=== PATIENT | male | born 1945 | race Caucasian/White ===

== ENCOUNTER 2020-09-22 23:04 | Inpatient (IN) | payer MEDICARE, SELFPAY ==
--- NOTE | ~2020-09-22 | XR_ITS ---
EXAMINATION: XR CHEST CLINICAL INFORMATION: Shortness of breath COMPARISON: 09/23/2020 TECHNIQUE: Frontal view of the chest was obtained. FINDINGS: Cardiac leads overlie the chest. The lungs are well expanded. Increased patchy right basilar opacities. No pleural effusion or pneumothorax. The cardiomediastinal silhouette is normal in size with a tortuous and calcified aorta. XR/XR chest 1V IMPRESSION: Increased patchy opacities of the right base could be infectious or inflammatory. Aspiration possible.
--- NOTE | ~2020-09-22 | XR_ITS ---
EXAMINATION: XR CHEST CLINICAL INFORMATION: Cough COMPARISON: None TECHNIQUE: Frontal portable view of the chest was obtained. 2320 hours FINDINGS: No significant abnormality is noted involving the heart, lungs, mediastinum, bony thorax or soft tissues. XR/XR chest 1V IMPRESSION: Unremarkable examination.
--- NOTE | ~2020-09-22 | CT_ITS ---
EXAMINATION: CT HEAD WITHOUT CONTRAST CLINICAL INFORMATION: Dizziness COMPARISON: None. TECHNIQUE: Contiguous axial imaging was performed from the skull base to vertex without intravenous contrast. This CT examination was performed using dose optimization techniques as appropriate, variously including the following: * Automated exposure control * Adjustment of mA and/or kV according to patient size (this includes techniques or standardized protocols for targeted exams where dose is matched to indication/reason for exam; i.e. extremities or head) Use of iterative reconstruction technique DLP: 727 mGy-cm. FINDINGS: There is no evidence of acute intracranial hemorrhage or territorial infarction. No abnormal mass effect or midline shift is seen. Guevara to white matter differentiation is well preserved. No extra-axial fluid collections are identified. No hydrocephalus. Proportional prominence of the ventricles and sulcal spaces is consistent with mild volume loss. Patchy periventricular and deep white matter hypoattenuation is consistent with mild small vessel ischemic changes. The osseous structures and soft tissues are normal. The mastoid air cells and visualized portions of the paranasal sinuses are well aerated. CT/CT head/brain wo con IMPRESSION: No acute intracranial pathology. Mild volume loss with small vessel ischemic change.
--- NOTE | ~2020-09-22 | CT_ITS ---
EXAMINATION: CT ANGIOGRAM CHEST CLINICAL INFORMATION: Evaluate aorta COMPARISON: Previous chest x-ray 09/23/2020 TECHNIQUE: Multiple axial images were obtained through the chest after the administration of 70 mL of Omnipaque 350 intravenous contrast. Extensive vascular post-processing including two-dimensional and three-dimensional reformatted images were created and reviewed on an independent workstation. This CT examination was performed using dose optimization techniques as appropriate, variously including the following: *Automated exposure control *Adjustment of mA and/or kV according to patient size (this includes techniques or standardized protocols for targeted exams where dose is matched to indication/reason for exam; i.e. extremities or head) *Use of iterative reconstruction technique DLP: 190 mGy-cm FINDINGS: The aortic root is dilated measuring 5.1 cm. The ascending thoracic aorta is upper normal in size measuring 3.9 cm. The aortic arch is upper normal in size measuring 3 cm. The descending thoracic aorta is minimally dilated measuring 3.2 cm. No aortic dissection is seen. The heart is enlarged. The great vessel origins are patent and normal in caliber. There is an aberrant medial course of both internal carotid arteries. There is no pericardial effusion. There is mild coronary artery calcification. There are no enlarged hilar or mediastinal lymph nodes. The visualized thyroid gland is unremarkable. There is biapical pleural and parenchymal scarring and calcification. There is a 3 x 10 mm right apical nodule axial image 89 series 7 that may be related to pleural parenchymal scarring. There is a 2 x 4 mm right upper lobe nodule axial image 122 series 7 that also may be related to pleural parenchymal scarring. There is linear scarring or subsegmental atelectasis in the right lower lobe. There are small bilateral pleural effusions. No chest wall mass or enlarged axillary lymph nodes are seen. There are several low-attenuation liver lesions probably representing cysts. The largest measures 1 cm in the lateral segment of the left lobe.. CT/CT angio chest IMPRESSION: Dilated aortic root measuring 5.1 cm. Enlarged heart. Mild coronary artery calcification. Mild biapical pleural and parenchymal scarring. Small right upper lobe nodules. According to the UPDATED 2017 Fleischner Society recommendations, the advised follow-up imaging: Low risk, chest CT follow-up and high risk, optional chest CT follow-up in one year. Small bilateral pleural effusions. Probable small liver cysts. Findings will be communicated by the [facility] work flow pupil personnel services director Rena Gallegos.
--- NOTE | ~2020-09-22 | MR_ITS ---
EXAMINATION: MR BRAIN WITHOUT CONTRAST CLINICAL INFORMATION: Left leg weakness. COMPARISON: Head CT 09/23/2020. TECHNIQUE: Multiplanar, multisequence imaging of the brain was performed without intravenous contrast. FINDINGS: There is no acute infarction, mass, hemorrhage, or extra-axial collection. Moderate patchy T2/FLAIR hyperintensity seen throughout the bilateral cerebral white matter compatible with chronic microangiopathy. The ventricles and sulci are commensurate compatible with mild degree of brain parenchymal volume loss. The flow voids of the major intracranial arteries appear intact. The bones and extracranial soft tissues are unremarkable. Bilateral lens replacements are seen. There is hyperlordosis in the upper cervical spine with mild retrolisthesis of C3 on C4 and anterolisthesis of C4 on C5. Spinal canal is narrowed. MR/MR head/brain wo con IMPRESSION: No acute infarct, mass lesion, intracranial hemorrhage, or evidence of hydrocephalus. Changes of moderate chronic microangiopathy. Incidentally noted is hyperlordosis in the upper cervical spine with associated spinal canal narrowing.
[2020-09-22 23:12] VITALS: BP 115/66; PULSE 113; RESP 18; TEMP 36.7; O2SAT 99; BMI 26.4
[2020-09-23] VITALS (11 sets, daily range): BP systolic 112–143; BP diastolic 64–83; PULSE 85–113; RESP 18–36; TEMP 36–37.1; O2SAT 92–99; BMI 26.6
--- NOTE | 2020-09-23 00:11 | ED.DIZZY ---
HPI - Dizziness General Chief Complaint: Dizziness Stated Complaint: dizzy, diarrhea, runny nose approx 2 days Time Seen by Provider: 09/23/20 00:09 History of Present Illness HPI Narrative: 75-year-old male with a history of having diarrhea for last 2 days. There has been no recent antibiotics. Her diarrhea was brown in color. No cough no congestion or upper respiratory symptoms the patient had his COVID vaccine. Took Imodium today the diarrhea slowly improved. Patient feel lightheaded weak. No chest pain. No focal weakness. Patient home. No fever. No pain on urination. No new medication. Related Data Allergies Allergy/AdvReac Type Severity Reaction Status Date / Time No Known Allergies Allergy Verified 09/22/20 23:15 Review of Systems Review of Systems: Positive generalized malaise weakness Dizziness No chest pain No focal weakness No bloody stool No syncope Yes all other systems are reviewed and are negative [facility] Past Medical History Attestation statement: The following information was validated with the patient. Surgical History S/P hip replacement Social History Social History Alcohol intake: never Patient Tobacco Use Status: Never used Tobacco Use of substances other than those prescribed or required for medical reasons: No Advance Directives: No Physical Exam Vital Signs: Vital Signs: Last Vital Signs Temp 98.0 F 09/23/20 00:00 Pulse 102 H 09/23/20 04:30 Resp 27 H 09/23/20 04:30 BP 123/72 09/23/20 04:30 Pulse Ox 97 09/23/20 04:30 Body Mass Index 26.4 Appearance: Alert. Oriented X3. No acute distress. Eyes: Pupils equal, round and reactive to light. ENT: Pharynx normal. Neck: Normal inspection. Neck supple. No lymph nodes noted. No crepitus CVS: Normal heart rate and rhythm. Pulses normal. Normal S1 and S2 Respiratory: No respiratory distress. Breath sounds normal. No Wheezing. No rales Abdomen: Soft and nontender. No rigidity. No distention. good BS x4 Skin: Skin warm and dry. Normal skin color. Normal skin turgor. Extremities: No lower extremity edema. Neurovascular intact to all extremities. No Lacerations. No Rash Neuro: Oriented X 3. No motor deficit. No sensory deficit. Moving all extermities. No slurred speech NIH Stroke Scale Internal: Initial- Upon Arrival Level of Consciousness: Alert Level of Consciousness Questions: Answers both questions correctly Level of Consciousness Commands: Performs both tasks correctly Best Gaze: Normal Visual: No visual loss Facial Palsy: Normal Motor Arm (Right): No drift Motor Arm (Left): No drift Motor Leg (Right): No drift Motor Leg (Left): No drift Limb Ataxia: Absent Sensory: Normal Best Language: No aphasia Dysarthia: Normal Extinction and Inattention: No abnormality Score: 0 MDM - Dizziness MDM Narrative Medical decision making narrative: Patient's EKG showed a sinus tachycardia heart rate was 110. MD QRS QT within normal limits. There is nonspecific T-wave flattening diffusely noted. Patient's initial troponin was negative. A 2nd set of troponin is approximately the same. He was given fluid in the emergency department. A chest x-ray was done initially was negative. Patient's white count 11. Attempted to ambulate patient after IV fluid hydration. Patient initially felt him much improved after IV fluids. Patient was extremely wobbly. The family said this is not his baseline. Question if patient had a posterior circulation issue. Will require admission for further evaluation. Patient off load node has no focal weakness. Patient was noted to have increased respiratory rate after IV fluids. A repeat chest x-ray was done. It showed a right lower lobe infiltrate. Cultures will be obtained in the settings of increased heart rate and in the setting of increased respiratory rate cultures were also be obtained. Antibiotics started. Will monitor carefully. Patient's case discussed with the hospitalist team. Lab Data Result diagrams: 09/23/20 00:30 09/23/20 00:30 Labs: Lab Results 09/23/20 09/23/20 09/23/20 Range/Units 00:30 00:30 00:30 WBC 11.4 H (4.8-10.8) X10*3/uL RBC 5.23 (4.60-5.80) X10*6/uL Hgb 15.7 (14.0-18.0) g/dl Hct 47.7 (42-52) % MCV 91.2 (80-98) fL MCH 30.0 (27.0-33.0) pg MCHC 32.9 (31.0-36.0) g/dl RDW 13.2 (11.0-16.0) % Plt Count 160 (160-400) X10*3/uL MPV 9.6 (9.4-12.4) fL Immature Gran % (Auto) 0.3 (0.0-0.4) % Neut % (Auto) 86.5 H (45-73) % Lymph % (Auto) 7.0 L (20-40) % [place] % (Auto) 6.0 (2-11) % Eos % (Auto) 0.0 (0-4) % Baso % (Auto) 0.2 (0-2) % Lymph # (Auto) 0.8 L (1.2-4.9) X10*3/uL [place] # (Auto) 0.7 (0.1-1.2) X10*3/uL Eos # (Auto) 0.0 (0.0-0.4) X10*3/uL Baso # (Auto) 0.0 (0.0-0.2) X10*3/uL Abs Immat Gran (auto) 0.03 (0.00-0.03) X10*3/uL Absolute Neuts (auto) 9.9 H (2.0-8.3) X10*3/uL Absolute Nucleated RBC 0.000 (0.0-0.012) X10*3/uL Nucleated RBC % (auto) 0.0 (0.0-0.2) /100WBC Sodium 138 (135-145) mmol/L Potassium 4.1 (3.3-5.1) mmol/L Chloride 102 (96-108) mmol/L Carbon Dioxide 24 (22-29) mmol/L Anion Gap 16 (12-20) BUN 26 H (9-16) mg/dL Creatinine 1.38 (0.5-1.4) mg/dL Estim Creat Clear Calc 50.7 Estimated GFR 51 Random Glucose 131 H (60-115) mg/dL Calcium 8.9 (8.4-10.2) mg/dL Total Bilirubin 0.9 (0.0-1.0) mg/dL AST 22 (5-37) U/L ALT 11 (0-40) U/L Alkaline Phosphatase 79 (39-117) U/L Troponin I High Sens 30.5 (<3.5-35.0) ng/L Total Protein 7.0 (6.5-8.0) g/dL Albumin 4.1 (3.5-5.0) g/dL Lipase 23 (8-78) U/L Urine Color Urine Appearance Urine pH (5.0-8.0) Ur Specific [place] (1.005-1.025) Urine Protein (NEG-TRACE) MG/DL Urine Glucose (UA) (NEG) MG/DL Urine Ketones (NEG) MG/DL Urine Blood (NEG) Urine Nitrite (NEG) Ur Leukocyte Esterase (NEG) Urine RBC (0) /HPF Urine WBC (0-4) /HPF Ur Squamous Epith Cells /LPF Urine Bacteria /LPF Hyaline Casts /LPF Granular Casts /LPF Urine Mucus /LPF 09/23/20 09/23/20 Range/Units 01:02 02:21 WBC (4.8-10.8) X10*3/uL RBC (4.60-5.80) X10*6/uL Hgb (14.0-18.0) g/dl Hct (42-52) % MCV (80-98) fL MCH (27.0-33.0) pg MCHC (31.0-36.0) g/dl RDW (11.0-16.0) % Plt Count (160-400) X10*3/uL MPV (9.4-12.4) fL Immature Gran % (Auto) (0.0-0.4) % Neut % (Auto) (45-73) % Lymph % (Auto) (20-40) % [place] % (Auto) (2-11) % Eos % (Auto) (0-4) % Baso % (Auto) (0-2) % Lymph # (Auto) (1.2-4.9) X10*3/uL [place] # (Auto) (0.1-1.2) X10*3/uL Eos # (Auto) (0.0-0.4) X10*3/uL Baso # (Auto) (0.0-0.2) X10*3/uL Abs Immat Gran (auto) (0.00-0.03) X10*3/uL Absolute Neuts (auto) (2.0-8.3) X10*3/uL Absolute Nucleated RBC (0.0-0.012) X10*3/uL Nucleated RBC % (auto) (0.0-0.2) /100WBC Sodium (135-145) mmol/L Potassium (3.3-5.1) mmol/L Chloride (96-108) mmol/L Carbon Dioxide (22-29) mmol/L Anion Gap (12-20) BUN (9-16) mg/dL Creatinine (0.5-1.4) mg/dL Estim Creat Clear Calc Estimated GFR Random Glucose (60-115) mg/dL Calcium (8.4-10.2) mg/dL Total Bilirubin (0.0-1.0) mg/dL AST (5-37) U/L ALT (0-40) U/L Alkaline Phosphatase (39-117) U/L Troponin I High Sens 28.7 (<3.5-35.0) ng/L Total Protein (6.5-8.0) g/dL Albumin (3.5-5.0) g/dL Lipase (8-78) U/L Urine Color YELLOW Urine Appearance CLEAR Urine pH 6.0 (5.0-8.0) Ur Specific [place] >= 1.030 H (1.005-1.025) Urine Protein 1+ H (NEG-TRACE) MG/DL Urine Glucose (UA) NEG (NEG) MG/DL Urine Ketones NEG (NEG) MG/DL Urine Blood 1+ H (NEG) Urine Nitrite NEG (NEG) Ur Leukocyte Esterase NEG (NEG) Urine RBC 1-4 (0) /HPF Urine WBC 1-4 (0-4) /HPF Ur Squamous Epith Cells 1+ /LPF Urine Bacteria 1+ /LPF Hyaline Casts 1-4 /LPF Granular Casts 5-9 /LPF Urine Mucus 1+ /LPF Discharge Plan Discharge Clinical Impression: Dizziness, Pneumonia Patient Disposition: Admitted As Inpatient
[2020-09-23] MEDS: 0.9 % Sodium Chloride 1,000 ML 999 ML IV ×2 (00:32→02:36)
[2020-09-23 00:36] LABS: MANUAL DIFF FLAG NO
[2020-09-23 00:37] LABS: Basophils Percent Auto 0.2 % (0-2); Hematocrit 47.7 % (42-52); Hemoglobin 15.7 g/dl (14.0-18.0); Imm Gran Abs Auto 0.03 X10*3/uL (0.00-0.03); Imm Gran Pct Auto 0.3 % (0.0-0.4); Lymphocytes Absolute Auto 0.8 X10*3/uL (1.2-4.9); Mean Corpuscular HGB Conc 32.9 g/dl (31.0-36.0); Mean Corpuscular Volume 91.2 fL (80-98); Mean Platelet Volume 9.6 fL (9.4-12.4); Monocytes Absolute Auto 0.7 X10*3/uL (0.1-1.2); Neutrophils Absolute Auto 9.9 X10*3/uL (2.0-8.3); Neutrophils Percent Auto 86.5 % (45-73); Platelet Count 160 X10*3/uL (160-400); Red Blood Count 5.23 X10*6/uL (4.60-5.80); Red Cell Distribution Width 13.2 % (11.0-16.0); White Blood Count 11.4 X10*3/uL (4.8-10.8)
[2020-09-23 01:00] LABS: Alanine Aminotransferase 11 U/L (0-40); Albumin Level 4.1 g/dL (3.5-5.0); Alkaline Phosphatase 79 U/L (39-117); Anion Gap 16 (12-20); Aspartate Amino Transferase 22 U/L (5-37); Bilirubin Total 0.9 mg/dL (0.0-1.0); Blood Urea Nitrogen 26 mg/dL (9-16); Calcium 8.9 mg/dL (8.4-10.2); Carbon Dioxide 24 mmol/L (22-29); Chloride 102 mmol/L (96-108); Creatinine Clr Calc Pharmacy 50.7; Estimated Glomerular Filt Rate 51; Glucose Random 131 mg/dL (60-115); Lipase 23 U/L (8-78); Potassium 4.1 mmol/L (3.3-5.1); Sodium 138 mmol/L (135-145)
[2020-09-23 01:04] LABS: Troponin-I High Sensitivity 30.5 ng/L (<3.5-35.0)
[2020-09-23 01:10] LABS: Glucose Urine UA NEG (NEG); Leukocyte Esterase Urine NEG (NEG); Nitrite Urine NEG (NEG); Specific Gravity - Urine >= 1.030 (1.005-1.025); Urine Blood 1+ (NEG); Urine Ketones NEG (NEG); Urine Protein 1+ MG/DL (NEG-TRACE)
[2020-09-23 01:11] LABS: Appearance Urine CLEAR; Color Urine YELLOW
[2020-09-23 01:16] LABS: Bacteria Urine 1+ /LPF; Mucus Urine 1+ /LPF; Squamous Epithelial Cell Urine 1+ /LPF
--- NOTE | 2020-09-23 01:52 | ECG_ITS ---
Test Reason : PMH Blood Pressure : / mmHG Vent. Rate : 111 BPM Atrial Rate : 111 BPM P-R Int : 166 ms QRS Dur : 110 ms QT Int : 350 ms P-R-T Axes : 027 -54 081 degrees QTc Int : 476 ms Sinus tachycardia with Premature atrial complexes Left anterior fascicular block ST & T wave abnormality, consider lateral ischemia Abnormal ECG No previous ECGs available Referred By: Jaja Camacho Electronically Signed By:FAIZA JAMESON
[2020-09-23 02:50] LABS: Troponin-I High Sensitivity 28.7 ng/L (<3.5-35.0)
--- NOTE | 2020-09-23 04:12 | PC.NURSE ---
Patient was given a walking trial after 1st bag of saline and patient unable to ambulate without assistance. MD going to consult with hospitalist for admission. Patient became short of breath and was placed on monitor. Oxygen was 93 percent of room air. Patient stated that he was anxious.
[2020-09-23 04:46] LABS: COVID-19 Test Negative (Negative); IDNOW Serial# 9DD0AD1C
[2020-09-23] MEDS: Azithromycin 500 MG TABLET PO ×2 (04:53→10:06)
[2020-09-23] MEDS: cefTRIAXone sodium 1 GM in 0.9 % Sodium Chloride 50 ML IV (04:53)
[2020-09-23 05:05] LABS: Lactic Acid 0.9 mmol/L (0.5-2.0)
[2020-09-23 05:14] LABS: B Type Natriuretic Peptide 267 pg/mL (<100)
[2020-09-23] MEDS: Heparin Sodium,Porcine 5,000 UNIT/ML VIAL 5000 UNIT SUBCUT (05:16)
--- NOTE | 2020-09-23 05:19 | P.HPHOSP_ITS ---
History of Present Illness Date of Service: 09/23/20 Chief Complaint: Dizziness 75-year-old male with a past medical history of GERD, arthritis, history of hip replacement; presented to the hospital with a chief complaint of generalized weakness/dizziness for the past couple days. Patient reports that over the past 2 days he has been feeling dizzy and lightheaded; has not been eating well; mentioned that he had few episodes of diarrhea-no blood in the stool.; denies being on antibiotics recently. Denies any chest pain palpitations. Denies any numbness tingling. Denies any focal weakness. Denies any falls. Patient reports that he has chronic back pain but has not changed. Denies any fever chills cough. Denies any difficulty swallowing. Review of all other systems is negative except mentioned above ER course: Per ER team patient noted wobbly/unsteady on ambulation; noted to have generally weak; exam was grossly nonfocal;; x-ray showed possible pneumonia; started antibiotics. Admitted for further management. [facility] Surgical History S/P hip replacement Social History Household Members: Spouse Housing: House Alcohol intake: never Patient Tobacco Use Status: Never used Tobacco Current occupational status: retired Meds Allergies Allergy/AdvReac Type Severity Reaction Status Date / Time No Known Allergies Allergy Verified 09/22/20 23:15 Active Medications: Current Medications Generic Name Dose Route Start Last Admin Trade Name Freq PRN Reason Stop Dose Admin Acetaminophen 650 mg 09/23/20 04:48 Acetaminophen 325 Mg Tablet PO Q6H PRN Pain, Mild (Pain Scale 1-3) Heparin Sodium (Porcine) 5,000 unit 09/23/20 05:00 09/23/20 05:16 Heparin Sodium,Porcine 5,000 Unit/Ml Vial SUBCUT 5,000 unit Q8H LAURA Administration Ceftriaxone Sodium 1 gm/ 50 mls @ 100 mls/hr 09/24/20 05:00 Sodium Chloride IV Q24H LAURA Metronidazole 500 mg in 100 mls @ 100 mls/hr 09/23/20 05:00 Flagyl IV Q8H LAURA Azithromycin 500 mg/ Sodium 250 mls @ 125 mls/hr 09/24/20 05:00 Chloride IV Q24H LAURA Sodium Chloride 1,000 mls @ 100 mls/hr 09/23/20 05:00 Ns IVCONT .Q10H [facility] Melatonin 6 mg 09/23/20 04:48 Melatonin 3 Mg Tablet PO BEDTIME PRN Insomnia Senna 17.2 mg 09/23/20 04:48 Sennosides 8.6 Mg Tablet PO BEDTIME PRN Constipation Sodium Chloride 3 ml 09/23/20 08:00 0.9 % Sodium Chloride Flush 3 Ml Syringe IVFLUSH QSHIFT [facility] Home Medications Medication Instructions Recorded Confirmed Last Taken Type pantoprazole 1 tab PO DAILY 09/23/20 09/23/20 Unknown History Physical Exam Vital Signs and Narrative: Vital Signs: Last Vital Signs Temp 98.0 F 09/23/20 04:48 Pulse 102 H 09/23/20 04:48 Resp 27 H 09/23/20 04:48 BP 123/72 09/23/20 04:48 Pulse Ox 97 09/23/20 04:48 Body Mass Index 26.4 Gen: Appears be in no acute distress HEENT: NCAT, Moist mucosa. Pulmonary: Coarse breath sounds CVS: Normal S1-S2 Abdomen: BS+, Soft, Nontender Extremities: Warm well perfused Neuro: Alert and awake. Grossly nonfocal; [id number] and [id number] test intact. Results Labs CBC and Chem 7: 09/26/20 05:12 09/26/20 05:12 Labs: Laboratory Results - last 24 hr 09/23/20 09/23/20 09/23/20 00:30 00:30 00:30 MCV 91.2 MCH 30.0 MCHC 32.9 RDW 13.2 Plt Count 160 MPV 9.6 Immature Gran % (Auto) 0.3 Neut % (Auto) 86.5 H Lymph % (Auto) 7.0 L [place] % (Auto) 6.0 Eos % (Auto) 0.0 Baso % (Auto) 0.2 Lymph # (Auto) 0.8 L [place] # (Auto) 0.7 Eos # (Auto) 0.0 Baso # (Auto) 0.0 Abs Immat Gran (auto) 0.03 Absolute Neuts (auto) 9.9 H Absolute Nucleated RBC 0.000 Nucleated RBC % (auto) 0.0 Anion Gap 16 Estim Creat Clear Calc 50.7 Estimated GFR 51 Random Glucose 131 H Lactic Acid Calcium 8.9 Total Bilirubin 0.9 AST 22 ALT 11 Alkaline Phosphatase 79 Troponin I High Sens 30.5 B-Natriuretic Peptide Total Protein 7.0 Albumin 4.1 Lipase 23 Urine Color Urine Appearance Urine pH Ur Specific [place] Urine Protein Urine Glucose (UA) Urine Ketones Urine Blood Urine Nitrite Ur Leukocyte Esterase Urine RBC Urine WBC Ur Squamous Epith Cells Urine Bacteria Hyaline Casts Granular Casts Urine Mucus COVID-19 (SUSAN) COVID-19 Clin Com 09/23/20 09/23/20 09/23/20 01:02 02:21 04:24 MCV MCH MCHC RDW Plt Count MPV Immature Gran % (Auto) Neut % (Auto) Lymph % (Auto) [place] % (Auto) Eos % (Auto) Baso % (Auto) Lymph # (Auto) [place] # (Auto) Eos # (Auto) Baso # (Auto) Abs Immat Gran (auto) Absolute Neuts (auto) Absolute Nucleated RBC Nucleated RBC % (auto) Anion Gap Estim Creat Clear Calc Estimated GFR Random Glucose Lactic Acid Calcium Total Bilirubin AST ALT Alkaline Phosphatase Troponin I High Sens 28.7 B-Natriuretic Peptide Total Protein Albumin Lipase Urine Color YELLOW Urine Appearance CLEAR Urine pH 6.0 Ur Specific [place] >= 1.030 H Urine Protein 1+ H Urine Glucose (UA) NEG Urine Ketones NEG Urine Blood 1+ H Urine Nitrite NEG Ur Leukocyte Esterase NEG Urine RBC 1-4 Urine WBC 1-4 Ur Squamous Epith Cells 1+ Urine Bacteria 1+ Hyaline Casts 1-4 Granular Casts 5-9 Urine Mucus 1+ COVID-19 (SUSAN) Negative COVID-19 Clin Com See Note 09/23/20 09/23/20 04:44 04:44 MCV MCH MCHC RDW Plt Count MPV Immature Gran % (Auto) Neut % (Auto) Lymph % (Auto) [place] % (Auto) Eos % (Auto) Baso % (Auto) Lymph # (Auto) [place] # (Auto) Eos # (Auto) Baso # (Auto) Abs Immat Gran (auto) Absolute Neuts (auto) Absolute Nucleated RBC Nucleated RBC % (auto) Anion Gap Estim Creat Clear Calc Estimated GFR Random Glucose Lactic Acid 0.9 Calcium Total Bilirubin AST ALT Alkaline Phosphatase Troponin I High Sens B-Natriuretic Peptide 267 H Total Protein Albumin Lipase Urine Color Urine Appearance Urine pH Ur Specific [place] Urine Protein Urine Glucose (UA) Urine Ketones Urine Blood Urine Nitrite Ur Leukocyte Esterase Urine RBC Urine WBC Ur Squamous Epith Cells Urine Bacteria Hyaline Casts Granular Casts Urine Mucus COVID-19 (SUSAN) COVID-19 Clin Com Imaging Radiologist's Impressions: Impressions Chest X-Ray 09/23/20 00:09 IMPRESSION: Unremarkable examination. Head CT 09/23/20 02:30 IMPRESSION: No acute intracranial pathology. Mild volume loss with small vessel ischemic change. Chest X-Ray 09/23/20 02:59 IMPRESSION: Increased patchy opacities of the right base could be infectious or inflammatory. Aspiration possible. Assessment and Plan (1) Pneumonia: Status: Acute 75-year-old male with a past medical history of osteoarthritis, history of hip replacement, GERD, presented to the hospital with a chief complaint of generalized weakness/dizziness. Also complained of diarrhea. Diarrhea: Currently improving. Likely gastroenteritis. Abdomen is nontender. If any further episodes of diarrhea will send stool studies. Pneumonia: Suspected aspiration. Continue ceftriaxone, azithromycin, Flagyl. Speech and swallow eval. Follow up cultures. Will send strep pneumo and urine Legionella. Dizziness: Neuro exam grossly nonfocal; patient still continued to have dizziness. Unsteady on ambulation. Neurology consult. DVT prophylaxis: Subcu heparin Code status: Full code Quality Stroke Does the patient have a stroke diagnosis?: No VTE Prior VTE?: No VTE Risk Level:: Medical - moderate - high VTE Device Contraindication: N/A - Device Ordered VTE Drug Contraindication: N/A - Med Ordered
[2020-09-23] MEDS: 0.9 % Sodium Chloride 1,000 ML 100 ML IVCONT ×3 (05:34→23:57)
[2020-09-23] MEDS: metroNIDAZOLE/NS 500 MG/100 ML PIGGYBACK 100 MG IV (05:34)
[2020-09-23 05:39] LABS: PLT CLUMP 1; SCAN SMEAR FLAG 1
[2020-09-23 05:41] LABS: Basophils Percent Auto 0.3 % (0-2); Hematocrit 44.9 % (42-52); Hemoglobin 14.6 g/dl (14.0-18.0); Imm Gran Abs Auto 0.03 X10*3/uL (0.00-0.03); Imm Gran Pct Auto 0.3 % (0.0-0.4); Lymphocytes Absolute Auto 0.8 X10*3/uL (1.2-4.9); Lymphocytes Percent Auto 7.6 % (20-40); Mean Corpuscular HGB Conc 32.5 g/dl (31.0-36.0); Mean Corpuscular Hemoglobin 29.7 pg (27.0-33.0); Mean Corpuscular Volume 91.4 fL (80-98); Mean Platelet Volume 9.4 fL (9.4-12.4); Monocytes Absolute Auto 0.7 X10*3/uL (0.1-1.2); Monocytes Percent Auto 7.1 % (2-11); Neutrophils Absolute Auto 8.7 X10*3/uL (2.0-8.3); Neutrophils Percent Auto 84.7 % (45-73); Platelet Count 137 X10*3/uL (160-400); Red Blood Count 4.91 X10*6/uL (4.60-5.80); Red Cell Distribution Width 13.4 % (11.0-16.0); White Blood Count 10.2 X10*3/uL (4.8-10.8)
[2020-09-23 05:49] LABS: MANUAL DIFF FLAG NO
[2020-09-23 06:03] LABS: Anion Gap 14 (12-20); Blood Urea Nitrogen 22 mg/dL (9-16); Calcium 8.3 mg/dL (8.4-10.2); Carbon Dioxide 21 mmol/L (22-29); Chloride 107 mmol/L (96-108); Creatinine Clr Calc Pharmacy 64.8; Estimated Glomerular Filt Rate > 60; Glucose Random 123 mg/dL (60-115); Potassium 3.8 mmol/L (3.3-5.1); Sodium 138 mmol/L (135-145)
[2020-09-23 07:30] LABS: Magnesium 1.6 mg/dL (1.6-2.6)
[2020-09-23] MEDS: Enoxaparin Sodium 40 MG/0.4 ML SYRINGE SUBCUT (08:26)
[2020-09-23] MEDS: 0.9 % Sodium Chloride Flush 3 ML SYRINGE IVFLUSH (15:57)
[2020-09-23] MEDS: Magnesium Oxide 400 MG TABLET PO (19:55)
[2020-09-24 03:13] VITALS: BP 141/77; PULSE 102; RESP 20; TEMP 36.9; O2SAT 92
[2020-09-24] MEDS: cefTRIAXone sodium 1 GM in 0.9 % Sodium Chloride 50 ML IV (04:46)
[2020-09-24 05:00] LABS: Hematocrit 39.9 % (42-52); Hemoglobin 12.9 g/dl (14.0-18.0); Mean Corpuscular HGB Conc 32.3 g/dl (31.0-36.0); Mean Corpuscular Hemoglobin 29.7 pg (27.0-33.0); Mean Corpuscular Volume 91.7 fL (80-98); Mean Platelet Volume 9.9 fL (9.4-12.4); Platelet Count 143 X10*3/uL (160-400); Red Blood Count 4.35 X10*6/uL (4.60-5.80); Red Cell Distribution Width 13.4 % (11.0-16.0); White Blood Count 5.7 X10*3/uL (4.8-10.8)
[2020-09-24 05:31] LABS: Anion Gap 12 (12-20); Blood Urea Nitrogen 19 mg/dL (9-16); Calcium 7.8 mg/dL (8.4-10.2); Carbon Dioxide 22 mmol/L (22-29); Chloride 112 mmol/L (96-108); Creatinine Clr Calc Pharmacy 80.5; Estimated Glomerular Filt Rate > 60; Glucose Fasting 103 mg/dL (60-99); Potassium 3.8 mmol/L (3.3-5.1); Sodium 142 mmol/L (135-145)
[2020-09-24 07:32] VITALS: BP 138/73; PULSE 91; RESP 18; TEMP 36; O2SAT 93
[2020-09-24] MEDS: 0.9 % Sodium Chloride Flush 3 ML SYRINGE IVFLUSH (08:02)
[2020-09-24] MEDS: Azithromycin 500 MG TABLET PO (08:03)
[2020-09-24] MEDS: Enoxaparin Sodium 40 MG/0.4 ML SYRINGE SUBCUT (08:03)
[2020-09-24] MEDS: Magnesium Oxide 400 MG TABLET PO ×2 (08:03→20:20)
[2020-09-24 08:17] LABS: CDiff Gene PCR NEGATIVE (Negative)
[2020-09-24] MEDS: Loperamide HCl 2 MG CAPSULE PO ×2 (10:40→14:31)
--- NOTE | 2020-09-24 10:47 | PM.NEUROCN ---
History of Present Illness Data of Consult Service Date: 09/24/20 Primary Care Provider: Unknown Physician 75 years old man with underlying history of arthritis came to hospital with 2 days history of dizziness and not feeling well and unsteadiness. There was no associated headache fever chills cough or change in bowel bladder pattern. He said that this morning he was feeling back to baseline with no problems. Review of Systems Review of Systems: No recent trauma headache neck pain or cold or flu-like illness PMFSH Surgical History Surgical History S/P hip replacement Social History Social History Household Members: Spouse Housing: House Alcohol intake: never Patient Tobacco Use Status: Never used Tobacco Use of substances other than those prescribed or required for medical reasons: No Currently Displaying Signs/Symptoms of Drug Intoxication Withdrawal: No Have you been hit, kicked, punched, or otherwise hurt by someone within the past year? If so, by whom?: No Do you feel safe in your current relationship?: Yes Is there a partner from a previous relationship who is making you feel unsafe now?: No Are you made to feel afraid or neglected: No Advance Directives: No Do you have thoughts of harming others: None Do you have a plan to hurt others: No Plan Recently lost weight without trying: No Nutrition Risks: No Nutritional Risk Meds Allergies Allergy/AdvReac Type Severity Reaction Status Date / Time No Known Allergies Allergy Verified 09/22/20 23:15 Active Medications: Current Medications Generic Name Dose Route Start Last Admin Trade Name Edward PRN Reason Stop Dose Admin Acetaminophen 650 mg 09/23/20 04:48 Acetaminophen 325 Mg Tablet PO Q6H PRN Pain, Mild (Pain Scale 1-3) Azithromycin 500 mg 09/23/20 09:30 09/24/20 08:03 Azithromycin 500 Mg Tablet PO 500 mg Q24H LAURA Administration Enoxaparin Sodium 40 mg 09/23/20 08:15 09/24/20 08:03 Enoxaparin Sodium 40 Mg/0.4 Ml Syringe SUBCUT 40 mg Q24H LAURA Administration Ceftriaxone Sodium 1 gm/ 50 mls @ 100 mls/hr 09/24/20 05:00 09/24/20 06:19 Sodium Chloride IV Infused Q24H LAURA Infusion Sodium Chloride 1,000 mls @ 100 mls/hr 09/23/20 05:00 09/23/20 23:57 Ns IVCONT 100 mls/hr .Q10H LAURA Administration Loperamide HCl 2 mg 09/24/20 10:01 09/24/20 10:40 Loperamide Hcl 2 Mg Capsule PO 2 mg Q4H PRN Administration after loose bowel movement Magnesium Oxide 400 mg 09/23/20 17:30 09/24/20 08:03 Magnesium Oxide 400 Mg Tablet PO 400 mg BIDPC LAURA Administration Melatonin 6 mg 09/23/20 04:48 Melatonin 3 Mg Tablet PO BEDTIME PRN Insomnia Senna 17.2 mg 09/23/20 04:48 Sennosides 8.6 Mg Tablet PO BEDTIME PRN Constipation Sodium Chloride 3 ml 09/23/20 08:00 09/24/20 08:02 0.9 % Sodium Chloride Flush 3 Ml Syringe IVFLUSH 3 ml QSHIFT LAURA Administration Home Medications Medication Instructions Recorded Confirmed Last Taken Type pantoprazole 1 tab PO DAILY 09/23/20 09/23/20 Unknown History Physical Exam Vital Signs: Vital Signs: Last Vital Signs Temp 96.8 F 09/24/20 07:32 Pulse 91 09/24/20 07:32 Resp 18 09/24/20 07:32 BP 138/73 09/24/20 07:32 Pulse Ox 93 09/24/20 07:32 Body Mass Index 26.6 He was alert and awake with normal spontaneity of speech fluency comprehension and affect. Pupils were equal and reactive to light and extraocular muscles were intact. Visual gonzalez are full to threat. Face was symmetrical. Tongue was midline. There was minimal left pronator drift. Left [id number] testing revealed mild ataxia value right was normal. Deep tendon reflexes were trace to 1+ with flexor plantars. He was able to get up and walk without assistance. Speech was normal. Results Labs CBC & Chem 7: 09/24/20 04:37 09/24/20 04:37 Labs: Short CBC 09/24/20 Range/Units 04:37 WBC 5.7 (4.8-10.8) X10*3/uL Hgb 12.9 L (14.0-18.0) g/dl Hct 39.9 L (42-52) % Plt Count 143 L (160-400) X10*3/uL BMP 09/24/20 04:37 Sodium 142 Potassium 3.8 Chloride 112 H Carbon Dioxide 22 BUN 19 H Creatinine 0.87 Calcium 7.8 L D His noncontrast head CT revealed moderately severe diffuse cerebellar atrophy and mild cerebral atrophy. There was no obvious acute lesion. Microbiology Microbiology Results: Microbiology 09/23/20 05:12 Blood - Venous Blood Culture - Preliminary No growth after 24 hours. 09/23/20 04:44 Blood - Venous Blood Culture - Preliminary No growth after 24 hours. Assessment and Plan (1) Ataxia: Status: Acute Mild cerebellar ataxia from chronic degenerative process. A new lesion such as a small ischemic if infarct was difficult to completely rule out. Because of focal finding on left side, I suggest obtaining a noncontrast MRI of brain to rule out right sided subcortical infarct. Procedures Date of Service Date of Service: 09/24/20
[2020-09-24 11:39] VITALS: BP 122/70; PULSE 92; RESP 18; TEMP 36.2; O2SAT 95
[2020-09-24] MEDS: 0.9 % Sodium Chloride 1,000 ML 100 ML IVCONT (11:51)
--- NOTE | 2020-09-24 12:09 | MHC.SL.SWA ---
Speech Pathologist Impression: Within Functional Limits Risk of Aspiration Due to: Poor PO Intake Dysphasia Diet Status: Liquid Consistency and Strategies for Safe Swallow: Liquid Intake Recommendation: Thin Liquid Intake Strategies: Unrestricted Solid Food Consistency: Dietary Recommendations: Regular Additional Modifications to Solid Foods: Oral Medication Intake: Whole with Liquid Compensatory Strategies and Precautions to be Taken for Safe Swallow: Sitting Upright (90 deg) Liquids from Cup Liquids from Straw Small Bites and Sips Alternate Liquids/Solids Supervision While Eating and Drinking for Safe Swallow: None Needed Foods to Avoid: Swallowing Recommended Treatments: Recommendation for Speech: NA:Typical Evaluation Comment: Pt's evaluation WFL. Due to concerns of aspiration, consider outpatient MBSS if symptoms persist. Psychology Intern Clinican/Clinical Fellow: No Supervisory Statement: I have reviewed and agree with the student/clinical fellow's documentation: N/A Speech Language Pathologist: Charlotte Christian M.A. CCC-MEMS INTEGRATION ENGINEER
--- NOTE | 2020-09-24 14:08 | HO.PM.IMPN ---
Subjective Subjective Date of Service: 09/24/20 Interval History: diarrhea Cardiovascular Cardiovascular: Reports no additional cardiovascular complaints Respiratory Respiratory: Reports no additional respiratory complaints Physical Exam Vital Signs: Vital Signs: Last Vital Signs Temp 97.2 F 09/24/20 11:39 Pulse 92 09/24/20 11:39 Resp 18 09/24/20 11:39 BP 122/70 09/24/20 11:39 Pulse Ox 95 09/24/20 11:39 Body Mass Index 26.6 General: AO X 3, no acute distress Resp: CTA bilateral CVS: S1,S2,RRR GI: soft, non tender, non distended Neuro: motor grossly intact Psych: appropriate affect Objective Data Current Medications Generic Name Dose Route Start Last Admin Trade Name Freq PRN Reason Stop Dose Admin Acetaminophen 650 mg 09/23/20 04:48 Acetaminophen 325 Mg Tablet PO Q6H PRN Pain, Mild (Pain Scale 1-3) Azithromycin 500 mg 09/23/20 09:30 09/24/20 08:03 Azithromycin 500 Mg Tablet PO 500 mg Q24H LAURA Administration Enoxaparin Sodium 40 mg 09/23/20 08:15 09/24/20 08:03 Enoxaparin Sodium 40 Mg/0.4 Ml Syringe SUBCUT 40 mg Q24H LAURA Administration Ceftriaxone Sodium 1 gm/ 50 mls @ 100 mls/hr 09/24/20 05:00 09/24/20 06:19 Sodium Chloride IV Infused Q24H LAURA Infusion Sodium Chloride 1,000 mls @ 100 mls/hr 09/23/20 05:00 09/24/20 11:51 Ns IVCONT 100 mls/hr .Q10H LAURA Administration Loperamide HCl 2 mg 09/24/20 10:01 09/24/20 10:40 Loperamide Hcl 2 Mg Capsule PO 2 mg Q4H PRN Administration after loose bowel movement Magnesium Oxide 400 mg 09/23/20 17:30 09/24/20 08:03 Magnesium Oxide 400 Mg Tablet PO 400 mg BIDPC LAURA Administration Melatonin 6 mg 09/23/20 04:48 Melatonin 3 Mg Tablet PO BEDTIME PRN Insomnia Senna 17.2 mg 09/23/20 04:48 Sennosides 8.6 Mg Tablet PO BEDTIME PRN Constipation Sodium Chloride 3 ml 09/23/20 08:00 09/24/20 08:02 0.9 % Sodium Chloride Flush 3 Ml Syringe IVFLUSH 3 ml QSHIFT LAURA Administration Labs CBC & Chem 7: 09/24/20 04:37 09/24/20 04:37 Labs: Laboratory Results - last 24 hr 09/23/20 09/24/20 09/24/20 19:34 04:37 04:37 WBC 5.7 RBC 4.35 L Hgb 12.9 L Hct 39.9 L MCV 91.7 MCH 29.7 MCHC 32.3 RDW 13.4 Plt Count 143 L MPV 9.9 Absolute Nucleated RBC 0.000 Nucleated RBC % (auto) 0.0 Sodium 142 Potassium 3.8 Chloride 112 H Carbon Dioxide 22 Anion Gap 12 BUN 19 H Creatinine 0.87 Estim Creat Clear Calc 80.5 Estimated GFR > 60 Fasting Glucose 103 H Calcium 7.8 L D C. difficile Tox B Gene NEGATIVE Microbiology Microbiology Results: Microbiology 09/23/20 05:12 Blood Culture - Preliminary Blood - Venous No growth after 24 hours. 09/23/20 04:44 Blood Culture - Preliminary Blood - Venous No growth after 24 hours. Quality Stroke Does the patient have a stroke diagnosis?: No VTE Prior VTE?: No VTE Risk Level:: Medical - moderate - high VTE Device Contraindication: N/A - Device Ordered VTE Drug Contraindication: N/A - Med Ordered Assessment and Plan (1) Dizziness: Status: Acute Assessment and Plan: 75M presented with weakness and diarrhea, found to have pneumonia weakness likely due to dehydration, improved with ivf, MRI negative for acute CVA, cervical findings chronic per patient pneumonia continue ceftiraoxone and azithro follow up serologies and cultures diarrhea cdif negative can use imodium
--- NOTE | 2020-09-24 14:23 | MHC.CM.PN ---
CM MET WITH PT WHO REPORTS HE LIVES AT HOME WIHT HIS AND IS INDEPENDENT WITH CARE. PT DENIES USE OF DME OR HOME SERVICES. PT DOES NOT HAVE A HCP AND DECLINED TO COMPLETE ONE TODAY, INFORMATION AND A BLANK DOCUMENT WERE PROVIDED. PT DOES NOT CURRENTLY HAVE A PCP. HE REPORTS HIS PREVIOUS PCP, BLANCA CANTRELL, RETIRED AND HE DOES NOT WANT TO CHOOSE ANOTHER ONE AT [facility] WHERE HE HAD BEEN GOING. PT PLANS TO GO TO THE SAME OFFICE HIS BUT HE IS UNABLE TO TELL THIS SCRUB WOMAN WHERE IT IS. IMM DELIVERED CURRENT DC PLAN IS HOME WITH NO SERVICES PT TO TRANSPORT
[2020-09-24] MEDS: Lactated Ringers 1,000 ML 100 ML IVCONT ×2 (14:27→23:51)
[2020-09-24 15:26] VITALS: BP 119/64; PULSE 85; RESP 20; TEMP 36; O2SAT 95
[2020-09-24 19:16] VITALS: BP 136/72; PULSE 79; RESP 20; TEMP 36; O2SAT 95
[2020-09-24 23:38] VITALS: BP 158/79; PULSE 82; RESP 18; TEMP 36.8; O2SAT 95
[2020-09-25] VITALS (12 sets, daily range): BP systolic 93–139; BP diastolic 56–77; PULSE 90–146; RESP 18–20; TEMP 36.3–37.2; O2SAT 91–98
--- NOTE | 2020-09-25 | ECG_ITS ---
Test Reason : tachy Blood Pressure : / mmHG Vent. Rate : 121 BPM Atrial Rate : 119 BPM P-R Int : 000 ms QRS Dur : 108 ms QT Int : 300 ms P-R-T Axes : 000 -43 021 degrees QTc Int : 426 ms Atrial fibrillation with rapid ventricular response Left axis deviation Nonspecific ST and T wave abnormality Abnormal ECG When compared to the previous EKG of Atrial fibrillation Present Referred By: Earle Richter Electronically Signed By:Amor Llanes
--- NOTE | 2020-09-25 01:33 | PM.EVENT ---
Event Note Date of Service: 09/25/20 Event Note: pt developed a flutter w hr in the 140s. asymptomatic. given 5 of lopressor, echo and consult to cardiology
[2020-09-25] MEDS: Metoprolol Tartrate 5 MG/5 ML VIAL IVPUSH (01:44)
--- NOTE | 2020-09-25 02:05 | PC.NURSE ---
Addendum entered by Jenna Ivey RN 09/25/20 06:18: Patient has remained in Aflutter but HR has improved. HR staying between low 100s to 126, occasionally going into the 130s but not sustaining there. Original Note: Patient converted into Aflutter on tele at approx 0055 this morning. HR between 1teens to 140s. Pt assessed, no shortness of breath, palpitations or dizziness. VSS. Dr Patino notified. New orders for EKG, trop, 5 mg IV metoprolol, cardio consult and ECHO. Pt given 5mg IV metoprolol with some positive effect. HR down to 1-teens to 120s, BP 93/66. Will continue to monitor.
[2020-09-25 02:09] LABS: Troponin-I High Sensitivity 14.8 ng/L (<3.5-35.0)
[2020-09-25] MEDS: Loperamide HCl 2 MG CAPSULE PO (03:02)
[2020-09-25] MEDS: cefTRIAXone sodium 1 GM in 0.9 % Sodium Chloride 50 ML IV (05:11)
[2020-09-25 05:56] LABS: Hematocrit 38.9 % (42-52); Hemoglobin 12.5 g/dl (14.0-18.0); Mean Corpuscular HGB Conc 32.1 g/dl (31.0-36.0); Mean Corpuscular Hemoglobin 29.4 pg (27.0-33.0); Mean Corpuscular Volume 91.5 fL (80-98); Mean Platelet Volume 10.1 fL (9.4-12.4); Platelet Count 162 X10*3/uL (160-400); Red Blood Count 4.25 X10*6/uL (4.60-5.80); Red Cell Distribution Width 13.3 % (11.0-16.0); White Blood Count 7.4 X10*3/uL (4.8-10.8)
[2020-09-25 06:12] LABS: Anion Gap 13 (12-20); Blood Urea Nitrogen 15 mg/dL (9-16); Calcium 7.7 mg/dL (8.4-10.2); Carbon Dioxide 24 mmol/L (22-29); Chloride 108 mmol/L (96-108); Creatinine Clr Calc Pharmacy 81.4; Estimated Glomerular Filt Rate > 60; Glucose Fasting 101 mg/dL (60-99); Potassium 3.7 mmol/L (3.3-5.1); Sodium 141 mmol/L (135-145)
--- NOTE | 2020-09-25 08:30 | CA_ITS ---
Transthoracic Echocardiogram Patient (Last, First, Middle): Francois Ca, Gender: Male Date of : 1945 Age: 75 Procedure Date: 09/25/2020 Procedure Type: Transthoracic Echocardiogram Location[place] [facility] [place] Height: 180.34 cm Weight: 86.18 kg BSA: 2.06 m2 Heart Rate: bpm BP: 135 / 74 mmHg Bleacher Pulp: Referring MD: Earle Richter MD Symptoms: aflutter Study Quality: Fair ECG Rhythm: Atrial Fibrillation Conclusions: - Normal left ventricular cavity size. There is severely increased left ventricular wall thickness. The left ventricular systolic function is moderately decreased. The visually estimated ejection fraction is between 30-35%. - Normal right ventricular cavity size and systolic function. - The left atrium is moderately dilated. - There is moderate dilatation of the sinuses of Valsalva measuring 5.10 cm and moderate dilatation of the ascending aorta measuring 4.60 cm. - Consider CT to assess aortic diltation. Findings Left Ventricle Normal left ventricular cavity size. There is severely increased left ventricular wall thickness. The left ventricular systolic function is moderately decreased. The visually estimated ejection fraction is between 30 35%. There is moderate global hypokinesis. Diastolic function is indeterminate on the basis of available data. Right Ventricle Normal right ventricular cavity size and systolic function. Atria The left atrium is moderately dilated. Aortic Valve There is a normal trileaflet aortic valve. There is no aortic valve stenosis. There is mild aortic valve regurgitation. Mitral Valve There is mild mitral annular calcification. There is no mitral valve regurgitation. There is no mitral valve stenosis. Pulmonic Valve The pulmonic valve is likely normal. Tricuspid Valve Normal tricuspid valve structure and function. There is trace tricuspid valve regurgitation. Mildly elevated right atrial pressure. There is no evidence of pulmonary hypertension. Great Vessels There is moderate dilatation of the sinuses of Valsalva measuring 5.10 cm and moderate dilatation of the ascending aorta measuring 4.60 cm. Venous The inferior vena cava is dilated and collapses greater than 50% with inspiration. Pericardium/Pleural There is no evidence of pericardial effusion. Prior Study Comparison No prior study available for comparison. Measurements 2D Linear Measurements IVSd: 1.51 0.6-0.9/0.6-1.0 cm LVIDd: 5.68 3.9-5.3/4.2-5.9 cm LVIDd Index: 2.76 2.4-3.2/2.2-3.1 cm/m2 LVIDs: 4.36 2.0-3.6 cm LVPWd: 1.44 0.7-1.1 cm Ao Root: 4.30 2.1-3.5 cm LA Diam: 3.10 2.7-3.8/3.0-4.0 cm LAIDs Index: 1.50 1.5-2.3 cm/m2 LV Mass: 477.86 67-162/88-224 g LV Mass Index: 231.97 43-95/49-115 g/m2 LVOT Diam: 2.60 3.0+(-)1.3 cm 2D Systolic Function EF 4C: 30.00 >55% EF 2C: 28.90 >55% EF BiP: 29.10 >55% Mitral Valve MV Pk E: 0.87 MV Decel Time: 109.00 E'Lateral: 14.30 E'Medial: 9.90 E/E' Med: 8.70 E/E' Lat: 6.00 PHT: 32.00 MVA PHT: 6.88 Decel [place]: 7.95 Aortic Valve AoV Pk Mike: 1.62 AoV Mn Mike: 1.11 AoV VTI: 0.30 AoV Pk Grad: 10.00 Aov Mn Grad: 6.00 MICHELLE Cont.VTI: 3.65 LVOT LVOT Pk Mike: 1.11 LVOT Mn Mike: 0.75 LVOT VTI: 0.21 LVOT Pk Grad: 5.00 LVOT Mn Grad: 3.00 LVOT Diam: 2.60 LVOT Area: 5.31 Diastolic Function MV Pk E: 0.87 E'Medial: 9.90 E/E' Med: 8.70 E' Laterial: 14.30 E/E' Lat: 6.00 Tricuspid Valve TR Pk Mike: 2.26 TR Pk Grad: 20.00 RA Press: 3.00 RVSP: 23.00 Great Vessels Aorta Ao Root-2D: 4.30 2.0-3.7 cm Sinus of Valsalva: 5.10 2.0-3.5 cm Ao Asc: 4.60 2.1-3.4 cm Updated in Other Vendor System with Status of Final Amor Llanes MD electronically signed on 09/25/2020 1:43:01 PM with status of Final
[2020-09-25] MEDS: Enoxaparin Sodium 40 MG/0.4 ML SYRINGE SUBCUT (08:38)
[2020-09-25] MEDS: Azithromycin 500 MG TABLET PO (08:39)
[2020-09-25] MEDS: Magnesium Oxide 400 MG TABLET PO ×2 (08:39→17:19)
[2020-09-25] MEDS: Metoprolol Tartrate 25 MG TABLET PO ×4 (09:03→21:05)
--- NOTE | 2020-09-25 10:15 | PC.NURSE ---
Patient heart rate 150s/160s atrial flutter, asymptomatic dr. melsisa at bedside. 25mg metoprolol po ordered and given. Heart rate currently 110 atrial flutter. Will continue to monitor heart rate
[2020-09-25] MEDS: Lactated Ringers 1,000 ML 100 ML IVCONT ×2 (10:21→21:08)
--- NOTE | 2020-09-25 11:44 | HO.PM.IMPN ---
Subjective Subjective Date of Service: 09/25/20 Interval History: weak, went into rapid afib last night Cardiovascular Cardiovascular: Reports no additional cardiovascular complaints Respiratory Respiratory: Reports no additional respiratory complaints Physical Exam Vital Signs: Vital Signs: Last Vital Signs Temp 98.9 F 09/25/20 11:07 Pulse 96 09/25/20 11:07 Resp 18 09/25/20 11:07 BP 124/75 09/25/20 11:07 Pulse Ox 95 09/25/20 11:07 Body Mass Index 26.6 General: AO X 3, no acute distress Resp: CTA bilateral CVS: S1,S2,Rapid irregular GI: soft, non tender, non distended Neuro: motor grossly intact Psych: appropriate affect Objective Data Current Medications Generic Name Dose Route Start Last Admin Trade Name Freq PRN Reason Stop Dose Admin Acetaminophen 650 mg 09/23/20 04:48 Acetaminophen 325 Mg Tablet PO Q6H PRN Pain, Mild (Pain Scale 1-3) Azithromycin 500 mg 09/23/20 09:30 09/25/20 08:39 Azithromycin 500 Mg Tablet PO 500 mg Q24H LAURA Administration Enoxaparin Sodium 40 mg 09/23/20 08:15 09/25/20 08:38 Enoxaparin Sodium 40 Mg/0.4 Ml Syringe SUBCUT 40 mg Q24H LAURA Administration Ceftriaxone Sodium 1 gm/ 50 mls @ 100 mls/hr 09/24/20 05:00 09/25/20 05:48 Sodium Chloride IV Infused Q24H LAURA Infusion Lactated Ringer's 1,000 mls @ 100 mls/hr 09/24/20 14:15 09/25/20 10:21 Lr IVCONT 100 mls/hr .Q10H LAURA Administration Loperamide HCl 2 mg 09/24/20 10:01 09/25/20 03:02 Loperamide Hcl 2 Mg Capsule PO 2 mg Q4H PRN Administration after loose bowel movement Magnesium Oxide 400 mg 09/23/20 17:30 09/25/20 08:39 Magnesium Oxide 400 Mg Tablet PO 400 mg BIDPC LAURA Administration Melatonin 6 mg 09/23/20 04:48 Melatonin 3 Mg Tablet PO BEDTIME PRN Insomnia Metoprolol Tartrate 25 mg 09/25/20 08:55 09/25/20 09:03 Metoprolol Tartrate 25 Mg Tablet PO 25 mg QID LAURA Administration Protocol Senna 17.2 mg 09/23/20 04:48 Sennosides 8.6 Mg Tablet PO BEDTIME PRN Constipation Sodium Chloride 3 ml 09/23/20 08:00 09/25/20 07:29 0.9 % Sodium Chloride Flush 3 Ml Syringe IVFLUSH Not Given QSHIFT LAURA Labs CBC & Chem 7: 09/25/20 05:31 09/25/20 05:31 Labs: Laboratory Results - last 24 hr 09/25/20 09/25/20 09/25/20 01:40 05:31 05:31 WBC 7.4 RBC 4.25 L Hgb 12.5 L Hct 38.9 L MCV 91.5 MCH 29.4 MCHC 32.1 RDW 13.3 Plt Count 162 MPV 10.1 Absolute Nucleated RBC 0.000 Nucleated RBC % (auto) 0.0 Sodium 141 Potassium 3.7 Chloride 108 Carbon Dioxide 24 Anion Gap 13 BUN 15 Creatinine 0.86 Estim Creat Clear Calc 81.4 Estimated GFR > 60 Fasting Glucose 101 H Calcium 7.7 L Troponin I High Sens 14.8 Microbiology Microbiology Results: Microbiology 09/23/20 05:12 Blood Culture - Preliminary Blood - Venous No growth after 48 hours. 09/23/20 04:44 Blood Culture - Preliminary Blood - Venous No growth after 48 hours. Quality Stroke Does the patient have a stroke diagnosis?: No VTE Prior VTE?: No VTE Risk Level:: Medical - moderate - high VTE Device Contraindication: N/A - Device Ordered VTE Drug Contraindication: N/A - Med Ordered Assessment and Plan (1) Dizziness: Status: Acute Assessment and Plan: 75M presented with weakness and diarrhea, found to have pneumonia new afib with rvr lopressor echo cardio weakness likely due to dehydration, improved with ivf, MRI negative for acute CVA, cervical findings chronic per patient pneumonia continue ceftiraoxone and azithro follow up serologies and cultures diarrhea cdif negative can use imodium
--- NOTE | 2020-09-25 13:07 | P.CONCA_ITS ---
History of Present Illness History of Present Illness Date of Service: 09/25/20 Requesting physician: Paul Wilks Chief complaint: PNA, Afib Narrative: 75-year-old gentleman who presented with pneumonia and overnight developed AFib with RVR. He has no palpitations or any symptoms. He is denying chest pain or shortness of breath. No orthopnea PND. Clinically asymptomatic from AFib point of view. Does not have any significant risk factors for stroke other than age more than 65 years old. Review of Systems Review of Systems: No symptoms PMFSH Surgical History Surgical History S/P hip replacement Social History Social History Household Members: Spouse Housing: House Alcohol intake: never Patient Tobacco Use Status: Never used Tobacco Use of substances other than those prescribed or required for medical reasons: No Currently Displaying Signs/Symptoms of Drug Intoxication Withdrawal: No Have you been hit, kicked, punched, or otherwise hurt by someone within the past year? If so, by whom?: No Do you feel safe in your current relationship?: Yes Is there a partner from a previous relationship who is making you feel unsafe now?: No Are you made to feel afraid or neglected: No Advance Directives: No Do you have thoughts of harming others: None Do you have a plan to hurt others: No Plan Recently lost weight without trying: No Nutrition Risks: No Nutritional Risk Current occupational status: retired Meds Allergies Allergy/AdvReac Type Severity Reaction Status Date / Time No Known Allergies Allergy Verified 09/22/20 23:15 Active Medications: Current Medications Generic Name Dose Route Start Last Admin Trade Name Freq PRN Reason Stop Dose Admin Acetaminophen 650 mg 09/23/20 04:48 Acetaminophen 325 Mg Tablet PO Q6H PRN Pain, Mild (Pain Scale 1-3) Azithromycin 500 mg 09/23/20 09:30 09/25/20 08:39 Azithromycin 500 Mg Tablet PO 500 mg Q24H LAURA Administration Enoxaparin Sodium 40 mg 09/23/20 08:15 09/25/20 08:38 Enoxaparin Sodium 40 Mg/0.4 Ml Syringe SUBCUT 40 mg Q24H LAURA Administration Ceftriaxone Sodium 1 gm/ 50 mls @ 100 mls/hr 09/24/20 05:00 09/25/20 05:48 Sodium Chloride IV Infused Q24H LAURA Infusion Lactated Ringer's 1,000 mls @ 100 mls/hr 09/24/20 14:15 09/25/20 10:21 Lr IVCONT 100 mls/hr .Q10H LAURA Administration Loperamide HCl 2 mg 09/24/20 10:01 09/25/20 03:02 Loperamide Hcl 2 Mg Capsule PO 2 mg Q4H PRN Administration after loose bowel movement Magnesium Oxide 400 mg 09/23/20 17:30 09/25/20 08:39 Magnesium Oxide 400 Mg Tablet PO 400 mg BIDPC LAURA Administration Melatonin 6 mg 09/23/20 04:48 Melatonin 3 Mg Tablet PO BEDTIME PRN Insomnia Metoprolol Tartrate 25 mg 09/25/20 08:55 09/25/20 12:38 Metoprolol Tartrate 25 Mg Tablet PO 25 mg QID LAURA Administration Protocol Senna 17.2 mg 09/23/20 04:48 Sennosides 8.6 Mg Tablet PO BEDTIME PRN Constipation Sodium Chloride 3 ml 09/23/20 08:00 09/25/20 07:29 0.9 % Sodium Chloride Flush 3 Ml Syringe IVFLUSH Not Given QSHIFT [facility] Home Medications Medication Instructions Recorded Confirmed Last Taken Type pantoprazole 1 tab PO DAILY 09/23/20 09/23/20 Unknown History Physical Exam Vital Signs: Vital Signs: Last Vital Signs Temp 98.9 F 09/25/20 11:07 Pulse 107 H 09/25/20 12:38 Resp 18 09/25/20 11:07 BP 99/64 09/25/20 12:38 Pulse Ox 95 09/25/20 11:07 Body Mass Index 26.6 GENERAL APPEARANCE: in no acute distress, pleasant. NECK: no carotid bruit, no jugular venous distention. SKIN: no suspicious lesions, warm and dry. HEART: no murmurs, irregular rate and rhythm. LUNGS: clear to auscultation bilaterally. ABDOMEN: soft, nontender. EXTREMITIES: no edema. PERIPHERAL PULSES: equal. NEUROLOGIC: No gross deficits, AAO X 3 Results Labs and Meds Result diagrams: 09/25/20 05:31 09/25/20 05:31 Lab results: Laboratory Results - last 24 hr 09/25/20 09/25/20 09/25/20 01:40 05:31 05:31 WBC 7.4 RBC 4.25 L Hgb 12.5 L Hct 38.9 L MCV 91.5 MCH 29.4 MCHC 32.1 RDW 13.3 Plt Count 162 MPV 10.1 Absolute Nucleated RBC 0.000 Nucleated RBC % (auto) 0.0 Sodium 141 Potassium 3.7 Chloride 108 Carbon Dioxide 24 Anion Gap 13 BUN 15 Creatinine 0.86 Estim Creat Clear Calc 81.4 Estimated GFR > 60 Fasting Glucose 101 H Calcium 7.7 L Troponin I High Sens 14.8 Imaging Radiologist's impression: Impressions Brain MRI 09/24/20 13:04 IMPRESSION: No acute infarct, mass lesion, intracranial hemorrhage, or evidence of hydrocephalus. Changes of moderate chronic microangiopathy. Incidentally noted is hyperlordosis in the upper cervical spine with associated spinal canal narrowing. Assessment and Plan (1) Pneumonia: Status: Acute (2) PAF (paroxysmal atrial fibrillation): Status: Acute 72-year-old gentleman who is presenting for pneumonia. He was improving from pneumonia but developed AFib with RVR overnight. He is completely asymptomatic from AFib point of view. Chads Vasc is 1 due to age more than 65. Currently would not anticoagulate him. Will check echocardiogram. If echo showed LV dysfunction or any concerns for wall motion abnormality pointing towards coronary artery disease/old infarct then I would consider anticoagulation. His heart rate is controlled with metoprolol right now. Thank you for allowing me to participate in the care of your patient. Please feel free to contact me if you have any questions. Procedures Date of Service Date of Service: 09/25/20
[2020-09-25] MEDS: 0.9 % Sodium Chloride Flush 3 ML SYRINGE IVFLUSH (15:17)
[2020-09-25] MEDS: iohexoL 350 MG/ML 100 ML INFUS..BTL 70 ML IV (16:05)
[2020-09-25] MEDS: Amiodarone HCL 200 MG TABLET 400 MG PO (21:06)
[2020-09-25] MEDS: Apixaban 5 MG TABLET PO (21:09)
[2020-09-26] MEDS: 0.9 % Sodium Chloride Flush 3 ML SYRINGE IVFLUSH (00:09)
[2020-09-26 03:25] VITALS: BP 113/71; PULSE 95; RESP 20; TEMP 36.6; O2SAT 92
[2020-09-26] MEDS: cefTRIAXone sodium 1 GM in 0.9 % Sodium Chloride 50 ML IV (05:27)
[2020-09-26] MEDS: Lactated Ringers 1,000 ML 100 ML IVCONT (05:27)
[2020-09-26 06:15] LABS: Hematocrit 37.5 % (42-52); Hemoglobin 12.1 g/dl (14.0-18.0); Mean Corpuscular HGB Conc 32.3 g/dl (31.0-36.0); Mean Corpuscular Hemoglobin 29.4 pg (27.0-33.0); Mean Platelet Volume 10.1 fL (9.4-12.4); Platelet Count 170 X10*3/uL (160-400); Red Blood Count 4.12 X10*6/uL (4.60-5.80); Red Cell Distribution Width 13.2 % (11.0-16.0); White Blood Count 6.6 X10*3/uL (4.8-10.8)
[2020-09-26 07:01] LABS: Anion Gap 9 (12-20); Blood Urea Nitrogen 13 mg/dL (9-16); Calcium 7.7 mg/dL (8.4-10.2); Carbon Dioxide 28 mmol/L (22-29); Chloride 107 mmol/L (96-108); Creatinine Clr Calc Pharmacy 83.4; Estimated Glomerular Filt Rate > 60; Glucose Fasting 92 mg/dL (60-99); Magnesium 1.7 mg/dL (1.6-2.6); Potassium 3.7 mmol/L (3.3-5.1); Sodium 140 mmol/L (135-145)
[2020-09-26 07:39] VITALS: BP 109/64; PULSE 86; RESP 18; TEMP 36.4; O2SAT 91
[2020-09-26] MEDS: Magnesium Oxide 400 MG TABLET PO (08:10)
[2020-09-26] MEDS: Amiodarone HCL 200 MG TABLET 400 MG PO (08:10)
[2020-09-26] MEDS: Apixaban 5 MG TABLET PO (08:11)
[2020-09-26] MEDS: Metoprolol Tartrate 25 MG TABLET PO (08:11)
[2020-09-26] MEDS: Furosemide 20 MG/2 ML VIAL IVPUSH (10:50)
--- NOTE | 2020-09-26 11:56 | PM.PNCARD ---
Subjective Subjective Date of Service: 09/26/20 Interval history: Complaining of cough when he tries to lay flat. Physical Exam Vital Signs: Last Vital Signs Temp 97.6 F 09/26/20 07:39 Pulse 86 09/26/20 07:39 Resp 18 09/26/20 07:39 BP 109/64 09/26/20 07:39 Pulse Ox 91 L 09/26/20 07:39 Body Mass Index 26.6 GENERAL APPEARANCE: in no acute distress, pleasant. NECK: no carotid bruit, + jugular venous distention. SKIN: no suspicious lesions, warm and dry. HEART: no murmurs, irregular rate and rhythm. LUNGS: clear to auscultation bilaterally. ABDOMEN: soft, nontender. EXTREMITIES: no edema. PERIPHERAL PULSES: equal. NEUROLOGIC: No gross deficits, AAO X 3 Results Labs and Meds Result diagrams: 09/26/20 05:12 09/26/20 05:12 Lab results: Laboratory Results - last 24 hr 09/26/20 09/26/20 05:12 05:12 WBC 6.6 RBC 4.12 L Hgb 12.1 L Hct 37.5 L MCV 91.0 MCH 29.4 MCHC 32.3 RDW 13.2 Plt Count 170 MPV 10.1 Absolute Nucleated RBC 0.000 Nucleated RBC % (auto) 0.0 Sodium 140 Potassium 3.7 Chloride 107 Carbon Dioxide 28 Anion Gap 9 L BUN 13 Creatinine 0.84 Estim Creat Clear Calc 83.4 Estimated GFR > 60 Fasting Glucose 92 Calcium 7.7 L Magnesium 1.7 Imaging Radiologist's impression: Impressions Chest CTA 09/25/20 16:13 IMPRESSION: Dilated aortic root measuring 5.1 cm. Enlarged heart. Mild coronary artery calcification. Mild biapical pleural and parenchymal scarring. Small right upper lobe nodules. According to the UPDATED 2017 Fleischner Society recommendations, the advised follow-up imaging: Low risk, chest CT follow-up and high risk, optional chest CT follow-up in one year. Small bilateral pleural effusions. Probable small liver cysts. Findings will be communicated by the [place] work flow car dumper operator helper Rena Gallegos. Progress Note: A&P Assessment and plan (1) PAF (paroxysmal atrial fibrillation): Status: Acute (2) Cardiomyopathy: Status: Acute (3) Aortic aneurysm: Status: Acute Assessment and Plan: 75-year-old gentleman presented for pneumonia and is on antibiotics. His recently found to have cardiomyopathy with EF of 30 35% and dilated aortic root of 5.[address] chest which confirmed dilated aortic root but no ascending or descending aortic dilatation. This is currently moderately dilated and does not require any urgent intervention. He is complaining of cough when he tries to lay back. I think his describing orthopnea. He has some JVD on exam. I would give him 20 mg of IV Lasix x1. Stopping the amiodarone. Continue metoprolol succinate 50 mg once a day. Add Entresto. I would consider a rate control strategy 1st on him. He developed AFib after admission and I think AFib is due to cardiomyopathy rather than the cause of cardiomyopathy.He will need ischemic evaluation as outpatient. Thank you for allowing me to participate in the care of your patient. Please feel free to contact me if you have any questions. Fall Risk Details Current Medications: Current Medications Generic Name Dose Route Start Last Admin Trade Name Freq PRN Reason Stop Dose Admin Acetaminophen 650 mg 09/23/20 04:48 Acetaminophen 325 Mg Tablet PO Q6H PRN Pain, Mild (Pain Scale 1-3) Apixaban 5 mg 09/25/20 21:00 09/26/20 08:11 Apixaban 5 Mg Tablet PO 5 mg BID LAURA Administration Doxycycline Hyclate 100 mg 09/25/20 20:00 09/26/20 08:11 Doxycycline Hyclate 100 Mg Tablet PO 100 mg Q12H LAURA Administration Ceftriaxone Sodium 1 gm/ 50 mls @ 100 mls/hr 09/24/20 05:00 09/26/20 06:18 Sodium Chloride IV Infused Q24H LAURA Infusion Loperamide HCl 2 mg 09/24/20 10:01 09/25/20 03:02 Loperamide Hcl 2 Mg Capsule PO 2 mg Q4H PRN Administration after loose bowel movement Magnesium Oxide 400 mg 09/23/20 17:30 09/26/20 08:10 Magnesium Oxide 400 Mg Tablet PO 400 mg BIDPC LAURA Administration Melatonin 6 mg 09/23/20 04:48 Melatonin 3 Mg Tablet PO BEDTIME PRN Insomnia Metoprolol Succinate 50 mg 09/26/20 17:00 Metoprolol Succinate Er 50 Mg Tab.Er.24h PO DAILY LAURA Protocol Senna 17.2 mg 09/23/20 04:48 Sennosides 8.6 Mg Tablet PO BEDTIME PRN Constipation Sodium Chloride 3 ml 09/23/20 08:00 09/26/20 08:11 0.9 % Sodium Chloride Flush 3 Ml Syringe IVFLUSH Not Given QSHIFT LAURA Time Spent With Patient Time: Total time spent is greater than 50% in coordination of care (as documented) at patient's floor/unit and/or counseling patient: Time with patient: 25 - 35 minutes Progress Note: Quality Stroke Does the patient have a stroke diagnosis?: No Procedures Date of Service Date of Service: 09/26/20
[2020-09-26 12:00] VITALS: BP 112/68; PULSE 89; RESP 19; TEMP 36.7; O2SAT 96
--- NOTE | 2020-09-26 12:26 | MHC.CM.PN ---
IMM 09/24/20 Male 75 DX PNA AFIB Patient is discharged to home today. No services needed or ordered. Family providing transportation.
[2020-09-26] MEDS: Sacubitril/Valsartan 24/26 1 TAB TABLET PO (12:36)
--- NOTE | 2020-09-26 13:01 | PM.DS ---
DS: Providers Provider Date of Service: 09/26/20 Date of admission: 09/23/20 04:48 Primary care physician: Unknown Physician Consults: 09/23/20 04:47 Consult to Neurology Routine Consulting Provider: [facility] Reason for consultation: dizziness/unsteady gait 09/25/20 01:31 Consult to Cardiology Routine Consulting Provider: Amor Llanes Reason for consultation: new a flutter Has provider been notified: No DS: Diagnosis Discharge Diagnosis (1) PAF (paroxysmal atrial fibrillation): Status: Acute (2) Cardiomyopathy: Status: Acute (3) Aortic aneurysm: Status: Acute (4) Pneumonia: Status: Acute DS: Medications Discharge Medications Home Medications: Home Medications Medication Instructions Recorded Confirmed pantoprazole 1 tab PO DAILY 09/23/20 09/23/20 Previous Rx's Medication Instructions Recorded apixaban [Eliquis] 5 mg PO BID #60 tab 09/26/20 cefuroxime axetil 500 mg PO BID #8 tab 09/26/20 doxycycline hyclate 100 mg PO Q12H #8 tab 09/26/20 furosemide 20 mg PO QAM #30 tab 09/26/20 magnesium oxide 400 mg PO BIDPC 60 Days #120 tab 09/26/20 metoprolol succinate 50 mg PO DAILY #30 tab 09/26/20 sacubitril-valsartan [Entresto] 1 tab PO BID #60 tab 09/26/20 DS: Summary Hospital Course Hospital Course: Admission note HPI 75-year-old male with a past medical history of GERD, arthritis, history of hip replacement; presented to the hospital with a chief complaint of generalized weakness/dizziness for the past couple days. Patient reports that over the past 2 days he has been feeling dizzy and lightheaded; has not been eating well; mentioned that he had few episodes of diarrhea-no blood in the stool.; denies being on antibiotics recently. Denies any chest pain palpitations. Denies any numbness tingling. Denies any focal weakness. Denies any falls. Patient reports that he has chronic back pain but has not changed. Denies any fever chills cough. Denies any difficulty swallowing. Review of all other systems is negative except mentioned above Per ER team patient noted wobbly/unsteady on ambulation; noted to have generally weak; exam was grossly nonfocal;; x-ray showed possible pneumonia; started antibiotics. Admitted for further management. Hospital course Patient was admitted to the hospital for treatment of weakness. MRI of the brain was negative for any acute strokes. Chest x-ray showed pneumonia pictures. Blood cultures remain negative. He was treated with IV antibiotics of ceftriaxone and doxycycline with good response over the course of hospital stay as he was weaned off the oxygen and was able to ambulate on room air with no reported difficulty breathing. During the hospital stay his heart rhythm broke into new onset atrial fibrillation with rapid ventricular response. Controlled with usage of beta-blockers and evaluation by Cardiology team as an echo showed cardiomyopathy with decreased ejection of fraction to almost 30-35 %. His blood pressure was on the lower end and he could not tolerate a lot of blood pressure medications so he was treated with metoprolol with good control over the heart rate. Entresto and small dose of Lasix were added. CTA of the chest was done to confirm findings of dilated aortic root of 5.1 centimetres. No ascending or descending aortic dilatation. No intervention is needed after being reviewed by cardiology team. Plan to discharge him home and to follow up with Cardiology team as outpatient for further adjustments of the medications and for outpatient workup for ischemic causes. Time Spent with Patient Time attestation: Total time spent providing and/or coordinating discharge services: Discharge coordination time: Greater than 30 minutes Quality: Stroke Does the patient have a stroke diagnosis?: No Physical Exam Vital Signs: Vital Signs: Last Vital Signs Temp 98.1 F 09/26/20 12:00 Pulse 89 09/26/20 12:00 Resp 19 09/26/20 12:00 BP 112/68 09/26/20 12:00 Pulse Ox 96 09/26/20 12:00 Body Mass Index 26.6 Const: Other: Constitutional : Alert, oriented, not in distress Neck : Normal inspection, Supple Cardiovascular : Irregular irregular, S1 S2, no lower extremity edema Respiratory : Decrease bilateral air entry, no crackles, no wheezes or rhonchi Gastrointestinal: soft, lax, Normal bowel sounds, Non tender Skin : Warm/Dry, No rash Neurological : Alert & oriented x3, No focal deficit DS: Data Data Completed and Pending Labs on day of discharge: Laboratory Results - last 24 hr 09/26/20 09/26/20 05:12 05:12 WBC 6.6 RBC 4.12 L Hgb 12.1 L Hct 37.5 L MCV 91.0 MCH 29.4 MCHC 32.3 RDW 13.2 Plt Count 170 MPV 10.1 Absolute Nucleated RBC 0.000 Nucleated RBC % (auto) 0.0 Sodium 140 Potassium 3.7 Chloride 107 Carbon Dioxide 28 Anion Gap 9 L BUN 13 Creatinine 0.84 Estim Creat Clear Calc 83.4 Estimated GFR > 60 Fasting Glucose 92 Calcium 7.7 L Magnesium 1.7 Preliminary micro results at discharge 09/23/20 05:12 Blood Culture - Preliminary Blood - Venous No growth after 48 hours. 09/23/20 04:44 Blood Culture - Preliminary Blood - Venous No growth after 48 hours. Discharge Plan Discharge Patient Disposition: Home, Self-Care Discharge Diagnosis: Community-acquired pneumonia Atrial fibrillation Cardiomyopathy Referrals: Physician,Unknown [Primary Care Provider] - 1 Week Discharge Medications: New doxycycline hyclate 100 mg Tablet 100 mg PO Q12H Qty: 8 RF: 0 Eliquis 5 mg Tablet 5 mg PO BID Qty: 60 RF: 0 metoprolol succinate 50 mg Tablet Extended Release 24 Hr 50 mg PO DAILY Qty: 30 RF: 0 magnesium oxide 400 mg (241.3 mg magnesium) Tablet 400 mg PO BIDPC 60 Days Qty: 120 RF: 0 cefuroxime axetil 500 mg tablet 500 mg PO BID Qty: 8 RF: 0 Entresto 24-26 mg tablet 1 tab PO BID Qty: 60 RF: 0 furosemide 20 mg tablet 20 mg PO QAM Qty: 30 RF: 0 Continued pantoprazole 40 mg tablet,delayed release (DR/EC) 1 tab PO DAILY RF: 0 Discharge Orders: Discharge Order (Routine); Ordered 09/26/20 Ordered By: Erick Hanna Diet: advance to usual diet and low salt diet Activity on Discharge: As tolerated Stand Alone Forms: Patient Portal Discharge page Other Ambulatory Orders: Basic Metabolic Panel (Routine) Timeframe: 1 Week Facility: [facility] - Location: Laboratory Ordered By: Erick Hanna Care Plan Goals: Read below Health Concerns: Read below Plan of Treatment: You were admitted to the hospital for evaluation of difficulty breathing and coughing. Found to picture of pneumonia with associated irregular heart rate and rhythm. Treated with IV antibiotics and heart medications with good response over the course of hospital stay. You were evaluated by Cardiology team as an echo showed decrease in the function of your heart. Assessment: Continue antibiotic of Ceftin and doxycycline for 4 more days Start apixaban 5 mg twice daily for stroke prevention Start metoprolol 50 mg daily for rate control Start Entresto to help with heart tissue recovery Start Lasix 20 mg daily as a water pill Monitor your blood pressure at home and reported readings to PCP or integrity engineer To follow up with Cardiology dr Llanes as outpatient. Please come to the hospital for any difficulty breathing or irregular rapid heart rate.
[2020-09-26 14:10] VITALS: BP 111/62; PULSE 96; RESP 18; O2SAT 94
[2020-09-27 01:33] LABS: Strep Pneumo Ag urine Not Detected (Not Detected)
[2020-10-02 10:06] LABS: Legionella Ag Urine Not Detected (Not Detected)
== END 2020-09-26 16:00 | disposition home or self-care (01) | DRG 178 ==
LOC: HO.ED 09-23 04:34 → HO.EDOVER 09-23 05:13 → HO.IMC 09-23 16:27
PROVIDERS: Internal Medicine; Admitting Provider Hospitalist; Emergency Provider Emergency Medicine Emergency Medical Services; Visit Provider Student in an Organized Health Care Education/Training Program
DX: J69.0 Pneumonitis due to inhalation of food and vomit (principal); G11.8 Other hereditary ataxias; I42.9 Cardiomyopathy, unspecified; E86.0 Dehydration; I71.9 Aortic aneurysm of unspecified site, without rupture; I48.0 Paroxysmal atrial fibrillation; K21.9 Gastro-esophageal reflux disease without esophagitis; Z20.822 Contact with and (suspected) exposure to COVID-19; Z79.01 Long term (current) use of anticoagulants; Z79.899 Other long term (current) drug therapy
CPT/HCPCS: 36415; 70450; 70551; 71045; 71275; 80048; 80053; 81001; 83605; 83690; 83735; 83880; 84484; 85025; 85027; 87040; 87449; 87493; 87635; 87899; 92610; 93005; 93306; 99285; J0696; J1650; J1940; Q9967

== ENCOUNTER 2020-10-03 10:44 | Outpatient (REF) | payer MEDICARE, SELFPAY ==
[2020-10-03 12:07] LABS: Anion Gap 15 (12-20); Blood Urea Nitrogen 17 mg/dL (9-16); Calcium 9.2 mg/dL (8.4-10.2); Carbon Dioxide 29 mmol/L (22-29); Chloride 101 mmol/L (96-108); Estimated Glomerular Filt Rate 57; Glucose Random 112 mg/dL (60-115); Potassium 4.8 mmol/L (3.3-5.1); Sodium 140 mmol/L (135-145)
== END 2020-10-03 10:45 | disposition home or self-care (01) ==
LOC: HO.LAB 10:44
PROVIDERS: PCP Physician Assistant Medical; Visit Provider Student in an Organized Health Care Education/Training Program
DX: I42.9 Cardiomyopathy, unspecified (principal)
CPT/HCPCS: 36415; 80048

== ENCOUNTER → 2020-10-18 13:40 | Outpatient (BNVA) | payer MEDICARE, SELFPAY | PROVIDERS: PCP Physician Assistant Medical; Visit Provider Nurse Practitioner Family | DX: I77.810 Thoracic aortic ectasia (principal); I48.91 Unspecified atrial fibrillation; I42.9 Cardiomyopathy, unspecified | CPT/HCPCS: 93005; 99212 ==

== ENCOUNTER → 2020-10-30 10:49 | Outpatient (REF) | payer MEDICARE, SELFPAY ==
--- NOTE | 2020-10-30 10:58 | HM_ITS ---
Total monitoring time 2 days and 19 hours. Underlying rhythm is sinus. Minimum heart rate 57/Min. Maximum 121/Min. Average 78/Min. No significant bradycardia. About 2.7%, rate greater than 100/Min. No atrial fibrillation or flutter or AV blocks or pauses. Frequent premature ventricular contractions with a burden of 9%. 3 morphologies noted. About 2000 couplets. 50 episodes of NSVT. Longest run was about 4-5 beats. Occasional supraventricular ectopic beats with a burden of approximately 1%. Isolated beats, some couplets; short runs noted with the longest episode being 32 beats. No patient symptoms. MTDD
== END ==
LOC: HO.CARD 10:49
PROVIDERS: Visit Provider Nurse Practitioner Family
DX: I48.91 Unspecified atrial fibrillation (principal)
CPT/HCPCS: 93242

== ENCOUNTER 2020-11-01 11:10 | Outpatient (REF) | payer MEDICARE, SELFPAY ==
[2020-11-01 11:45] LABS: MANUAL DIFF FLAG NO
[2020-11-01 11:56] LABS: Basophils Absolute Auto 0.1 X10*3/uL (0.0-0.2); Basophils Percent Auto 0.7 % (0-2); Eosinophils Absolute Auto 0.1 X10*3/uL (0.0-0.4); Eosinophils Percent Auto 1.2 % (0-4); Hematocrit 44.4 % (42-52); Hemoglobin 14.5 g/dl (14.0-18.0); Imm Gran Abs Auto 0.02 X10*3/uL (0.00-0.03); Imm Gran Pct Auto 0.3 % (0.0-0.4); Lymphocytes Absolute Auto 1.6 X10*3/uL (1.2-4.9); Lymphocytes Percent Auto 22.2 % (20-40); Mean Corpuscular HGB Conc 32.7 g/dl (31.0-36.0); Mean Corpuscular Volume 91.9 fL (80-98); Mean Platelet Volume 9.6 fL (9.4-12.4); Monocytes Absolute Auto 0.7 X10*3/uL (0.1-1.2); Monocytes Percent Auto 10.1 % (2-11); Neutrophils Absolute Auto 4.8 X10*3/uL (2.0-8.3); Neutrophils Percent Auto 65.5 % (45-73); Platelet Count 238 X10*3/uL (160-400); Red Blood Count 4.83 X10*6/uL (4.60-5.80); White Blood Count 7.3 X10*3/uL (4.8-10.8)
[2020-11-01 12:00] LABS: INTERNATIONAL NORM RATIO 1.3 (0.9-1.1); Prothrombin Time 14.9 SEC (9.9-13.0)
[2020-11-01 12:14] LABS: Anion Gap 10 (12-20); Blood Urea Nitrogen 21 mg/dL (9-16); Calcium 9.4 mg/dL (8.4-10.2); Carbon Dioxide 30 mmol/L (22-29); Chloride 105 mmol/L (96-108); Estimated Glomerular Filt Rate 50; Glucose Random 121 mg/dL (60-115); Potassium 4.4 mmol/L (3.3-5.1); Sodium 141 mmol/L (135-145)
== END 2020-11-01 11:11 | disposition home or self-care (01) ==
LOC: HO.LAB 11:10
PROVIDERS: Visit Provider Nurse Practitioner Family
DX: I42.9 Cardiomyopathy, unspecified (principal); I48.91 Unspecified atrial fibrillation
CPT/HCPCS: 36415; 80048; 85025; 85610

== ENCOUNTER → 2020-11-22 13:54 | Outpatient (BNVA) | payer MEDICARE, SELFPAY | PROVIDERS: PCP Physician Assistant Medical; Referring Provider Nurse Practitioner Family; Visit Provider Nurse Practitioner Family | DX: I48.0 Paroxysmal atrial fibrillation (principal); I42.9 Cardiomyopathy, unspecified; I77.810 Thoracic aortic ectasia; Z87.891 Personal history of nicotine dependence; Z98.890 Other specified postprocedural states | CPT/HCPCS: 99212 ==

== ENCOUNTER 2020-11-28 06:54 | Outpatient (REF) | payer MEDICARE, SELFPAY ==
[2020-11-28 11:15] LABS: Appearance Urine CLEAR; Color Urine YELLOW; Glucose Urine UA NEG (NEG); Leukocyte Esterase Urine NEG (NEG); Nitrite Urine NEG (NEG); Specific Gravity - Urine 1.025 (1.005-1.025); Urine Blood NEG (NEG); Urine Ketones NEG (NEG); Urine Protein NEG (NEG-TRACE)
[2020-11-28 12:30] LABS: Alanine Aminotransferase 18 U/L (0-40); Albumin Level 4.1 g/dL (3.5-5.0); Alkaline Phosphatase 66 U/L (39-117); Anion Gap 14 (12-20); Aspartate Amino Transferase 27 U/L (5-37); Bilirubin Total 0.8 mg/dL (0.0-1.0); Blood Urea Nitrogen 31 mg/dL (9-16); Calcium 9.1 mg/dL (8.4-10.2); Carbon Dioxide 27 mmol/L (22-29); Chloride 107 mmol/L (96-108); Cholesterol 179 mg/dL; Estimated Glomerular Filt Rate 58; Glucose Fasting 88 mg/dL (60-99); HDL Cholesterol 51 mg/dL; LDL Cholesterol Calculated 113 mg/dl; Potassium 4.6 mmol/L (3.3-5.1); Sodium 143 mmol/L (135-145); Total Protein 6.6 g/dL (6.5-8.0); Triglycerides 75 mg/dL
[2020-11-28 13:07] LABS: TSH reflex Free T4 2.61 uIU/mL (0.32-4.0)
== END 2020-11-28 06:55 | disposition home or self-care (01) ==
LOC: HO.HMGCLDS 06:54
PROVIDERS: PCP Nurse Practitioner Family; Visit Provider Nurse Practitioner Family
DX: Z00.00 Encounter for general adult medical examination without abnormal findings (principal)
CPT/HCPCS: 36415; 80053; 80061; 81003; 84153; 84443

== ENCOUNTER → 2020-12-27 08:32 | Outpatient (REF) | payer MEDICARE, SELFPAY ==
--- NOTE | 2020-12-27 08:35 | CA_ITS ---
Transthoracic Echocardiogram Patient (Last, First, Middle): Francois Ca, Gender: Male Date of : 1945 Age: 75 Procedure Date: 12/27/2020 Procedure Type: Transthoracic Echocardiogram Location: OP Height: 180.34 cm Weight: 83.01 kg BSA: 2.03 m2 Heart Rate: bpm BP: 120 / 80 mmHg Insole And Heel Stiffener: SEAN/MAGGIE Referring MD: Agnes Pierce CFO-C Biologist Aide: Rober Rodriguez MD Symptoms: I42.9 - Cardiomyopathy, unspecified Study Quality: Fair ECG Rhythm: Sinus Conclusions: - Moderate to severe LV systolic dysfunction with LVEF of 30-35% with grade 1 diastolic dysfunction Findings Left Ventricle Normal left ventricular cavity size. The left ventricular systolic function is moderate to severely decreased. The visually estimated ejection fraction is between 30-35%. There is severe global hypokinesis. Spectral Doppler is indicative of an impaired relaxation filling pattern. E/E prime ratio is <8, consistent with normal filling pressures. Evidence suggests grade I (mild) diastolic dysfunction. Pericardium/Pleural There is no evidence of pericardial effusion. Prior Study Comparison No significant change compared to prior study dated: 09/25/2020. Measurements 2D Linear Measurements IVSd: 1.36 0.6-0.9/0.6-1.0 cm LVIDd: 5.68 3.9-5.3/4.2-5.9 cm LVIDd Index: 2.80 2.4-3.2/2.2-3.1 cm/m2 LVIDs: 3.98 2.0-3.6 cm LVPWd: 1.23 0.7-1.1 cm LV Mass: 397.65 67-162/88-224 g LV Mass Index: 195.89 43-95/49-115 g/m2 2D Systolic Function EF 4C: 38.10 >55% EF 2C: 34.90 >55% Mitral Valve E'Lateral: 10.00 E'Medial: 5.11 Diastolic Function E'Medial: 5.11 E' Laterial: 10.00 Updated in Other Vendor System with Status of Final Rober Rodriguez MD electronically signed on 12/29/2020 8:49:24 AM with status of Final
== END ==
LOC: HO.CARD 08:32
PROVIDERS: Visit Provider Nurse Practitioner Family
DX: I42.9 Cardiomyopathy, unspecified (principal)
CPT/HCPCS: 93308

== ENCOUNTER → 2021-01-02 12:54 | Outpatient (BNVA) | payer MEDICARE, SELFPAY | PROVIDERS: PCP Nurse Practitioner Family; Referring Provider Nurse Practitioner Family; Visit Provider Nurse Practitioner Family | DX: I48.91 Unspecified atrial fibrillation (principal); I77.810 Thoracic aortic ectasia; I49.3 Ventricular premature depolarization; I25.10 Atherosclerotic heart disease of native coronary artery without angina pectoris; I42.9 Cardiomyopathy, unspecified; Z98.890 Other specified postprocedural states | CPT/HCPCS: 99212 ==

== ENCOUNTER → 2021-01-09 10:10 | Outpatient (BNVA) | payer MEDICARE, SELFPAY | PROVIDERS: PCP Nurse Practitioner Family; Referring Provider Nurse Practitioner Family; Visit Provider Nurse Practitioner Family | DX: R94.31 Abnormal electrocardiogram [ECG] [EKG] (principal) | CPT/HCPCS: 93005 ==

== ENCOUNTER → 2021-02-11 07:16 | Outpatient (REF) | payer MEDICARE, SELFPAY ==
--- NOTE | 2021-02-11 07:22 | HM_ITS ---
Conclusion: 1. Patient was monitored for total period of 2 days and 23 hours 2. Baseline rhythm is normal sinus rhythm with average heart rate 65 beats per minute no significant pauses. Lowest heart rate of 47 beats 1 sinus bradycardia 3. Total of 13,840 PVCs accounting for 4.96% of total burden of come for frequent PVCs 4. Short burst of supraventricular episodes consistent supra tachycardia longest lasting 8 beats at 135 beats per minute 5. Patient reported 1 event that correlated with isolated PVC MTDD
== END ==
LOC: HO.CARD 07:16
PROVIDERS: Visit Provider Nurse Practitioner Family
DX: I49.3 Ventricular premature depolarization (principal)
CPT/HCPCS: 93242

== ENCOUNTER → 2021-02-25 13:08 | Outpatient (BNVA) | payer MEDICARE, SELFPAY | PROVIDERS: PCP Nurse Practitioner Family; Referring Provider Nurse Practitioner Family; Visit Provider Internal Medicine Cardiovascular Disease | DX: I49.3 Ventricular premature depolarization (principal); I48.91 Unspecified atrial fibrillation; I42.9 Cardiomyopathy, unspecified; I77.810 Thoracic aortic ectasia | CPT/HCPCS: 99212 ==

== ENCOUNTER → 2021-04-15 08:24 | Outpatient (REF) | payer MEDICARE, SELFPAY ==
--- NOTE | 2021-04-15 08:28 | CA_ITS ---
Transthoracic Echocardiogram Patient (Last, First, Middle): Francois Ca, Gender: Male Date of : 1945 Age: 75 Procedure Date: 04/15/2021 Procedure Type: Transthoracic Echocardiogram Location: OP Height: 180.34 cm Weight: 86.18 kg BSA: 2.06 m2 Heart Rate: bpm BP: 120 / 72 mmHg Set Illustrator: MAGGIE Referring MD: Amor Llanes MD Symptoms: I42.9 - Cardiomyopathy, unspecified Study Quality: Fair Conclusions: - Normal left ventricular cavity size. The left ventricular systolic function is mildly decreased. The visually estimated ejection fraction is between 40-45%. - Normal right ventricular cavity size and systolic function. Findings Left Ventricle Normal left ventricular cavity size. The left ventricular systolic function is mildly decreased. The visually estimated ejection fraction is between 40 45%. There is mild global hypokinesis. Abnormal diastolic function is noted. Spectral Doppler is indicative of an impaired relaxation filling pattern. E/E prime ratio is between 8 and 15 consistent with indeterminate filling pressures. Right Ventricle Normal right ventricular cavity size and systolic function. Great Vessels There is moderate dilatation of the sinuses of Valsalva and moderate dilatation of the ascending aorta. Pericardium/Pleural There is no evidence of pericardial effusion. Prior Study Comparison Changes noted compared to prior study dated: 12/27/2020. LVEF 40-45%. Measurements 2D Linear Measurements Ao Root: 5.20 2.1-3.5 cm 2D Systolic Function EF 4C: 36.70 >55% EF 2C: 36.20 >55% EF BiP: 35.40 >55% Mitral Valve MV Pk E: 0.66 MV PK A: 1.00 MV Decel Time: 167.00 E/A: 0.70 E'Lateral: 10.00 E'Medial: 5.00 E/E' Med: 13.20 E/E' Lat: 6.60 PHT: 49.00 MVA PHT: 4.49 Decel [place]: 3.95 Diastolic Function MV Pk E: 0.66 MV Pk A: 1.00 E/A: 0.70 E'Medial: 5.00 E/E' Med: 13.20 E' Laterial: 10.00 E/E' Lat: 6.60 Great Vessels Aorta Ao Root-2D: 5.20 2.0-3.7 cm Sinus of Valsalva: 5.20 2.0-3.5 cm Ao Asc: 4.60 2.1-3.4 cm Ao Arch: 3.70 Updated in Other Vendor System with Status of Final Amor Llanes MD electronically signed on 04/15/2021 5:33:53 PM with status of Final
== END ==
LOC: HO.CARD 08:24
PROVIDERS: PCP Nurse Practitioner Family; Visit Provider Internal Medicine Cardiovascular Disease
DX: I42.9 Cardiomyopathy, unspecified (principal)
CPT/HCPCS: 93308

== ENCOUNTER 2021-07-17 07:01 | Outpatient (REF) | payer MEDICARE, SELFPAY ==
[2021-07-17 11:25] LABS: Appearance Urine CLEAR; Color Urine YELLOW; Glucose Urine UA NEG (NEG); Leukocyte Esterase Urine NEG (NEG); Nitrite Urine NEG (NEG); Specific Gravity - Urine 1.015 (1.005-1.025); Urine Blood NEG (NEG); Urine Ketones NEG (NEG); Urine Protein NEG (NEG-TRACE)
[2021-07-17 11:54] LABS: Alanine Aminotransferase 18 U/L (0-40); Albumin Level 4.1 g/dL (3.5-5.0); Alkaline Phosphatase 72 U/L (39-117); Anion Gap 14 (12-20); Aspartate Amino Transferase 23 U/L (5-37); Bilirubin Total 0.8 mg/dL (0.0-1.0); Blood Urea Nitrogen 29 mg/dL (9-16); Calcium 9.1 mg/dL (8.4-10.2); Carbon Dioxide 24 mmol/L (22-29); Chloride 105 mmol/L (96-108); Cholesterol 195 mg/dL; Estimated Glomerular Filt Rate 49; Glucose Fasting 86 mg/dL (60-99); HDL Cholesterol 50 mg/dL; LDL Cholesterol Calculated 127 mg/dl; Potassium 4.4 mmol/L (3.3-5.1); Sodium 139 mmol/L (135-145); TSH reflex Free T4 4.76 uIU/mL (0.32-4.0); Triglycerides 92 mg/dL
[2021-07-17 12:39] LABS: Free T4 (Free Thyroxine) 1.08 ng/dL (0.71-1.85)
== END 2021-07-17 07:02 | disposition home or self-care (01) ==
LOC: HO.HMGCLDS 07:01
PROVIDERS: Visit Provider Nurse Practitioner Family
DX: I25.10 Atherosclerotic heart disease of native coronary artery without angina pectoris (principal); I48.91 Unspecified atrial fibrillation; R79.89 Other specified abnormal findings of blood chemistry
CPT/HCPCS: 36415; 80053; 80061; 81003; 84439; 84443

== ENCOUNTER → 2021-07-24 15:08 | Outpatient (BNVA) | payer MEDICARE, SELFPAY | PROVIDERS: PCP Nurse Practitioner Family; Referring Provider Nurse Practitioner Family; Visit Provider Internal Medicine Cardiovascular Disease | DX: I77.810 Thoracic aortic ectasia (principal); I48.91 Unspecified atrial fibrillation; I42.9 Cardiomyopathy, unspecified; I49.3 Ventricular premature depolarization | CPT/HCPCS: 93005; 99212 ==

== ENCOUNTER 2021-08-08 18:45 | Emergency (ER) | payer MEDICARE, SELFPAY ==
[2021-08-08 20:24] VITALS: BP 131/71; PULSE 77; RESP 18; TEMP 36.9; O2SAT 94; BMI 26.4
--- NOTE | 2021-08-08 21:03 | ED_ITS ---
HPI - General Adult General Chief complaint: General Medical Stated complaint: unable to urinate Time Seen by Provider: 08/08/21 20:54 Source: patient Mode of arrival: ambulatory Limitations: no limitations History of Present Illness HPI narrative: This is 76 yo male presented with c/o inability to urinate since this AM he has hx of BPH Onset (ago): hour(s) (12) Radiation: non-radiation Severity: moderate Pain Consistency: constant Exacerbating factors: none Related Data Home Medications Medication Instructions Recorded Confirmed pantoprazole 40 mg tablet,delayed 1 tab PO DAILY 09/23/20 07/24/21 release acetaminophen 325 mg tablet 325 mg PO QID PRN 10/18/20 07/24/21 (Tylenol) Previous Rx's Medication Instructions Recorded magnesium oxide 400 mg (241.3 mg 400 mg PO BIDPC 90 Days #180 tab 02/25/21 magnesium) tablet amiodarone 200 mg tablet 200 mg PO DAILY #90 tab 02/27/21 apixaban 5 mg tablet (Eliquis) 5 mg PO BID 90 Days #180 tab 04/16/21 furosemide 20 mg tablet 20 mg PO QAM #90 tab 04/16/21 metoprolol succinate 50 mg 50 mg PO DAILY 90 Days #90 tab 04/16/21 tablet,extended release 24 hr sacubitril 24 mg-valsartan 26 mg 1 tab PO BID 90 Days #180 tab 04/16/21 tablet (Entresto) Allergies Allergy/AdvReac Type Severity Reaction Status Date / Time No Known Allergies Allergy Verified 08/08/21 20:23 Review of Systems Review of Systems: Yes all other systems are reviewed and are negative Constitutional: Constitutional: Reports no additional constitutional complaints Cardiovascular: Cardiovascular: Reports no additional cardiovascular complaints Respiratory: Respiratory: Reports no additional respiratory complaints Genitourinary: Genitourinary: Reports difficulty urinating Allergic/Immunologic: Allergic/Immunologic: Reports no additional allergic/immunologic complaints PMF Past Medical History Medical History Afib Aortic aneurysm Aortic root dilatation Cardiomyopathy GERD (gastroesophageal reflux disease) PAF (paroxysmal atrial fibrillation) Surgical History S/P hip replacement Social History Social History Household Members: Spouse Housing: House Alcohol intake: never Patient Tobacco Use Status: Former Tobacco user Years Smoked: 30 years ago e-Cigarette/Vaping Use: Never Used Second Hand Smoke Exposure: No Advance Directives: No Advance Directives Information Provided: Yes service: No Current occupational status: retired Cognitive needs: No Hearing needs: No Vision needs: No Physical Exam ED Vital Signs: Vital Signs - 24 hr 08/08/21 20:24 08/08/21 21:30 Temperature 98.5 F 98.4 F Pulse Rate 77 83 Respiratory Rate 18 16 Blood Pressure 131/71 116/71 Pulse Oximetry 94 95 BMI result Body Mass Index 26.4 Const General: cooperative Nutritional Appearance: well nourished Orientation/consciousness: oriented to person and patient oriented x3 HENMT Head: Yes normal to inspection Face and sinus: Yes normal facial exam Mouth: Normal oral and palatal mucosa present Neck Neck: Yes normal visual inspection and Yes full ROM Thyroid: Thyroid normal Chest Chest palpation & inspection: normal inspection of the chest and normal palpation of entire chest wall Resp Effort & Inspection: normal respiratory effort and able to speak in complete sentences Auscultation: clear to auscultation bilaterally Cardio Jugular venous distension: no JVD Rate: regular rate Rhythm: regular rhythm GI Inspection: Yes normal to inspection Palpation (GI): Soft to palpation, not firm, nontender and no guarding General: Yes no CVA tenderness Back/Spine/Pelvis Back: no CVA tenderness Skin General skin exam: no rashes or lesions noted, elasticity normal and turgor normal Rashes: no rashes Neuro General: oriented to person and patient oriented x3 Cranial nerves: Yes CN's II-XII intact bilaterally Cognition (Neuro): normal cognition Extrem General: Yes normal to inspection Course Reevaluation(s) Reevaluation #1: lab noted BUN 31 creat 1.67 (was 29/1.41 on July 17) ,I will give him 1 Liter of fluids before d/c; he is making good urine obtained 1 Liter of urine from the catheter insertion Medical Decision Making MDM Narrative Medical decision making narrative: pt presented with urinary retention ,will place Rivers catheter and d/c with leg bag Lab Data Result diagrams: 08/08/21 21:27 08/08/21 21:27 Labs: Lab Results 08/08/21 08/08/21 08/08/21 Range/Units 21:27 21:27 21:27 WBC 10.0 (4.8-10.8) X10*3/uL RBC 4.60 (4.60-5.80) X10*6/uL Hgb 13.8 L (14.0-18.0) g/dl Hct 42.9 (42.0-52.0) % MCV 93.3 (80.0-98.0) fL MCH 30.0 (27.0-33.0) pg MCHC 32.2 (31.0-36.0) g/dl RDW 13.4 (11.0-16.0) % Plt Count 254 (160-400) X10*3/uL MPV 9.1 L (9.4-12.4) fL Immature Gran % (Auto) 0.5 H (0.0-0.4) % Neut % (Auto) 83.2 H (45-73) % Lymph % (Auto) 6.5 L (20-40) % [place] % (Auto) 8.7 (2-11) % Eos % (Auto) 0.6 (0-4) % Baso % (Auto) 0.5 (0-2) % Lymph # (Auto) 0.7 L (1.2-4.9) X10*3/uL [place] # (Auto) 0.9 (0.1-1.2) X10*3/uL Eos # (Auto) 0.1 (0.0-0.4) X10*3/uL Baso # (Auto) 0.1 (0.0-0.2) X10*3/uL Abs Immat Gran (auto) 0.05 H (0.00-0.03) X10*3/uL Absolute Neuts (auto) 8.3 (2.0-8.3) x10*3/uL Absolute Nucleated RBC 0.000 (0.0-0.012) X10*3/uL Nucleated RBC % (auto) 0.0 (0.0-0.2) /100WBC Sodium 139 (135-145) mmol/L Potassium 4.5 (3.3-5.1) mmol/L Chloride 106 (96-108) mmol/L Carbon Dioxide 21 L (22-29) mmol/L Anion Gap 17 (12-20) BUN 31 H (9-16) mg/dL Creatinine 1.67 H (0.5-1.4) mg/dL Estim Creat Clear Calc 41.3 Estimated GFR 40 Random Glucose 149 H (60-115) mg/dL Calcium 9.2 (8.4-10.2) mg/dL Total Bilirubin 0.5 (0.0-1.0) mg/dL AST 25 (5-37) U/L ALT 18 (0-40) U/L Alkaline Phosphatase 78 (39-117) U/L Total Protein 7.2 (6.5-8.0) g/dL Albumin 4.0 (3.5-5.0) g/dL Urine Color YELLOW Urine Appearance CLEAR Urine pH 5.5 (5.0-8.0) Ur Specific [place] 1.010 (1.005-1.025) Urine Protein NEG (NEG-TRACE) MG/DL Urine Glucose (UA) NEG (NEG) MG/DL Urine Ketones NEG (NEG) MG/DL Urine Blood 3+ H (NEG) Urine Nitrite NEG (NEG) Ur Leukocyte Esterase NEG (NEG) Urine RBC 15-29 H (0) /HPF Urine WBC 0-2 (0-4) /HPF Ur Squamous Epith Cells TRACE /LPF Urine Bacteria NONE /LPF Discharge Plan Discharge Clinical Impression: Acute urinary retention, Acute kidney injury superimposed on chronic kidney disease Patient Disposition: Home, Self-Care Instructions: Urinary Retention in Men (ED), Rivers Catheter Placement and Care (ED) Additional Instructions: follow up with Urologist Dr Mitchell atkinson office and make an appointment for follow up. Also follow up with your Primary Care Doctor to have recheck you kidney function test (your kidney funtion test were mildly elevated) Return if worse,fever,vomiting,any concern Prescriptions: No Action amiodarone 200 mg tablet 200 mg PO DAILY Qty: 90 3RF Eliquis 5 mg tablet 5 mg PO BID 90 Days Qty: 180 3RF furosemide 20 mg tablet 20 mg PO QAM Qty: 90 3RF metoprolol succinate 50 mg tablet extended release 24 hr 50 mg PO DAILY 90 Days Qty: 90 3RF Protocol: Hold for SBP/HR < HOLD for SBP < : 90 HOLD for HR < : 60 Entresto 24-26 mg tablet 1 tab PO BID 90 Days Qty: 180 3RF pantoprazole 40 mg tablet,delayed release (DR/EC) 1 tab PO DAILY 0RF acetaminophen [Tylenol] 325 mg tablet 325 mg PO QID PRN0RF magnesium oxide 400 mg (241.3 mg magnesium) tablet 400 mg PO BIDPC 90 Days Qty: 180 3RF Referrals: Chriss Medrano MD [Physician] - 08/13/21
[2021-08-08 21:30] VITALS: BP 116/71; PULSE 83; RESP 16; TEMP 36.9; O2SAT 95
[2021-08-08 21:33] LABS: Appearance Urine CLEAR; Color Urine YELLOW; Glucose Urine UA NEG (NEG); Leukocyte Esterase Urine NEG (NEG); MANUAL DIFF FLAG NO; Nitrite Urine NEG (NEG); PH 5.5 (5.0-8.0); UACC Culture Trigger NO; Urine Blood 3+ (NEG); Urine Ketones NEG (NEG); Urine Protein NEG (NEG-TRACE)
[2021-08-08 21:36] LABS: Basophils Absolute Auto 0.1 X10*3/uL (0.0-0.2); Basophils Percent Auto 0.5 % (0-2); Eosinophils Absolute Auto 0.1 X10*3/uL (0.0-0.4); Eosinophils Percent Auto 0.6 % (0-4); Hematocrit 42.9 % (42.0-52.0); Hemoglobin 13.8 g/dl (14.0-18.0); Imm Gran Abs Auto 0.05 X10*3/uL (0.00-0.03); Imm Gran Pct Auto 0.5 % (0.0-0.4); Lymphocytes Absolute Auto 0.7 X10*3/uL (1.2-4.9); Lymphocytes Percent Auto 6.5 % (20-40); Mean Corpuscular HGB Conc 32.2 g/dl (31.0-36.0); Mean Corpuscular Volume 93.3 fL (80.0-98.0); Mean Platelet Volume 9.1 fL (9.4-12.4); Monocytes Absolute Auto 0.9 X10*3/uL (0.1-1.2); Monocytes Percent Auto 8.7 % (2-11); Neutrophils Absolute Auto 8.3 x10*3/uL (2.0-8.3); Neutrophils Percent Auto 83.2 % (45-73); Platelet Count 254 X10*3/uL (160-400); Red Cell Distribution Width 13.4 % (11.0-16.0)
[2021-08-08 21:45] LABS: Squamous Epithelial Cell Urine TRACE /LPF
[2021-08-08 21:47] LABS: WBC Urine 0-2 /HPF (0-4)
[2021-08-08 22:11] LABS: Alanine Aminotransferase 18 U/L (0-40); Alkaline Phosphatase 78 U/L (39-117); Anion Gap 17 (12-20); Aspartate Amino Transferase 25 U/L (5-37); Bilirubin Total 0.5 mg/dL (0.0-1.0); Blood Urea Nitrogen 31 mg/dL (9-16); Calcium 9.2 mg/dL (8.4-10.2); Carbon Dioxide 21 mmol/L (22-29); Chloride 106 mmol/L (96-108); Creatinine Clr Calc Pharmacy 41.3; Estimated Glomerular Filt Rate 40; Glucose Random 149 mg/dL (60-115); Potassium 4.5 mmol/L (3.3-5.1); Sodium 139 mmol/L (135-145); Total Protein 7.2 g/dL (6.5-8.0)
[2021-08-08] MEDS: 0.9 % Sodium Chloride 1,000 ML 999 ML IVCONT (22:23)
[2021-08-08 23:55] VITALS: BP 119/70; PULSE 80
== END 2021-08-08 23:56 | disposition home or self-care (01) ==
PROVIDERS: Emergency Provider Emergency Medicine; PCP Nurse Practitioner Family
DX: R33.9 Retention of urine, unspecified (principal); N17.8 Other acute kidney failure; N18.9 Chronic kidney disease, unspecified; I48.91 Unspecified atrial fibrillation; Z79.01 Long term (current) use of anticoagulants; Z79.899 Other long term (current) drug therapy
CPT/HCPCS: 36415; 51702; 51798; 80053; 81001; 85025; 96360; 99284

== ENCOUNTER 2021-08-14 12:53 | Outpatient (REF) | payer MEDICARE, SELFPAY ==
[2021-08-14 14:27] LABS: Blood Urea Nitrogen 26 mg/dL (9-16); Estimated Glomerular Filt Rate 46
== END 2021-08-14 12:54 | disposition home or self-care (01) ==
LOC: HO.HMGCLDS 12:53
PROVIDERS: PCP Nurse Practitioner Family; Visit Provider Nurse Practitioner Family
DX: R79.89 Other specified abnormal findings of blood chemistry (principal)
CPT/HCPCS: 36415; 82565; 84520

== ENCOUNTER → 2021-09-06 09:29 | Outpatient (BNVA) | payer MEDICARE, SELFPAY | PROVIDERS: PCP Nurse Practitioner Family; Visit Provider Urology | DX: R33.9 Retention of urine, unspecified (principal) | CPT/HCPCS: 51700; 51798 ==

== ENCOUNTER 2021-09-07 07:42 | Outpatient (REF) | payer MEDICARE, SELFPAY ==
[2021-09-07 07:15] LABS: MANUAL DIFF FLAG NO
[2021-09-07 07:42] LABS: Basophils Absolute Auto 0.1 X10*3/uL (0.0-0.2); Basophils Percent Auto 0.5 % (0-2); Eosinophils Absolute Auto 0.3 X10*3/uL (0.0-0.4); Eosinophils Percent Auto 2.9 % (0-4); Hematocrit 41.5 % (42.0-52.0); Hemoglobin 13.2 g/dl (14.0-18.0); Imm Gran Abs Auto 0.04 X10*3/uL (0.00-0.03); Imm Gran Pct Auto 0.4 % (0.0-0.4); Lymphocytes Absolute Auto 1.7 X10*3/uL (1.2-4.9); Mean Corpuscular HGB Conc 31.8 g/dl (31.0-36.0); Mean Corpuscular Hemoglobin 29.4 pg (27.0-33.0); Mean Corpuscular Volume 92.4 fL (80.0-98.0); Monocytes Absolute Auto 1.2 X10*3/uL (0.1-1.2); Monocytes Percent Auto 11.5 % (2-11); Neutrophils Absolute Auto 7.2 x10*3/uL (2.0-8.3); Neutrophils Percent Auto 68.7 % (45-73); Platelet Count 270 X10*3/uL (160-400); Red Blood Count 4.49 X10*6/uL (4.60-5.80); Red Cell Distribution Width 13.2 % (11.0-16.0); White Blood Count 10.5 X10*3/uL (4.8-10.8)
[2021-09-07 07:47] LABS: Anion Gap 15 (12-20); Blood Urea Nitrogen 26 mg/dL (9-16); Calcium 8.9 mg/dL (8.4-10.2); Carbon Dioxide 25 mmol/L (22-29); Chloride 104 mmol/L (96-108); Estimated Glomerular Filt Rate 39; Glucose Random 152 mg/dL (60-115); Potassium 4.6 mmol/L (3.3-5.1); Sodium 139 mmol/L (135-145)
[2021-09-07 09:15] LABS: Creatinine Urine 92.16 mg/dL; Protein/Creatinine Ratio, Ur 0.48 (<0.2); Total Protein Urine Random 44 mg/dL (<12)
== END 2021-09-07 07:43 | disposition home or self-care (01) ==
LOC: HO.LAB 07:42
PROVIDERS: PCP Nurse Practitioner Family; Visit Provider Internal Medicine Hypertension Specialist
DX: N18.31 Chronic kidney disease, stage 3a (principal)
CPT/HCPCS: 36415; 80048; 84156; 85025

== ENCOUNTER → 2021-10-25 09:28 | Outpatient (BNVA) | payer MEDICARE, SELFPAY | PROVIDERS: PCP Nurse Practitioner Family; Visit Provider Urology | DX: R33.9 Retention of urine, unspecified (principal); N52.9 Male erectile dysfunction, unspecified | CPT/HCPCS: 51798; 99202 ==

== ENCOUNTER 2021-12-10 07:15 | Outpatient (REF) | payer MEDICARE, SELFPAY ==
[2021-12-10 11:27] LABS: MANUAL DIFF FLAG NO
[2021-12-10 11:30] LABS: Basophils Absolute Auto 0.1 X10*3/uL (0.0-0.2); Basophils Percent Auto 1.8 % (0-2); Eosinophils Absolute Auto 0.4 X10*3/uL (0.0-0.4); Hemoglobin 11.2 g/dl (14.0-18.0); Imm Gran Abs Auto 0.01 X10*3/uL (0.00-0.03); Imm Gran Pct Auto 0.2 % (0.0-0.4); Lymphocytes Absolute Auto 1.4 X10*3/uL (1.2-4.9); Lymphocytes Percent Auto 28.4 % (20-40); Mean Corpuscular HGB Conc 30.3 g/dl (31.0-36.0); Mean Corpuscular Hemoglobin 25.5 pg (27.0-33.0); Mean Corpuscular Volume 84.1 fL (80.0-98.0); Mean Platelet Volume 9.7 fL (9.4-12.4); Monocytes Percent Auto 19.7 % (2-11); Neutrophils Absolute Auto 2.2 x10*3/uL (2.0-8.3); Neutrophils Percent Auto 42.9 % (45-73); Platelet Count 232 X10*3/uL (160-400); Red Cell Distribution Width 14.5 % (11.0-16.0)
[2021-12-10 11:59] LABS: Appearance Urine Clear; Color Urine Yellow; Glucose Urine UA Negative (Negative); Leukocyte Esterase Urine Small (1+) (Negative); Nitrite Urine Positive (Negative); PH 5.5 (5.0-9.0); Specific Gravity - Urine 1.015 (1.005-1.025); UMIC TRIGGER UACC YES; Urine Blood Negative (Negative); Urine Ketones Negative (Negative); Urine Protein Negative (Neg-Trace)
[2021-12-10 12:01] LABS: Alanine Aminotransferase 33 U/L (0-40); Alkaline Phosphatase 88 U/L (39-117); Anion Gap 15 (12-20); Aspartate Amino Transferase 32 U/L (5-37); Bilirubin Total 0.3 mg/dL (0.0-1.0); Blood Urea Nitrogen 30 mg/dL (9-16); Carbon Dioxide 25 mmol/L (22-29); Chloride 105 mmol/L (96-108); Cholesterol 181 mg/dL; Estimated Glomerular Filt Rate 36; Glucose Fasting 89 mg/dL (60-99); HDL Cholesterol 44 mg/dL; LDL Cholesterol Calculated 119 mg/dl; Potassium 4.6 mmol/L (3.3-5.1); Sodium 140 mmol/L (135-145); Total Protein 6.9 g/dL (6.5-8.0); Triglycerides 91 mg/dL
[2021-12-10 12:39] LABS: Bacteria Urine 4+ (None Seen); Hyaline Casts Urine 0-2 /LPF (0-2); RBC Urine 0-2 /HPF (0-2); Squamous Epithelial Cell Urine 0-2 /HPF (0-2); UACC Culture Trigger YES
[2021-12-10 13:02] LABS: Free T4 (Free Thyroxine) 1.15 ng/dL (0.71-1.85)
== END 2021-12-10 07:16 | disposition home or self-care (01) ==
LOC: HO.HMGCLDS 07:15
PROVIDERS: PCP Nurse Practitioner Family; Visit Provider Nurse Practitioner Family
DX: I25.10 Atherosclerotic heart disease of native coronary artery without angina pectoris (principal)
CPT/HCPCS: 36415; 80053; 80061; 81001; 81003; 84439; 84443; 85025; 87086; 87088; 87186

== ENCOUNTER 2021-12-16 13:00 | Outpatient (REF) | payer MEDICARE, SELFPAY ==
[2021-12-16 14:07] LABS: MANUAL DIFF FLAG NO
[2021-12-16 14:17] LABS: Basophils Absolute Auto 0.1 X10*3/uL (0.0-0.2); Basophils Percent Auto 1.9 % (0-2); Eosinophils Absolute Auto 0.3 X10*3/uL (0.0-0.4); Eosinophils Percent Auto 6.9 % (0-4); Hematocrit 36.3 % (42.0-52.0); Hemoglobin 11.1 g/dl (14.0-18.0); Imm Gran Abs Auto 0.01 X10*3/uL (0.00-0.03); Imm Gran Pct Auto 0.2 % (0.0-0.4); Lymphocytes Absolute Auto 0.9 X10*3/uL (1.2-4.9); Lymphocytes Percent Auto 20.6 % (20-40); Mean Corpuscular HGB Conc 30.6 g/dl (31.0-36.0); Mean Corpuscular Hemoglobin 25.3 pg (27.0-33.0); Mean Corpuscular Volume 82.9 fL (80.0-98.0); Mean Platelet Volume 9.5 fL (9.4-12.4); Monocytes Absolute Auto 0.6 X10*3/uL (0.1-1.2); Monocytes Percent Auto 13.4 % (2-11); Neutrophils Absolute Auto 2.4 x10*3/uL (2.0-8.3); Platelet Count 256 X10*3/uL (160-400); Red Blood Count 4.38 X10*6/uL (4.60-5.80); Red Cell Distribution Width 14.7 % (11.0-16.0); White Blood Count 4.2 X10*3/uL (4.8-10.8)
[2021-12-16 14:42] LABS: Iron 30 mcg/dL (45-160); Percent Iron Saturation 7 % (15-50); Total Iron Binding Capacity 407 mcg/dL (228-428); Unsaturated Iron Binding 377 ug/dL
[2021-12-16 14:52] LABS: Ferritin 12 ng/mL (20-250)
[2021-12-16 15:37] LABS: Free T4 (Free Thyroxine) 1.02 ng/dL (0.71-1.85)
[2021-12-18 05:12] LABS: Thyroid Peroxidase Antibodies 1 IU/mL (<9)
== END 2021-12-16 13:01 | disposition home or self-care (01) ==
LOC: HO.HMGCLDS 13:00
PROVIDERS: PCP Nurse Practitioner Family; Visit Provider Nurse Practitioner Family
DX: D64.9 Anemia, unspecified (principal); R79.89 Other specified abnormal findings of blood chemistry
CPT/HCPCS: 36415; 82728; 83540; 84439; 84443; 85025; 86376

== ENCOUNTER → 2021-12-19 12:59 | Outpatient (BNVA) | payer MEDICARE, SELFPAY | PROVIDERS: PCP Nurse Practitioner Family; Referring Provider Nurse Practitioner Family; Visit Provider Nurse Practitioner Family | DX: I48.91 Unspecified atrial fibrillation (principal); I42.9 Cardiomyopathy, unspecified; I49.3 Ventricular premature depolarization; I77.810 Thoracic aortic ectasia; I25.10 Atherosclerotic heart disease of native coronary artery without angina pectoris; Z79.01 Long term (current) use of anticoagulants; Z79.899 Other long term (current) drug therapy | CPT/HCPCS: 93005; 99212 ==

== ENCOUNTER 2021-12-21 | Outpatient (REF) | payer MEDICARE, SELFPAY ==
[2021-12-25 09:39] LABS: FIT Int Ctl YES; FIT1 NEGATIVE (NEGATIVE); FIT2 NEGATIVE (NEGATIVE)
== END 2021-12-21 00:01 | disposition home or self-care (01) ==
LOC: HO.LNP
PROVIDERS: Visit Provider Nurse Practitioner Family
DX: R19.5 Other fecal abnormalities (principal)
CPT/HCPCS: 82274

== ENCOUNTER 2021-12-24 14:06 | Outpatient (REF) | payer MEDICARE, SELFPAY | END 2021-12-24 14:07 | disposition home or self-care (01) | LOC: HO.HMGCLDS 14:06 | PROVIDERS: PCP Nurse Practitioner Family; Visit Provider Nurse Practitioner Family | DX: Z13.89 Encounter for screening for other disorder (principal) | CPT/HCPCS: 82274 ==

== ENCOUNTER → 2022-01-23 10:39 | Outpatient (BNVA) | payer MEDICARE, SELFPAY | PROVIDERS: PCP Nurse Practitioner Family; Visit Provider Urology | DX: R33.9 Retention of urine, unspecified (principal); N52.9 Male erectile dysfunction, unspecified | CPT/HCPCS: 51798; 99212 ==

== ENCOUNTER 2022-01-29 08:04 | Outpatient (REF) | payer MEDICARE, SELFPAY ==
[2022-01-29 08:53] LABS: Anion Gap 13 (12-20); Blood Urea Nitrogen 18 mg/dL (9-16); Calcium 8.6 mg/dL (8.4-10.2); Carbon Dioxide 27 mmol/L (22-29); Chloride 106 mmol/L (96-108); Estimated Glomerular Filt Rate 43; Glucose Random 141 mg/dL (60-115); Potassium 4.5 mmol/L (3.3-5.1); Sodium 141 mmol/L (135-145)
== END 2022-01-29 08:05 | disposition home or self-care (01) ==
LOC: HO.LNP 08:04
PROVIDERS: Visit Provider Nurse Practitioner Family
DX: Z13.89 Encounter for screening for other disorder (principal)
CPT/HCPCS: 80048

== ENCOUNTER → 2022-01-29 08:18 | Outpatient (REF) | payer MEDICARE, SELFPAY ==
--- NOTE | 2022-01-29 08:16 | CA_ITS ---
Transthoracic Echocardiogram Patient (Last, First, Middle): Francois Ca, Gender: Male Date of : 1945 Age: 76 Procedure Date: 01/29/2022 Procedure Type: Transthoracic Echocardiogram Location: OP Height: 180.34 cm Weight: 85.28 kg BSA: 2.05 m2 Heart Rate: 67 bpm BP: 90 / 50 mmHg Science Job Titles: BAILEY Mg MD: Agnes Pierce A R COLLECTIONS REP-Arie Wool Hanker: Rober Rodriguez MD Symptoms: I77.810 - Thoracic aortic ectasia Study Quality: Fair ECG Rhythm: Sinus Conclusions: - 1. Mildly reduced LV systolic function with LVEF of 45-50% with impaired relaxation filling pattern 2. [id number] aortic regurgitation 3. Moderately dilated ascending aorta at 4.8 cm 4. No gross pericardial effusion Findings Left Ventricle Normal left ventricular cavity size. There is mildly increased left ventricular wall thickness. The left ventricular systolic function is mildly decreased. The visually estimated ejection fraction is between 45-50%. Spectral Doppler is indicative of an impaired relaxation filling pattern. Wall Motion Rest Echo Findings The inferoseptal wall and mid inferior segment are hypokinetic. The basal inferior segment is akinetic. All other scored wall segments showed normal motion. Right Ventricle Normal right ventricular cavity size and systolic function. Atria The left atrium was not well visualized. Interatrial shunt cannot be excluded. The right atrium was not well visualized. Aortic Valve There is mild calcification of the aortic valve. There is no aortic valve stenosis. There is mild to moderate aortic valve regurgitation. Mitral Valve There is mild anterior and moderate posterior mitral leaflet thickening. There is moderate mitral annular calcification. There is mild mitral valve regurgitation. There is no mitral valve stenosis. Pulmonic Valve The pulmonic valve was not well visualized. Tricuspid Valve The tricuspid valve was not well visualized. Tricuspid regurgitation envelope is inadequate for calculation of right ventricular systolic pressure. Normal right atrial pressure. Great Vessels The pulmonary artery was not well visualized. There is moderate dilatation of the ascending aorta measuring 4.80 cm. Venous The inferior vena cava is normal in size and collapses greater than 50% with inspiration. Pericardium/Pleural There is no evidence of pericardial effusion. Prior Study Comparison Changes noted compared to prior study dated: 04/15/2021. LV systolic function has marginally improved. Ascending aorta is dilated at 4.8 cm Measurements 2D Linear Measurements IVSd: 1.33 0.6-0.9/0.6-1.0 cm LVIDd: 4.51 3.9-5.3/4.2-5.9 cm LVIDd Index: 2.20 2.4-3.2/2.2-3.1 cm/m2 LVIDs: 2.98 2.0-3.6 cm LVPWd: 1.27 0.7-1.1 cm LA Diam: 4.00 2.7-3.8/3.0-4.0 cm LAIDs Index: 1.95 1.5-2.3 cm/m2 LV Mass: 278.40 67-162/88-224 g LV Mass Index: 135.80 43-95/49-115 g/m2 LVOT Diam: 2.50 3.0+(-)1.3 cm 2D Systolic Function EF 4C: 47.00 >55% EF 2C: 47.50 >55% EF BiP: 48.20 >55% Mitral Valve E'Lateral: 10.20 E'Medial: 4.46 Aortic Valve AoV Pk Mike: 1.35 AoV Mn Mike: 0.97 AoV VTI: 0.26 AoV Pk Grad: 7.00 Aov Mn Grad: 4.00 MICHELLE Cont.VTI: 3.74 AI Pk Mike: 2.97 AI Gordon: 1.58 LVOT LVOT Pk Mike: 1.05 LVOT Mn Mike: 0.75 LVOT VTI: 0.20 LVOT Pk Grad: 4.00 LVOT Mn Grad: 3.00 LVOT Diam: 2.50 LVOT Area: 4.91 Diastolic Function E'Medial: 4.46 E' Laterial: 10.20 Right Ventricle TAPSE (mm): 18.80 TVS' Mike: 9.68 Tricuspid Valve RA Press: 3.00 Great Vessels Aorta Sinus of Valsalva: 5.20 2.0-3.5 cm Ao Asc: 4.80 2.1-3.4 cm Pulmonary Valve PV Pk Mike: 0.84 Peak PV Grad: 3.00 Updated in Other Vendor System with Status of Final Rober Rodriguez MD electronically signed on 01/31/2022 8:17:21 AM with status of Final
== END ==
LOC: HO.CARD 08:18
PROVIDERS: Visit Provider Nurse Practitioner Family
DX: I42.8 Other cardiomyopathies (principal); I77.810 Thoracic aortic ectasia
CPT/HCPCS: 80048; 93306

== ENCOUNTER 2022-02-19 13:45 | Outpatient (REF) | payer MEDICARE, SELFPAY ==
[2022-02-19 16:30] LABS: MANUAL DIFF FLAG NO
[2022-02-19 16:36] LABS: Basophils Absolute Auto 0.1 X10*3/uL (0.0-0.2); Basophils Percent Auto 1.7 % (0-2); Eosinophils Absolute Auto 0.3 X10*3/uL (0.0-0.4); Eosinophils Percent Auto 6.2 % (0-4); Hematocrit 34.7 % (42.0-52.0); Hemoglobin 10.3 g/dl (14.0-18.0); Lymphocytes Absolute Auto 0.9 X10*3/uL (1.2-4.9); Lymphocytes Percent Auto 23.2 % (20-40); Mean Corpuscular HGB Conc 29.7 g/dl (31.0-36.0); Mean Corpuscular Hemoglobin 23.8 pg (27.0-33.0); Mean Corpuscular Volume 80.3 fL (80.0-98.0); Mean Platelet Volume 10.2 fL (9.4-12.4); Monocytes Absolute Auto 0.5 X10*3/uL (0.1-1.2); Neutrophils Absolute Auto 2.3 x10*3/uL (2.0-8.3); Neutrophils Percent Auto 56.9 % (45-73); Platelet Count 248 X10*3/uL (160-400); Red Blood Count 4.32 X10*6/uL (4.60-5.80); Red Cell Distribution Width 15.9 % (11.0-16.0)
[2022-02-19 16:39] LABS: Appearance Urine Clear; Color Urine Yellow; Glucose Urine UA Negative (Negative); Leukocyte Esterase Urine Negative (Negative); Nitrite Urine Negative (Negative); Urine Blood Negative (Negative); Urine Ketones Negative (Negative); Urine Protein Trace mg/dL (Neg-Trace)
[2022-02-19 17:22] LABS: Alanine Aminotransferase 24 U/L (0-40); Albumin Level 3.6 g/dL (3.5-5.0); Alkaline Phosphatase 72 U/L (39-117); Anion Gap 12 (12-20); Aspartate Amino Transferase 28 U/L (5-37); Bilirubin Total 0.4 mg/dL (0.0-1.0); Blood Urea Nitrogen 23 mg/dL (9-16); Calcium 8.3 mg/dL (8.4-10.2); Carbon Dioxide 26 mmol/L (22-29); Chloride 108 mmol/L (96-108); Estimated Glomerular Filt Rate 47; Glucose Random 140 mg/dL (60-115); Potassium 4.5 mmol/L (3.3-5.1); Sodium 141 mmol/L (135-145); TSH reflex Free T4 3.55 uIU/mL (0.32-4.0); Total Protein 6.3 g/dL (6.5-8.0)
== END 2022-02-19 13:46 | disposition home or self-care (01) ==
LOC: HO.HMGCLDS 13:45
PROVIDERS: PCP Nurse Practitioner Family; Visit Provider Nurse Practitioner Family
DX: D64.9 Anemia, unspecified (principal); R79.89 Other specified abnormal findings of blood chemistry
CPT/HCPCS: 36415; 80053; 81003; 84443; 85025

== ENCOUNTER 2022-03-06 13:27 | Outpatient (REF) | payer MEDICARE, SELFPAY ==
[2022-03-06 14:09] LABS: MANUAL DIFF FLAG NO
[2022-03-06 14:31] LABS: Basophils Absolute Auto 0.1 X10*3/uL (0.0-0.2); Basophils Percent Auto 1.5 % (0-2); Eosinophils Absolute Auto 0.2 X10*3/uL (0.0-0.4); Eosinophils Percent Auto 4.5 % (0-4); Hematocrit 35.8 % (42.0-52.0); Hemoglobin 10.8 g/dl (14.0-18.0); Imm Gran Abs Auto 0.01 X10*3/uL (0.00-0.03); Imm Gran Pct Auto 0.2 % (0.0-0.4); Immature Retic Fraction 12.3 % (2.3-13.4); Lymphocytes Absolute Auto 1.1 X10*3/uL (1.2-4.9); Lymphocytes Percent Auto 24.2 % (20-40); Mean Corpuscular HGB Conc 30.2 g/dl (31.0-36.0); Mean Corpuscular Volume 79.6 fL (80.0-98.0); Mean Platelet Volume 10.3 fL (9.4-12.4); Monocytes Absolute Auto 0.8 X10*3/uL (0.1-1.2); Monocytes Percent Auto 16.2 % (2-11); Neutrophils Absolute Auto 2.5 x10*3/uL (2.0-8.3); Neutrophils Percent Auto 53.4 % (45-73); Platelet Count 236 X10*3/uL (160-400); Red Cell Distribution Width 16.6 % (11.0-16.0); Retic HGB Equivalent 26.1 pg (30.0-35.0); Reticulocyte Percent 0.6 % (0.5-1.8); Reticulocytes Absolute 0.028 X10*6/uL (0.026-0.095); White Blood Count 4.6 X10*3/uL (4.8-10.8)
[2022-03-06 15:56] LABS: Ferritin 11 ng/mL (20-250); Iron 24 mcg/dL (45-160); Percent Iron Saturation 7 % (15-50); Total Iron Binding Capacity 361 mcg/dL (228-428); Unsaturated Iron Binding 337 ug/dL
[2022-03-06 16:05] LABS: Folate 6.2 ng/mL (> or = 4.0); Vitamin B12 518 pg/mL (200-900)
[2022-03-11 14:23] LABS: Hematocrit 34.8 % (38.5-50.0); Hemoglobin 10.6 g/dL (13.2-17.1); MCH 23.3 pg (27.0-33.0); MCV 76.7 fL (80.0-100.0); RBC 4.54 Million/uL (4.20-5.80); RDW 15.1 % (11.0-15.0)
== END 2022-03-06 13:28 | disposition home or self-care (01) ==
LOC: HO.HMGCLDS 13:27
PROVIDERS: PCP Nurse Practitioner Family; Visit Provider Nurse Practitioner Family
DX: D64.9 Anemia, unspecified (principal)
CPT/HCPCS: 36415; 82607; 82728; 82746; 83020; 83540; 85014; 85018; 85025; 85041; 85045

== ENCOUNTER → 2022-03-19 11:35 | Outpatient (BNVA) | payer MEDICARE, SELFPAY | PROVIDERS: PCP Nurse Practitioner Family; Referring Provider Nurse Practitioner Family; Visit Provider Internal Medicine Cardiovascular Disease | DX: I42.8 Other cardiomyopathies (principal); I49.3 Ventricular premature depolarization; I77.810 Thoracic aortic ectasia; Z79.899 Other long term (current) drug therapy | CPT/HCPCS: 93005; 99212 ==

== ENCOUNTER 2022-03-25 07:30 | Outpatient (REF) | payer MEDICARE, SELFPAY ==
--- NOTE | ~2022-03-25 | CT_ITS ---
EXAMINATION: CT CHEST WITHOUT CONTRAST CLINICAL INFORMATION: Aortic aneurysm without rupture COMPARISON: CTA chest 09/25/2020 TECHNIQUE: Multidetector volumetric CT imaging of the chest was done. Axial MIP volume rendering provided. Sagittal and coronal reformatted images were obtained. This CT examination was performed using dose optimization techniques as appropriate, variously including the following: *Automated exposure control *Adjustment of mA and/or kV according to patient size (this includes techniques or standardized protocols for targeted exams where dose is matched to indication/reason for exam; i.e. extremities or head) *Use of iterative reconstruction technique DLP: 207 mGy-cm FINDINGS: COMMUNITY AFFAIRS DIRECTOR: Symmetrically expanded lungs. LUNGS: Similar appearance of biapical pleural parenchymal scarring. This includes a 3 x 10 mm right apical nodule that was seen previously. 2 x 6 mm juxtapleural pleural nodule in the posterior periphery of the right upper lobe image 121/751 is similarly unchanged. Curvilinear atelectasis or scar along left major fissure. A few scattered punctate calcified granulomata are present. No suspicious or concerning focal lesion seen MEDIASTINUM: The aortic root measures 5.0 cm in greatest diameter on coronal images. The ascending thoracic aorta measures 3.7 cm on coronal images, 3.8 cm transaxially. Normal heart size. No pericardial effusion. No hilar or mediastinal lymphadenopathy. CORONARY ARTERY CALCIFICATION: Three-vessel coronary artery calcification. PLEURA: There is no pleural effusion. No pleural mass or thickening. AXILLA: No lymphadenopathy. UPPER ABDOMEN: No adrenal mass. Gallstones. OSSEOUS STRUCTURES: Unremarkable. CT/CT chest wo IV con IMPRESSION: The aortic root remains dilated to 5.0 cm when measured on coronal images. No convincing interval change from prior study 09/25/2020. Similar appearance of biapical pleural parenchymal scarring and peripheral pulmonary nodules. According to the UPDATED 2017 Fleischner Society recommendations, the advised follow-up imaging for solid nodules < 6 mm is: LOW RISK PATIENT: No routine follow-up. HIGH RISK PATIENT: Optional CT at 12 months. Fleischner guidelines were followed.
== END 2022-03-25 07:31 | disposition home or self-care (01) ==
LOC: HO.CT 07:30
PROVIDERS: Visit Provider Internal Medicine Cardiovascular Disease
DX: I71.9 Aortic aneurysm of unspecified site, without rupture (principal)
CPT/HCPCS: 71250

== ENCOUNTER 2022-04-24 11:03 | Outpatient (REF) | payer MEDICARE, SELFPAY ==
[2022-04-24 13:47] LABS: MANUAL DIFF FLAG NO
[2022-04-24 13:55] LABS: Basophils Absolute Auto 0.1 X10*3/uL (0.0-0.2); Basophils Percent Auto 1.5 % (0-2); Eosinophils Absolute Auto 0.2 X10*3/uL (0.0-0.4); Eosinophils Percent Auto 3.9 % (0-4); Hematocrit 39.8 % (42.0-52.0); Imm Gran Abs Auto 0.02 X10*3/uL (0.00-0.03); Imm Gran Pct Auto 0.4 % (0.0-0.4); Immature Retic Fraction 6.5 % (2.3-13.4); Lymphocytes Absolute Auto 1.2 X10*3/uL (1.2-4.9); Lymphocytes Percent Auto 22.6 % (20-40); Mean Corpuscular HGB Conc 30.2 g/dl (31.0-36.0); Mean Corpuscular Hemoglobin 25.9 pg (27.0-33.0); Mean Platelet Volume 10.1 fL (9.4-12.4); Monocytes Absolute Auto 0.8 X10*3/uL (0.1-1.2); Monocytes Percent Auto 14.2 % (2-11); Neutrophils Absolute Auto 3.1 x10*3/uL (2.0-8.3); Neutrophils Percent Auto 57.4 % (45-73); Platelet Count 218 X10*3/uL (160-400); Red Blood Count 4.63 X10*6/uL (4.60-5.80); Red Cell Distribution Width 24.2 % (11.0-16.0); Retic HGB Equivalent 35.5 pg (30.0-35.0); Reticulocytes Absolute 0.047 X10*6/uL (0.026-0.095); White Blood Count 5.4 X10*3/uL (4.8-10.8)
[2022-04-24 14:29] LABS: Iron 134 mcg/dL (45-160); Percent Iron Saturation 45 % (15-50); Total Iron Binding Capacity 296 mcg/dL (228-428); Unsaturated Iron Binding 162 ug/dL
[2022-04-24 14:48] LABS: Ferritin 28 ng/mL (20-250)
== END 2022-04-24 11:04 | disposition home or self-care (01) ==
LOC: HO.HMGCLDS 11:03
PROVIDERS: PCP Nurse Practitioner Family; Visit Provider Nurse Practitioner Family
DX: D64.9 Anemia, unspecified (principal)
CPT/HCPCS: 36415; 82728; 83540; 85025; 85045

== ENCOUNTER 2022-05-23 07:30 | Outpatient (REF) | payer MEDICARE, SELFPAY ==
[2022-05-23 08:39] LABS: Anion Gap 12 (12-20); Blood Urea Nitrogen 24 mg/dL (9-16); Calcium 8.7 mg/dL (8.4-10.2); Carbon Dioxide 27 mmol/L (22-29); Chloride 108 mmol/L (96-108); Estimated Glomerular Filt Rate 49; Glucose Random 84 mg/dL (60-115); Potassium 4.6 mmol/L (3.3-5.1); Sodium 142 mmol/L (135-145)
== END 2022-05-23 07:31 | disposition home or self-care (01) ==
LOC: HO.LAB 07:30
PROVIDERS: PCP Nurse Practitioner Family; Visit Provider Internal Medicine Hypertension Specialist
DX: I12.9 Hypertensive chronic kidney disease with stage 1 through stage 4 chronic kidney disease, or unspecified chronic kidney disease (principal); N18.9 Chronic kidney disease, unspecified
CPT/HCPCS: 36415; 80048

== ENCOUNTER 2022-07-21 11:00 | Outpatient (REF) | payer MEDICARE, SELFPAY ==
[2022-07-21 15:48] LABS: Prostate Specific Antigen 3.53 ng/mL (<0.05-4.0)
== END 2022-07-21 11:01 | disposition home or self-care (01) ==
LOC: HO.HMGCLDS 11:00
PROVIDERS: PCP Nurse Practitioner Family; Visit Provider Urology
DX: Z12.5 Encounter for screening for malignant neoplasm of prostate (principal); R33.9 Retention of urine, unspecified
CPT/HCPCS: 36415; 84153

== ENCOUNTER → 2022-07-29 08:23 | Outpatient (BNVA) | payer MEDICARE, SELFPAY | PROVIDERS: PCP Nurse Practitioner Family; Visit Provider Urology | DX: N40.1 Benign prostatic hyperplasia with lower urinary tract symptoms (principal); N13.8 Other obstructive and reflux uropathy | CPT/HCPCS: 51798; 99212 ==

== ENCOUNTER → 2022-08-14 12:20 | Outpatient (BNVA) | payer MEDICARE, SELFPAY | PROVIDERS: PCP Nurse Practitioner Family; Referring Provider Nurse Practitioner Family; Visit Provider Internal Medicine Cardiovascular Disease | DX: Z51.81 Encounter for therapeutic drug level monitoring (principal); I49.3 Ventricular premature depolarization; I77.810 Thoracic aortic ectasia; I42.8 Other cardiomyopathies | CPT/HCPCS: 93005; 99212 ==

== ENCOUNTER 2022-08-22 07:44 | Outpatient (REF) | payer MEDICARE, SELFPAY ==
[2022-08-22 09:32] LABS: Alanine Aminotransferase 19 U/L (0-40); Albumin Level 3.9 g/dL (3.5-5.0); Alkaline Phosphatase 76 U/L (39-117); Anion Gap 12 (12-20); Aspartate Amino Transferase 19 U/L (5-37); Bilirubin Direct 0.2 mg/dL (0.0-0.5); Bilirubin Total 0.7 mg/dL (0.0-1.0); Blood Urea Nitrogen 34 mg/dL (9-16); Calcium 9.2 mg/dL (8.4-10.2); Carbon Dioxide 26 mmol/L (22-29); Chloride 110 mmol/L (96-108); Estimated Glomerular Filt Rate 55; Glucose Random 106 mg/dL (60-115); Magnesium 2.2 mg/dL (1.6-2.6); Potassium 4.7 mmol/L (3.3-5.1); Sodium 143 mmol/L (135-145); Total Protein 6.7 g/dL (6.5-8.0)
[2022-08-22 09:57] LABS: TSH reflex Free T4 4.09 uIU/mL (0.32-4.0)
[2022-08-22 10:53] LABS: Free T4 (Free Thyroxine) 0.97 ng/dL (0.71-1.85)
== END 2022-08-22 07:45 | disposition home or self-care (01) ==
LOC: HO.LAB 07:44
PROVIDERS: PCP Nurse Practitioner Family; Visit Provider Internal Medicine Cardiovascular Disease
DX: Z51.81 Encounter for therapeutic drug level monitoring (principal); Z79.899 Other long term (current) drug therapy
CPT/HCPCS: 36415; 80048; 80076; 83735; 84439; 84443

== ENCOUNTER 2022-11-04 10:16 | Outpatient (REF) | payer MEDICARE, SELFPAY ==
[2022-11-04 13:02] LABS: MANUAL DIFF FLAG NO
[2022-11-04 13:18] LABS: Appearance Urine Clear; Color Urine Yellow; Glucose Urine UA Negative (Negative); Leukocyte Esterase Urine Small (1+) (Negative); Nitrite Urine Negative (Negative); UMIC TRIGGER UACC YES; Urine Blood Negative (Negative); Urine Ketones Negative (Negative); Urine Protein Negative (Neg-Trace)
[2022-11-04 13:21] LABS: Bacteria Urine None Seen (None Seen); Hyaline Casts Urine 0-2 /LPF (0-2); RBC Urine 0-2 /HPF (0-2); Squamous Epithelial Cell Urine 0-2 /HPF (0-2); UACC Culture Trigger YES
[2022-11-04 13:34] LABS: Basophils Absolute Auto 0.1 X10*3/uL (0.0-0.2); Eosinophils Absolute Auto 0.2 X10*3/uL (0.0-0.4); Eosinophils Percent Auto 4.6 % (0-4); Hematocrit 43.7 % (42.0-52.0); Imm Gran Abs Auto 0.02 X10*3/uL (0.00-0.03); Imm Gran Pct Auto 0.4 % (0.0-0.4); Lymphocytes Percent Auto 19.4 % (20-40); Mean Corpuscular Hemoglobin 30.7 pg (27.0-33.0); Mean Corpuscular Volume 95.8 fL (80.0-98.0); Mean Platelet Volume 9.5 fL (9.4-12.4); Monocytes Absolute Auto 0.7 X10*3/uL (0.1-1.2); Monocytes Percent Auto 13.3 % (2-11); Neutrophils Absolute Auto 3.1 x10*3/uL (2.0-8.3); Neutrophils Percent Auto 61.3 % (45-73); Platelet Count 181 X10*3/uL (160-400); Red Blood Count 4.56 X10*6/uL (4.60-5.80); Red Cell Distribution Width 13.5 % (11.0-16.0); White Blood Count 5.1 X10*3/uL (4.8-10.8)
[2022-11-04 14:05] LABS: Alanine Aminotransferase 25 U/L (0-40); Albumin Level 3.8 g/dL (3.5-5.0); Alkaline Phosphatase 70 U/L (39-117); Anion Gap 11 (12-20); Aspartate Amino Transferase 25 U/L (5-37); Bilirubin Total 0.6 mg/dL (0.0-1.0); Blood Urea Nitrogen 19 mg/dL (9-16); Carbon Dioxide 25 mmol/L (22-29); Chloride 108 mmol/L (96-108); Cholesterol 171 mg/dL (<200); Estimated Glomerular Filt Rate 59; Glucose Fasting 125 mg/dL (60-99); HDL Cholesterol 46 mg/dL (>40); LDL Cholesterol Calculated 111 mg/dL (<100); Potassium 4.4 mmol/L (3.3-5.1); Sodium 140 mmol/L (135-145); Total Protein 6.8 g/dL (6.5-8.0); Triglycerides 71 mg/dL (<150)
[2022-11-04 14:22] LABS: TSH reflex Free T4 3.25 uIU/mL (0.32-4.0)
== END 2022-11-04 10:17 | disposition home or self-care (01) ==
LOC: HO.HMGCLDS 10:16
PROVIDERS: PCP Nurse Practitioner Family; Visit Provider Nurse Practitioner Family
DX: D64.9 Anemia, unspecified (principal); I25.10 Atherosclerotic heart disease of native coronary artery without angina pectoris; I48.91 Unspecified atrial fibrillation; I42.9 Cardiomyopathy, unspecified; Z13.89 Encounter for screening for other disorder
CPT/HCPCS: 36415; 80053; 80061; 81001; 81003; 84443; 85025; 87086; 87088; 87186

== ENCOUNTER 2022-11-06 07:22 | Outpatient (REF) | payer MEDICARE, SELFPAY ==
--- NOTE | 2022-11-06 09:09 | PFT_ITS ---
INDICATIONS: Therapeutic drug level. SPIROMETRY: FEV1 to FVC of 68% with an FEV1 of 2.37 L, which is 74% predicted and an FVC of 3.48 L, which is 79% of predicted. No significant response to bronchodilators noted. Maximum voluntary ventilation 57% predicted. LUNG VOLUMES: Total lung capacity 54% predicted with expiratory reserve volume of 51% predicted. DIFFUSION CAPACITY: DLCO 48% predicted. COMPARISONS: I do not have any available. INTERPRETATION: This is an abnormal pulmonary function study. There is an obstructive ventilatory defect consistent with moderate COPD. No significant response to bronchodilators noted and a moderate decrease in the maximum voluntary ventilation suggesting deconditioning or neuromuscular disease. The patient also has a restrictive ventilatory defect consistent with moderate restrictive lung disease. Again, parenchymal lung conditions and neuromuscular conditions should be considered. Patient does have a moderate diffusion impairment secondary to the above findings. If the patient has PFTs previously, then we will have them to assess for any worsening disease, otherwise consider pulmonary evaluation. MD TANNA Garvey/MODL / [phone]
== END 2022-11-06 07:23 | disposition home or self-care (01) ==
LOC: HO.RESP 07:22
PROVIDERS: PCP Nurse Practitioner Family; Visit Provider Internal Medicine Cardiovascular Disease
DX: Z51.81 Encounter for therapeutic drug level monitoring (principal)
CPT/HCPCS: 94010; 94727; 94729

== ENCOUNTER → 2022-11-06 09:09 | Outpatient (BNV) | payer MEDICARE, SELFPAY | PROVIDERS: PCP Nurse Practitioner Family; Visit Provider Hospitalist | DX: J44.9 Chronic obstructive pulmonary disease, unspecified (principal); Z79.899 Other long term (current) drug therapy | CPT/HCPCS: 94060; 94727; 94729 ==

== ENCOUNTER 2022-11-07 07:08 | Outpatient (REF) | payer MEDICARE, SELFPAY ==
[2022-11-07 08:20] LABS: Hematocrit 44.6 % (42.0-52.0); Hemoglobin 14.1 g/dl (14.0-18.0); Mean Corpuscular HGB Conc 31.6 g/dl (31.0-36.0); Mean Corpuscular Hemoglobin 30.7 pg (27.0-33.0); Mean Corpuscular Volume 97.2 fL (80.0-98.0); Mean Platelet Volume 9.7 fL (9.4-12.4); Platelet Count 189 X10*3/uL (160-400); Red Blood Count 4.59 X10*6/uL (4.60-5.80); Red Cell Distribution Width 13.3 % (11.0-16.0); White Blood Count 5.9 X10*3/uL (4.8-10.8)
[2022-11-07 09:07] LABS: Anion Gap 13 (12-20); Blood Urea Nitrogen 22 mg/dL (9-16); Calcium 9.3 mg/dL (8.4-10.2); Carbon Dioxide 25 mmol/L (22-29); Chloride 108 mmol/L (96-108); Estimated Glomerular Filt Rate 50; Glucose Random 114 mg/dL (60-115); Potassium 4.6 mmol/L (3.3-5.1); Sodium 141 mmol/L (135-145)
== END 2022-11-07 07:09 | disposition home or self-care (01) ==
LOC: HO.LAB 07:08
PROVIDERS: PCP Nurse Practitioner Family; Visit Provider Internal Medicine Hypertension Specialist
DX: N18.32 Chronic kidney disease, stage 3b (principal)
CPT/HCPCS: 36415; 80048; 85027

== ENCOUNTER 2022-11-19 09:47 | Outpatient (AMB) | payer MEDICARE, SELFPAY ==
[2022-11-19 09:52] VITALS: BP 118/62; PULSE 85; O2SAT 95; BMI 26.9
--- NOTE | 2022-11-19 09:52 | MHC.OFFVIS ---
Intake Vital Signs 11/19/22 09:52 Height 5 ft 11 in Weight 192 lb 14.472 oz BMI 26.9 BP 118/62 Blood Pressure Location Rt brachial Position Sitting Pulse 85 Pulse Source Doppler Pulse Oximetry (%) 95 Oxygen Delivery Method Room Air Intake Visit Reasons: Abnormal PFT Allergies No Known Allergies Allergy (Verified 11/19/22 09:53) HPI Abnormal PFT HPI Details 77-year-old gentleman, remote under 20 pack-year smoker, now with AFib on amiodarone with no pre amiodarone PFT, referred for evaluation of abnormal PFT and CT chest. Patient denies any pulmonary related concerns or complaints. His CT chest demonstrated what appears to be stable apical scarring with significant kyphosis and his PFT shows restrictive physiology with decreased diffusion capacity. Though, there is no evidence of any interstitial lung disease on CT scan. Patient denies family history of lung disease. 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 [facility] Medical History (Updated 11/19/22 @ 10:20 by Sean Vargas MD) Afib Aortic aneurysm Aortic root dilatation Cardiomyopathy COPD (chronic obstructive pulmonary disease) GERD (gastroesophageal reflux disease) PAF (paroxysmal atrial fibrillation) Restrictive pattern present on pulmonary function testing Surgical History S/P hip replacement Social History Household Members: Spouse Housing: House Alcohol intake: never Patient Tobacco Use Status: Former Tobacco user Years Smoked: 30 years ago e-Cigarette/Vaping Use: Never Used Second Hand Smoke Exposure: No service: No Current occupational status: retired Cognitive needs: No Hearing needs: No Vision needs: No Review of Systems Const Denies daytime sleepiness, Denies excessive sweating, Denies fatigue, Denies fever(s), Denies lethargy, Denies malaise, Denies night sweats, Denies snoring and Denies weight loss Eyes Denies blurry vision and Denies itchy eyes ENT Denies nasal congestion, Denies post nasal drip, Denies sinus pain, Denies sinus pressure and Denies other ( Thrush) Card Denies chest pain, Denies pedal edema, Denies dyspnea, Denies orthopnea and Denies paroxysmal nocturnal dyspnea Resp Denies cough, Denies hemoptysis, Denies excessive phlegm production, Denies dyspnea, Denies snoring and Denies wheezing GI Denies abdominal pain and Denies heartburn Musc Denies myalgias, Denies arthralgias and Denies joint swelling Skin/Breast Denies rash Neuro Denies memory loss and Denies seizure-like activity Psych Denies abnormal sleep pattern, Denies anxiety and Denies memory loss Endo Denies excessive sweating, Denies fatigue and Denies heat intolerance Mihai/Lymph Denies easy bruising Aller/Immun Denies itchy eyes, Denies seasonal rhinorrhea and Denies wheezing Physical Exam Vital Signs: Last Vital Signs Pulse 85 11/19/22 09:52 BP 118/62 11/19/22 09:52 Pulse Ox 95 11/19/22 09:52 Oxygen Delivery Method Room Air 11/19/22 09:52 BMI result Body Mass Index 26.9 Const General: no acute distress and alert Nutritional Appearance: not obese Orientation/consciousness: Other orientation findings ( oriented) HEENT Head: Yes atraumatic Eyes General: appearance normal, both eyes and all related structures Sclerae: sclerae normal EOM: EOMs intact bilaterally Neck Neck: Yes supple Lymphatic: no lymphadenopathy noted Resp Effort & Inspection: normal respiratory effort and no use of accessory muscles Auscultation: clear to auscultation bilaterally Cardio Rate: regular rate Rhythm: regular rhythm Heart sounds: no gallops, no murmurs and no rubs Skin General skin exam: other ( warm) Extrem General: No clubbing, No cyanosis and No edema Assessment & Plan Assessment & Plan (1) Restrictive airway disease: Code(s): J98.4 - Other disorders of lung Plan: Applied have significant extra pulmonary component. No evidence of interstitial lung disease. Will repeat PFT in 12 months. (2) Abnormal CT scan, chest: Code(s): R93.89 - Abnormal findings on diagnostic imaging of other specified body structures Plan: Biapical scarring, appears stable, will repeat CT chest in 12 months. (3) Pulmonary emphysema: Code(s): J43.9 - Emphysema, unspecified Plan: Asymptomatic at this time. Will monitor clinically. Orders: Orders CT chest wo IV con 10/20/23 R93.89 - Abnormal findings on diagnostic imaging of other specified body structures PFT pulmonary function test 10/20/23 J98.4 - Other disorders of lung Coding Level of Care Code New Pt Level 4 (94325) Diagnoses Restrictive airway disease J98.[address] scan, chest R93.89 Pulmonary emphysema J43.9
== END 2022-11-19 10:17 | disposition home or self-care (01) ==
PROVIDERS: PCP Nurse Practitioner Family; Visit Provider Internal Medicine Pulmonary Disease
DX: J98.4 Other disorders of lung (principal); R93.89 Abnormal findings on diagnostic imaging of other specified body structures; J43.9 Emphysema, unspecified
CPT/HCPCS: 99204

== ENCOUNTER → 2022-11-19 09:47 | Outpatient (BNVA) | payer MEDICARE, SELFPAY | PROVIDERS: PCP Nurse Practitioner Family; Visit Provider Internal Medicine Pulmonary Disease | DX: J98.4 Other disorders of lung (principal); J43.9 Emphysema, unspecified; R93.89 Abnormal findings on diagnostic imaging of other specified body structures | CPT/HCPCS: 99202 ==

== ENCOUNTER 2022-11-26 08:21 | Outpatient (AMB) | payer MEDICARE, SELFPAY ==
[2022-11-26 08:31] VITALS: BP 98/60; PULSE 74; O2SAT 94; BMI 27.3
--- NOTE | 2022-11-26 08:31 | A.OFFPC_ITS ---
Vital Signs 11/26/22 08:31 Height 5 ft 11 in Weight 195 lb 8 oz BMI 27.3 BP 98/60 Blood Pressure Location Lt brachial Position Sitting Pulse 74 Pulse Source Pulse Oximeter Pulse Oximetry (%) 94 Oxygen Delivery Method Room Air Intake Visit Reasons: 6 month follow up CAD Allergies No Known Allergies Allergy (Verified 11/26/22 08:33) Tobacco use date assessed: 11/26/22 Fall risk assessment: No Falls in past year Last assessed Fall Risk: 11/26/22 Dental Screening Dental Screen Date: 11/26/22 Did you have a dental visit in the last 12 months?: Yes Did you have a dental problem in the last 6 months where you did not have access to dental care?: No Was dental information given to patient?: Patient has dentist HPI 6 month follow up CAD HPI Details Pt has a hx of CAD. He is following up with cardiology. Will start atorvastatin 10mg. Denies chest pain, shortness of breath, and dizziness. [facility] Medical History (Updated 11/19/22 @ 10:20 by Sean Vargas MD) Restrictive pattern present on pulmonary function testing COPD (chronic obstructive pulmonary disease) GERD (gastroesophageal reflux disease) Afib Aortic root dilatation Aortic aneurysm Cardiomyopathy PAF (paroxysmal atrial fibrillation) Surgical History S/P hip replacement Social History Household Members: Spouse Housing: House Alcohol intake: never Patient Tobacco Use Status: Former Tobacco user Years Smoked: 30 years ago e-Cigarette/Vaping Use: Never Used Second Hand Smoke Exposure: No service: No Current occupational status: retired Cognitive needs: No Hearing needs: No Vision needs: No Questionnaire Thrive Questionnaire Date Thrive assessed: 06/27/21 DAVID-7 AMB Questionnaire DAVID-7 Date DAVID - 7 assessed: 06/27/21 Source: Developed by Drs. Omid Herrera, Gina Urbina, Mike Gupta and colleagues, with an educational piter from [employer]. Review of Systems Const Reports as per HPI Physical exam (Primary Care) Vital Signs: Last Vital Signs Pulse 74 11/26/22 08:31 BP 98/60 11/26/22 08:31 Pulse Ox 94 11/26/22 08:31 Oxygen Delivery Method Room Air 11/26/22 08:31 BMI result Body Mass Index 27.3 Tobacco/Smoking Status: Tobacco use Status Tobacco use date assessed 11/26/22 11/26/22 08:37 Patient Tobacco Use Status Former Tobacco user 11/26/22 08:37 e-Cigarette/Vaping Use Never Used 11/26/22 08:37 Thrive Assessment: Date of Thrive Assessment Date Thrive assessed 06/27/21 11/26/22 08:37 Const General: cooperative Orientation/consciousness: patient oriented x3 Resp Effort & Inspection: normal respiratory effort Auscultation: clear to auscultation bilaterally and diminished lung sounds Cardio Rate: regular rate Rhythm: regular rhythm Heart sounds: S1 normal heart sound present and S2 normal heart sound present Neuro General: patient oriented x3 Extrem Other: slight swelliing to left ankle Psych Appearance: grossly normal Mental Status: mental status grossly normal Speech and movement: Normal speech and movement present Affect: normal affect Attitude: cooperative Thought process: Normal thought process present Thought content: Normal thought content present Insight: Good insight present (Psych) Judgement: Good judgement present (Psych) Assessment and Plan Assessment & Plan (1) CAD (coronary artery disease): Code(s): I25.10 - Atherosclerotic heart disease of [place] coronary artery without angina pectoris Plan The patient agreed to the use of a emergency medical service manager for this encounter. Scribed for ARACELI Guerra by Agustina Valladares emergency medical service manager, on 11/26/2022 at 08:45 EST. Medications: New atorvastatin 10 mg PO BEDTIME 90 tabs 0RF Coding Level of Care Code Est Pt Level 3 (00477) Diagnoses CAD (coronary artery disease) I25.10
== END 2022-11-26 09:36 | disposition home or self-care (01) ==
PROVIDERS: Visit Provider Nurse Practitioner Family
DX: I25.10 Atherosclerotic heart disease of native coronary artery without angina pectoris (principal)
CPT/HCPCS: 99213

== ENCOUNTER → 2023-01-19 07:59 | Outpatient (REF) | payer MEDICARE, SELFPAY ==
--- NOTE | 2023-01-19 08:01 | CA_ITS ---
Transthoracic Echocardiogram Patient (Last, First, Middle): Francois Ca, Gender: Male Date of : 1945 Age: 77 Procedure Date: 01/19/2023 Procedure Type: Transthoracic Echocardiogram Location: OP Height: 180.34 cm Weight: 83.92 kg BSA: 2.04 m2 Heart Rate: bpm BP: 140 / 70 mmHg Life Sciences Teacher: Referring MD: Amor Llanes MD Commercial Attorney: Amor Llanes MD Symptoms: I42.8 - Other cardiomyopathies Study Quality: Fair ECG Rhythm: Sinus, LBBB Conclusions: - There is mildly increased left ventricular wall thickness. The left ventricular systolic function is low normal. The visually estimated ejection fraction is between 50-55%. - Mildly increased right ventricular cavity size. There is normal right ventricular systolic function. - There is moderate aortic valve regurgitation. - Aortic root and STJ 5.2cm. Findings Left Ventricle There is mildly increased left ventricular wall thickness. The left ventricular systolic function is low normal. The visually estimated ejection fraction is between 50-55%. There is no evidence of regional wall motion abnormalities. Diastolic function is indeterminate on the basis of available data. Right Ventricle Mildly increased right ventricular cavity size. There is normal right ventricular systolic function. Atria The left atrium is mildly dilated. The right atrium is normal in size. Aortic Valve The aortic valve was not well visualized. There is no aortic valve stenosis. There is moderate aortic valve regurgitation. Mitral Valve The mitral valve appears normal. There is no mitral valve regurgitation. There is no mitral valve stenosis. Pulmonic Valve The pulmonic valve is likely normal. Tricuspid Valve Normal tricuspid valve structure and function. There is trace tricuspid valve regurgitation. Normal right atrial pressure. There is no evidence of pulmonary hypertension. Great Vessels The pulmonary artery was not well visualized. Aortic root and STJ 5.2cm. Venous The inferior vena cava is normal in size and collapses greater than 50% with inspiration. Pericardium/Pleural There is no evidence of pericardial effusion. Prior Study Comparison Changes noted compared to prior study. Aortic root and STJ 5.2 cm Measurements 2D Linear Measurements IVSd: 1.22 0.6-0.9/0.6-1.0 cm LVIDd: 6.25 3.9-5.3/4.2-5.9 cm LVIDd Index: 3.06 2.4-3.2/2.2-3.1 cm/m2 LVIDs: 4.50 2.0-3.6 cm LVPWd: 1.21 0.7-1.1 cm Ao Root: 5.20 2.1-3.5 cm LA Diam: 3.40 2.7-3.8/3.0-4.0 cm LAIDs Index: 1.67 1.5-2.3 cm/m2 LV Mass: 426.22 67-162/88-224 g LV Mass Index: 208.93 43-95/49-115 g/m2 LVOT Diam: 2.60 3.0+(-)1.3 cm 2D Systolic Function EF 4C: 49.10 >55% EF 2C: 48.90 >55% EF BiP: 50.60 >55% Mitral Valve MV Pk E: 0.49 MV PK A: 0.80 MV Decel Time: 257.00 E/A: 0.60 E'Lateral: 7.29 E'Medial: 6.96 E/E' Med: 7.10 E/E' Lat: 6.70 PHT: 75.00 MVA PHT: 2.93 Decel Lamoure: 1.92 Aortic Valve AoV Pk Mike: 1.47 AoV Mn Mike: 0.87 AoV VTI: 0.30 AoV Pk Grad: 9.00 Aov Mn Grad: 4.00 MICHELLE Cont.VTI: 4.61 AI Pk Mike: 4.34 AI Lamoure: 2.73 LVOT LVOT Pk Mike: 1.14 LVOT Mn Mike: 0.70 LVOT VTI: 0.26 LVOT Pk Grad: 5.00 LVOT Mn Grad: 2.00 LVOT Diam: 2.60 LVOT Area: 5.31 Diastolic Function MV Pk E: 0.49 MV Pk A: 0.80 E/A: 0.60 E'Medial: 6.96 E/E' Med: 7.10 E' Laterial: 7.29 E/E' Lat: 6.70 Right Ventricle TAPSE (mm): 25.00 Tricuspid Valve TR Pk Mike: 2.34 TR Pk Grad: 22.00 RA Press: 3.00 RVSP: 25.00 Great Vessels Aorta Ao Root-2D: 5.20 2.0-3.7 cm Pulmonary Valve PV Pk Mike: 0.94 Peak PV Grad: 4.00 Updated in Other Vendor System with Status of Final Amor Llanes MD electronically signed on 01/21/2023 9:48:37 PM with status of Final
== END ==
LOC: HO.CARD 07:59
PROVIDERS: PCP Nurse Practitioner Family; Visit Provider Internal Medicine Cardiovascular Disease
DX: I42.8 Other cardiomyopathies (principal)
CPT/HCPCS: 93306

== ENCOUNTER → 2023-01-19 08:01 | Outpatient (BNV) | payer MEDICARE, SELFPAY | PROVIDERS: PCP Nurse Practitioner Family; Visit Provider Internal Medicine Cardiovascular Disease | DX: I35.1 Nonrheumatic aortic (valve) insufficiency (principal) | CPT/HCPCS: 93306 ==

== ENCOUNTER 2023-03-02 09:10 | Outpatient (AMB) | payer MEDICARE, SELFPAY ==
[2023-03-02 09:23] VITALS: BP 100/50; PULSE 86; BMI 27.6
--- NOTE | 2023-03-02 09:23 | A.OFFVIS_ITS ---
Intake Vital Signs 03/02/23 09:23 Height 5 ft 11 in Weight 197 lb 15.602 oz BMI 27.6 BP 100/50 L Blood Pressure Location Lt brachial Position Sitting Pulse 86 Intake Visit Reasons: f/up nov echo Intake Note: f/up nov echo/ pt its feeling good. Activity Therapy Teacher Required: No Accompanied by: Self / Same As Patient Allergies No Known Allergies Allergy (Verified 11/26/22 08:33) Medication List - Last Reconciled 03/02/23 by Amor Llanes MD acetaminophen (Tylenol Extra Strength) 1,000 mg PO Q6H PRN amiodarone 200 mg PO DAILY apixaban (Eliquis) 5 mg PO BID 90 days atorvastatin 10 mg PO BEDTIME ferrous sulfate 325 mg PO DAILY finasteride 5 mg PO DAILY 90 days magnesium oxide 400 mg PO BIDPC 90 days metoprolol succinate ER (Toprol XL) 25 mg PO DAILY pantoprazole 40 mg PO DAILY sacubitril-valsartan 24-26 mg (Entresto) 1 tab PO BID 90 days terazosin 5 mg PO BEDTIME 90 days HPI HPI Comments History of Present Illness Details 77-year-old gentleman with nonischemic c ardiomyopathy and aortic root aneurysm of 5 cm. Clinically asymptomatic and compensated. He was started on guideline directed medical therapy and on amiodarone for PVCs. Ejection fraction previously was 30 35% but now has improved 45-50%. By transthoracic echo his aortic root is 4.[address] performed in March 2022 aortic root is 5 cm. There is no interval change in size of the aortic root. Clinically he is improving from cardiomyopathy point of view. He has no symptoms. Tolerating meds well. 03/02/2023: He returns for follow-up. Justin ferreira was referred to Cardiothoracic surgery for aortic root dilatation of 5.[address] Moran and after discussion refused surgery. He is denying any chest discomfort on follow-up. No symptoms/signs of heart failure. Echocardiography has shown EF of 50 55% on last echocardiogram. He is on amiodarone for frequent premature ventricular complexes and atrial fibrillation. He is on apixaban also. [facility] Medical History (Updated 03/02/23 @ 10:46 by Amor Llanes MD) Restrictive pattern present on pulmonary function testing COPD (chronic obstructive pulmonary disease) GERD (gastroesophageal reflux disease) Afib Aortic root dilatation Aortic aneurysm Cardiomyopathy PAF (paroxysmal atrial fibrillation) Surgical History S/P hip replacement Social History Household Members: Spouse Housing: House Alcohol intake: never Patient Tobacco Use Status: Former Tobacco user Years Smoked: 30 years ago e-Cigarette/Vaping Use: Never Used Second Hand Smoke Exposure: No service: No Current occupational status: retired Cognitive needs: No Hearing needs: No Vision needs: No Review of Systems Const Reports chills, Reports fatigue, Reports fever(s), Reports frequent falls, Reports weakness, Reports weight gain and Reports weight loss ENT Reports dizziness Card Reports chest pain, Reports leg edema, Reports lightheadedness, Reports palpitations, Reports dyspnea and Reports dyspnea on exertion Resp Reports cough, Reports dyspnea and Reports dyspnea on exertion GI Reports hematochezia Musc Reports abnormal gait, Reports muscle weakness, Reports numbness, Reports radiating pain into limb and Reports tingling Neuro Reports abnormal gait, Reports dizziness, Reports frequent falls, Reports numbness, Reports tingling and Reports weakness Endo Reports fatigue and Reports palpitations Physical Exam Vital Signs: Last Vital Signs Pulse 86 03/02/23 09:23 BP 100/50 L 03/02/23 09:23 BMI result Body Mass Index 27.6 GENERAL APPEARANCE: in no acute distress, pleasant. NECK: no carotid bruit, no jugular venous distention. SKIN: no suspicious lesions, warm and dry. HEART: no murmurs, regular rate and rhythm. LUNGS: clear to auscultation bilaterally. ABDOMEN: soft, nontender. EXTREMITIES: no edema. PERIPHERAL PULSES: equal. NEUROLOGIC: No gross deficits, AAO X 3 Office Procedures EKG Details: Sinus rhythm 86 beats per minute, pulmonary disease pattern, left anterior fascicular block, QTC 488 milliseconds. [id number], Complete Assessment & Plan Assessment & Plan (1) PAF (paroxysmal atrial fibrillation): Code(s): I48.0 - Paroxysmal atrial fibrillation (2) Therapeutic drug monitoring: Code(s): Z51.81 - Encounter for therapeutic drug level monitoring (3) Aortic aneurysm: Code(s): I71.9 - Aortic aneurysm of unspecified site, without rupture Plan Pleasant 77 gentleman who is here for follow-up. He has background of nonischemic cardiomyopathy likely due to premature ventricular complexes with improvement in ejection fraction after amiodarone therapy. He also had paroxysmal atrial fibrillation is currently taking Eliquis. He has aortic root aneurysm with diameter 5.5 cm. We referred him for cardiothoracic surgery assessment but he has refused surgery. I discussed with him in detail about the pros and cons of surgery and explained to him that given the fact that his aneurysm is 5.5 cm and that we electively treat the aortic aneurysm at this size prevent complications. He understood the pros and cause the risk of not undergoing surgery but again refused surgery. He also said that he does not want us to monitor the aneurysm frequently. I told him he should get blood workup because it has been approximately 4 months since his last blood workup while being on amiodarone but he wishes to do blood testing in June. We will arrange labs and follow-up in June to July time next year. He has been advised that if he has any chest pain he should go to emergency department to get assessment. Thank you for allowing me to participate in the care of your patient. Please feel free to contact me if you have any questions. Orders: Orders Basic Metabolic Panel Today Z51.81 - Encounter for therapeutic drug level monitoring Liver Panel Today Z51.81 - Encounter for therapeutic drug level monitoring TSH reflex Free T4 Today Z51.81 - Encounter for therapeutic drug level monitoring Complete Blood Count no Diff Today Z51.81 - Encounter for therapeutic drug level monitoring Medications: Refilled metoprolol succinate ER (Toprol XL) 25 mg PO DAILY 90 tabs 3RF amiodarone 200 mg PO DAILY 90 tabs 3RF I42.9 - Cardiomyopathy, unspecified magnesium oxide 400 mg PO BIDPC 180 tabs 3RF 90 days I42.9 - Cardiomyopathy, unspecified Coding Level of Care Code Est Pt Level 4 (17335) Diagnoses PAF (paroxysmal atrial fibrillation) I48.0 Therapeutic drug monitoring Z51.81 Aortic aneurysm I71.9 CPT Codes EKG - CPT: 41430-[id number], Complete ([id number])
== END 2023-03-02 09:52 | disposition home or self-care (01) ==
PROVIDERS: PCP Nurse Practitioner Family; Visit Provider Internal Medicine Cardiovascular Disease
DX: I48.0 Paroxysmal atrial fibrillation (principal); Z51.81 Encounter for therapeutic drug level monitoring; I71.9 Aortic aneurysm of unspecified site, without rupture
CPT/HCPCS: 93010; 99214

== ENCOUNTER → 2023-03-02 09:10 | Outpatient (BNVA) | payer MEDICARE, SELFPAY | PROVIDERS: PCP Nurse Practitioner Family; Visit Provider Internal Medicine Cardiovascular Disease | DX: Z51.81 Encounter for therapeutic drug level monitoring (principal); I48.0 Paroxysmal atrial fibrillation; I71.9 Aortic aneurysm of unspecified site, without rupture | CPT/HCPCS: 93005; 99212 ==

== ENCOUNTER 2023-05-11 10:26 | Outpatient (REF) | payer MEDICARE, SELFPAY ==
[2023-05-11 13:46] LABS: Hematocrit 43.9 % (42.0-52.0); Hemoglobin 14.3 g/dl (14.0-18.0); Mean Corpuscular HGB Conc 32.6 g/dl (31.0-36.0); Mean Corpuscular Hemoglobin 31.6 pg (27.0-33.0); Mean Corpuscular Volume 97.1 fL (80.0-98.0); Mean Platelet Volume 9.7 fL (9.4-12.4); Platelet Count 187 X10*3/uL (160-400); Red Blood Count 4.52 X10*6/uL (4.60-5.80); Red Cell Distribution Width 13.5 % (11.0-16.0); White Blood Count 5.5 X10*3/uL (4.8-10.8)
[2023-05-11 14:09] LABS: Alanine Aminotransferase 21 U/L (0-40); Albumin Level 3.9 g/dL (3.5-5.0); Alkaline Phosphatase 71 U/L (39-117); Anion Gap 11 (12-20); Aspartate Amino Transferase 24 U/L (5-37); Bilirubin Direct 0.3 mg/dL (0.0-0.5); Bilirubin Total 0.7 mg/dL (0.0-1.0); Blood Urea Nitrogen 18 mg/dL (9-16); Calcium 8.6 mg/dL (8.4-10.2); Carbon Dioxide 27 mmol/L (22-29); Chloride 106 mmol/L (96-108); Estimated Glomerular Filt Rate > 60; Glucose Random 95 mg/dL (60-115); Potassium 4.3 mmol/L (3.3-5.1); Sodium 140 mmol/L (135-145); Total Protein 6.9 g/dL (6.5-8.0)
[2023-05-11 14:25] LABS: TSH reflex Free T4 5.99 uIU/mL (0.32-4.0)
[2023-05-11 14:59] LABS: Free T4 (Free Thyroxine) 0.89 ng/dL (0.71-1.85)
== END 2023-05-11 10:27 | disposition home or self-care (01) ==
LOC: HO.HMGCLDS 10:26
PROVIDERS: PCP Nurse Practitioner Family; Visit Provider Internal Medicine Cardiovascular Disease
DX: Z51.81 Encounter for therapeutic drug level monitoring (principal); Z79.899 Other long term (current) drug therapy
CPT/HCPCS: 36415; 80048; 80076; 84439; 84443; 85027

== ENCOUNTER 2023-06-03 08:23 | Outpatient (AMB) | payer MEDICARE, SELFPAY ==
[2023-06-03 08:24] VITALS: BP 112/60; PULSE 89; O2SAT 96; BMI 27.9
--- NOTE | 2023-06-03 08:24 | A.OFFPC_ITS ---
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: No Accompanied by: Self / Same As Patient Allergies No Known Allergies Allergy (Verified 06/03/23 08:26) Medication List - Last Reconciled 06/03/23 by ARACELI Lamas acetaminophen (Tylenol Extra Strength) 1,000 mg PO Q6H PRN amiodarone 200 mg PO DAILY apixaban (Eliquis) 5 mg PO BID 90 days atorvastatin 10 mg PO BEDTIME ferrous sulfate 325 mg PO DAILY finasteride 5 mg PO DAILY 90 days magnesium oxide 400 mg PO BIDPC 90 days metoprolol succinate ER (Toprol XL) 25 mg PO DAILY pantoprazole 40 mg PO DAILY sacubitril-valsartan 24-26 mg (Entresto) 1 tab PO BID 90 days terazosin 5 mg PO BEDTIME 90 days Tobacco use date assessed: 06/03/23 Fall risk assessment: 1 Fall in past year Last assessed Fall Risk: 06/03/23 Dental Screening Dental Screen Date: 06/03/23 Did you have a dental visit in the last 12 months?: Yes Did you have a dental problem in the last 6 months where you did not have access to dental care?: No Was dental information given to patient?: Patient has dentist HPI 6 month fu HPI Details Pt reports falling 3 weeks ago and landing on his right arm. He now reports dull pain to his lateral humerus. Will order XR. Pt had some hip pain as well but reports that this has ceased. Recommended heat to the area, motion is lotion . Dyslipidemia: On atorvastatin 10mg. Will order labs. Denies chest pain, shortness of breath, and dizziness. [facility] Medical History Restrictive pattern present on pulmonary function testing COPD (chronic obstructive pulmonary disease) GERD (gastroesophageal reflux disease) Afib Aortic root dilatation Aortic aneurysm Cardiomyopathy PAF (paroxysmal atrial fibrillation) Surgical History S/P hip replacement Social History Household Members: Spouse Housing: House Alcohol intake: never Patient Tobacco Use Status: Former Tobacco user Years Smoked: 30 years ago e-Cigarette/Vaping Use: Never Used Second Hand Smoke Exposure: No service: No Current occupational status: retired Cognitive needs: No Hearing needs: No Vision needs: No Questionnaire PHQ-9 Over the last 2 weeks, how often have you been bothered by any of the following problems? 1. Little interest or pleasure in doing things: not at all 2. Feeling down, depressed, or hopeless: not at all 3. Trouble falling or staying asleep, or sleeping too much: not at all 4. Feeling tired or having little energy: not at all 5. Poor appetite or overeating: not at all 6. Feeling bad about yourself - or that you are a failure or have let yourself or your family down: not at all 7. Trouble concentrating on things, such as reading the newspaper or watching television: not at all 8. Moving or speaking so slowly that other people could have noticed. Or the opposite - being so fidgety or restless that you have been moving around a lot more than usual: not at all 9. Thoughts that you would be better off or of hurting yourself in some way: not at all Total score: 0 Depression Screening Interpretation: Negative Depression Screening Done: Yes 67605 - PHQ-9 Billing: Yes Source: Developed by Drs. Omid Herrera, Gina Urbina, Mike Gupta and colleagues, with an educational piter from [employer]. Thrive Questionnaire Date Thrive assessed: 06/03/23 I am a: Patient What is your living situation today?: I have a steady place to live Within the past 12 months, did the food you bought not last and you didn't have the money to get more?: Never true Within the past 12 months, did you worry whether your food would run out before you got money to buy more?: Never true Do you have trouble paying for medicines?: No Do you have trouble getting transportation to medical appointments?: No Do you have trouble paying your heating and electricity bill?: No Do you have trouble taking care of your child, family member or friend?: No Do you have trouble with day-to-day activities such as bathing, preparing meals, shopping, managing finances, etc.?: No Are you currently unemployed and looking for a job?: No Are you interested in more education?: No Please select the resources that you would like help with: None Currently or been in a relationship where the following occur: no concerns reported THRIVE Score: 0 AUDIT C Alcohol Use Questionnaire (AUDIT-C) 1. How often do you have a drink containing alcohol?: Never 3. How often do you have six or more drinks on one occasion?: Never Total Score: 0 Score Reviewed/Action Taken: Yes DAVID-7 AMB Questionnaire DAVID-7 Date DAVID - 7 assessed: 06/03/23 Feeling nervous, anxious, or on edge: 0 = Not at all Not being able to stop or control worryin = Not at all Worrying too much about different things: 0 = Not at all Trouble relaxin = Not at all Being so restless that it is hard to sit still: 0 = Not at all Becoming easily annoyed or irritable: 0 = Not at all Feeling afraid as if something awful might happen: 0 = Not at all Total DAVID-7 score (0-4 normal; 5-9 mild; 10-14 moderate; 15-21 severe): 0 Source: Developed by Drs. Omid Herrera, Gina Urbina, Mike Gupta and colleagues, with an educational piter from [employer]. DAVID-7 Assessment Billing DAVID-7 Assessment Tool: DAVID-7 Assessment 91054 Review of Systems Const Reports as per HPI Physical exam (Primary Care) Vital Signs: Last Vital Signs Pulse 89 06/03/23 08:24 BP 112/60 06/03/23 08:24 Pulse Ox 96 06/03/23 08:24 Oxygen Delivery Method Room Air 06/03/23 08:24 BMI result Body Mass Index 27.9 Tobacco/Smoking Status: Tobacco use Status Tobacco use date assessed 06/03/23 06/03/23 08:28 Patient Tobacco Use Status Former Tobacco user 06/03/23 08:28 e-Cigarette/Vaping Use Never Used 06/03/23 08:28 PHQ-9: PHQ-9 Score PHQ-9: Total score 0 06/03/23 08:38 Depression Screening Interpretation: Negative Thrive Assessment: Date of Thrive Assessment Date Thrive assessed 06/03/23 06/03/23 08:35 Currently or been in a relationship where the following occur: no concerns reported Const Other: uses a cane General: cooperative Orientation/consciousness: patient oriented x3 Resp Other: lungs slightly diminished Effort & Inspection: normal respiratory effort Cardio Rate: regular rate Rhythm: regular rhythm Heart sounds: S1 normal heart sound present and S2 normal heart sound present Neuro General: patient oriented x3 Extrem Other: RUE: strong elbow flexion against resistance without pain. Full ROM noted to RUE. Psych Appearance: grossly normal Mental Status: mental status grossly normal Speech and movement: Normal speech and movement present Affect: normal affect Attitude: cooperative Thought process: Normal thought process present Thought content: Normal thought content present Insight: Good insight present (Psych) Judgement: Good judgement present (Psych) Assessment and Plan Assessment & Plan (1) Dyslipidemia: Code(s): E78.5 - Hyperlipidemia, unspecified Plan: Labs ordered (2) Pain in humerus: Code(s): M89.8X2 - Other specified disorders of bone, upper arm Plan: XR ordered (3) Fall: Code(s): W19.XXXA - Unspecified fall, initial encounter Plan: XR ordered Plan The patient agreed to the use of a medical device sales representative for this encounter. Scribed for AIDA Guerra- by Agustina Valladares medical device sales representative, on 06/03/2023 at 08:40 EST. Orders: Orders Complete Blood Count Auto Diff Today E78.5 - Hyperlipidemia, unspecified TSH reflex Free T4 Today E78.5 - Hyperlipidemia, unspecified Comprehensive [place]. Panel Fast Today E78.5 - Hyperlipidemia, unspecified UA CC w/rflx Micro + Cult Today E78.5 - Hyperlipidemia, unspecified Lipid Panel Today E78.5 - Hyperlipidemia, unspecified XR humerus RT Today M89.8X2 - Other specified disorders of bone, upper arm, W19.XXXA - Unspecified fall, initial encounter Vitamin D 25-OH Total Today W19.XXXA - Unspecified fall, initial encounter Coding Level of Care Code Est Pt Level 3 (37066) Diagnoses Dyslipidemia E78.5 Pain in humerus M89.8X2 Fall W19.XXXA Additional Codes DAVID-7 Assessment Billing - DAVID-7 Assessment Tool: DAVID-7 Assessment [id number] ([id number])
== END 2023-06-03 08:57 | disposition home or self-care (01) ==
PROVIDERS: PCP Nurse Practitioner Family; Visit Provider Nurse Practitioner Family
DX: E78.5 Hyperlipidemia, unspecified (principal); M89.8X2 Other specified disorders of bone, upper arm; W19.XXXA Unspecified fall, initial encounter
CPT/HCPCS: 99213

== ENCOUNTER 2023-06-03 08:58 | Outpatient (REF) | payer MEDICARE, SELFPAY ==
--- NOTE | ~2023-06-03 | XR_ITS ---
EXAMINATION: XR HUMERUS, RIGHT CLINICAL INFORMATION: Disorders of bone, upper arm. COMPARISON: Chest radiograph of 09/23/2020. TECHNIQUE: AP and lateral views of the right humerus. FINDINGS: Mild degenerative changes in the acromioclavicular joint with joint space narrowing and hypertrophic change. The bones are diffusely demineralized. No gross displaced fracture of the shaft of the humerus. Dedicated views of the elbow could be obtained if there is concern for pathology in this region. Mild degenerative changes in the glenohumeral joint. Faint tiny calcification in the soft tissues lateral to the humeral head. XR/XR humerus RT IMPRESSION: 1. Mild degenerative changes in the acromioclavicular joint. 2. Mild degenerative changes in the glenohumeral joint. 3. No gross displaced fracture of the shaft of the humerus. Dedicated views of the elbow could be obtained if there is concern for pathology in this region.
[2023-06-03 12:21] LABS: Prostate Specific Antigen 2.81 ng/mL (<0.05-4.0)
== END 2023-06-03 08:59 | disposition home or self-care (01) ==
LOC: HO.HMGCX 08:58
PROVIDERS: PCP Nurse Practitioner Family; Referring Provider Urology; Visit Provider Nurse Practitioner Family
DX: M89.8X2 Other specified disorders of bone, upper arm (principal); N40.1 Benign prostatic hyperplasia with lower urinary tract symptoms; N13.8 Other obstructive and reflux uropathy; Z91.81 History of falling; Z12.5 Encounter for screening for malignant neoplasm of prostate
CPT/HCPCS: 36415; 73060; 84153

== ENCOUNTER 2023-06-09 11:17 | Outpatient (REF) | payer MEDICARE, SELFPAY ==
[2023-06-09 13:27] LABS: MANUAL DIFF FLAG NO
[2023-06-09 13:40] LABS: Basophils Percent Auto 0.6 % (0-2); Eosinophils Absolute Auto 0.3 X10*3/uL (0.0-0.4); Eosinophils Percent Auto 4.8 % (0-4); Hematocrit 44.8 % (42.0-52.0); Hemoglobin 14.3 g/dl (14.0-18.0); Imm Gran Abs Auto 0.03 X10*3/uL (0.00-0.03); Imm Gran Pct Auto 0.4 % (0.0-0.4); Lymphocytes Absolute Auto 1.2 X10*3/uL (1.2-4.9); Lymphocytes Percent Auto 17.4 % (20-40); Mean Corpuscular HGB Conc 31.9 g/dl (31.0-36.0); Mean Corpuscular Hemoglobin 31.1 pg (27.0-33.0); Mean Corpuscular Volume 97.4 fL (80.0-98.0); Mean Platelet Volume 9.5 fL (9.4-12.4); Monocytes Percent Auto 14.9 % (2-11); Neutrophils Absolute Auto 4.2 x10*3/uL (2.0-8.3); Neutrophils Percent Auto 61.9 % (45-73); Platelet Count 213 X10*3/uL (160-400); Red Cell Distribution Width 13.6 % (11.0-16.0); White Blood Count 6.7 X10*3/uL (4.8-10.8)
[2023-06-09 13:56] LABS: Anion Gap 12 (12-20); Blood Urea Nitrogen 27 mg/dL (9-16); Calcium 9.3 mg/dL (8.4-10.2); Carbon Dioxide 28 mmol/L (22-29); Chloride 107 mmol/L (96-108); Estimated Glomerular Filt Rate > 60; Potassium 4.5 mmol/L (3.3-5.1); Sodium 142 mmol/L (135-145)
== END 2023-06-09 11:18 | disposition home or self-care (01) ==
LOC: HO.HMGCLDS 11:17
PROVIDERS: PCP Nurse Practitioner Family; Visit Provider Internal Medicine Nephrology
DX: I10 Essential (primary) hypertension (principal); N17.9 Acute kidney failure, unspecified
CPT/HCPCS: 36415; 80051; 82310; 82565; 84520; 85025

== ENCOUNTER 2023-07-07 08:53 | Outpatient (REF) | payer MEDICARE, SELFPAY ==
[2023-07-07 10:26] LABS: MANUAL DIFF FLAG NO
[2023-07-07 10:41] LABS: Appearance Urine Clear; Color Urine Yellow; Glucose Urine UA Negative (Negative); Leukocyte Esterase Urine Negative (Negative); Nitrite Urine Negative (Negative); PH 5.5 (5.0-9.0); Urine Blood Negative (Negative); Urine Ketones Negative (Negative); Urine Protein Negative (Neg-Trace)
[2023-07-07 10:44] LABS: Basophils Absolute Auto 0.1 X10*3/uL (0.0-0.2); Basophils Percent Auto 1.3 % (0-2); Eosinophils Absolute Auto 0.3 X10*3/uL (0.0-0.4); Eosinophils Percent Auto 5.1 % (0-4); Hematocrit 44.1 % (42.0-52.0); Hemoglobin 14.2 g/dl (14.0-18.0); Imm Gran Abs Auto 0.01 X10*3/uL (0.00-0.03); Imm Gran Pct Auto 0.2 % (0.0-0.4); Lymphocytes Absolute Auto 1.2 X10*3/uL (1.2-4.9); Lymphocytes Percent Auto 22.2 % (20-40); Mean Corpuscular HGB Conc 32.2 g/dl (31.0-36.0); Mean Corpuscular Hemoglobin 30.9 pg (27.0-33.0); Mean Corpuscular Volume 96.1 fL (80.0-98.0); Mean Platelet Volume 9.6 fL (9.4-12.4); Monocytes Absolute Auto 0.7 X10*3/uL (0.1-1.2); Monocytes Percent Auto 13.4 % (2-11); Neutrophils Absolute Auto 3.1 x10*3/uL (2.0-8.3); Neutrophils Percent Auto 57.8 % (45-73); Platelet Count 198 X10*3/uL (160-400); Red Blood Count 4.59 X10*6/uL (4.60-5.80); Red Cell Distribution Width 13.6 % (11.0-16.0); White Blood Count 5.3 X10*3/uL (4.8-10.8)
[2023-07-07 12:12] LABS: Alanine Aminotransferase 18 U/L (0-40); Albumin Level 3.9 g/dL (3.5-5.0); Alkaline Phosphatase 90 U/L (39-117); Anion Gap 11 (12-20); Aspartate Amino Transferase 21 U/L (5-37); Bilirubin Total 0.6 mg/dL (0.0-1.0); Blood Urea Nitrogen 25 mg/dL (9-16); Calcium 8.9 mg/dL (8.4-10.2); Carbon Dioxide 28 mmol/L (22-29); Chloride 106 mmol/L (96-108); Cholesterol 139 mg/dL (<200); Estimated Glomerular Filt Rate 58; Glucose Fasting 133 mg/dL (60-99); HDL Cholesterol 49 mg/dL (>40); LDL Cholesterol Calculated 78 mg/dL (<100); Potassium 4.5 mmol/L (3.3-5.1); Sodium 140 mmol/L (135-145); TSH reflex Free T4 4.51 uIU/mL (0.32-4.0); Total Protein 6.9 g/dL (6.5-8.0); Triglycerides 63 mg/dL (<150); Vitamin D 25-OH Total 21.4 ng/mL (>30)
== END 2023-07-07 08:54 | disposition home or self-care (01) ==
LOC: HO.HMGCLDS 08:53
PROVIDERS: PCP Nurse Practitioner Family; Visit Provider Nurse Practitioner Family
DX: E78.5 Hyperlipidemia, unspecified (principal); D64.9 Anemia, unspecified; Z91.81 History of falling
CPT/HCPCS: 36415; 80053; 80061; 81003; 82306; 84439; 84443; 85025

== ENCOUNTER 2023-07-13 09:47 | Outpatient (AMB) | payer MEDICARE, SELFPAY ==
[2023-07-13 09:56] VITALS: BP 124/56; PULSE 91; BMI 28.0
--- NOTE | 2023-07-13 09:56 | A.OFFVIS_ITS ---
Vital Signs 07/13/23 09:56 Height 5 ft 11 in Weight 201 lb 0.985 oz BMI 28.0 BP 124/56 L Blood Pressure Location Lt brachial Position Sitting Pulse 91 Intake Visit Reasons: 4 month follow up Intake Note: pt its felling fine. 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 Accompanied by: Self / Same As Patient Allergies No Known Allergies Allergy (Verified 06/03/23 08:26) Medication List - Last Reconciled 07/13/23 by Amor Llanes MD acetaminophen (Tylenol Extra Strength) 1,000 mg PO Q6H PRN amiodarone 200 mg PO DAILY apixaban (Eliquis) 5 mg PO BID 90 days atorvastatin 10 mg PO BEDTIME ferrous sulfate 325 mg PO DAILY finasteride 5 mg PO DAILY 90 days magnesium oxide 400 mg PO BIDPC 90 days metoprolol succinate ER (Toprol XL) 25 mg PO DAILY pantoprazole 40 mg PO DAILY sacubitril-valsartan 24-26 mg (Entresto) 1 tab PO BID 90 days terazosin 5 mg PO BEDTIME 90 days HPI Comments Details: 78-year-old gentleman with nonischemic cardiomyopathy and aortic root aneurysm of 5 cm. Clinically asymptomatic and compensated. He was started on guideline directed medical therapy and on amiodarone for PVCs. Ejection fraction previously was 30 35% but now has improved 45-50%. By transthoracic echo his aortic root is 4.[address] performed in March 2022 aortic root is 5 cm. There is no interval change in size of the aortic root. Clinically he is improving from cardiomyopathy point of view. He has no symptoms. Tolerating meds well. 03/02/2023: He returns for follow-up. He was referred to Cardiothoracic surgery for aortic root dilatation of 5.[address] Moran and after discussion refused surgery. He is denying any chest discomfort on follow-up. No symptoms/signs of heart failure. Echocardiography has shown EF of 50 55% on last echocardiogram. He is on amiodarone for frequent premature ventricular complexes and atrial fibrillation. He is on apixaban also. 07/13/23: He is here for f/u. He is not interested in aortic surgery for aortic aneurysm. We had discussion last time and this time again. He thinks that he has arthritis and may not do well after surgery. I have explained to him that he is robust enough to undergo surgery. He will think about it. Otherwise denying any chest pain or shortness of breath. No orthopnea or PND. Taking medication regularly. His labs were reviewed. [facility] Medical History Restrictive pattern present on pulmonary function testing COPD (chronic obstructive pulmonary disease) GERD (gastroesophageal reflux disease) Afib Aortic root dilatation Aortic aneurysm Cardiomyopathy PAF (paroxysmal atrial fibrillation) Surgical History S/P hip replacement Social History Household Members: Spouse Housing: House Alcohol intake: never Patient Tobacco Use Status: Former Tobacco user Years Smoked: 30 years ago e-Cigarette/Vaping Use: Never Used Second Hand Smoke Exposure: No service: No Current occupational status: retired Cognitive needs: No Hearing needs: No Vision needs: No Review of Systems Const Denies chills, Denies fatigue, Denies fever(s), Denies frequent falls, Denies weakness, Denies weight gain and Denies weight loss ENT Denies dizziness Card Denies chest pain, Denies leg edema, Denies lightheadedness, Denies palpitations, Denies dyspnea and Denies dyspnea on exertion Resp Denies cough, Denies dyspnea and Denies dyspnea on exertion GI Denies hematochezia Musc Denies abnormal gait, Denies muscle weakness, Denies numbness, Denies radiating pain into limb and Denies tingling Neuro Denies abnormal gait, Denies dizziness, Denies frequent falls, Denies numbness, Denies tingling and Denies weakness Endo Denies fatigue and Denies palpitations Physical Exam Vital Signs: Last Vital Signs Pulse 91 07/13/23 09:56 BP 124/56 L 07/13/23 09:56 BMI result Body Mass Index 28.0 GENERAL APPEARANCE: in no acute distress, pleasant. NECK: no carotid bruit, no jugular venous distention. SKIN: no suspicious lesions, warm and dry. HEART: no murmurs, regular rate and rhythm. LUNGS: clear to auscultation bilaterally. ABDOMEN: soft, nontender. EXTREMITIES: no edema. PERIPHERAL PULSES: equal. NEUROLOGIC: No gross deficits, AAO X 3 Office Procedures EKG Details: Sinus rhythm 81 beats per minute, occasional premature ventricular complexes, left axis deviation, QTC 484 milliseconds. [id number], Complete Assessment & Plan Assessment & Plan (1) Aortic aneurysm: Code(s): I71.9 - Aortic aneurysm of unspecified site, without rupture Category: Medical (2) Cardiomyopathy: Code(s): I42.9 - Cardiomyopathy, unspecified Category: Medical (3) Afib: Code(s): I48.91 - Unspecified atrial fibrillation Category: Medical (4) PAF (paroxysmal atrial fibrillation): Code(s): I48.0 - Paroxysmal atrial fibrillation Category: Medical (5) Therapeutic drug monitoring: Code(s): Z51.81 - Encounter for therapeutic drug level monitoring Category: Medical Plan Pleasant 78 gentleman who is here for follow-up. He has background of nonischemic cardiomyopathy likely due to premature ventricular complexes with improvement in ejection fraction after amiodarone therapy. He also had paroxysmal atrial fibrillation is currently taking Eliqui s. He has aortic root aneurysm with diameter 5.5 cm. We referred him for cardiothoracic surgery assessment but he has refused surgery. I discussed with him in detail about the pros and cons of surgery and explained to him that given the fact that his aneurysm is 5.5 cm and that we electively treat the aortic aneurysm at this size prevent complications. He understood the pros and cause the risk of not undergoing surgery but currently not ready for surgery. He said he will think about it and we will have a discussion again in few months. Tolerating amiodarone and Eliquis. No bleeding concerns. His labs are stable. Continue amiodarone for the cardiomyopathy due to premature ventricular complexes. Thank you for allowing me to participate in the care of your patient. Please feel free to contact me if you have any questions. Coding Level of Care Code Est Pt Level 4 (82450) Diagnoses Aortic aneurysm I71.9 Cardiomyopathy I42.9 Afib I48.91 PAF (paroxysmal atrial fibrillation) I48.0 Therapeutic drug monitoring Z51.81 CPT Codes EKG - CPT: 86660-[id number], Complete ([id number])
== END 2023-07-13 10:28 | disposition home or self-care (01) ==
PROVIDERS: PCP Nurse Practitioner Family; Visit Provider Internal Medicine Cardiovascular Disease
DX: I71.9 Aortic aneurysm of unspecified site, without rupture (principal); I42.9 Cardiomyopathy, unspecified; I48.91 Unspecified atrial fibrillation; I48.0 Paroxysmal atrial fibrillation; Z51.81 Encounter for therapeutic drug level monitoring
CPT/HCPCS: 93010; 99214

== ENCOUNTER → 2023-07-13 09:47 | Outpatient (BNVA) | payer MEDICARE, SELFPAY | PROVIDERS: PCP Nurse Practitioner Family; Visit Provider Internal Medicine Cardiovascular Disease | DX: I71.9 Aortic aneurysm of unspecified site, without rupture (principal); I42.9 Cardiomyopathy, unspecified; I48.0 Paroxysmal atrial fibrillation; Z51.81 Encounter for therapeutic drug level monitoring | CPT/HCPCS: 93005; 99212 ==

== ENCOUNTER 2023-07-17 08:40 | Outpatient (REF) | payer MEDICARE, SELFPAY ==
[2023-07-17 10:43] LABS: Estimated Average Glucose 111 mg/dL; Hemoglobin A1c % 5.5 % (<6.0)
[2023-07-17 10:57] LABS: Alanine Aminotransferase 18 U/L (0-40); Alkaline Phosphatase 86 U/L (39-117); Anion Gap 13 (12-20); Aspartate Amino Transferase 23 U/L (5-37); Bilirubin Total 0.8 mg/dL (0.0-1.0); Blood Urea Nitrogen 28 mg/dL (9-16); Carbon Dioxide 26 mmol/L (22-29); Chloride 107 mmol/L (96-108); Estimated Glomerular Filt Rate 58; Glucose Fasting 98 mg/dL (60-99); Potassium 4.5 mmol/L (3.3-5.1); Sodium 141 mmol/L (135-145); Total Protein 7.1 g/dL (6.5-8.0)
== END 2023-07-17 08:41 | disposition home or self-care (01) ==
LOC: HO.HMGCLDS 08:40
PROVIDERS: PCP Nurse Practitioner Family; Visit Provider Nurse Practitioner Family
DX: R73.01 Impaired fasting glucose (principal)
CPT/HCPCS: 36415; 80053; 83036

== ENCOUNTER → 2023-07-30 08:18 | Outpatient (BNVA) | payer MEDICARE, SELFPAY | PROVIDERS: Visit Provider Urology | DX: N40.1 Benign prostatic hyperplasia with lower urinary tract symptoms (principal); N13.8 Other obstructive and reflux uropathy | CPT/HCPCS: 51798 ==

== ENCOUNTER 2023-07-31 10:14 | Outpatient (AMB) | payer MEDICARE, SELFPAY ==
--- NOTE | 2023-07-31 10:16 | MHC.OFFVIS ---
Intake Visit Reasons: 1y/PSA/PVR Intake Note: Patient is Present for PVR and PSA follow up Urology Med: Finasteride, Terazosin Antibiotic Allergy:None Blood Thinner:Eliquis Last PVR: 40 ml's Todays PVR: 14 ml's Nurse Intern Required: No Accompanied by: Self / Same As Patient Allergies No Known Allergies Allergy (Verified 07/31/23 10:21) HPI Comments Details: Francois is a pleasant male. He is a patient of Dr. Montalvo. He seen for the following urologic conditions - urinary retention - lower urinary tract symptoms PVR 40 cc Happy with current emptying No longer has a trickle Would benefit from procedure but at this stage will deferred Twelve month follow-up PSA Urinary retention with lower urinary tract symptoms Episode of retention August 2021 Catheter placed - Past voiding trial in office Current medications include finasteride and terazosin 5 mg KATELYNN 2+ prostate soft PSA 08/05 3.5 Significant improvement PFSH Medical History Restrictive pattern present on pulmonary function testing COPD (chronic obstructive pulmonary disease) GERD (gastroesophageal reflux disease) Afib Aortic root dilatation Aortic aneurysm Cardiomyopathy PAF (paroxysmal atrial fibrillation) Surgical History S/P hip replacement Social History Household Members: Spouse Housing: House Alcohol intake: never Patient Tobacco Use Status: Former Tobacco user Years Smoked: 30 years ago e-Cigarette/Vaping Use: Never Used Second Hand Smoke Exposure: No service: No Current occupational status: retired Cognitive needs: No Hearing needs: No Vision needs: No Review of Systems Const Denies chills and Denies fever(s) Card Reports no additional complaints and Denies syncope Resp Denies cough GI Denies abdominal pain and Denies heartburn Reports as per HPI and Denies change in libido Neuro Denies syncope Psych Denies change in libido Endo Denies change in libido Physical Exam Const General: cooperative, healthy appearing, comfortable and no acute distress Orientation/consciousness: patient oriented x3 HEENT Face and sinus: Yes normal facial exam Mouth: moist mucous membranes Neck Neck: Yes normal visual inspection, Yes full ROM and Yes trachea midline Chest Chest palpation & inspection: normal inspection of the chest Resp Effort & Inspection: normal respiratory effort, able to speak in complete sentences and no respiratory distress GI Inspection: Yes normal to inspection Back/Spine/Pelvis Cervical Spine: normal cervical lordosis Thoracic/Lumbar Spine: thoracic and lumbar spine normal to inspection Skin General skin exam: no rashes or lesions noted Neuro General: patient oriented x3, gait normal, tone normal and moves all extremities Extrem General: Yes normal to inspection and Yes capillary refill normal Results AMB Urinalysis, Automated UA Leukoctes 0 Delgado/uL Last Edit by [facility] on 07/31/23 10:30 UA Nitrite Negative Last Edit by [facility] on 07/31/23 10:30 UA Urobilinogen 0.2 mg/dL Last Edit by [facility] on 07/31/23 10:30 UA Protein 15 mg/dL Last Edit by [facility] on 07/31/23 10:30 UA pH 6.0 Last Edit by [facility] on 07/31/23 10:30 UA Blood 0 Alejandro/uL Last Edit by [facility] on 07/31/23 10:30 UA Specific [place] 1.015 Last Edit by [facility] on 07/31/23 10:30 UA Ketone Negative Last Edit by [facility] on 07/31/23 10:30 UA Bilirubin 0 mg/dL Last Edit by [facility] on 07/31/23 10:30 UA Glucose 0 mg/dL Last Edit by [facility] on 07/31/23 10:30 Results Reviewed Results Reviewed: Laboratory Last Values Urine pH (Auto) 6.0 07/31/23 10:21 Specific [place] (Auto) 1.015 07/31/23 10:21 Urine Protein (Auto) 15 mg/dL 07/31/23 10:21 Glucose (UA)(Auto) 0 mg/dL 07/31/23 10:21 Urine Ketones (Auto) Negative 07/31/23 10:21 Urine Blood (Auto) 0 Alejandro/uL 07/31/23 10:21 Urine Nitrite (Auto) Negative 07/31/23 10:21 Urine Bilirubin (Auto) 0 mg/dL 07/31/23 10:21 Urine Urobilinogen (Auto) 0.2 mg/dL 07/31/23 10:21 Leukocyte Esterase (Auto) 0 Delgado/uL 07/31/23 10:21 Assessment & Plan Assessment & Plan (1) BPH w urinary obs/LUTS: Code(s): N40.1 - Benign prostatic hyperplasia with lower urinary tract symptoms; N13.8 - Other obstructive and reflux uropathy Category: Medical (2) Erectile dysfunction: Code(s): N52.9 - Male erectile dysfunction, unspecified Category: Medical Plan 12 month follow-up PSA Orders: Orders AMB Urinalysis Automated 07/31/23 Z13.9 - Encounter for screening, unspecified Prostate Specific Antigen 364 Days N40.1 - Benign prostatic hyperplasia with lower urinary tract symptoms, N13.8 - Other obstructive and reflux uropathy Patient Instructions: Imaging studies, laboratory and physical exam results were discussed and reviewed in detail. No major barriers to patient understanding were identified. An opportunity to ask questions regarding the treatment plan was provided. All questions were answered. The patient expressed understanding and agreement with the above treatment plan. The patient is aware they should contact our office by phone for worsening of their current condition or the appearance of new urologic symptoms. Compliance is encouraged with any medications and followup testing that is ordered. It is a privilege to participate in the urologic care of your patient. If you have any questions or concerns regarding treatment for the above conditions, or other urologic issues, please do not hesitate to contact me. The office telephone contact is [phone]. This note is constructed using voice recognition software. While every effort has been made to ensure accuracy cooling tower technician errors may have been included. Yours sincerely, Dr Chriss Medrano MD, [facility] - Urology Providers of Expert, Compassionate Care for the Genitourinary System Coding Level of Care Code Est Pt Level 4 (89214) Diagnoses BPH w urinary obs/LUTS N40.1; N13.8 Erectile dysfunction N52.9
== END 2023-07-31 11:07 | disposition home or self-care (01) ==
PROVIDERS: PCP Nurse Practitioner Family; Visit Provider Urology
DX: N40.1 Benign prostatic hyperplasia with lower urinary tract symptoms (principal); N13.8 Other obstructive and reflux uropathy; N52.9 Male erectile dysfunction, unspecified
CPT/HCPCS: 99213

== ENCOUNTER → 2023-07-31 10:14 | Outpatient (BNVA) | payer MEDICARE, SELFPAY | PROVIDERS: PCP Nurse Practitioner Family; Visit Provider Urology | DX: N40.1 Benign prostatic hyperplasia with lower urinary tract symptoms (principal); N13.8 Other obstructive and reflux uropathy; R33.9 Retention of urine, unspecified; Z79.01 Long term (current) use of anticoagulants; Z79.899 Other long term (current) drug therapy | CPT/HCPCS: 81003; 99212 ==

== ENCOUNTER 2023-09-26 12:28 | Outpatient (AMB) | payer MEDICARE, SELFPAY ==
[2023-09-26 12:39] VITALS: BP 118/64; PULSE 92; TEMP 36.7; O2SAT 93; BMI 27.9
--- NOTE | 2023-09-26 12:39 | MHC.OFFWIV ---
Intake Vital Signs 09/26/23 12:39 Height 5 ft 11 in Weight 200 lb BMI 27.9 BP 118/64 Blood Pressure Location Lt brachial Position Sitting Pulse 92 Pulse Source Pulse Oximeter Temp 98.0 F Temp Source Oral Pulse Oximetry (%) 93 Oxygen Delivery Method Room Air Intake Visit Reasons: EP LT Toe injury/On blood thinners Intake Note: Pt is here today c/o Lt grt toe nail bleeding Patient Tobacco Use Status: Former Tobacco user Allergies No Known Allergies Allergy (Verified 09/26/23 12:42) Medication List - Last Reconciled 09/26/23 by Moises Luevano MD acetaminophen (Tylenol Extra Strength) 1,000 mg PO Q6H PRN amiodarone 200 mg PO DAILY apixaban (Eliquis) 5 mg PO BID 90 days atorvastatin 10 mg PO BEDTIME cephalexin 500 mg PO Q12H 10 days ferrous sulfate 325 mg PO DAILY finasteride 5 mg PO DAILY 90 days magnesium oxide 400 mg PO BIDPC 90 days metoprolol succinate ER (Toprol XL) 25 mg PO DAILY pantoprazole 40 mg PO DAILY sacubitril-valsartan 24-26 mg (Entresto) 1 tab PO BID 90 days terazosin 5 mg PO BEDTIME 90 days HPI EP LT Toe injury/On blood thinners HPI Details Patient stubbed great toe and split periungual skin. Has had a little bit of difficulty stopping the bleeding due to being on Eliquis. maintenance assistant was able to stop bleeding. Split skin is less than 1/2 cm and not deep. Does not appear to need stitching. Patient has not had a tetanus shot since 2011 however and is overdue for that. [facility] Medical History Restrictive pattern present on pulmonary function testing COPD (chronic obstructive pulmonary disease) GERD (gastroesophageal reflux disease) Afib Aortic root dilatation Aortic aneurysm Cardiomyopathy PAF (paroxysmal atrial fibrillation) Surgical History S/P hip replacement Social History Household Members: Spouse Housing: House Alcohol intake: never Patient Tobacco Use Status: Former Tobacco user Years Smoked: 30 years ago e-Cigarette/Vaping Use: Never Used Second Hand Smoke Exposure: No service: No Current occupational status: retired Cognitive needs: No Hearing needs: No Vision needs: No Review of Systems Const Details: See HPI Physical Exam Vital Signs: Last Vital Signs Temp 98.0 F 09/26/23 12:39 Pulse 92 09/26/23 12:39 BP 118/64 09/26/23 12:39 Pulse Ox 93 09/26/23 12:39 Oxygen Delivery Method Room Air 09/26/23 12:39 BMI result Body Mass Index 27.9 Const General: no acute distress and well developed Nutritional Appearance: well nourished Orientation/consciousness: patient oriented x3 HEENT Head: Yes normocephalic and Yes atraumatic Eyes General: appearance normal, both eyes and all related structures Pupils: Equal, round and reactive pupils present EOM: EOMs intact bilaterally Resp Effort & Inspection: normal respiratory effort Skin Other: Approximately 4 mm the split in periungual skin of great toe. Mild oozing of blood No evidence of infection. Mild nail avulsion with mild hematoma under nail - minimal tenderness to palpation No evidence of infection at this time Neuro General: patient oriented x3 and gait normal Cranial nerves: Yes Equal, round and reactive pupils present Psych Affect: normal affect Assessment & Plan Assessment & Plan (1) Laceration of skin of foot: Code(s): S91.319A - Laceration without foreign body, unspecified foot, initial encounter Plan Laceration/split of periungual skin next nail with mild avulsion and mild hematoma under nail. No evidence of infection and hemostasis was achieved with pressure and bandage. Patient has not had a tetanus shot in the last 10 years so this was provided. He will keep bandage on today and can be changed tomorrow. Apply pressure if bleeding resumes Elevate leg. Can also use cool pack Watch for erythema, redness, pus or drainage or increased pain. Start antibiotic if this occurs. Follow-up with PCP and or screw driver operator if this occurs. Orders: Orders TDaP Immunization Today Z23 - Encounter for immunization Medications: New Boostrix Tdap (diphth,pertus(acell),tetanus) 0.5 mL IM ONCE 0.5 mL 0RF NS Z23 - Encounter for immunization cephalexin 500 mg PO Q12H 10 days 20 caps 0RF Coding Level of Care Code Est Pt Level 3 (31628) Diagnoses Laceration of skin of foot S91.319A
== END 2023-09-26 14:06 | disposition home or self-care (01) ==
PROVIDERS: PCP Nurse Practitioner Family; Visit Provider Family Medicine
DX: S91.312A Laceration without foreign body, left foot, initial encounter (principal); Z23 Encounter for immunization
CPT/HCPCS: 90471; 90715; 99213

== ENCOUNTER 2023-10-21 09:39 | Outpatient (AMB) | payer MEDICARE, SELFPAY ==
[2023-10-21 09:55] VITALS: BP 130/70; PULSE 83; BMI 28.0
--- NOTE | 2023-10-21 09:55 | MHC.OFFVIS ---
Vital Signs 10/21/23 09:55 Height 5 ft 11 in Weight 201 lb 0.985 oz BMI 28.0 BP 130/70 Blood Pressure Location Lt brachial Position Sitting Pulse 83 Pulse Source Monitor Intake Visit Reasons: 3 mth f/up Intake Note: 3 mth f/up Director Payment Required: No Accompanied by: Self / Same As Patient Allergies No Known Allergies Allergy (Verified 09/26/23 12:42) Medication List - Last Reconciled 10/21/23 by Amor Llanes MD acetaminophen (Tylenol Extra Strength) 1,000 mg PO Q6H PRN amiodarone 200 mg PO DAILY apixaban (Eliquis) 5 mg PO BID 90 days atorvastatin 10 mg PO BEDTIME cephalexin 500 mg PO Q12H 10 days ferrous sulfate 325 mg PO DAILY finasteride 5 mg PO DAILY 90 days magnesium oxide 400 mg PO BIDPC 90 days metoprolol succinate ER (Toprol XL) 25 mg PO DAILY pantoprazole 40 mg PO DAILY sacubitril-valsartan 24-26 mg (Entresto) 1 tab PO BID 90 days terazosin 5 mg PO BEDTIME 90 days HPI Comments Details: 78-year-old gentleman with nonischemic cardiomyopathy and aortic root aneurysm of 5 cm. Clinically asymptomatic and compensated. He was started on guideline directed medical therapy and on amiodarone for PVCs. Ejection fraction previously was 30 35% but now has improved 45-50%. By transthoracic echo his aortic root is 4.[address] performed in March 2022 aortic root is 5 cm. There is no interval change in size of the aortic root. Clinically he is improving from cardiomyopathy point of view. He has no symptoms. Tolerating meds well. 03/02/2023: He returns for follow-up. He was referred to Cardiothoracic surgery for aortic root dilatation of 5.[address] Moran and after discussion refused surgery. He is denying any chest discomfort on follow-up. No symptoms/signs of heart failure. Echocardiography has shown EF of 50 55% on last echocardiogram. He is on amiodarone for frequent premature ventricular complexes and atrial fibrillation. He is on apixaban also. 07/13/23: He is here for f/u. He is not interested in aortic surgery for aortic aneurysm. We had discussion last time and this time again. He thinks that he has arthritis and may not do well after surgery. I have explained to him that he is robust enough to undergo surgery. He will think about it. Otherwise denying any chest pain or shortness of breath. No orthopnea or PND. Taking medication regularly. His labs were reviewed. 10/21/2023: He is here for follow-up. Denying any chest discomfort shortness of breath. Clinically euvolemic. He injured his toe and had a fracture. Walking with a cane and is following with podiatry. Blood pressure is well controlled. If he again had a detailed discussion about aortic aneurysm. He does not wish to undergo surgery. [facility] Medical History Restrictive pattern present on pulmonary function testing COPD (chronic obstructive pulmonary disease) GERD (gastroesophageal reflux disease) Afib Aortic root dilatation Aortic aneurysm Cardiomyopathy PAF (paroxysmal atrial fibrillation) Surgical History S/P hip replacement Social History Household Members: Spouse Housing: House Alcohol intake: never Patient Tobacco Use Status: Former Tobacco user Years Smoked: 30 years ago e-Cigarette/Vaping Use: Never Used Second Hand Smoke Exposure: No service: No Current occupational status: retired Cognitive needs: No Hearing needs: No Vision needs: No Review of Systems Const Denies chills, Denies fatigue, Denies fever(s), Denies frequent falls, Denies weakness, Denies weight gain and Denies weight loss ENT Denies dizziness Card Denies chest pain, Denies leg edema, Denies lightheadedness, Denies palpitations, Denies dyspnea and Denies dyspnea on exertion Resp Denies cough, Denies dyspnea and Denies dyspnea on exertion GI Denies hematochezia Musc Denies abnormal gait, Denies muscle weakness, Denies numbness, Denies radiating pain into limb and Denies tingling Neuro Denies abnormal gait, Denies dizziness, Denies frequent falls, Denies numbness, Denies tingling and Denies weakness Endo Denies fatigue and Denies palpitations Physical Exam Vital Signs: Last Vital Signs Pulse 83 10/21/23 09:55 BP 130/70 10/21/23 09:55 BMI result Body Mass Index 28.0 GENERAL APPEARANCE: in no acute distress, pleasant. NECK: no carotid bruit, no jugular venous distention. SKIN: no suspicious lesions, warm and dry. HEART: no murmurs, regular rate and rhythm. LUNGS: clear to auscultation bilaterally. ABDOMEN: soft, nontender. EXTREMITIES: no edema. PERIPHERAL PULSES: equal. NEUROLOGIC: No gross deficits, AAO X 3 Office Procedures EKG Details: Sinus rhythm 83 beats per minute, left anterior fascicular block, left ventricular hypertrophy, QTC 460 milliseconds. [id number], Complete Assessment & Plan Assessment & Plan (1) Aortic aneurysm: Code(s): I71.9 - Aortic aneurysm of unspecified site, without rupture Category: Medical (2) PAF (paroxysmal atrial fibrillation): Code(s): I48.0 - Paroxysmal atrial fibrillation Category: Medical (3) Nonischemic cardiomyopathy: Code(s): I42.8 - Other cardiomyopathies Category: Medical Plan Pleasant 78-year-old gentleman presenting for follow-up. He has known history of aortic root aneurysm with diameter 5.5 cm. He has indication for surgery and was referred for Cardiothoracic surgery consultation but he subsequently refused surgery and continues to refuse any surgical management. Blood pressure is well controlled currently. He also had nonischemic cardiomyopathy due to premature ventricular complexes. This was managed with amiodarone and as of 02/02/2023 echocardiography is EF is 50-55% with normal right ventricular function. Continue amiodarone as before. We will periodically monitor the liver function tests, TSH and PFTs. He is following with pulmonology too. On anticoagulation for previous paroxysmal atrial fibrillation. He is in sinus rhythm on amiodarone. Thank you for allowing me to participate in the care of your patient. Please feel free to contact me if you have any questions. Coding Level of Care Code Est Pt Level 4 (60224) Diagnoses Aortic aneurysm I71.9 PAF (paroxysmal atrial fibrillation) I48.0 Nonischemic cardiomyopathy I42.8 CPT Codes EKG - CPT: [id number], Complete ([id number])
== END 2023-10-21 10:31 | disposition home or self-care (01) ==
PROVIDERS: PCP Nurse Practitioner Family; Visit Provider Internal Medicine Cardiovascular Disease
DX: I71.9 Aortic aneurysm of unspecified site, without rupture (principal); I48.0 Paroxysmal atrial fibrillation; I42.8 Other cardiomyopathies
CPT/HCPCS: 93010; 99214

== ENCOUNTER → 2023-10-21 09:39 | Outpatient (BNVA) | payer MEDICARE, SELFPAY | PROVIDERS: PCP Nurse Practitioner Family; Visit Provider Internal Medicine Cardiovascular Disease | DX: I44.4 Left anterior fascicular block (principal) | CPT/HCPCS: 93005; 99212 ==

== ENCOUNTER 2023-11-09 10:19 | Outpatient (AMB) | payer MEDICARE, SELFPAY ==
[2023-11-09 10:32] VITALS: BP 122/74; PULSE 80; O2SAT 94; BMI 27.9
--- NOTE | 2023-11-09 10:33 | A.OFFVIS_ITS ---
Intake Vital Signs 11/09/23 10:32 Height 5 ft 11 in Weight 200 lb BMI 27.9 BP 122/74 Blood Pressure Location Rt brachial Position Sitting Pulse 80 Pulse Source Pulse Oximeter Pulse Oximetry (%) 94 Oxygen Delivery Method Room Air Intake Visit Reasons: SWV G0439 Intake Note: patient is here for medicare wellness visit Allergies No Known Allergies Allergy (Verified 11/09/23 10:40) Do you need a note to return to daycare/school/sports/work: No HPI SWV G0439 HPI Details Pt is here for an SWV. Denies fever, chills, and dizziness. [place] of care NOT FILLED OUT. PPP will be scanned in chart and copy will be given to pt. Pt follows up with cardiology, urology, and pulmonology. refuses all vaccines including pneumonia vaccines. HPI Comments History of Present Illness Details Dyslipidemia: On atorvastatin 10mg. Will order labs. [facility] Medical History Restrictive pattern present on pulmonary function testing COPD (chronic obstructive pulmonary disease) GERD (gastroesophageal reflux disease) Afib Aortic root dilatation Aortic aneurysm Cardiomyopathy PAF (paroxysmal atrial fibrillation) Surgical History S/P hip replacement Social History Household Members: Spouse Housing: House Alcohol intake: never Patient Tobacco Use Status: Former Tobacco user Years Smoked: 30 years ago e-Cigarette/Vaping Use: Never Used Second Hand Smoke Exposure: No service: No Current occupational status: retired Cognitive needs: No Hearing needs: No Vision needs: No Questionnaire Medicare Wellness Checkup [age] What gender do you identify with?: male During the past 4 weeks, how much have you been bothered by emotional problems such as feeling anxious, depressed, irritable, sad or downhearted, and blue?: not at all During the past 4 weeks, has your physical & emotional health limited your social activities with family, friends, neighbors, or groups?: not at all During the past 4 weeks, how much bodily pain have you generally had?: very mild pain During the past 4 weeks, was someone available to help you if you needed & wanted help?: yes, as much as I wanted During the past 4 weeks, what was the hardest physical activity you could do for at least 2 minutes?: heavy Can you get to places out of walking distance without help? (For eg., can you travel alone on buses, taxis or drive your car?): Yes Can you go shopping for groceries or clothes without someone's help?: Yes Can you prepare your own meals?: No Can you do your housework without help?: Yes Because of any health problems, do you need the help of another person with your personal care needs such as eating, bathing, dressing or getting around the house?: No Can you handle your own money without help?: Yes During the past 4 weeks, how would you rate your health in general?: very good During the past 4 weeks how have things been going for you?: very well; could hardly better Are you having difficulties driving your car?: no Do you always fasten your seat belt when you are in a car?: yes, usually During past 4 weeks, have you been bothered by the following: never: Falling or dizzy when standing up, Sexual problems?, Trouble eating well?, Teeth or denture problems?, Problems using the telephone? and Tiredness or fatigue? Have you fallen 2 or more times in the past year?: No Are you afraid of falling?: No Are you a smoker?: no During the past 4 weeks, how many drinks of wine, beer, or other alcoholic beverages did you have?: no alcohol at all Do you exercise for about 20 minutes 3 or more times a week?: no, I usually do not exercise this much Have you been given information to help with the following?: no: Hazards in your house that might hurt you? and no: Keeping track of your medications? How often do you have trouble taking medicines the way you have been told to take them?: I always take medicine as prescribed How confident are you that you can control & manage most of your health problems?: very confident What is your race?: White Mini Mental State Exam (MMSE) Orientation Where are we (state) (county) (town or city) (hospital) (floor)?: state, county, town or city, hospital/clinic and floor Registration Name of 3 unrelated objects clearly and slowly, then ask patient to repeat all 3 of them. (1st repeat determines score. Make sure they can repeat all three): object 1, object 2 and object 3 Attention & Calculation (CHOOSE ONE) Spell WORLD backwards (DLROW): 4 letters Recall Ask patient to repeat the 3 items from question #3.: object 1, object 2 and object 3 Language Show patient a wristwatch & ask what it is. Repeat for pencil.: watch and pencil Ask the patient to repeat the phrase 'No ifs, ands, or buts' after you.: correct Ask the patient to 'take a piece of paper with their right hand' 'fold paper in half' 'place paper on floor': take paper in right hand, fold paper in half and place paper on floor Print the sentence 'CLOSE YOUR EYES' on a piece. If patient actually closes eyes then score.: followed written direction Give patient a blank piece of paper & ask to write a sentence. Score if it contains a noun & verb.: sentence contains subject and verb Ask patient to copy figure of intersecting pentagons exactly. Score if all 10 angles & 2 intersects are included.: all 10 angles present & 2 are intersected Score Score: 24 Activity of Daily Living Bathing - sponge bath, tub bath or shower: receives no assistance (gets in/out by self, if usual bathing means Dressing - getting clothes from closets & drawers, including inner/outer garments & fasteners.: gets clothes & gets completely dressed without help Toileting - going to the 'toilet room' for urine/bowel elimination & cleaning self/arranging clothes: goes to toilet room, cleans self, arranges clothes without help Transfer: moves in & out of bed and chair without help (may use support object) Continence: controls urination/bowel movements completely by self Feeding: feeds self without help Total Score: 0 Information obtained from: patient Using telephone: independent Traveling: independent Shopping: independent Preparing meals: independent Housework: independent Taking medicine: independent Managing money: independent PHQ-9 Over the last 2 weeks, how often have you been bothered by any of the following problems? 1. Little interest or pleasure in doing things: not at all 2. Feeling down, depressed, or hopeless: not at all 3. Trouble falling or staying asleep, or sleeping too much: not at all 4. Feeling tired or having little energy: not at all 5. Poor appetite or overeating: not at all 6. Feeling bad about yourself - or that you are a failure or have let yourself or your family down: not at all 7. Trouble concentrating on things, such as reading the newspaper or watching television: not at all 8. Moving or speaking so slowly that other people could have noticed. Or the opposite - being so fidgety or restless that you have been moving around a lot more than usual: not at all 9. Thoughts that you would be better off or of hurting yourself in some way: not at all Total score: 0 Depression Screening Interpretation: Negative Depression Screening Done: Yes 32243 - PHQ-9 Billing: Yes Source: Developed by Drs. Omid Herrera, Gina Urbina, Mike Gupta and colleagues, with an educational piter from [employer]. Review of Systems Const Reports as per HPI Physical Exam Vital Signs: Last Vital Signs Pulse 80 11/09/23 10:32 BP 122/74 11/09/23 10:32 Pulse Ox 94 11/09/23 10:32 Oxygen Delivery Method Room Air 11/09/23 10:32 BMI result Body Mass Index 27.9 Const General: cooperative Orientation/consciousness: patient oriented x3 Resp Effort & Inspection: normal respiratory effort Auscultation: clear to auscultation bilaterally and diminished lung sounds Cardio Rate: regular rate Rhythm: regular rhythm Heart sounds: S1 normal heart sound present and S2 normal heart sound present Neuro Other: - romberg, can tandem walk, can walk and turn, can rise from sitting to standing, passed whisper test General: patient oriented x3 Psych Appearance: grossly normal Mental Status: mental status grossly normal Speech and movement: Normal speech and movement present Affect: normal affect Attitude: cooperative Thought process: Normal thought process present Thought content: Normal thought content present Insight: Good insight present (Psych) Judgement: Good judgement present (Psych) Assessment & Plan Assessment & Plan (1) Dyslipidemia: Code(s): E78.5 - Hyperlipidemia, unspecified Plan: Labs ordered (2) Vitamin D deficiency: Code(s): E55.9 - Vitamin D deficiency, unspecified Plan: labs ordered (3) Encounter for annual wellness visit (AWV) in Medicare patient: Code(s): Z00.00 - Encounter for general adult medical examination without abnormal findings Plan The patient agreed to the use of a medical claims analyst for this encounter. Scribed for ARACELI Guerra by Agustina Valladares medical claims analyst, on 11/09/2023 at 10:50 EST. Orders: Orders Comprehensive [place]. Panel Fast Today E78.5 - Hyperlipidemia, unspecified TSH reflex Free T4 Today E78.5 - Hyperlipidemia, unspecified UA CC w/rflx Micro + Cult Today E78.5 - Hyperlipidemia, unspecified Lipid Panel Today E78.5 - Hyperlipidemia, unspecified Complete Blood Count Auto Diff Today E78.5 - Hyperlipidemia, unspecified Quality Reporting (2019) Depression/Bipolar (159/160/161/177) PHQ-9: Total score: 0 Coding Level of Care Code Medicare Subsequent (G0439) Est Pt Level 3 (25224) Diagnoses Dyslipidemia E78.5 Vitamin D deficiency E55.9 Encounter for annual wellness visit (AWV) in Medicare patient Z00.00 CPT Codes Advance Care Planning - Time spent: 1-15 minutes, on File ([id number]) Advance Care Planning Forms completed: Health Care Proxy (form given to pt to fill out), MOLST (form given to pt to fill out) and Living will (not done, does not want to do this) Time spent: 1-15 minutes, on File Actual minutes spent: 15
== END 2023-11-09 11:37 | disposition home or self-care (01) ==
PROVIDERS: PCP Nurse Practitioner Family; Visit Provider Nurse Practitioner Family
DX: Z00.00 Encounter for general adult medical examination without abnormal findings (principal); E78.5 Hyperlipidemia, unspecified; E55.9 Vitamin D deficiency, unspecified
CPT/HCPCS: 1123F; 99213; G0439

== ENCOUNTER 2023-12-07 07:49 | Outpatient (REF) | payer MEDICARE, SELFPAY ==
--- NOTE | ~2023-12-07 | CT_ITS ---
EXAMINATION: CT CHEST WITHOUT CONTRAST CLINICAL INFORMATION: Abnormal findings on diagnostic imaging of other specified body... Additional Information: Abnormal findings on diagnostic imaging of other specified body COMPARISON: Chest CT 03/25/2022. TECHNIQUE: Multidetector volumetric CT imaging of the chest was done. Axial MIP volume rendering provided. Sagittal and coronal reformatted images were obtained. This CT examination was performed using dose optimization techniques as appropriate, variously including the following: *Automated exposure control *Adjustment of mA and/or kV according to patient size (this includes techniques or standardized protocols for targeted exams where dose is matched to indication/reason for exam; i.e. extremities or head) *Use of iterative reconstruction technique DLP: 251 mGy-cm FINDINGS: LUNGS: Stable pleural-parenchymal scarring at the apices including a 3 x 11 nodule series 7 image 114. No new or suspiciously enlarging nodule. MEDIASTINUM: Stable dilated aortic root measured 5.2 cm on coronal imaging. No mediastinal adenopathy. No pericardial effusion CORONARY ARTERY CALCIFICATION: Present. PLEURA: There is no pleural effusion. No pleural mass or thickening. AXILLA: No lymphadenopathy. UPPER ABDOMEN: Stable liver cysts. No imaging follow-up recommended. OSSEOUS STRUCTURES: Degenerative changes in the spine. No destructive osseous lesions. CT/CT chest wo IV con IMPRESSION: Stable lung nodules. No follow-up imaging recommended as per Fleischner Society guidelines. Stable aortic root aneurysm measuring 5.2 cm. Electronically signed by: Tanner Dwyer MD 12/11/2023 12:15 PM EDT
== END 2023-12-07 07:50 | disposition home or self-care (01) ==
LOC: HO.CT 07:49
PROVIDERS: PCP Nurse Practitioner Family; Visit Provider Internal Medicine Pulmonary Disease
DX: R93.89 Abnormal findings on diagnostic imaging of other specified body structures (principal)
CPT/HCPCS: 71250

== ENCOUNTER 2023-12-10 08:49 | Outpatient (AMB) | payer MEDICARE, SELFPAY ==
[2023-12-10 08:52] VITALS: BP 122/72; PULSE 84; O2SAT 94; BMI 28.2
--- NOTE | 2023-12-10 08:52 | A.OFFVIS_ITS ---
Vital Signs 12/10/23 08:52 Height 5 ft 11 in Weight 202 lb BMI 28.2 BP 122/72 Blood Pressure Location Rt brachial Position Sitting Pulse 84 Pulse Source Doppler Pulse Oximetry (%) 94 Oxygen Delivery Method Room Air Intake Visit Reasons: asthma Allergies No Known Allergies Allergy (Verified 11/09/23 10:40) HPI HPI asthma: Details: 78-year-old gentleman, remote under 20 pack-year smoker, now with AFib on amiodarone with no pre amiodarone PFT, followed for abnormal PFT and CT chest. Patient denies any pulmonary related concerns or complaints. His CT chest demonstrated what appears to be stable apical scarring with significant kyphosis and his PFT shows restrictive physiology with decreased diffusion capacity. Though, there is no evidence of any interstitial lung disease on CT scan. Patient denies family history of lung disease. 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 patient had a follow-up CT chest with results not available for this visit, but on my comparison to the prior ear CT scan with no significant change in imaging, including right apical nodule measuring approximately 7 mm. Patient continues to deny any pulmonary related concerns or complaints. [facility] Medical History Restrictive pattern present on pulmonary function testing COPD (chronic obstructive pulmonary disease) GERD (gastroesophageal reflux disease) Afib Aortic root dilatation Aortic aneurysm Cardiomyopathy PAF (paroxysmal atrial fibrillation) Surgical History S/P hip replacement Social History Household Members: Spouse Housing: House Alcohol intake: never Patient Tobacco Use Status: Former Tobacco user Years Smoked: 30 years ago e-Cigarette/Vaping Use: Never Used Second Hand Smoke Exposure: No service: No Current occupational status: retired Cognitive needs: No Hearing needs: No Vision needs: No Review of Systems Const Denies daytime sleepiness, Denies excessive sweating, Denies fatigue, Denies fever(s), Denies lethargy, Denies malaise, Denies night sweats, Denies snoring and Denies weight loss Eyes Denies blurry vision and Denies itchy eyes ENT Denies nasal congestion, Denies post nasal drip, Denies sinus pain, Denies sinus pressure and Denies other ( Thrush) Card Denies chest pain, Denies pedal edema, Denies dyspnea, Denies orthopnea and Denies paroxysmal nocturnal dyspnea Resp Denies cough, Denies hemoptysis, Denies excessive phlegm production, Denies dyspnea, Denies snoring and Denies wheezing GI Denies abdominal pain and Denies heartburn Musc Denies myalgias, Denies arthralgias and Denies joint swelling Skin/Breast Denies rash Neuro Denies memory loss and Denies seizure-like activity Psych Denies abnormal sleep pattern, Denies anxiety and Denies memory loss Endo Denies excessive sweating, Denies fatigue and Denies heat intolerance Mihai/Lymph Denies easy bruising Aller/Immun Denies itchy eyes, Denies seasonal rhinorrhea and Denies wheezing Physical Exam Vital Signs: Last Vital Signs Pulse 84 12/10/23 08:52 BP 122/72 12/10/23 08:52 Pulse Ox 94 12/10/23 08:52 Oxygen Delivery Method Room Air 12/10/23 08:52 BMI result Body Mass Index 28.2 Const General: no acute distress and alert Nutritional Appearance: not obese Orientation/consciousness: Other orientation findings ( oriented) HEENT Head: Yes atraumatic Eyes General: appearance normal, both eyes and all related structures Sclerae: sclerae normal EOM: EOMs intact bilaterally Neck Neck: Yes supple Lymphatic: no lymphadenopathy noted Resp Effort & Inspection: normal respiratory effort and no use of accessory muscles Auscultation: clear to auscultation bilaterally Cardio Rate: regular rate Rhythm: regular rhythm Heart sounds: no gallops, no murmurs and no rubs Skin General skin exam: other ( warm) Extrem General: No clubbing, No cyanosis and No edema Assessment & Plan Assessment & Plan (1) Restrictive airway disease: Code(s): J98.4 - Other disorders of lung Category: Medical (2) Abnormal CT scan, chest: Code(s): R93.89 - Abnormal findings on diagnostic imaging of other specified body structures Category: Medical Plan Results of CT chest not available for this visit, on my review stable imaging, including right apical 7 mm noted. Will repeat CT chest in 12 months, if no significant changes at that time, then no further imaging follow-up would be necessary. Patient continues to remain asymptomatic in terms of respiratory complaints. Orders: Orders CT chest wo IV con 12/03/24 R93.89 - Abnormal findings on diagnostic imaging of other specified body structures Coding Level of Care Code Est Pt Level 3 (91589) Diagnoses Restrictive airway disease J98.[address] scan, chest R93.89
== END 2023-12-10 09:10 | disposition home or self-care (01) ==
PROVIDERS: PCP Nurse Practitioner Family; Visit Provider Internal Medicine Pulmonary Disease
DX: J98.4 Other disorders of lung (principal); R93.89 Abnormal findings on diagnostic imaging of other specified body structures
CPT/HCPCS: 99213

== ENCOUNTER → 2023-12-10 08:49 | Outpatient (BNVA) | payer MEDICARE, SELFPAY | PROVIDERS: PCP Nurse Practitioner Family; Visit Provider Internal Medicine Pulmonary Disease | DX: J98.4 Other disorders of lung (principal); R93.89 Abnormal findings on diagnostic imaging of other specified body structures; Z87.891 Personal history of nicotine dependence | CPT/HCPCS: 99212 ==

== ENCOUNTER 2023-12-16 09:21 | Outpatient (REF) | payer MEDICARE, SELFPAY ==
[2023-12-16 13:43] LABS: MANUAL DIFF FLAG NO
[2023-12-16 13:47] LABS: Appearance Urine Turbid; Color Urine Yellow; Glucose Urine UA Negative (Negative); Leukocyte Esterase Urine Small (1+) (Negative); Nitrite Urine Negative (Negative); PH 5.5 (5.0-9.0); Specific Gravity - Urine >= 1.030 (1.005-1.025); UMIC TRIGGER UA YES; Urine Blood Negative (Negative); Urine Ketones Negative (Negative); Urine Protein Trace mg/dL (Neg-Trace)
[2023-12-16 13:54] LABS: Bacteria Urine None Seen (None Seen); Hyaline Casts Urine 0-2 /LPF (0-2); RBC Urine 0-2 /HPF (0-2); Squamous Epithelial Cell Urine 0-2 /HPF (0-2)
[2023-12-16 13:58] LABS: Basophils Absolute Auto 0.1 X10*3/uL (0.0-0.2); Basophils Percent Auto 1.3 % (0-2); Eosinophils Absolute Auto 0.3 X10*3/uL (0.0-0.4); Eosinophils Percent Auto 4.7 % (0-4); Hematocrit 44.3 % (42.0-52.0); Imm Gran Abs Auto 0.02 X10*3/uL (0.00-0.03); Imm Gran Pct Auto 0.3 % (0.0-0.4); Lymphocytes Absolute Auto 1.3 X10*3/uL (1.2-4.9); Lymphocytes Percent Auto 19.9 % (20-40); Mean Corpuscular HGB Conc 31.6 g/dl (31.0-36.0); Mean Corpuscular Hemoglobin 30.8 pg (27.0-33.0); Mean Corpuscular Volume 97.6 fL (80.0-98.0); Mean Platelet Volume 9.7 fL (9.4-12.4); Monocytes Percent Auto 15.4 % (2-11); Neutrophils Absolute Auto 3.7 x10*3/uL (2.0-8.3); Neutrophils Percent Auto 58.4 % (45-73); Platelet Count 213 X10*3/uL (160-400); Red Blood Count 4.54 X10*6/uL (4.60-5.80); Red Cell Distribution Width 13.7 % (11.0-16.0); White Blood Count 6.4 X10*3/uL (4.8-10.8)
[2023-12-16 14:07] LABS: Albumin Level 3.9 g/dL (3.5-5.0); Anion Gap 13 (12-20); Blood Urea Nitrogen 27 mg/dL (9-16); Calcium 9.1 mg/dL (8.4-10.2); Carbon Dioxide 25 mmol/L (22-29); Chloride 109 mmol/L (96-108); Estimated Glomerular Filt Rate 56; Magnesium 2.3 mg/dL (1.6-2.6); Phosphorus 3.5 mg/dL (2.7-4.5); Potassium 4.5 mmol/L (3.3-5.1); Sodium 142 mmol/L (135-145)
[2023-12-16 14:29] LABS: Vitamin D 25-OH Total 27.6 ng/mL (>30)
[2023-12-16 14:34] LABS: Creatinine Urine 190.76 mg/dL; Microalbum/Creatinine Ratio Ur 9.9 ug/mg cr (<30); Protein/Creatinine Ratio, Ur 0.12 (<0.2); Total Protein Urine Random 22 mg/dL (<12)
[2023-12-16 14:40] LABS: Parathyroid Hormone Intact 78.9 pg/mL (8.7-77.1)
== END 2023-12-16 09:22 | disposition home or self-care (01) ==
LOC: HO.HMGCLDS 09:21
PROVIDERS: PCP Nurse Practitioner Family; Visit Provider Internal Medicine Nephrology
DX: N18.31 Chronic kidney disease, stage 3a (principal); N25.0 Renal osteodystrophy
CPT/HCPCS: 36415; 80051; 81001; 82040; 82043; 82306; 82310; 82565; 82570; 83735; 83970; 84100; 84156; 84520; 85025

== ENCOUNTER 2024-02-29 09:16 | Outpatient (AMB) | payer MEDICARE, SELFPAY ==
[2024-02-29 09:24] VITALS: BP 130/60; PULSE 99; BMI 28.2
--- NOTE | 2024-02-29 09:24 | A.OFFVIS_ITS ---
Vital Signs 02/29/24 09:24 Height 5 ft 11 in Weight 202 lb 6.15 oz BMI 28.2 BP 130/60 Blood Pressure Location Lt brachial Position Sitting Pulse 99 Pulse Source Monitor Intake Visit Reasons: 4 mth f/up Intake Note: 4 mth f/up Display Designer Required: No Accompanied by: Self / Same As Patient Allergies No Known Allergies Allergy (Verified 11/09/23 10:40) Medication List - Last Reconciled 02/29/24 by Amor Llanes MD acetaminophen (Tylenol Extra Strength) 1,000 mg PO Q6H PRN amiodarone 200 mg PO DAILY apixaban (Eliquis) 5 mg PO BID 90 days atorvastatin 10 mg PO BEDTIME ferrous sulfate 325 mg PO DAILY finasteride 5 mg PO DAILY 90 days magnesium oxide 400 mg PO BIDPC 90 days metoprolol succinate ER (Toprol XL) 25 mg PO DAILY pantoprazole 40 mg PO DAILY sacubitril-valsartan 24-26 mg (Entresto) 1 tab PO BID 90 days HPI Comments Details: 78-year-old gentleman with nonischemic cardiomyopathy and aortic root aneurysm of 5 cm. Clinically asymptomatic and compensated. He was started on guideline directed medical therapy and on amiodarone for PVCs. Ejection fraction previously was 30 35% but now has improved 45-50%. By transthoracic echo his aortic root is 4.[address] performed in March 2022 aortic root is 5 cm. There is no interval change in size of the aortic root. Clinically he is improving from cardiomyopathy point of view. He has no symptoms. Tolerating meds well. 03/02/2023: He returns for follow-up. He was referred to Cardiothoracic surgery for aortic root dilatation of 5.[address] Moran and after discussion refused surgery. He is denying any chest discomfort on follow-up. No symptoms/signs of heart failure. Echocardiography has shown EF of 50 55% on last echocardiogram. He is on amiodarone for frequent premature ventricular complexes and atrial fibrillation. He is on apixaban also. 07/13/23: He is here for f/u. He is not interested in aortic surgery for aortic aneurysm. We had discussion last time and this time again. He thinks that he has arthritis and may not do well after surgery. I have explained to him that he is robust enough to undergo surgery. He will think about it. Otherwise denying any chest pain or shortness of breath. No orthopnea or PND. Taking medication regularly. His labs were reviewed. 10/21/2023: He is here for follow-up. Denying any chest discomfort shortness of breath. Clinically euvolemic. He injured his toe and had a fracture. Walking with a cane and is following with podiatry. Blood pressure is well controlled. If he again had a detailed discussion about aortic aneurysm. He does not wish to undergo surgery. 02/29/2024: He is here for follow-up. Denying any symptoms. He is little more tachycardic than usual. Denying shortness of breath or chest pains. We discussed about aneurysm and again his wishes are that he does not want any interventions done to that. [facility] Medical History (Updated 12/29/23 @ 07:34 by Jag Khan, [facility]) Renal osteodystrophy Restrictive pattern present on pulmonary function testing COPD (chronic obstructive pulmonary disease) GERD (gastroesophageal reflux disease) Afib Aortic root dilatation Aortic aneurysm Cardiomyopathy PAF (paroxysmal atrial fibrillation) Surgical History S/P hip replacement Social History Household Members: Spouse Housing: House Alcohol intake: never Patient Tobacco Use Status: Former Tobacco user Years Smoked: 30 years ago e-Cigarette/Vaping Use: Never Used Second Hand Smoke Exposure: No service: No Current occupational status: retired Cognitive needs: No Hearing needs: No Vision needs: No Review of Systems Const Denies chills, Denies fatigue, Denies fever(s), Denies frequent falls, Denies weakness, Denies weight gain and Denies weight loss ENT Denies dizziness Card Denies chest pain, Denies leg edema, Denies lightheadedness, Denies palpitations, Denies dyspnea and Denies dyspnea on exertion Resp Denies cough, Denies dyspnea and Denies dyspnea on exertion GI Denies hematochezia Musc Denies abnormal gait, Denies muscle weakness, Denies numbness, Denies radiating pain into limb and Denies tingling Neuro Denies abnormal gait, Denies dizziness, Denies frequent falls, Denies numbness, Denies tingling and Denies weakness Endo Denies fatigue and Denies palpitations Physical Exam Vital Signs: Last Vital Signs Pulse 99 02/29/24 09:24 BP 130/60 02/29/24 09:24 BMI result Body Mass Index 28.2 GENERAL APPEARANCE: in no acute distress, pleasant. NECK: no carotid bruit, no jugular venous distention. SKIN: no suspicious lesions, warm and dry. HEART: regular rate and rhythm. Early diastolic murmur left sternal border. LUNGS: clear to auscultation bilaterally. ABDOMEN: soft, nontender. EXTREMITIES: no edema. PERIPHERAL PULSES: equal. NEUROLOGIC: No gross deficits, AAO X 3 Office Procedures EKG Details: Sinus rhythm 99 beats per minute, left anterior fascicular block, poor R-wave progression, QTC 474 milliseconds. [id number], Complete Assessment & Plan Assessment & Plan (1) Cardiomyopathy: Code(s): I42.9 - Cardiomyopathy, unspecified Category: Medical (2) Aortic aneurysm: Code(s): I71.9 - Aortic aneurysm of unspecified site, without rupture Category: Medical (3) PAF (paroxysmal atrial fibrillation): Code(s): I48.0 - Paroxysmal atrial fibrillation Category: Medical (4) Nonischemic cardiomyopathy: Code(s): I42.8 - Other cardiomyopathies Category: Medical Plan Pleasant 78-year-old gentleman presenting for follow-up. He has known history of aortic root aneurysm with diameter 5.5 cm. He has indication for surgery and was referred for Cardiothoracic surgery consultation but he subsequently refused surgery and continues to refuse any surgical management. Blood pressure is well controlled currently and he is asymptomatic. He also had nonischemic cardiomyopathy due to premature ventricular complexes. This was managed with amiodarone and as of 02/02/2023 echocardiography is EF is 50-55% with normal right ventricular function. Continue amiodarone as before. We will periodically monitor the liver function tests, TSH and PFTs. He is following with pulmonology too. On anticoagulation for previous paroxysmal atrial fibrillation. He is in sinus rhythm on amiodarone. With a aneurysm his heart rate should be close to 60s. His current heart rate is in 90s. I have increased the metoprolol succinate to BID. Thank you for allowing me to participate in the care of your patient. Please feel free to contact me if you have any questions. Medications: Changed From metoprolol succinate ER (Toprol XL) 25 mg PO DAILY 90 tabs 3RF To metoprolol succinate ER (Toprol XL) 25 mg PO BID 90 tabs 3RF Coding Level of Care Code Est Pt Level 4 (19426) Diagnoses Cardiomyopathy I42.9 Aortic aneurysm I71.9 PAF (paroxysmal atrial fibrillation) I48.0 Nonischemic cardiomyopathy I42.8 CPT Codes EKG - CPT: [id number], Complete ([id number])
== END 2024-02-29 09:46 | disposition home or self-care (01) ==
PROVIDERS: PCP Nurse Practitioner Family; Visit Provider Internal Medicine Cardiovascular Disease
DX: I42.9 Cardiomyopathy, unspecified (principal); I71.9 Aortic aneurysm of unspecified site, without rupture; I48.0 Paroxysmal atrial fibrillation; I42.8 Other cardiomyopathies
CPT/HCPCS: 93010; 99214

== ENCOUNTER → 2024-02-29 09:16 | Outpatient (BNVA) | payer MEDICARE, SELFPAY | PROVIDERS: PCP Nurse Practitioner Family; Visit Provider Internal Medicine Cardiovascular Disease | DX: I48.0 Paroxysmal atrial fibrillation (principal); I71.9 Aortic aneurysm of unspecified site, without rupture; I42.8 Other cardiomyopathies | CPT/HCPCS: 93005; 99212 ==

== ENCOUNTER 2024-04-29 06:48 | Outpatient (REF) | payer MEDICARE, SELFPAY ==
[2024-04-29 09:53] LABS: MANUAL DIFF FLAG NO
[2024-04-29 10:04] LABS: Basophils Absolute Auto 0.1 X10*3/uL (0.0-0.2); Basophils Percent Auto 1.3 % (0-2); Eosinophils Absolute Auto 0.3 X10*3/uL (0.0-0.4); Eosinophils Percent Auto 4.7 % (0-4); Hematocrit 45.4 % (42.0-52.0); Hemoglobin 14.3 g/dl (14.0-18.0); Imm Gran Abs Auto 0.02 X10*3/uL (0.00-0.03); Imm Gran Pct Auto 0.3 % (0.0-0.4); Lymphocytes Absolute Auto 1.5 X10*3/uL (1.2-4.9); Lymphocytes Percent Auto 24.6 % (20-40); Mean Corpuscular HGB Conc 31.5 g/dl (31.0-36.0); Mean Corpuscular Hemoglobin 30.8 pg (27.0-33.0); Mean Corpuscular Volume 97.8 fL (80.0-98.0); Mean Platelet Volume 9.6 fL (9.4-12.4); Monocytes Absolute Auto 0.9 X10*3/uL (0.1-1.2); Monocytes Percent Auto 14.9 % (2-11); Neutrophils Absolute Auto 3.2 x10*3/uL (2.0-8.3); Neutrophils Percent Auto 54.2 % (45-73); Platelet Count 222 X10*3/uL (160-400); Red Blood Count 4.64 X10*6/uL (4.60-5.80); Red Cell Distribution Width 13.4 % (11.0-16.0)
[2024-04-29 10:08] LABS: Appearance Urine Cloudy; Color Urine Yellow; Glucose Urine UA Negative (Negative); Leukocyte Esterase Urine Negative (Negative); Nitrite Urine Negative (Negative); PH 5.5 (5.0-9.0); Specific Gravity - Urine >= 1.030 (1.005-1.025); Urine Blood Negative (Negative); Urine Ketones Negative (Negative); Urine Protein Trace mg/dL (Neg-Trace)
[2024-04-29 10:24] LABS: Alanine Aminotransferase 28 U/L (0-40); Albumin Level 3.9 g/dL (3.5-5.0); Alkaline Phosphatase 89 U/L (39-117); Anion Gap 12 (12-20); Aspartate Amino Transferase 33 U/L (5-37); Bilirubin Total 0.6 mg/dL (0.0-1.0); Blood Urea Nitrogen 29 mg/dL (9-16); Carbon Dioxide 24 mmol/L (22-29); Chloride 109 mmol/L (96-108); Cholesterol 132 mg/dL (<200); Estimated Glomerular Filt Rate 54; Glucose Fasting 98 mg/dL (60-99); HDL Cholesterol 40 mg/dL (>40); LDL Cholesterol Calculated 70 mg/dL (<100); Potassium 4.3 mmol/L (3.3-5.1); Sodium 141 mmol/L (135-145); Total Protein 7.4 g/dL (6.5-8.0); Triglycerides 111 mg/dL (<150)
[2024-04-29 10:47] LABS: TSH reflex Free T4 4.62 uIU/mL (0.32-4.0)
[2024-04-29 11:20] LABS: Free T4 (Free Thyroxine) 1.06 ng/dL (0.71-1.85)
== END 2024-04-29 06:49 | disposition home or self-care (01) ==
LOC: HO.HMGCLDS 06:48
PROVIDERS: PCP Nurse Practitioner Family; Visit Provider Nurse Practitioner Family
DX: E78.5 Hyperlipidemia, unspecified (principal)
CPT/HCPCS: 36415; 80053; 80061; 81003; 84439; 84443; 85025

== ENCOUNTER 2024-05-16 08:12 | Outpatient (AMB) | payer MEDICARE, SELFPAY ==
[2024-05-16 08:14] VITALS: BP 120/62; PULSE 62; TEMP 36.6; O2SAT 95; BMI 28.6
--- NOTE | 2024-05-16 08:14 | MHC.PC.OV ---
Vital Signs 05/16/24 08:14 Height 5 ft 11 in Weight 205 lb BMI 28.6 BP 120/62 Blood Pressure Location Lt brachial Position Sitting Pulse 62 Pulse Source Pulse Oximeter Temp 97.9 F Temp Source Oral Pulse Oximetry (%) 95 Oxygen Delivery Method Room Air Intake Visit Reasons: 6m F/U Intake Note: pt is here for 6 mon f.up Systems Auditor Required: No Accompanied by: Self / Same As Patient Allergies No Known Allergies Allergy (Verified 05/16/24 08:14) Tobacco use date assessed: 05/16/24 Fall risk assessment: No Falls in past year Last assessed Fall Risk: 05/16/24 Dental Screening Dental Screen Date: 05/16/24 Did you have a dental visit in the last 12 months?: Yes Did you have a dental problem in the last 6 months where you did not have access to dental care?: No Was dental information given to patient?: Patient has dentist HPI 6m F/U HPI Details Chief Complaint The patient presents for a follow-up concerning dyslipidemia. History of Present Illness The patient is a 79-year-old male presenting with a follow-up for dyslipidemia management. He is being treated with atorvastatin 10 mg, which has successfully decreased his LDL to 70 mg/dL and total cholesterol to 132 mg/dL, indicating positive response to the therapy. His lipid management seems well-controlled under the current treatment regimen. In the course of the visit, an elevated TSH was noted, pointing towards possible hypothyroidism. However, the patient reports no symptoms usually related to thyroid dysfunction, such as fatigue or excessive hair loss, thus warranting monitoring rather than immediate intervention. (free t4 WNL) The patient's mobility is affected by arthritis, and he utilizes a cane for ambulatory aid, highlighting an ongoing issue but not the main focus of today's visit. Social History - Uses a cane for mobility due to arthritis Health Maintenance - Continues on atorvastatin 10 mg for dyslipidemia management with favorable results in lipid levels - Monitoring thyroid function due to elevated TSH Review of Systems - Constitutional: Denies fatigue - Endocrine: Denies symptoms of hypothyroidism Physical Exam General: Cooperative, healthy appearing, comfortable, no acute distress and well developed Orientation: Patient oriented x3 Limitations: No limitations Head: Normal to inspection Ears: Hearing grossly normal bilaterally Nose: Normal external nose present Face and sinus: Normal facial exam Eyes: Appearance normal, both eyes and all related structures Neck: Normal visual inspection and Yes full ROM Respiratory: Slightly diminished bilaterally Cardiovascular: Regular rate and rhythm. Normal S1 and S2 GI: Normal to inspection. Soft to palpation and nontender Skin: No rashes or lesions noted Neuro: Patient oriented x3 Extremities: Normal to inspection, using a cane for ongoing arthritis Results - Labs: LDL 70 mg/dL, Total Cholesterol 132 mg/dL, Elevated TSH noted Plan The patient will maintain the current dose of atorvastatin due to favorable lipid control. Regular monitoring of thyroid function will continue given the elevated TSH level, despite the absence of symptomatic hypothyroidism. The patient's use of a cane for arthritis will persist to aid mobility, and lipid levels will be re-evaluated at the next follow-up. Discussion Notes I discussed with the patient that the atorvastatin treatment is effectively managing his dyslipidemia, as evidenced by his lipid values. We reviewed the importance of monitoring his TSH levels due to the slight elevation found in recent lab results; however, as he is asymptomatic, no immediate changes to his treatment plan are necessary at this time. We will keep an eye on any symptoms that may develop. The patient was informed to continue using the cane as needed for his arthritis, which supports his mobility. Follow-up plans and precautions were also highlighted. Patient Instructions - Continue taking atorvastatin 10 mg as prescribed. - Monitor for any symptoms such as fatigue, sluggishness, or hair loss and report if they occur. - Use the cane for mobility assistance as needed. - Follow-up as scheduled for repeat lipid and thyroid testing. [facility] Medical History Renal osteodystrophy Restrictive pattern present on pulmonary function testing COPD (chronic obstructive pulmonary disease) GERD (gastroesophageal reflux disease) Afib Aortic root dilatation Aortic aneurysm Cardiomyopathy PAF (paroxysmal atrial fibrillation) Surgical History S/P hip replacement Social History Household Members: Spouse Housing: House Alcohol intake: never Patient Tobacco Use Status: Former Tobacco user Years Smoked: 30 years ago e-Cigarette/Vaping Use: Never Used Second Hand Smoke Exposure: No service: No Current occupational status: retired Cognitive needs: No Hearing needs: No Vision needs: No Questionnaire PHQ-9 Over the last 2 weeks, how often have you been bothered by any of the following problems? 1. Little interest or pleasure in doing things: not at all 2. Feeling down, depressed, or hopeless: not at all 3. Trouble falling or staying asleep, or sleeping too much: not at all 4. Feeling tired or having little energy: not at all 5. Poor appetite or overeating: not at all 6. Feeling bad about yourself - or that you are a failure or have let yourself or your family down: not at all 7. Trouble concentrating on things, such as reading the newspaper or watching television: not at all 8. Moving or speaking so slowly that other people could have noticed. Or the opposite - being so fidgety or restless that you have been moving around a lot more than usual: not at all 9. Thoughts that you would be better off or of hurting yourself in some way: not at all Total score: 0 Depression Screening Interpretation: Negative Depression Screening Done: Yes 61004 - PHQ-9 Billing: Yes Source: Developed by Drs. Omid Herrera, Gina Urbina, Mike Gupta and colleagues, with an educational piter from [employer]. Thrive Questionnaire Date Thrive assessed: 05/16/24 I am a: Patient What is your living situation today?: I have a steady place to live Within the past 12 months, did the food you bought not last and you didn't have the money to get more?: Never true Within the past 12 months, did you worry whether your food would run out before you got money to buy more?: Never true Do you have trouble paying for medicines?: No Do you have trouble getting transportation to medical appointments?: No Do you have trouble paying your heating and electricity bill?: No Do you have trouble taking care of your child, family member or friend?: No Do you have trouble with day-to-day activities such as bathing, preparing meals, shopping, managing finances, etc.?: No Are you currently unemployed and looking for a job?: No Are you interested in more education?: No Please select the resources that you would like help with: None Currently or been in a relationship where the following occur: No concerns reported THRIVE Score: 0 AUDIT C Alcohol Use Questionnaire (AUDIT-C) 1. How often do you have a drink containing alcohol?: Never 3. How often do you have six or more drinks on one occasion?: Never Total Score: 0 Score Reviewed/Action Taken: Yes DAVID-7 AMB Questionnaire DAVID-7 Date DAVID - 7 assessed: 05/16/24 Feeling nervous, anxious, or on edge: 0 = Not at all Not being able to stop or control worryin = Not at all Worrying too much about different things: 0 = Not at all Trouble relaxin = Not at all Being so restless that it is hard to sit still: 0 = Not at all Becoming easily annoyed or irritable: 0 = Not at all Feeling afraid as if something awful might happen: 0 = Not at all Total DAVID-7 score (0-4 normal; 5-9 mild; 10-14 moderate; 15-21 severe): 0 Source: Developed by Drs. Omid Herrera, Gina Urbina, Mike Gupta and colleagues, with an educational piter from [employer]. DAVID-7 Assessment Billing DAVID-7 Assessment Tool: DAVID-7 Assessment 40671 Physical exam (Primary Care) Vital Signs: Last Vital Signs Temp 97.9 F 05/16/24 08:14 Pulse 62 05/16/24 08:14 BP 120/62 05/16/24 08:14 Pulse Ox 95 05/16/24 08:14 Oxygen Delivery Method Room Air 05/16/24 08:14 BMI result Body Mass Index 28.6 Tobacco/Smoking Status: Tobacco use Status Tobacco use date assessed 05/16/24 05/16/24 08:15 Patient Tobacco Use Status Former Tobacco user 05/16/24 08:15 e-Cigarette/Vaping Use Never Used 05/16/24 08:15 PHQ-9: PHQ-9 Score PHQ-9: Total score 0 05/16/24 08:27 Depression Screening Interpretation: Negative Thrive Assessment: Date of Thrive Assessment Date Thrive assessed 05/16/24 05/16/24 08:15 Currently or been in a relationship where the following occur: No concerns reported Coding Level of Care Code Est Pt Level 3 (41074) Diagnoses Elevated TSH R79.89 Screening for prostate cancer Z12.5 Dyslipidemia E78.5 Additional Codes DAVID-7 Assessment Billing - DAVID-7 Assessment Tool: DAVID-7 Assessment 65364 ([id number]) PHQ-9 - 62387 - PHQ-9 Billing: Yes ([id number]) Assessment & Plan Assessment & Plan (1) Elevated TSH: Code(s): R79.89 - Other specified abnormal findings of blood chemistry Category: Medical (2) Screening for prostate cancer: Code(s): Z12.5 - Encounter for screening for malignant neoplasm of prostate Category: Medical (3) Dyslipidemia: Code(s): E78.5 - Hyperlipidemia, unspecified Category: Medical Plan . Orders: Orders TSH reflex Free T4 Today R79.89 - Other specified abnormal findings of blood chemistry Thyroid Peroxidase Antibodies Today R79.89 - Other specified abnormal findings of blood chemistry Prostate Specific Antigen Scr Today Z12.5 - Encounter for screening for malignant neoplasm of prostate
--- OUTSIDE RECORDS SUMMARY | 2024-05-16 08:20 | XMS_ITS ---
Author Organization [facility] Address [address] [facility] [place] [address] Care Team Providers Care Head Sampler Name Role Phone Jag Heath Primary Care Provider Unav ailable Black, Ivory Unavailable [phone] Allergies No Known Allergies Results Component Value Reference Range Notes X ray : Foot, left 3V Reviewed date:01/18/2024 11:35:00 AM Interpretation:See Examination above Performing Lab: Notes/Report: See Examination above REASON FOR VISIT Painful Toe(s), Painful nail(s) aggravated by shoes causing difficulty standing/walking, Skin problem(s) Medications Medication SIG (Take, Route, Frequency, Duration) Notes Start Date End Date Status eliquis 5 mg Active Magnesium 400 MG as directed Orally Active Amiodarone HCl 200 MG 1 tablet Orally On ce a day Active Finasteride 5 MG 1 tablet Orally Once a day Active Terazosin HCl 5 MG 1 capsule at bedtime Orally Once a day Active Ammonium Lactate 12 % 1 application Externally Twice a day for 30 days Not-Taking Ammonium Lactate 12 % 1 application Externally to affected areas of skin to feet except for between the toes Twice a day for 30 days Active Iron 325 (65 Fe) MG 1 tablet Orally Thre e times a Week Active Atorvastatin Calcium 10 MG 1 tablet Orally Once a day Active Tylenol 325 MG 1 capsule as needed Orally every 6 hrs Active Metoprolol Succinate 25 MG 1 capsule Orally Once a day Active Entresto 24-26 MG 1 tablet Orally Twic e a day Active Social History Tobacco Use: Social History Observation Description Date Details (start date - stop date) Former Smoker NA - NA Tobacco Use/Smoking Question Answer Notes Are you a: former smoker Additional Findings: Tobacco Non-User Current no n-smoker,Ex-cigarette smoker Alcohol Screen Question Answer Notes Did you have a drink containing alcohol in the p ast year? No Points 0 Interpretation Negative Tobacco use other than smoking: Question Answer Notes Are you an other tobacco user? No Vital Signs Height 5 ft 11 in in 01/18/2024 Weight 200 lbs 01/18/2024 BMI 27.89 kg/m2 01/18/2024 Procedures Procedure Date Ordered Date Performed Result Body Sit e 39436-RSEEUWS NAIL, 6 OR MORE 01/18/2024 N/A Encounters Encounter Location Date Provider Diagnosis [facility] [place] [address] [place] [address] 01/18/2024 Ivory Black Pain in left toe(s) M79.675 ; Closed displaced fracture of distal phalanx of left great toe with routine healing, subsequent encounter S92.422D ; Localized edema R60.0 ; Contusion of left great toe with damage to nail, subsequent encounter S90.212D ; Onychomycosis B35.1 ; Pain in right toe(s) M79.674 and Xerosis of skin L85.3 Assessments Encounter Date Diagnosis (ICD Code) Assessment Notes Treatment Notes Treatment Clinical Notes Section Notes 01/18/2024 Pain in left toe(s) (ICD-10 - M79.675) 01/18/2024 Closed displaced fracture of distal phalanx of left great toe with routine healing, subsequent encounter (ICD-10 - S92.422D) 01/18/2024 Localized edema (ICD-10 - R60.0) 01/18/2024 Contusion of left great toe with damage to nail, subsequent encounter (ICD-10 - S90.212D) 01/18/2024 Onychomycosis (ICD-10 - B35.1) 01/18/2024 Pain in right toe(s) (ICD-10 - M79.674) 01/18/2024 Xerosis of skin (ICD-10 - L85.3) Plan Of Treatment Medication Medication Name Sig Start Date Stop Date Notes Ammonium Lactate 12 % 1 application Exte rnally to affected areas of skin to feet except for between the toes Twice a day for 30 days Pending Test Test Name Order Date [id number] NAIL, 6 OR MORE 01/18/2024 Next Appt Details Follow Up: prn, Reason: Provider Name:Ivory Davis , 06/30/2024 09:00:00 AM, [address] [place], [address], Procedure Notes * Category Sub-Category Detail Notes Debride Nail 6-10 Nail debridement Performance o f this nail treatment by a nonprofessional would put this patients foot and overall health at risk. Therefore, nail debridement was performed extensively to reduce/remove overall nail length, girth, thickness, subungual debris, and necrotic tissue, by manual and/or electrical means through the use of a nail nipper and/or dremel-type salt grinder, to a more viable healthy nail plate or bed tissue 6-10. Silver nitrate used for any petechial bleeding as necessary. Definitive antifungal treatment options have been reviewed and discussed with the patient. The patient chooses, no pharmaceutical tx - 38736 Progress Notes * Francois CA DDOB: [birth year] (78 yo M)Acc No.[id number]:01/18/2024 Progress Note Patient:?Francois Ca Provider:?Ivory Davis DPM :1945???Age:78 Y???Sex:Male Hugh e:01/18/2024 Address:[address] [place] [address] [place] [id number] Pcp:MENDEZ Guerra Subjective: * Chief Complaints: * ???Painful Toe(s)Painful jagjit l(s) aggravated by shoes causing difficulty standing/walkingSkin problem(s) * HPI: ???Toe pain:?Nature:?tenderness.?Location:?Left foot.?Duration:?, several months.?Onset/Cause:?Pt toe got caught underneath foot.?Course:?improved , , at 80 percent.?Aggravated by:?any pressure, shoes.?Treatments:?rest/alter normal daily activity, , soaks , medication ( keflex 500mg BID_ )-Urgent care , ice.?Painful Nails:?Pt States Last PCP Visit:?Date:?11/12/2023 ???Skin problems:?Nature:?dryness , scaling.?Location:?B/L .?Duration:?several days.?Course:?worse.? * ROS:?General/Constitutional:?Nausea?denies.?Vomiting?denies.?Hunger Thirst?denies.?Loss appetite?denies.?Chills?denies.?Fatigue?denies.?Fever?denies.?Night Sweats?denies.?Unexplained weight loss?denies.?Unexplained weight gain?denies.?HEENTM:?Dentures?denies.?Dizziness?denies.?Glasses/contacts?denies.?Retinopathy?de nies.?Blurred/double vision?denies.?TMJ?denies.?Discharge/drainage?denies.?Implants?denies.?Sore throat?denies.?Dental implants?denies.?Hard of hearing ?denies.?Difficulty chewing/swallowing/speaking?denies.?Nose bleeds?denies.?Sore mouth?denies.?Respiratory:?On Oxygen?denies.?Pneumonia/pleurisy?denies.?Bronchitis?denies.?Emphysema?denies.?C oughing?denies.?Cough blood?denies.?Shortness of breath?denies.?Wheezing?denies.?Cardiovascular:?Pacemaker?denies.?MVP?denies.?WPW?denies.?CHF?denies.?Heart attack?denies.?Septal defect?denies.?Rapid beat?denies.?Chest pain ?denies.?Atrial Fib.?admits.?Murmur/Palpitations?denies.?Gastrointestinal:?Hemorrhoids?denies.?Stomach/Abdominal pain?denies.?Dark blood stool?denies.?Irritable bowel ?denies.?Constipation?denies.?Diarrhea?denies.?Hematology:?Swelling?denies.?Clots?denies.?Varicose Veins?denies.?Bruising?admits.?Bleeding problem?denies.?Genitourinary:?Blood urine?denies.?Frequent/Painfu/urination/bladder control?denies.?Kidney stones?denies.?Infection (UTI)?denies.?Nephropathy?denies.?sex trans dis (STD)?denies.?Prostate?admits.?Musculoskeletal:?Hammertoes?denies.?Bunions?denies.?Back Pain?denies.?Muscle Cramps/ Resting?denies.?Muscle cramps / walking?denies.?Generalized aches and pains?denies.?Weakness?denies.?Integ.:?Barclay?denies.?Scars?denies.?Corns/calluses?denies.?Ingrown nails?denies.?Painful nails?admits.?Open Sores?denies.?Rashes?denies.?Neurologic:?Difficulty sleeping?denies.?Brain disorder?denies.?Numbness?denies.?Balance trouble?denies.?Confusion?denies.?Fainting/blackouts?denies.?Tingling?denies.?Tr emors?denies.? * Medical History:? * Surgical History:?Hip Replac ement 20 years ago * Hospitalization/Major Diagno stic Procedure:?Urgent care - Toe injury 09/26/23 * Family History:?Mother: dece ased, cancer.?Father: .? * Social History:?Tobacco Use:?Tobacco Use/Smoking?Are you a:?former smoker ?Additional Findings: Tobacco Non-User?Current non-smoker,Ex-cigarette smoker ?Tobacco use other than smoking?Are you an other tobacco user??No ???Drugs/Alcohol:?Drugs?Have you used drugs other than those for medical reasons in the past 12 months??No ?Alcohol Screen?Did you have a drink containing alcohol in the past year??No ?Points?0 ?Interpretation?Negative ???Miscellaneous:?Caffeine: yes, frequency:, 1-2 cups per day. ?no Children. ?no Exercise, none. ?Marital status: , . 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 * Medications:?TakingTylenol 3 25 MG Capsule 1 capsule as needed Orally every 6 hrsAtorvastatin Calcium 10 MG Tablet 1 tablet Orally Once a dayIron 325 (65 Fe) MG Tablet 1 tablet Orally Three times a WeekTerazosin HCl 5 MG Capsule 1 capsule at bedtime Orally Once a dayFinasteride 5 MG Tablet 1 tablet Orally Once a dayAmiodarone HCl 200 MG Tablet 1 tablet Orally Once a dayMagnesium 400 MG Capsule as directed Orally eliquis 5 mg Tablet Entresto 24-26 MG Tablet 1 tablet Orally Twice a dayMetoprolol Succinate 25 MG Capsule ER 24 Hour Sprinkle 1 capsule Orally Once a dayTaking Tylenol 325 MG Capsule 1 capsule as needed Orally every 6 hrsTaking Atorvastatin Calcium 10 MG Tablet 1 tablet Orally Once a dayTaking Iron 325 (65 Fe) MG Tablet 1 tablet Orally Three times a WeekTaking Terazosin HCl 5 MG Capsule 1 capsule at bedtime Orally Once a dayTaking Finasteride 5 MG Tablet 1 tablet Orally Once a dayTaking Amiodarone HCl 200 MG Tablet 1 tablet Orally Once a dayTaking Magnesium 400 MG Capsule as directed Orally Taking eliquis 5 mg Tablet Taking Entresto 24-26 MG Tablet 1 tablet Orally Twice a dayTaking Metoprolol Succinate 25 MG Capsule ER 24 Hour Sprinkle 1 capsule Orally Once a dayNot-Taking/PRNAmmonium Lactate 12 % Cream 1 application Externally Twice a dayMedication List reviewed and reconciled with the patientNot-Taking/PRN Ammonium Lactate 12 % Cream 1 application Externally Twice a dayMedication List reviewed and reconciled with the patient * Allergies:?N.K.D.A.yes[Aller gies Verified] Objective: * Vitals:?Ht: 5 ft 11 in, Wt: 200, BMI: 27.89, Shoe size: 12, Ht-cm: 180.34 cm, Wt-k.72 kg. * Examination: ???General Examination: ?GENERAL APPEARANCE:?Reveals a pleasant, alert, well nourished, well- developed, well hydrated individual, who demonstrates proper attention to hygiene/body habitus, and is in no acute distress, Pt serves as own historian for office visit today.?ORIENTED:?person, place, and time.?Orthopedic: ?MUSCLE STRENGTH:?5/5 all groups in a symmetrical fashion, B/L.?BUNION:?Medially prominent 1st MPJ , (+) Pain on palpation , inflammation present?at 80 % less, erythema at exostosis IPJ with Pain on ROM left at 80 percent less.?DIGITAL DEFORMITIES:?Digital contracture, PIPJ, 2-5 B/L, incompl-reducible with WB, or to push-up test, no over, nor underlapping.?Vascular: ?DP PULSES(B):?2/4, B/L.?PT PULSES(B):?2/4, B/L.?CAPILLARY FILL TIME:?3 secs. per digit, B/L.?TROPHIC CONDITION-TEXTURE/ELASTICITY/TURGOR/HAIR GROWTH(B):?normal, B/L.?TEMPERTURE GRADIENT(C):?normal, warm to cool, proximal to distal, B/L, B/L.?PIGMENTATION:?normal, B/L.?EDEMA(C):?absent, B/L.?Nails: ?NAILS are:??Elongated, overgrown, dystrophic, lytic, greater than 3mm thick, discolored and friable with crumbly malodorous subungual debris, with pain on palpation 2-5 Left 1-5 right.?Dermatologic: ?SKIN FINDINGS:?Skin shows sign(s) of, dryness, scaling, in a stocking fashion, no fissure(s) present, B/L.?X-Rays - IMAGING REPORT: ?Clinical Indication(s):? Evaluate Biomechanical Deformity.?Views:? 3 views of Foot, AP, LAT, , MO, LEFT.?Findings:?mild generalized decrease in bone density ,.?Digits:? show asymmetrical joint space narrowing at the PIPJ consistent with clinical finding of hammertoe deformity.?Fracture:?Sign of fracture identified , distal phalange , TA , mild displaced ,increased?ravi callus present- fracture stable.? Assessment: * Assessment: 1.?Pain in left toe(s) - M79 .675?2.?Closed displaced fracture of distal phalanx of left great toe with routine healing, subsequent encounter - S92.422D (Primary)?3.?Localized edema - R60.0?4.?Contusion of left great toe with damage to nail, subsequent encounter - S90.212D?5.?Onychomycosis - B35.1?6.?Pain in right toe(s) - M79.674?7.?Xerosis of skin - L85.3, Acute problem, Uncomplicated (3),Rx Management (4)? Plan: * Treatment: 2.?Onychomycosis?Procedure: [id number]-[id number] NAIL, 6 OR MORE 3.?Xerosis of skin? Start Ammonium Lactate Cream, 12 %, 1 application, Externally to affected areas of skin to feet except for between the toes, Twice a day, 30 days, 140, Refills 2.?? * Procedures:?Debride Nail 6-10:?Nail debridement?Performance of this nail treatment by a nonprofessional would put this patients foot and overall health at risk. Therefore, nail debridement was performed extensively to reduce/remove overall nail length, girth, thickness, subungual debris, and necrotic tissue, by manual and/or electrical means through the use of a nail nipper and/or dremel-type salt grinder, to a more viable healthy nail plate or bed tissue 6-10. Silver nitrate used for any petechial bleeding as necessary. Definitive antifungal treatment options have been reviewed and discussed with the patient. The patient chooses, no pharmaceutical tx - 38893.? * Procedure Codes:?00115 DEBRI DE NAIL, 6 OR MORE, Modifiers: XS 65425 X-RAY EXAM OF LEFT FOOT 3V, Modifiers: 26 , LT * Preventive Medicine:? ??Counseling:?Discussion:?-14: Office or other outpatient visit for the evaluation and management of an established patient, which required a medically appropriate history and/or examination and MODERATE level of DECISION MAKING for: 1 OR MORE CHRONIC PROBLEM(S) THATS WORSENING, 2 STABLE CHRONIC PROBLEMS, A NEWLY DIAGNOSED PROBLEM WITH UNCERTAIN PROGNOSIS, AN ACUTE COMPLICATED INJURY WITH MULTIPLE TREATMENT OPTIONS, OR AN ACUTE PROBLEM WITH ACCOMPANYING SYSTEMIC SYMPTOMS, THAT POSE(S) A MODERATE RISK OF MORBIDITY. THIS CONDITION MAY ALSO INCLUDE RX DRUG MANAGEMENT, OR A DECISON FOR MINOR SURGERY. The visit on the day of the encounter encompassed interpreting the data and educating the patient as to the nature of their condition, treatment options available according to their individual PMH, meds, allergies, and overall health/living conditions, as well as any potential risks or complications that may occur from a failure to adhere to, and participate in, the recommended course of therapy. The discussion included a complete verbal, and/or written explanation of the examination results, any x-rays taken, the proposed diagnosis, and outline of the treatment plan. A schedule for future care needs was also explained. The patient verbalized an understanding of the instructions at this time and agreed to be an active participant in their treatment. If the patient should think of any questions or concerns after the visit, I have encouraged the patient to call the office.?X-rays:?Discussed and reviewed the X-rays with the patient. We discussed how the findings relate to the patients symptoms/complaints. Answered any and all questions., Discussed the process of bone healing with the Pt., The healing process on average can take 6-8 weeks depending the bone,type of break, age and overall health. Pts fracture is stable with a good amount of bone callous present. Pt may resume normal activity to tolerance any issues arise to call the office.?Xerosis:?The patient was counseled on the diagnosis, potential etiologies, and treatment options for their skin condition. We discussed the risks and benefits of each option from performing no treatment, to utilizing OTC topical skin creams/ointments, to utilizing prescription topical creams/ointments, to utilizing customized compounded topical medications and use of nocturnal occlusion with any/all previously detailed therapies. We discussed the advantages and disadvantages of each possible treatment and importance for adherence to all the recommended therapies for optimum success and avoid potential complications such as open sore/infection/possible hospitalization. We discussed the potential effectiveness of each topical preparation as well as each ones possible side effects and/or patient medication interactions. Patient questions re: use, dosage, successful outcomes, and application consistency were reviewed and the patient verbalized that all answers were clearly understood. The patient has decided to apply Rx skin creams to their feet save the interspaces while paying special attention to the heels. Such was sent to their pharmacy at the time of visit.? * Follow Up:?prn * Images: * Sign off status: Completed true * Provider:?Ivory Davis DPM Date:?2023 Generated for Eliana carrera/Zohaib/Yuitting on:?05/16/2024 08:20 AM EST History and Physical Notes * HPI (History of Present Illness) Category Sub-Category Detail Notes Category Not es Toe pain Nature: tenderness Location: Left foot Duration: , several months Onset/Cause: Pt toe got caught un derneath foot Course: improved , , at 80 p ercent Aggravated by: any pressure, shoes Treatments: rest/alter normal da eva activity, , soaks , medication ( keflex 500mg BID_ )-Urgent care , ice Painful Nails Pt States Last PCP Visit: Date:: 11/12/2023 Skin problems Nature: dryness , scaling Location: B/L Duration: several days Course: worse Examination Category Sub-Category Detail Notes Category Not es Dermatologic SKIN FINDINGS: Skin shows sign( s) of, dryness, scaling, in a stocking fashion, no fissure(s) present, B/L Orthopedic BUNION: Medially promine nt 1st MPJ , (+) Pain on palpation , inflammation present at 80 % less, erythema at exostosis IPJ with Pain on ROM left at 80 percent less FOOTWEAR: DIGITAL DEFORMITIES: Digital contracture , PIPJ, 2-5 B/L, incompl-reducible with WB, or to push-up test, no over, nor underlapping MUSCLE STRENGTH: 5/5 all groups in a symmetrical fashion, B/L General Examination GENERAL APPEARANCE: Reveals a pleasant, alert, well nourished, well-developed, well hydrated individual, who demonstrates proper attention to hygiene/body habitus, and is in no acute distress, Pt serves as own historian for office visit today ORIENTED: person, place, and t augustine Vascular DP PULSES (B): 2/4, B/L PT PULSES (B): 2/4, B/L CAPILLARY FILL TIME: 3 secs. per digit, B/L TEMPERTURE GRADIENT (C): normal, warm to cool, proximal to distal, B/L, B/L TROPHIC CONDITION-TEXTURE/ELASTICITY/TURGOR/HAIR GROWTH (B): normal, B/L EDEMA (C): absent, B/L PIGMENTATION: normal, B/L Nails NAILS are: Elongated, overg rown, dystrophic, lytic, greater than 3mm thick, discolored and friable with crumbly malodorous subungual debris, with pain on palpation 2-5 Left 1-5 right X-Rays - IMAGING REPORT Findings: mild generalized decrease in bone density , Fracture: Sign of fracture sade ntified , distal phalange , TA , mild displaced ,increased ravi callus present- fracture stable Digits: show asymmetrical riaz int space narrowing at the PIPJ consistent with clinical finding of hammertoe deformity Views: 3 views of Foot, AP, LAT, , MO, LEFT Clinical Indication(s): Evaluate Biomech anical Deformity
--- OUTSIDE RECORDS SUMMARY | 2024-05-16 08:20 | XMS_ITS | Patient Health Record ---
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 Name Role Phone Jag Heath Primary Care Provider Unav ailable Black, Ivory Unavailable [phone] Allergies No Known Allergies Results Component Value Reference Range Notes X ray : Foot, left 3V Reviewed date:10/26/2023 02:54:59 PM Interpretation:See Examination above Performing Lab: Notes/Report: See Examination above X ray : Foot, left 3V Reviewed date:01/18/2024 11:35:00 AM Interpretation:See Examination above Performing Lab: Notes/Report: See Examination above X ray : Foot, left 3V Reviewed date:10/05/2023 10:58:39 AM Interpretation:See Examination above Performing Lab: Notes/Report: See Examination above Reason For Referral No Information Medications Medication SIG (Take, Route, Frequency, Duration) Notes Start Date End Date Status Finasteride 5 MG 1 tablet Orally Once a day Active Terazosin HCl 5 MG 1 capsule at bedtime Orally Once a day Active Iron 325 (65 Fe) MG 1 tablet Orally Thre e times a Week Active Atorvastatin Calcium 10 MG 1 tablet Orally Once a day Active Magnesium 400 MG as directed Orally Active Amiodarone HCl 200 MG 1 tablet Orally On ce a day Active Ammonium Lactate 12 % 1 application Externally to affected areas of skin to feet except for between the toes Twice a day for 30 days Active eliquis 5 mg Active Tylenol 325 MG 1 capsule as needed Orally every 6 hrs Active Ammonium Lactate 12 % 1 application Externally Twice a day for 30 days Not-Taking Metoprolol Succinate 25 MG 1 capsule Orally Once a day Active Entresto 24-26 MG 1 tablet Orally Twic e a day Active Social History Tobacco Use: Social History Observation Description Date Details (start date - stop date) Never Smoker NA - NA Alcohol Screen Question Answer Notes Did you have a drink containing alcohol in the p ast year? No Points 0 Interpretation Negative Tobacco use other than smoking: Question Answer Notes Are you an other tobacco user? No Tobacco Control (Standard) Question Answer Notes Tobacco use: Nonsmoker Problems Problem Type SNOMED Code ICD Code Onset Dates Problem Status W/U Status Risk Notes Problem Acquired hammer toe of right foot (9457020213669093) Other hammer toe(s) (acquired), right foot (M20.41) Active confirmed Problem Acquired hammer toe of left foot (7385699178379595) Other hammer toe(s) (acquired), left foot (M20.42) Active confirmed Problem Localized, primary osteoarthritis of the ankle and/or foot (778306340) Arthritis of joint of lesser toe, left (M19.072) Active confirmed Problem Localized, primary osteoarthritis of the ankle and/or foot (472451719) Arthritis of joint of lesser toe, right (M19.071) Active confirmed Vital Signs Blood pressure diastolic 70 mm Hg 04/18/2024 Height 5 ft 11 in in 04/18/2024 Blood pressure systolic 130 mm Hg 04/18/2024 Weight 199 lbs 04/18/2024 BMI 27.75 kg/m2 04/18/2024 Procedures Procedure Date Ordered Date Performed Result Body Sit e 66035-QDYGZLJ NAIL, 6 OR MORE 06/22/2023 N/A 12360-QRKFGDQ NAIL, 6 OR MORE 10/05/2023 N/A 07254-Ungy. Subungual Hematoma 10/05/2023 N/A 06484-VLCFMVA NAIL, 6 OR MORE 01/18/2024 N/A 76006-FAWLDYG NAIL, 6 OR MORE 04/18/2024 N/A Encounters Encounter Location Date Provider Diagnosis [address] [address] 06/22/2023 Ivory Black Tinea unguium B35.1 ; Pain in right toe(s) M79.674 ; Pain in left toe(s) M79.675 and Xerosis of skin L85.[address] [address] 10/05/2023 Ivory Black Tinea unguium B35.1 ; Closed displaced fracture of distal phalanx of left great toe, initial encounter S92.422A ; Pain in right toe(s) M79.674 ; Pain in left toe(s) M79.675 ; Contusion of left great toe with damage to nail, initial encounter S90.212A and Localized edema R60.[address] [address] 10/26/2023 Ivory Black Pain in left toe(s) M79.675 ; Closed displaced fracture of distal phalanx of left great toe with routine healing, subsequent encounter S92.422D ; Localized edema R60.0 and Contusion of left great toe with damage to nail, subsequent encounter S90.212D [address] [address] 01/18/2024 Ivory Black Pain in left toe(s) M79.675 ; Closed displaced fracture of distal phalanx of left great toe with routine healing, subsequent encounter S92.422D ; Localized edema R60.0 ; Contusion of left great toe with damage to nail, subsequent encounter S90.212D ; Onychomycosis B35.1 ; Pain in right toe(s) M79.674 and Xerosis of skin L85.[address] [address] 04/18/2024 Ivory Black Pain in left toe(s) M79.675 ; Onychomycosis B35.1 ; Pain in right toe(s) M79.674 and Xerosis of skin L85.3 Assessments Encounter Date Diagnosis (ICD Code) Assessment Notes Treatment Notes Treatment Clinical Notes Section Notes 06/22/2023 Tinea unguium (ICD-10 - B35.1) 06/22/2023 Pain in right toe(s) (ICD-10 - M79.674) 10/05/2023 Tinea unguium (ICD-10 - B35.1) 10/26/2023 Pain in left toe(s) (ICD-10 - M79.675) 10/26/2023 Closed displaced fracture of distal phalanx of left great toe with routine healing, subsequent encounter (ICD-10 - S92.422D) 10/05/2023 Closed displaced fracture of distal phalanx of left great toe, initial encounter (ICD-10 - S92.422A) 01/18/2024 Pain in left toe(s) (ICD-10 - M79.675) 04/18/2024 Pain in left toe(s) (ICD-10 - M79.675) 04/18/2024 Onychomycosis (ICD-10 - B35.1) 04/18/2024 Pain in right toe(s) (ICD-10 - M79.674) 01/18/2024 Closed displaced fracture of distal phalanx of left great toe with routine healing, subsequent encounter (ICD-10 - S92.422D) 10/26/2023 Localized edema (ICD-10 - R60.0) 10/05/2023 Pain in right toe(s) (ICD-10 - M79.674) 06/22/2023 Pain in left toe(s) (ICD-10 - M79.675) 06/22/2023 Xerosis of skin (ICD-10 - L85.3) Response to treatment - Unchanged 10/05/2023 Pain in left toe(s) (ICD-10 - M79.675) 10/26/2023 Contusion of left great toe with damage to nail, subsequent encounter (ICD-10 - S90.212D) 01/18/2024 Localized edema (ICD-10 - R60.0) 04/18/2024 Xerosis of skin (ICD-10 - L85.3) 01/18/2024 Contusion of left great toe with damage to nail, subsequent encounter (ICD-10 - S90.212D) 10/05/2023 Contusion of left great toe with damage to nail, initial encounter (ICD-10 - S90.212A) 10/05/2023 Localized edema (ICD-10 - R60.0) 01/18/2024 Onychomycosis (ICD-10 - B35.1) 01/18/2024 Pain in right toe(s) (ICD-10 - M79.674) 01/18/2024 Xerosis of skin (ICD-10 - L85.3) Plan Of Treatment Pending Test Test Name Order Date 71970-DIHEZEL NAIL, 6 OR MORE 06/22/2023 17597-ZSCHSUQ NAIL, 6 OR MORE 10/05/2023 82547-CJFCSNP NAIL, 6 OR MORE 01/18/2024 65748-ONMUBBL NAIL, 6 OR MORE 04/18/2024 32341-Zwhx. Subungual Hematoma 4 Nail Panel 04/13/2023 Next Appt Details Provider Name:Ivory Davis , 06/30/2024 09:00:00 AM, [address] [facility], [place], [address], Insurance Providers Payer Name Payer Address Payer Phone Subscriber Number Group Number Insured Name Patient Relationship to Insured Coverage Start Date Coverage End Date Medicare National [employer] [address] [place] [address] [id number] Francois Ca Self - patient is the insured AARP Secondary to Medicare [address] [place] [address] [id number] Francois Ca Self - patient is the insured Medical (General) History Medical History History ICD Code Arthritis Cataracts Heart disease Joint implants/screws Surgical History Surgery Date(Month/Year) Hip Replacement 20 years ago Hospitalization History Reason Date(Month/Year) Urgent care - Toe injury 09/26/23
--- OUTSIDE RECORDS SUMMARY | 2024-05-16 08:20 | XMS_ITS | Clinical Summary ---
Author Organization [facility] Address [address] [place] [place] [address] Phone Care Team Providers Care Vp Rheumatology Name Role Phone Jag Khan NP Primary Care Provider [phone] Allergies No known active allergies Medications Acetaminophen 325 MG capsule Take 325 mg by mouth 1 Active magnesium oxide (MAG-OX) 400 MG tablet TAKE ONE TABLET BY MOUTH TWICE A DAY AFTER MEALS 2 Active amiodarone (PACERONE) 200 MG tablet Take 200 mg by mouth 1 (one) time each day 2 Active apixaban (ELIQUIS) 5 MG tablet Take 5 mg by mouth 1 Active metoprolol succinate XL (TOPROL XL) 50 MG 24 hr tablet Take 50 mg by mouth 1 (one) time each day 2 Active sacubitril-vals jonna (Entresto) 24-26 MG per tablet Take 1 tablet by mouth 1 Active terazosin (HYTRIN) 5 MG capsule Take 1 capsule by mouth 1 (one) time each day 2 Active finasteride (PROSCAR) 5 MG tablet Take 5 mg by mouth 1 (one) time each day 2 Active ferrous sulfate 325 (65 Fe) MG tablet Take 325 mg by mouth 1 (one) time each day with breakfast Active pantoprazole (PROTONIX) 40 MG EC tablet Take 40 mg by mouth 1 (one) time each day before breakfast Do not crush, chew, or split. Active Active Problems Problem Noted Date Diagnosed Date Stage 3a chronic kidney disease 06/18/2023 Renal osteodystrophy 06/18/2023 Family History Relation Status Comments Father Mother Social History Tobacco Use Types Packs/Day Years Used Date Smoking Tobacco: Former Cigarettes Smokeless Tobacco: Never Tobacco Cessation:Counseling Given: Not Answered Alcohol Use Standard Drinks/Week Comments Never 0 (1 standard drink = 0.6 oz pur e alcohol) Sex and Gender Information Value Date Recorded Sex Assigned at Not on file Legal Sex Male 9:34 AM EDT Gender Identity Not on file Sexual Orientation Not on file Last Filed Vital Signs Vital Sign Reading Time Taken Comments Blood Pressure 128/66 12/28/2023 2:04 PM EDT Pulse 64 12/28/2023 2:04 PM EDT Temperature - - Respiratory Rate - - Oxygen Saturation 96% 12/28/2023 2:04 PM EDT Inhaled Oxygen Concentration - - Weight 90.6 kg (199 lb 12.8 oz) 12/28/2023 2:04 PM EDT Height - - Body Mass Index - - Plan of Treatment Upcoming Encounters Date Type Department Care Team (Late st Contact Info) Description 01/09/2025 1:30 PM EDT Office Visit [facility] [address] [place] [address] [place] [phone] Allen Quintanilla MD [address] [facility] [address] [place] [address] Health Maintenance Due Date Last Done Comments Pneumococcal Vaccine: 65+ Ye ars (1 of 2 - PCV) 1951 Influenza Vaccine (#1) 2023 Hepatitis B Vaccine Aged Out No longe r eligible based on patient's age to complete this topic Insurance MEDICARE [facility] MEDICARE [facility] Care Teams Vp Rheumatology Relationship Specialty Start Date End Date Jag Khan NP [facility] [place], [place] [id number] PCP - General Nurse Practitioner 08/28/21
--- OUTSIDE RECORDS SUMMARY | 2024-05-16 08:21 | XMS_ITS ---
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 Name Role Phone Jag Heath Primary Care Provider Unav ailable Black, Ivory Unavailable [phone] Allergies No Known Allergies Results Component Value Reference Range Notes X ray : Foot, left 3V Reviewed date:10/26/2023 02:54:59 PM Interpretation:See Examination above Performing Lab: Notes/Report: See Examination above REASON FOR VISIT Painful Toe(s) Medications Medication SIG (Take, Route, Frequency, Duration) Notes Start Date End Date Status eliquis 5 mg Active Metoprolol Succinate 25 MG 1 capsule Orally Once a day Active Entresto 24-26 MG 1 tablet Orally Twic e a day Active Tylenol 325 MG 1 capsule as needed Orally every 6 hrs Active Ammonium Lactate 12 % 1 application Externally Twice a day for 30 days Not-Taking Magnesium 400 MG as directed Orally Active [...] 1 tablet Orally Once a day Active Social History Tobacco Use: [...] Signs Height 5 ft 11 in in 10/26/2023 Weight 200 lbs 10/26/2023 BMI 27.89 kg/m2 10/26/2023 Blood pressure systolic 130 mm Hg 10/26/19 24 Blood pressure diastolic 70 mm Hg 024 Encounters Encounter Location Date Provider Diagnosis [facility] [place] [address] [place] [address] 10/26/2023 Ivory Davis Pain in left toe(s) M79.675 ; Closed displaced fracture of distal phalanx of left great toe with routine healing, subsequent encounter S92.422D ; Localized edema R60.0 and Contusion of left great toe with damage to nail, subsequent encounter S90.212D Assessments Encounter Date Diagnosis (ICD Code) Assessment Notes Treatment Notes Treatment Clinical Notes Section Notes 10/26/2023 Pain in left toe(s) (ICD-10 - M79.675) 10/26/2023 Closed displaced fracture of distal phalanx of left great toe with routine healing, subsequent encounter (ICD-10 - S92.422D) 10/26/2023 Localized edema (ICD-10 - R60.0) 10/26/2023 Contusion of left great toe with damage to nail, subsequent encounter (ICD-10 - S90.212D) Plan Of Treatment Next Appt Details Follow Up: 2 Months, Reason: x-rays left foot 3 Views Provider Name:Ivory Davis , 06/30/2024 09:00:00 AM, [address] [place] [address], [address], Progress Notes * Francois CA DDOB: [birth year] (78 yo M)Acc No.[id number]:10/26/2023 Progress Note Patient:?Francois Ca Provider:?Ivory Davis DPM :1945???Age:78 Y???Sex:Male Hugh e:10/26/2023 Address:[address] [place] [address] [place] [facility] Pcp:MENDEZ Guerra Subjective: * Chief Complaints: * ???Painful Toe(s) * HPI: ???Toe pain:?Nature:?tenderness.?Location:?Left foot.?Duration:?several weeks.?Onset/Cause:?Pt toe got caught underneath foot.?Course:?improved.?Aggravated by:?any pressure, shoes.?Treatments:?rest/alter normal daily activity, , soaks , medication ( keflex 500mg BID_ )-Urgent care.? * ROS:?General/Constitutional:?Nausea?denies, denies.?Vomiting?denies, denies.?Hunger Thirst?denies, denies.?Loss appetite?denies, denies.?Chills?denies, denies.?Fatigue?denies, denies.?Fever?denies, denies.?Night Sweats denies, denies.?Unexplained weight loss?denies, denies.?Unexplained weight gain?denies, denies.?HEENTM:?Dentures?denies, denies.?Dizziness?denies, denies.?Glasses/contacts?denies, denies.?Retinopathy?denies, denies.?Blurred/double vision?denies, denies.?TMJ?denies, denies.?Discharge/drainage?denies, denies.?Implants?denies, denies.?Sore throat?denies, denies.?Dental implants?denies, denies.?Hard of hearing ?denies, denies.?Difficulty chewing/swallowing/speaking?denies, denies.?Nose bleeds?denies, denies.?Sore mouth?denies, denies.?Respiratory:?On Oxygen?denies, denies.?Pneumonia/pleurisy?denies, denies.?Bronchitis?denies, denies.?Emphysema?denies, denies.?Coughing?denies, denies.?Cough blood?denies, denies.?Shortness of breath?denies, denies.?Wheezing?denies, denies.?Cardiovascular:?Pacemaker?denies, denies.?MVP?denies, denies.?WPW?denies, denies.?CHF?denies, denies.?Heart attack?denies, denies.?Septal defect?denies, denies.?Rapid beat?denies, denies.?Chest pain ?denies, denies.?Atrial Fib.?admits, admits.?Murmur/Palpitations?denies, denies.?Gastrointestinal:?Hemorrhoids?denies, denies.?Stomach/Abdominal pain?denies, denies.?Dark blood stool?denies, denies.?Irritable bowel ?denies, denies.?Constipation?denies, denies.?Diarrhea?denies, denies.?Hematology:?Swelling?denies, denies.?Clots?denies, denies.?Varicose Veins?denies, denies.?Bruising?admits, admits.?Bleeding problem?denies, denies.?Genitourinary:?Blood urine?denies, denies.?Frequent/Painfu/urination/bladder control?denies, denies.?Kidney stones?denies, denies.?Infection (UTI)?denies, denies.?Nephropathy?denies, denies.?sex trans dis (STD)?denies, denies.?Prostate?admits, admits.?Musculoskeletal:?Hammertoes?denies, denies.?Bunions?denies, denies.?Back Pain?denies, denies.?Muscle Cramps/ Resting?denies, denies.?Muscle cramps / walking?denies, denies.?Generalized aches and pains?denies, denies.?Weakness?denies, denies.?Integ.:?Barclay?denies, denies.?Scars?denies, denies.?Corns/calluses?denies, denies.?Ingrown nails?denies, denies.?Painful nails?denies,admits.?Open Sores?denies, denies.?Rashes?denies, denies.?Neurologic:?Difficulty sleeping?denies, denies.?Brain disorder?denies, denies.?Numbness?denies, denies.?Balance trouble?denies, denies.?Confusion?denies, denies.?Fainting/blackouts?denies, denies.?Tingling?denies, denies.?Tremors?denies, denies.? * Medical History:? * Surgical History:?Hip Replac [...] ?Marital status: , . 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 * Medications:?TakingTylenol 3 25 MG Capsule 1 [...] Wt: 200, BMI: 27.89, Shoe size: 12, BP: 130/70 mm Hg, Ht-cm: 180.34 cm, Wt-k.72 kg. * Examination: [...] (+) Pain on palpation , inflammation present , erythema at exostosis IPJ with Pain on ROM left at 70 percent less.?DIGITAL DEFORMITIES:?Digital contracture, PIPJ, 2-5 B/L, incompl-reducible with WB, or to push-up test, no over, nor underlapping.?FOOTWEAR:? shoe gear properties exacerbate patients foot/toe deformity.?Vascular: ?DP PULSES:?2/, B/L.?PT PULSES:?/, B/L.?CAPILLARY FILL TIME:?3 secs. per digit, B/L.?SKIN TEMPERTURE GRADIENT OF THE LOWER EXTERMITIES:?normal, warm to cool, proximal to distal, B/L, B/L.?HAIR GROWTH/TEXTURE/ELASTICITY/TURGOR:?normal, B/L.?PIGMENTATION:?normal, B/L.?EDEMA:?absent, B/L.?X-Rays - IMAGING REPORT: ?Clinical Indication(s):? Evaluate Biomechanical Deformity.?Views:? 3 views of Foot, AP, LAT, , MO, LEFT.?Findings:?mild generalized decrease in bone density , increase in soft tissue contour and density at the symptomatic site , radiolucent soft tissue gas absent.?Digits:? show asymmetrical joint space narrowing at the PIPJ consistent with clinical finding of hammertoe deformity.?Fracture:?Sign of fracture identified , distal phalange , TA , mild displaced , ravi callus present.?Nails: ?NAILS are:?There is evidence of no pain on palpation, and an area of subungual HEMORRAGHIC fluid with a pre-operative size measuring approximately ( 1-2 ) mm square TA.? Assessment: * Assessment: 1.?Pain in left toe(s) - M79 .675?2.?Closed displaced fracture of distal phalanx of left great toe with routine healing, subsequent encounter - S92.422D (Primary)?3.?Localized edema - R60.0?4.?Contusion of left great toe with damage to nail, subsequent encounter - S90.212D? Plan: * Treatment: * Procedure Codes:?64653 X-RAY EXAM OF LEFT FOOT 3V, Modifiers: [...] have encouraged the patient to call the office.?P.R.I.C.E.:?Discussed and reviewed the X-rays with the patient. We discussed how the findings relate to the patients symptoms/complaints. Answered any and all questions., The patient was counseled on the CONT. use of P.R.I.C.E. and NSAIDS (if well tolerated) to aid in the recovery from their painful condition. Pt may gradulally increase his activity level, Recommended Topical analgesics including Aspercream/Biofreeze/Voltaren gel as directed.? * Follow Up:?2 Months (Reason: x-rays left foot 3 Views) * Images: * Sign off status: Completed true * Provider:?Ivory Davis DPM Date:?2023 Generated for Eliana carrera/Zohaib/Yuitting on:?05/16/2024 08:20 AM EST History and Physical Notes * HPI (History of Present Illness) Category Sub-Category Detail Notes Category Not es Toe pain Nature: tenderness Location: Left foot Duration: several weeks Onset/Cause: Pt toe got caught un derneath foot Course: improved Aggravated by: any pressure, shoes Treatments: rest/alter normal da eva activity, , soaks , medication ( keflex 500mg BID_ )-Urgent care Examination Category Sub-Category Detail Notes Category Not es Orthopedic BUNION: Medially promine nt 1st MPJ , (+) Pain on palpation , inflammation present , erythema at exostosis IPJ with Pain on ROM left at 70 percent less FOOTWEAR: shoe gear properties exacerbate patients foot/toe deformity DIGITAL DEFORMITIES: Digital contracture , PIPJ, 2-5 [...] B/L PIGMENTATION: normal, B/L Nails NAILS are: There is evidenc e of no pain on palpation, and an area of subungual HEMORRAGHIC fluid with a pre-operative size measuring approximately ( 1-2 ) mm square TA X-Rays - IMAGING REPORT Findings: mild gen eralized decrease in bone density , increase in soft tissue contour and density at the symptomatic site , radiolucent soft tissue gas absent Fracture: Sign of fracture sade ntified , distal phalange , TA , mild displaced , ravi callus present Digits: show asymmetrical riaz int space narrowing at the PIPJ consistent with clinical finding of hammertoe deformity Views: 3 views of Foot, AP, LAT, , MO, LEFT Clinical Indication(s): Evaluate Biomech anical Deformity
--- OUTSIDE RECORDS SUMMARY | 2024-05-16 08:21 | XMS_ITS ---
Author Organization [facility] Address [address] [facility] [place] [address] Care Team Providers Care Supervisor Scenic Arts Name Role Phone Jag Heath Primary Care Provider Unav ailable Black, Ivory Unavailable [phone] Allergies No Known Allergies REASON FOR VISIT Painful nail(s) aggravated by shoes causing difficulty standing/walking, Skin problem(s) Medications Medication SIG (Take, Route, Frequency, Duration) Notes Start Date End Date Status Ammonium Lactate 12 % 1 application Externally to affected areas of skin to feet except for between the toes Twice a day for 30 days Active eliquis 5 mg Active Ammonium Lactate 12 % 1 application Externally Twice a day for 30 days Not-Taking Metoprolol Succinate 25 MG 1 capsule Orally Once a day Active Entresto 24-26 MG 1 tablet Orally Twic e a day Active Finasteride 5 MG 1 tablet Orally Once a day Active Terazosin HCl 5 MG 1 capsule at bedtime Orally Once a day Active Iron 325 (65 Fe) MG 1 tablet Orally Thre e times a Week Active Magnesium 400 MG as directed Orally Active Amiodarone HCl 200 MG 1 tablet Orally On ce a day Active Atorvastatin Calcium 10 MG 1 tablet Orally Once a day Active Tylenol 325 MG 1 capsule as needed Orally every 6 hrs Active Social History Tobacco Use: Social History Observation Description Date Details (start date - stop date) Never Smoker NA - NA Tobacco use other than smoking: Question Answer Notes Are you an other tobacco user? No Tobacco Control (Standard) Question Answer Notes Tobacco use: Nonsmoker Vital Signs Height 5 ft 11 in in 04/18/2024 Weight 199 lbs 04/18/2024 BMI 27.75 kg/m2 04/18/2024 Blood pressure systolic 130 mm Hg 04/18/19 25 Blood pressure diastolic 70 mm Hg 025 Procedures Procedure Date Ordered Date Performed Result Body Sit e 81236-GBFEFMR NAIL, 6 OR MORE 04/18/2024 N/A Encounters Encounter Location Date Provider Diagnosis [facility] [address] [address] 04/18/2024 Ivory Davis Pain in left toe(s) M79.675 ; Onychomycosis B35.1 ; Pain in right toe(s) M79.674 and Xerosis of skin L85.3 Assessments Encounter Date Diagnosis (ICD Code) Assessment Notes Treatment Notes Treatment Clinical Notes Section Notes 04/18/2024 Pain in left toe(s) (ICD-10 - M79.675) 04/18/2024 Onychomycosis (ICD-10 - B35.1) 04/18/2024 Pain in right toe(s) (ICD-10 - M79.674) 04/18/2024 Xerosis of skin (ICD-10 - L85.3) Plan Of Treatment Medication Medication Name Sig Start Date Stop Date Notes Ammonium Lactate 12 % 1 application Exte rnally to affected areas of skin to feet except for between the toes Twice a day for 30 days Pending Test Test Name Order Date [id number] NAIL, 6 OR MORE 04/18/2024 Next Appt Details Follow Up: prn, Reason: Provider Name:Ivory Davis , 06/30/2024 09:00:00 AM, [address] [place] [address], [phone], Procedure Notes * Category Sub-Category Detail Notes Debride Nail 6-10 Nail debridement Due to the cl inical pathology outlined in the exam findings, performance of this nail treatment is medically necessary as its management by an unskilled/untrained nonprofessional would put this patients foot and overall health at risk. Therefore, debridement to affected nail(s), as described in exam ( T1, T2, T3, T4, T5, T6, T7, T8, T9, ), was performed exclusively by the physician of record to reduce/remove overall nail length, girth, thickness, subungual debris, and necrotic tissue, by manual and/or electrical means through the use of a nail nipper and/or dremel-type multifocal button grinder, to a more viable healthy nail plate or bed tissue 6-10 nails in total. Silver nitrate was used for any petechial bleeding as necessary. Definitive antifungal treatment options, both pharmaceutical and surgical, have been reviewed and discussed with the patient. The patient solely prefers the use of intermittent/as needed professional debridement services for their nail condition and understands the need for additional periodic treatments to maintain effectiveness in symptomatic relief - 84174 Progress Notes * Francois CA DDOB: 8 (78 yo M)Acc No.[id number]:04/18/2024 Progress Note Patient:?Francois CA D Provider:?Ivory Davis DPM :1945???Age:78 Y???Sex:Male Hugh e:04/18/2024 Address:[address] [place], [place] [id number] Pcp:MENDEZ Guerra Subjective: * Chief Complaints: * ???Painful nail(s) aggravate d by shoes causing difficulty standing/walkingSkin problem(s) * HPI: ???Painful Nails:?Pt States Last PCP Visit:?Date:?02/08/2024 ???Skin problems:?Nature:?dryness , scaling.?Location:?B/L .?Duration:?several days.?Course:?, improved, at 85 %.?Treatments:?medication ( AM Lactin ).? * ROS:?General/Constitutional:?Nausea?denies.?Vomiting?denies.?Hunger Thirst?denies.?Loss appetite?denies.?Chills?denies.?Fatigue?denies.?Fever?denies.?Night Sweats?denies.?Unexplained weight loss?denies.?Unexplained weight gain?denies.?HEENTM:?Dentures?denies.?Dizziness?denies.?Glasses/contacts?denies.?Retinopathy?de nies.?Blurred/double vision?denies.?TMJ?denies.?Discharge/drainage?denies.?Implants?denies.?Sore throat?denies.?Dental implants?denies.?Hard of hearing ?denies.?Difficulty chewing/swallowing/speaking?denies.?Nose bleeds?denies.?Sore mouth?denies.?Respiratory:?On Oxygen?denies.?Pneumonia/pleurisy?denies.?Bronchitis?denies.?Emphysema?denies.?C oughing?denies.?Cough blood?denies.?Shortness of breath?denies.?Wheezing?denies.?Cardiovascular:?Pacemaker?denies.?MVP?denies.?WPW?denies.?CHF?denies.?Heart attack?denies.?Septal defect?denies.?Rapid beat?denies.?Chest pain ?denies.?Atrial Fib.?admits.?Murmur/Palpitations?denies.?Gastrointestinal:?Hemorrhoids?denies.?Stomach/Abdominal pain?denies.?Dark blood stool?denies.?Irritable bowel ?denies.?Constipation?denies.?Diarrhea?denies.?Hematology:?Swelling?denies.?Clots?denies.?Varicose Veins?denies.?Bruising?admits.?Bleeding problem?denies.?Genitourinary:?Blood urine?denies.?Frequent/Painfu/urination/bladder control?denies.?Kidney stones?denies.?Infection (UTI)?denies.?Nephropathy?denies.?sex trans dis (STD)?denies.?Prostate?admits.?Musculoskeletal:?Hammertoes?denies.?Bunions?denies.?Back Pain?denies.?Muscle Cramps/ Resting?denies.?Muscle cramps / walking?denies.?Generalized aches and pains?denies.?Weakness?denies.?Integ.:?Barclay?denies.?Scars?denies.?Corns/calluses?, admits.?Ingrown nails?denies.?Painful nails?admits.?Open Sores?denies.?Rashes?denies.?Neurologic:?Difficulty sleeping?denies.?Brain disorder?denies.?Numbness?denies.?Balance trouble?denies.?Confusion?denies.?Fainting/blackouts?denies.?Tingling?denies.?Tr emors?denies.? * Medical History:? * Surgical History:?Hip Replac ement 20 years ago * Hospitalization/Major Diagno stic Procedure:?Urgent care - Toe injury 09/26/23 * Family History:?Mother: dece ased, cancer.?Father: .? * Social History:?Tobacco Use:?Tobacco use other than smoking?Are you an other tobacco user??No ?Tobacco Control (Standard)?Tobacco use:?Nonsmoker ???Miscellaneous:?Caffeine: yes, frequency:, 1-2 cups per day. ?Children: no. ?Exercise: no, none. ?Marital status: , . 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 * Medications:?TakingTylenol 3 25 MG Capsule 1 capsule as needed Orally every 6 hrs Atorvastatin Calcium 10 MG Tablet 1 tablet Orally Once a day Iron 325 (65 Fe) MG Tablet 1 tablet Orally Three times a Week Terazosin HCl 5 MG Capsule 1 capsule at bedtime Orally Once a day Finasteride 5 MG Tablet 1 tablet Orally Once a day Amiodarone HCl 200 MG Tablet 1 tablet Orally Once a day Magnesium 400 MG Capsule as directed Orally eliquis 5 mg Tablet Entresto 24-26 MG Tablet 1 tablet Orally Twice a day Metoprolol Succinate 25 MG Capsule ER 24 Hour Sprinkle 1 capsule Orally Once a day Ammonium Lactate 12 % Cream 1 application Externally to affected areas of skin to feet except for between the toes Twice a day Taking Tylenol 325 MG Capsule 1 capsule as needed Orally every 6 hrs Taking Atorvastatin Calcium 10 MG Tablet 1 tablet Orally Once a day Taking Iron 325 (65 Fe) MG Tablet 1 tablet Orally Three times a Week Taking Terazosin HCl 5 MG Capsule 1 capsule at bedtime Orally Once a day Taking Finasteride 5 MG Tablet 1 tablet Orally Once a day Taking Amiodarone HCl 200 MG Tablet 1 tablet Orally Once a day Taking Magnesium 400 MG Capsule as directed Orally Taking eliquis 5 mg Tablet Taking Entresto 24-26 MG Tablet 1 tablet Orally Twice a day Taking Metoprolol Succinate 25 MG Capsule ER 24 Hour Sprinkle 1 capsule Orally Once a day Taking Ammonium Lactate 12 % Cream 1 application Externally to affected areas of skin to feet except for between the toes Twice a day Not- Taking/PRNAmmonium Lactate 12 % Cream 1 application Externally Twice a day Medication List reviewed and reconciled with the patientNot-Taking/PRN Ammonium Lactate 12 % Cream 1 application Externally Twice a day Medication List reviewed and reconciled with the patient * Allergies:?N.K.D.A.yes[Aller gies Verified] Objective: * Vitals:?Ht: 5 ft 11 in, Wt: 199, BMI: 27.75, Shoe size: 12, BP: 130/70 mm Hg, Ht-cm: 180.34 cm, Wt-k.27 kg. * Examination: ???General Examination: ?GENERAL APPEARANCE:?Reveals a pleasant, alert, well nourished, well- developed, well hydrated individual, who demonstrates proper attention to hygiene/body habitus, and is in no acute distress, Pt serves as own historian for office visit today.?ORIENTED:?person, place, and time.?Vascular: ?DP PULSES (B):?2/4, B/L.?PT PULSES (B):?2/4, B/L.?CAPILLARY FILL TIME:?3 secs. per digit, B/L.?TROPHIC CONDITION-TEXTURE/ELASTICITY/TURGOR/HAIR GROWTH (B):?normal, B/L.?TEMPERTURE GRADIENT (C):?normal, warm to cool, proximal to distal, B/L, B/L.?PIGMENTATION:?normal, B/L.?EDEMA (C):?absent, B/L.?Nails: ?NAILS are:?Elongated, overgrown, dystrophic, lytic, greater than 3mm thick, discolored and friable with crumbly malodorous subungual debris, with pain on palpation T1, T2, T3, T4, T5, T6, T7, T8, T9.?Dermatologic: ?SKIN FINDINGS:?Skin shows sign(s) of, dryness, scaling, in a stocking fashion, no fissure(s) present, B/L, approximately 85? percent LESS.? Assessment: * Assessment: 1.?Pain in left toe(s) - M79 .675???2.?Onychomycosis - B35.1 (Primary)???3.?Pain in right toe(s) - M79.674???4.?Xerosis of skin - L85.3???Specify :Acute problem, Uncomplicated (3),Rx Management (4)??? Plan: * Treatment: 2.?Xerosis of skin? Start Ammonium Lactate Cream, 12 %, 1 application, Externally to affected areas of skin to feet except for between the toes, Twice a day, 30 days, 140, Refills 2.?? * Procedures:?Debride Nail 6-10:?Nail debridement?Due to the clinical pathology outlined in the exam findings, performance of this nail treatment is medically necessary as its management by an unskilled/untrained nonprofessional would put this patients foot and overall health at risk. Therefore, debridement to affected nail(s), as described in exam ( T1, T2, T3, T4, T5, T6, T7, T8, T9, ), was performed exclusively by the physician of record to reduce/remove overall nail length, girth, thickness, subungual debris, and necrotic tissue, by manual and/or electrical means through the use of a nail nipper and/or dremel-type multifocal button grinder, to a more viable healthy nail plate or bed tissue 6- 10 nails in total. Silver nitrate was used for any petechial bleeding as necessary. Definitive antifungal treatment options, both pharmaceutical and surgical, have been reviewed and discussed with the patient. The patient solely prefers the use of intermittent/as needed professional debridement services for their nail condition and understands the need for additional periodic treatments to maintain effectiveness in symptomatic relief - 93224.? * Procedure Codes:?21162 DEBRI DE NAIL, 6 OR MORE, Modifiers: XS * Preventive Medicine:? ??Counseling:?Discussion:?-12: Office or other outpatient visit for the evaluation and management of an established patient, which required a medically appropriate history and/or examination and STRAIGHTFORWARD level of MEDICAL DECISION MAKING, 1 SELF-LIMITED OR MINOR PROBLEM, MINIMAL- NO AMOUNT/COMPLEXITY OF DATA TO BE REVIEWED/ANALYZED, AND MINIMAL RISK OF COMPLICATION/MORBIDITY. The visit on the day of the [...] have encouraged the patient to call the office.?Xerosis:?Given recent successful results to treatment, The patient is to cont the rx cream as directed.? ??Screening/Special Tests:?Fall Risk?Screening:?No falls in the past year ?FALLS: Screening for Future Fall Risk?Have you had any falls with injury in the past year??No * Follow Up:?prn * Images: * Sign off status: Completed true * Provider:Nick Davis DPM Date:?2024 Generated for Albertoi deandre/Zohaib/eTransmitting on:?05/16/2024 08:21 AM EST History and Physical Notes * HPI (History of Present Illness) Category Sub-Category Detail Notes Category Not es Painful Nails Pt States Last PCP Visit: Date:: 02/08/2024 Skin problems Nature: dryness , scaling Location: B/L Duration: several days Course: , improved, at 85 % Treatments: medication ( AM Lact in ) Examination Category Sub-Category Detail Notes Category Not es Dermatologic SKIN FINDINGS: Skin shows sign( s) of, dryness, scaling, in a stocking fashion, no fissure(s) present, B/L, approximately 85 percent LESS General Examination GENERAL APPEARANCE: Reveals a pleasant, [...] malodorous subungual debris, with pain on palpation T1, T2, T3, T4, T5, T6, T7, T8, T9
== END 2024-05-16 08:40 | disposition home or self-care (01) ==
PROVIDERS: PCP Nurse Practitioner Family; Visit Provider Nurse Practitioner Family
DX: R79.89 Other specified abnormal findings of blood chemistry (principal); Z12.5 Encounter for screening for malignant neoplasm of prostate; E78.5 Hyperlipidemia, unspecified

== ENCOUNTER → 2024-05-16 08:12 | Outpatient (BNVA) | payer MEDICARE, SELFPAY | PROVIDERS: PCP Nurse Practitioner Family; Visit Provider Nurse Practitioner Family | DX: R79.89 Other specified abnormal findings of blood chemistry (principal); E78.5 Hyperlipidemia, unspecified | CPT/HCPCS: 96127; 99212 ==

== ENCOUNTER 2024-06-22 10:05 | Outpatient (REF) | payer MEDICARE, SELFPAY ==
--- OUTSIDE RECORDS SUMMARY | 2024-06-22 11:18 | XMS_ITS | Clinical Summary ---
Author Organization [facility] Address [address] [place] [address] [place] [address] Phone Care Team Providers Care Program Coordinator Name Role Phone Jag Khan NP Primary Care Provider [phone] Allergies No known active allergies Medications Acetaminophen [...] Visit [facility] [address] [place] [address] [place] [phone] Allen Quintanilla MD [address] [facility] [address] [place] [address] Health Maintenance Due Date Last Done Comments Pneumococcal Vaccine: 65+ Ye ars (1 of 2 - PCV) 1951 Influenza Vaccine (Season Ended) 2024 Hepatitis B Vaccine Aged Out No longe r eligible based on patient's age to complete this topic Insurance MEDICARE [facility] MEDICARE [facility] Care Teams Program Coordinator Relationship Specialty Start Date End Date Jag Khan NP [facility] [place], [place] [phone] PCP - General Nurse Practitioner 08/28/21
--- OUTSIDE RECORDS SUMMARY | 2024-06-22 11:19 | XMS_ITS ---
Author Organization [facility] Address [address] [facility] [place] [address] Care Team Providers Care Registered Nurse Teacher Name Role Phone Jag Heath Primary Care Provider Unav ailable Black, Ivory Unavailable [phone] Allergies No Known Allergies REASON FOR VISIT [...] Ordered Date Performed Result Body Sit e 94665-SPAPRKZ NAIL, 6 OR MORE 04/18/2024 N/A Encounters Encounter Location Date Provider Diagnosis [facility] [address] [address] 04/18/2024 Ivory Davis Pain in left toe(s) [...] days Pending Test Test Name Order Date [id number] NAIL, 6 OR MORE 04/18/2024 Next Appt Details Follow Up: prn, Reason: Provider Name:Ivory Davis , 06/30/2024 09:00:00 AM, [address] [place] [address], [phone], Procedure Notes * Category Sub-Category Detail Notes [...] use of a nail nipper and/or dremel-type cutlery grinder, to a more viable healthy nail [...] to maintain effectiveness in symptomatic relief - 06186 Progress Notes * Francois CA DDOB: 8 (78 yo M)Acc No.[id number]:04/18/2024 Progress Note Patient:?Francois CA D Provider:?Ivory Davis DPM :1945???Age:78 Y???Sex:Male Hugh e:04/18/2024 Address:[address] [place], [place] [id number] Pcp:MENDEZ Guerra Subjective: * Chief Complaints: * [...] ?Marital status: , . 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 * Medications:?TakingTylenol 3 25 MG Capsule [...] use of a nail nipper and/or dremel-type cutlery grinder, to a more viable healthy nail [...] to maintain effectiveness in symptomatic relief - 56875.? * Procedure Codes:?58189 DEBRI DE NAIL, 6 OR MORE, Modifiers: [...] Davis DPM Date:?2024 Generated for Albertoi deandre/Zohaib/eTransmitting on:?06/22/2024 11:18 AM EDT History and Physical Notes * HPI (History [...]
--- OUTSIDE RECORDS SUMMARY | 2024-06-22 11:19 | XMS_ITS ---
Author Organization [facility] Address [address] [facility] [place] [address] Care Team Providers Care Subscription Crew Leader Name Role Phone Jag Heath Primary Care Provider Unav ailable Black, Ivory Unavailable [phone] Allergies No Known Allergies Results Component Value [...] 024 Encounters Encounter Location Date Provider Diagnosis [facility] [address] [place] [address] 10/26/2023 Ivory Davis Pain in left toe(s) [...] Provider Name:Ivory Davis , 06/30/2024 09:00:00 AM, [address] [place] [address], [phone], Progress Notes * Francois CA DDOB: [birth year] (78 yo M)Acc No.[id number]:10/26/2023 Progress Note Patient:?Francois Ca Provider:?Ivory Davis DPM :1945???Age:78 Y???Sex:Male Hugh e:10/26/2023 Address:[address] [place] [address] [address] [facility] Pcp:MENDEZ Guerra Subjective: * Chief Complaints: * [...] ?Marital status: , . 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 * Medications:?TakingTylenol 3 25 MG Capsule [...] - S90.212D? Plan: * Treatment: * Procedure Codes:?87254 X-RAY EXAM OF LEFT FOOT 3V, Modifiers: [...] * Sign off status: Completed true * Provider:?Ivoyr Davis DPM Date:?2023 Generated for Eliana carrera/Zohaib/Yuitting on:?06/22/2024 11:18 AM EDT History and Physical [...] on ROM left at 70 percent less FOOTWEAR EVALUATION: shoe gear propertie s exacerbate patients foot/toe deformity DIGITAL DEFORMITIES: Digital [...] tissue gas absent Fracture: Sign of fracture sdae ntified , distal phalange , TA , mild displaced , ravi callus present Digits: show asymmetrical riaz int space narrowing at the PIPJ consistent with clinical finding of hammertoe deformity Views: 3 views of Foot, AP, LAT, , MO, LEFT Clinical Indication(s): Evaluate Biomech anical Deformity
--- OUTSIDE RECORDS SUMMARY | 2024-06-22 11:19 | XMS_ITS | Patient Health Record ---
Author Organization [facility] Address [address] [facility] [place] [address] Care Team Providers Care Field Training Manager Name Role Phone Jag Heath Primary Care Provider Unav ailable Black, Ivory Unavailable [phone] Allergies No Known Allergies Results Component Value [...] Problem Acquired hammer toe of right foot (4742589682162919) Other hammer toe(s) (acquired), right foot (M20.41) Active confirmed Problem Acquired hammer toe of left foot (4725517225957880) Other hammer toe(s) (acquired), left foot (M20.42) Active confirmed Problem Localized, primary osteoarthritis of the ankle and/or foot (001339338) Arthritis of joint of lesser toe, left (M19.072) Active confirmed Problem Localized, primary osteoarthritis of the ankle and/or foot (919747985) Arthritis of joint of lesser toe, right (M19.071) Active confirmed Vital Signs Blood pressure diastolic 70 mm Hg 04/18/2024 Height 5 ft 11 in in 04/18/2024 Blood pressure systolic 130 mm Hg 04/18/2024 Weight 199 lbs 04/18/2024 BMI 27.75 kg/m2 04/18/2024 Procedures Procedure Date Ordered Date Performed Result Body Sit e 71379-OGUPVSD NAIL, 6 OR MORE 10/05/2023 N/A 09025-Ztiq. Subungual Hematoma 10/05/2023 N/A 89638-ONRLMCS NAIL, 6 OR MORE 01/18/2024 N/A 76070-BIIGCLT NAIL, 6 OR MORE 04/18/2024 N/A Encounters Encounter Location Date Provider Diagnosis [facility] [address] [place] [address] 10/05/2023 Ivory Black Tinea unguium B35.1 ; Closed displaced fracture of distal phalanx of left great toe, initial encounter S92.422A ; Pain in right toe(s) M79.674 ; Pain in left toe(s) M79.675 ; Contusion of left great toe with damage to nail, initial encounter S90.212A and Localized edema R60.[address] [address] 10/26/2023 Ivory Black Pain in left toe(s) M79.675 ; Closed displaced fracture of distal phalanx of left great toe with routine healing, subsequent encounter S92.422D ; Localized edema R60.0 and Contusion of left great toe with damage to nail, subsequent encounter S90.212D [address] [address] 01/18/2024 Ivory Black Pain in left toe(s) M79.675 ; Closed displaced fracture of distal phalanx of left great toe with routine healing, subsequent encounter S92.422D ; Localized edema R60.0 ; Contusion of left great toe with damage to nail, subsequent encounter S90.212D ; Onychomycosis B35.1 ; Pain in right toe(s) M79.674 and Xerosis of skin L85.[address] [address] 04/18/2024 Ivory Black Pain in left toe(s) M79.675 ; Onychomycosis B35.1 ; Pain in right toe(s) M79.674 and Xerosis of skin L85.3 Assessments Encounter Date Diagnosis (ICD Code) Assessment Notes Treatment Notes Treatment Clinical Notes Section Notes 10/05/2023 Tinea unguium (ICD-10 - B35.1) 10/26/2023 [...] in right toe(s) (ICD-10 - M79.674) 10/05/2023 Pain in left toe(s) (ICD-10 - [...] Treatment Pending Test Test Name Order Date 91245-FLJDODJ NAIL, 6 OR MORE 06/22/2023 91111-JDQFPRY NAIL, 6 OR MORE 10/05/2023 24756-IZZQXMD NAIL, 6 OR MORE 01/18/2024 12124-QLFTHKJ NAIL, 6 OR MORE 04/18/2024 10120-Ohec. Subungual Hematoma Nail Panel 04/13/2023 Next Appt Details Provider Name:Ivory Davis , 06/30/2024 09:00:00 AM, [address] [facility], [place], [address], Insurance Providers Payer Name Payer Address Payer Phone Subscriber Number Group Number Insured Name Patient Relationship to Insured Coverage Start Date Coverage End Date Medicare [employer] [address] [place] [address] [phone] [id number] RobyFrancois Self - patient is the insured AARP Secondary to Medicare [address] [place] [id number] Roby Francois Self - patient is the insured Medical (General) History Medical History History ICD Code Arthritis Cataracts Heart disease Joint implants/screws Surgical History Surgery Date(Month/Year) Hip Replacement 20 years ago Hospitalization History Reason Date(Month/Year) Urgent care - Toe injury 09/26/23
--- OUTSIDE RECORDS SUMMARY | 2024-06-22 11:19 | XMS_ITS ---
Author Organization [facility] Address [address] [facility] [place] [address] Care Team Providers Care Site Physician Name Role Phone Jag Heath Primary Care Provider Unav ailable Black, Ivory Unavailable [phone] Allergies No Known Allergies Results Component Value [...] Ordered Date Performed Result Body Sit e 94034-AQSILGL NAIL, 6 OR MORE 01/18/2024 N/A Encounters Encounter Location Date Provider Diagnosis [facility] [place] [address] [place] [address] 01/18/2024 Ivory Black Pain in left toe(s) [...] days Pending Test Test Name Order Date 48636-DZQHSPE NAIL, 6 OR MORE 01/18/2024 Next Appt Details Follow Up: prn, Reason: Provider Name:Ivory Davis , 06/30/2024 09:00:00 AM, [address] [place], [address], Procedure Notes * Category Sub-Category Detail Notes Debride Nail 6-10 Nail debridement Performance o f this nail treatment by a nonprofessional would put this patients foot and overall health at risk. Therefore, nail debridement was performed extensively to reduce/remove overall nail length, girth, thickness, subungual debris, and necrotic tissue, by manual and/or electrical means through the use of a nail nipper and/or dremel-type organ grinder, to a more viable healthy nail plate or bed tissue 6-10. Silver nitrate used for any petechial bleeding as necessary. Definitive antifungal treatment options have been reviewed and discussed with the patient. The patient chooses, no pharmaceutical tx - 19286 Progress Notes * Francois CA DDOB: 8 (78 yo M)Acc No.[id number]:01/18/2024 Progress Note Patient:?Francois Ca Provider:?Ivory Davis DPM :1945???Age:78 Y???Sex:Male Hugh e:01/18/2024 Address:[address] [place] [address] [place] [facility] Pcp:MENDEZ Guerra Subjective: * Chief Complaints: * [...] ?Marital status: , . 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 * Medications:?TakingTylenol 3 25 MG Capsule [...] (3),Rx Management (4)? Plan: * Treatment: 2.?Onychomycosis?Procedure: 73861-NWZMKWB NAIL, 6 OR MORE 3.?Xerosis of skin? [...] use of a nail nipper and/or dremel-type organ grinder, to a more viable healthy nail plate or bed tissue 6-10. Silver nitrate used for any petechial bleeding as necessary. Definitive antifungal treatment options have been reviewed and discussed with the patient. The patient chooses, no pharmaceutical tx - 20836.? * Procedure Codes:?60429 DEBRI DE NAIL, 6 OR MORE, Modifiers: XS 89716 X-RAY EXAM OF LEFT FOOT 3V, Modifiers: [...] on ROM left at 80 percent less FOOTWEAR EVALUATION: DIGITAL DEFORMITIES: Digital contracture , PIPJ, 2-5 [...]
[2024-06-22 14:13] LABS: Prostate Specific Antigen Scr 1.93 ng/mL (<0.05-4.0)
[2024-06-22 14:15] LABS: TSH reflex Free T4 4.67 uIU/mL (0.32-4.0)
[2024-06-22 14:51] LABS: Free T4 (Free Thyroxine) 1.09 ng/dL (0.71-1.85)
[2024-06-23 19:12] LABS: Thyroid Peroxidase Antibodies <1 IU/mL (<9)
== END 2024-06-22 10:06 | disposition home or self-care (01) ==
LOC: HO.HMGCLDS 10:05
PROVIDERS: PCP Nurse Practitioner Family; Visit Provider Nurse Practitioner Family
DX: Z12.5 Encounter for screening for malignant neoplasm of prostate (principal); R79.89 Other specified abnormal findings of blood chemistry
CPT/HCPCS: 36415; 84153; 84439; 84443; 86376

== ENCOUNTER 2024-06-29 09:06 | Outpatient (AMB) | payer MEDICARE, SELFPAY ==
--- NOTE | 2024-06-29 09:10 | MHC.OFFVIS ---
Vital Signs 06/29/24 09:12 Height 5 ft 11 in Weight 201 lb 15.095 oz BMI 28.2 BP 110/60 Blood Pressure Location Lt brachial Position Sitting Pulse 76 Pulse Source Monitor Intake Visit Reasons: 4 mth f/up Intake Note: 4 mth f/up Printed Circuit Boards Inspector Required: No Accompanied by: Self / Same As Patient Allergies No Known Allergies Allergy (Verified 05/16/24 08:14) Medication List - Last Reconciled 06/29/24 by Amor Llanes MD acetaminophen (Tylenol Extra Strength) 1,000 mg PO Q6H PRN amiodarone 200 mg PO DAILY apixaban (Eliquis) 5 mg PO BID 90 days atorvastatin 10 mg PO BEDTIME ferrous sulfate 325 mg PO DAILY finasteride 5 mg PO DAILY 90 days magnesium oxide 400 mg PO BIDPC 90 days metoprolol succinate ER (Toprol XL) 25 mg PO BID pantoprazole 40 mg PO DAILY sacubitril-valsartan 24-26 mg (Entresto) 1 tab PO BID 90 days HPI Comments Details: 79-year-old gentleman with nonischemic cardiomyopathy and aortic root aneurysm. Clinically asymptomatic and compensated. He was started on guideline directed medical therapy and on amiodarone for PVCs. Ejection fraction previously was 30 35% but now has improved 45-50%. By transthoracic echo his aortic root is 4.[address] performed in March 2022 aortic root is 5 cm. There is no interval change in size of the aortic root. Clinically he is improving from cardiomyopathy point of view. He has no symptoms. Tolerating meds well. 03/02/2023: He returns for follow-up. He was referred to Cardiothoracic surgery for aortic root dilatation of 5.[address] Moran and after discussion refused surgery. He is denying any chest discomfort on follow-up. No symptoms/signs of heart failure. Echocardiography has shown EF of 50 55% on last echocardiogram. He is on amiodarone for frequent premature ventricular complexes and atrial fibrillation. He is on apixaban also. 07/13/23: He is here for f/u. He is not interested in aortic surgery for aortic aneurysm. We had discussion last time and this time again. He thinks that he has arthritis and may not do well after surgery. I have explained to him that he is robust enough to undergo surgery. He will think about it. Otherwise denying any chest pain or shortness of breath. No orthopnea or PND. Taking medication regularly. His labs were reviewed. 10/21/2023: He is here for follow-up. Denying any chest discomfort shortness of breath. Clinically euvolemic. He injured his toe and had a fracture. Walking with a cane and is following with podiatry. Blood pressure is well controlled. If he again had a detailed discussion about aortic aneurysm. He does not wish to undergo surgery. 02/29/2024: He is here for follow-up. Denying any symptoms. He is little more tachycardic than usual. Denying shortness of breath or chest pains. We discussed about aneurysm and again his wishes are that he does not want any interventions done to that. 06/29/2024: He is here for follow-up. He has aortic root aneurysm of 5.5 cm. He does not wish to do surgery. He has back arthritis and has been walking with a cane. Denying any chest discomfort or shortness of breath. No palpitations. [facility] Medical History Renal osteodystrophy Restrictive pattern present on pulmonary function testing COPD (chronic obstructive pulmonary disease) GERD (gastroesophageal reflux disease) Afib Aortic root dilatation Aortic aneurysm Cardiomyopathy PAF (paroxysmal atrial fibrillation) Surgical History S/P hip replacement Social History Household Members: Spouse Housing: House Alcohol intake: never Patient Tobacco Use Status: Former Tobacco user Years Smoked: 30 years ago e-Cigarette/Vaping Use: Never Used Second Hand Smoke Exposure: No service: No Current occupational status: retired Cognitive needs: No Hearing needs: No Vision needs: No Review of Systems Const Denies chills, Denies fatigue, Denies fever(s), Denies frequent falls, Denies weakness, Denies weight gain and Denies weight loss ENT Denies dizziness Card Denies chest pain, Denies leg edema, Denies lightheadedness, Denies palpitations, Denies dyspnea and Denies dyspnea on exertion Resp Denies cough, Denies dyspnea and Denies dyspnea on exertion GI Denies hematochezia Musc Denies abnormal gait, Denies muscle weakness, Denies numbness, Denies radiating pain into limb and Denies tingling Neuro Denies abnormal gait, Denies dizziness, Denies frequent falls, Denies numbness, Denies tingling and Denies weakness Endo Denies fatigue and Denies palpitations Physical Exam Vital Signs: Last Vital Signs Pulse 76 06/29/24 09:12 BP 110/60 06/29/24 09:12 BMI result Body Mass Index 28.2 GENERAL APPEARANCE: in no acute distress, pleasant. NECK: no carotid bruit, no jugular venous distention. SKIN: no suspicious lesions, warm and dry. HEART: regular rate and rhythm. Early diastolic murmur left sternal border. LUNGS: clear to auscultation bilaterally. ABDOMEN: soft, nontender. EXTREMITIES: no edema. PERIPHERAL PULSES: equal. NEUROLOGIC: No gross deficits, AAO X 3 Office Procedures EKG Details: Sinus rhythm with first-degree AV block VT interval 236 milliseconds, left axis deviation, intraventricular conduction delay, nonspecific T-wave changes, QTC 474 milliseconds. 70220-Qquubseqqibgflahh, Complete Assessment & Plan Assessment & Plan (1) Afib: Code(s): I48.91 - Unspecified atrial fibrillation Category: Medical (2) Aortic root dilatation: Code(s): I77.810 - Thoracic aortic ectasia Category: Medical (3) Cardiomyopathy: Code(s): I42.9 - Cardiomyopathy, unspecified Category: Medical Plan Pleasant 79 year gentleman who is here for follow-up. He has aortic root aneurysm of 5.5 cm and does not want to undergo surgery. He previously had nonischemic cardiomyopathy related to premature ventricular complexes. He has been treated with amiodarone and ejection fraction improved 55%. Clinically he has been stable. He also has background of paroxysmal atrial fibrillation but continues to be in sinus rhythm. He is on anticoagulation with Eliquis 5 mg twice a day. Blood pressure heart rates are well controlled. We will do TSH and LFTs in 3 months to monitor side effects of amiodarone. Overall clinically stable and we will see us back in 6 months. Thank you for allowing me to participate in the care of your patient. Please feel free to contact me if you have any questions. Orders: Orders TSH reflex Free T4 3 Months Z51.81 - Encounter for therapeutic drug level monitoring Liver Panel 3 Months Z51.81 - Encounter for therapeutic drug level monitoring Coding Level of Care Code Est Pt Level 4 (45123) Diagnoses Afib I48.91 Aortic root dilatation I77.810 Cardiomyopathy I42.9 CPT Codes EKG - CPT: 11725-Akjocilolijtrjjpv, Complete ([id number])
[2024-06-29 09:12] VITALS: BP 110/60; PULSE 76; BMI 28.2
--- OUTSIDE RECORDS SUMMARY | 2024-06-29 09:47 | XMS_ITS | Clinical Summary ---
Author Organization [facility] Address [address] [facility] [place] [place] [address] Phone Care Team Providers Care Appliance Fixer Name Role Phone Jag Khan NP Primary Care Provider [phone] Allergies No known active allergies Medications Acetaminophen [...] Visit [facility] [address] [place] [address] [place] [address] Allen Quintanilla MD [address] [facility] [address] [place] [address] Health Maintenance Due Date Last Done Comments Pneumococcal Vaccine: 50+ Ye ars (1 of 2 - PCV) 1966 Influenza Vaccine (Season Ended) 2024 Hepatitis B Vaccine Aged Out No longe r eligible based on patient's age to complete this topic Insurance Medicare [facility] Medicare [facility] Care Teams Appliance Fixer Relationship Specialty Start Date End Date Jag Khan NP [address] [facility] [place] [id number] PCP - General Nurse Practitioner 08/28/21
--- OUTSIDE RECORDS SUMMARY | 2024-06-29 09:47 | XMS_ITS | Patient Health Record ---
[facility] Address [address] [facility] [place] [address] Care Team Providers Care Electrical Contractor Name Role Phone Jag Heath Primary Care Provider Unav ailable Black, Ivory Unavailable [phone] Allergies No Known Allergies Results Component Value [...] Problem Acquired hammer toe of right foot (4043141665082994) Other hammer toe(s) (acquired), right foot (M20.41) Active confirmed Problem Acquired hammer toe of left foot (5061597955308519) Other hammer toe(s) (acquired), left foot (M20.42) Active confirmed Problem Localized, primary osteoarthritis of the ankle and/or foot (371578564) Arthritis of joint of lesser toe, left (M19.072) Active confirmed Problem Localized, primary osteoarthritis of the ankle and/or foot (866740433) Arthritis of joint of lesser toe, right (M19.071) Active confirmed Vital Signs Blood pressure diastolic 70 mm Hg 04/18/2024 Height 5 ft 11 in in 04/18/2024 Blood pressure systolic 130 mm Hg 04/18/2024 Weight 199 lbs 04/18/2024 BMI 27.75 kg/m2 04/18/2024 Procedures Procedure Date Ordered Date Performed Result Body Sit e 36250-BOVQQHR NAIL, 6 OR MORE 10/05/2023 N/A 79929-Clkr. Subungual Hematoma 10/05/2023 N/A 95618-WZZUZCR NAIL, 6 OR MORE 01/18/2024 N/A 74357-ATTOPHR NAIL, 6 OR MORE 04/18/2024 N/A Encounters Encounter Location Date Provider Diagnosis [facility] [place] [address] [place] [address] 10/05/2023 Ivory Black Tinea unguium B35.1 ; Closed displaced fracture of distal phalanx of left great toe, initial encounter S92.422A ; Pain in right toe(s) M79.674 ; Pain in left toe(s) M79.675 ; Contusion of left great toe with damage to nail, initial encounter S90.212A and Localized edema R60.[address] [address] 10/26/2023 Ivory Black Pain in left toe(s) M79.675 ; Closed displaced fracture of distal phalanx of left great toe with routine healing, subsequent encounter S92.422D ; Localized edema R60.0 and Contusion of left great toe with damage to nail, subsequent encounter S90.212D [address] [address] 01/18/2024 Ivory Black Pain in left toe(s) M79.675 ; Closed displaced fracture of distal phalanx of left great toe with routine healing, subsequent encounter S92.422D ; Localized edema R60.0 ; Contusion of left great toe with damage to nail, subsequent encounter S90.212D ; Onychomycosis B35.1 ; Pain in right toe(s) M79.674 and Xerosis of skin L85.[address] [address] 04/18/2024 Ivory Black Pain in left toe(s) [...] Treatment Pending Test Test Name Order Date 34567-HUOQPNW NAIL, 6 OR MORE 06/22/2023 01604-AHKZJGW NAIL, 6 OR MORE 10/05/2023 66482-JYUOMWM NAIL, 6 OR MORE 01/18/2024 59754-LROWKKL NAIL, 6 OR MORE 04/18/2024 21713-Hqfl. Subungual Hematoma Nail Panel 04/13/2023 Next Appt Details Provider Name:Ivory Davis , 06/30/2024 09:00:00 AM, [address] [facility], [place], [address], Insurance Providers Payer Name Payer Address Payer Phone Subscriber Number Group Number Insured Name Patient Relationship to Insured Coverage Start Date Coverage End Date Medicare [employer] [address] [place] [address] [phone] [id number] RobyFrancois Self - patient is the insured AARP Secondary to Medicare [address] [place] [address] [id number] Roby Francois Self - patient is the insured Medical (General) History Medical History History ICD Code Arthritis Cataracts Heart disease Joint implants/screws Surgical History Surgery Date(Month/Year) Hip Replacement 20 years ago Hospitalization History Reason Date(Month/Year) Urgent care - Toe injury 09/26/23
--- OUTSIDE RECORDS SUMMARY | 2024-06-29 09:47 | XMS_ITS ---
Author Organization [facility] Address [address] [facility] [place] [address] Care Team Providers Care Wharf Builder Name Role Phone Jag Heath Primary Care Provider Unav ailable Black, Ivory Unavailable [phone] Allergies No Known Allergies Results Component Value [...] 024 Encounters Encounter Location Date Provider Diagnosis [facility] [place] [address] [place] [address] 10/26/2023 Ivory Davis Pain in left toe(s) [...] Provider Name:Ivory Davis , 06/30/2024 09:00:00 AM, [address] [place] [address], [address], Progress Notes * Francois CA DDOB: 8 (78 yo M)Acc No.[id number]:10/26/2023 Progress Note Patient:?Francois Ca Provider:?Ivory Davis DPM :1945???Age:78 Y???Sex:Male Hugh e:10/26/2023 Address:[address] [place] [address] [place] [facility] Pcp:MENDEZ Guerra Subjective: * Chief Complaints: * [...] ?Marital status: , . 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 * Medications:?TakingTylenol 3 25 MG Capsule [...] - S90.212D? Plan: * Treatment: * Procedure Codes:?04902 X-RAY EXAM OF LEFT FOOT 3V, Modifiers: [...] Davis DPM Date:?2023 Generated for Eliana carrera/Zohaib/Yuitting on:?06/29/2024 09:47 AM EDT History and Physical Notes * [...]
--- OUTSIDE RECORDS SUMMARY | 2024-06-29 09:47 | XMS_ITS ---
Author Organization [facility] Address [address] [facility] [place] [address] Care Team Providers Care Research Study Assistant Name Role Phone Jag Heath Primary Care Provider Unav ailable Black, Ivory Unavailable [phone] Allergies No Known Allergies Results Component Value [...] Ordered Date Performed Result Body Sit e 41877-GSFNVYN NAIL, 6 OR MORE 01/18/2024 N/A Encounters Encounter Location Date Provider Diagnosis [facility] [place] [address] [place] [address] 01/18/2024 Ivory Black Pain in left toe(s) [...] days Pending Test Test Name Order Date 57366-XAUFAJT NAIL, 6 OR MORE 01/18/2024 Next Appt Details Follow Up: prn, Reason: Provider Name:Ivory Davis , 06/30/2024 09:00:00 AM, [address] [place], [address], Procedure Notes * Category Sub-Category Detail Notes Debride Nail 6-10 Nail debridement Performance o f this nail treatment by a nonprofessional would put this patients foot and overall health at risk. Therefore, nail debridement was performed extensively to reduce/remove overall nail length, girth, thickness, subungual debris, and necrotic tissue, by manual and/or electrical means through the use of a nail nipper and/or dremel-type grinder operator external tool, to a more viable healthy nail plate or bed tissue 6-10. Silver nitrate used for any petechial bleeding as necessary. Definitive antifungal treatment options have been reviewed and discussed with the patient. The patient chooses, no pharmaceutical tx - 60268 Progress Notes * Francois CA DDOB: 8 (78 yo M)Acc No.[id number]:01/18/2024 Progress Note Patient:?Francois Ca Provider:?Ivory Davis DPM :1945???Age:78 Y???Sex:Male Hugh e:01/18/2024 Address:[address] [place] [address] [place] [facility] Pcp:MENDEZ Guerra Subjective: * Chief Complaints: * [...] ?Marital status: , . 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 * Medications:?TakingTylenol 3 25 MG Capsule [...] (3),Rx Management (4)? Plan: * Treatment: 2.?Onychomycosis?Procedure: 02945-EPGGRHE NAIL, 6 OR MORE 3.?Xerosis of skin? [...] use of a nail nipper and/or dremel-type grinder operator external tool, to a more viable healthy nail plate or bed tissue 6-10. Silver nitrate used for any petechial bleeding as necessary. Definitive antifungal treatment options have been reviewed and discussed with the patient. The patient chooses, no pharmaceutical tx - 04351.? * Procedure Codes:?48077 DEBRI DE NAIL, 6 OR MORE, Modifiers: XS 72154 X-RAY EXAM OF LEFT FOOT 3V, Modifiers: [...] DPM Date:?2023 Generated for Eliana carrera/Zohaib/Yuitting on:?06/29/2024 09:46 AM EDT History and Physical Notes * [...]
--- OUTSIDE RECORDS SUMMARY | 2024-06-29 09:47 | XMS_ITS ---
Author Organization [facility] Address [address] [facility] [place] [address] Care Team Providers Care Judge'S Clerk Name Role Phone Jag Heath Primary Care Provider Unav ailable Black, Ivory Unavailable [phone] Allergies No Known Allergies REASON FOR VISIT [...] Ordered Date Performed Result Body Sit e 70066-HERFRTI NAIL, 6 OR MORE 04/18/2024 N/A Encounters Encounter Location Date Provider Diagnosis [facility] [address] [address] 04/18/2024 Ivory Davis Pain in left toe(s) [...] days Pending Test Test Name Order Date 95333-VRMFZGC NAIL, 6 OR MORE 04/18/2024 Next Appt Details Follow Up: prn, Reason: Provider Name:Ivory Davis , 06/30/2024 09:00:00 AM, [address] [place] [address], [address], Procedure Notes * Category Sub-Category Detail Notes [...] use of a nail nipper and/or dremel-type watch crystal edge grinder, to a more viable healthy nail [...] to maintain effectiveness in symptomatic relief - 00250 Progress Notes * Francois CA DDOB: 8 (78 yo M)Acc No.[id number]:04/18/2024 Progress Note Patient:?Francois CA D Provider:?Ivory Davis DPM :1945???Age:78 Y???Sex:Male Hugh e:04/18/2024 Address:[address] [place], [place] [id number] Pcp:MENDEZ Guerra Subjective: * Chief Complaints: * [...] ?Marital status: , . 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 * Medications:?TakingTylenol 3 25 MG Capsule [...] use of a nail nipper and/or dremel-type watch crystal edge grinder, to a more viable healthy nail [...] to maintain effectiveness in symptomatic relief - 26121.? * Procedure Codes:?05165 DEBRI DE NAIL, 6 OR MORE, Modifiers: [...] Davis DPM Date:?2024 Generated for Albertoi deandre/Zohaib/eTransmitting on:?06/29/2024 09:47 AM EDT History and Physical [...]
== END 2024-06-29 09:29 | disposition home or self-care (01) ==
PROVIDERS: PCP Nurse Practitioner Family; Visit Provider Internal Medicine Cardiovascular Disease
DX: I48.91 Unspecified atrial fibrillation (principal); I77.810 Thoracic aortic ectasia; I42.9 Cardiomyopathy, unspecified
CPT/HCPCS: 93010; 99214

== ENCOUNTER → 2024-06-29 09:06 | Outpatient (BNVA) | payer MEDICARE, SELFPAY | PROVIDERS: PCP Nurse Practitioner Family; Visit Provider Internal Medicine Cardiovascular Disease | DX: I42.8 Other cardiomyopathies (principal); I48.91 Unspecified atrial fibrillation; I77.810 Thoracic aortic ectasia; Z51.81 Encounter for therapeutic drug level monitoring | CPT/HCPCS: 93005; 99212 ==

== ENCOUNTER 2024-07-20 09:34 | Outpatient (REF) | payer MEDICARE, SELFPAY ==
--- OUTSIDE RECORDS SUMMARY | 2024-07-20 10:26 | XMS_ITS ---
Author Organization [facility] Address [address] [facility] [place] [address] Care Team Providers Care Qa Test Lead Name Role Phone Jag Heath Primary Care Provider Unav ailable Black, Ivory Unavailable [phone] Allergies No Known Allergies Results Component Value [...] Ordered Date Performed Result Body Sit e 79723-OVKBRGR NAIL, 6 OR MORE 01/18/2024 N/A Encounters Encounter Location Date Provider Diagnosis [facility] [place] [address] [place] [address] 01/18/2024 Ivory Black Pain in left toe(s) [...] days Pending Test Test Name Order Date 64985-[id number] NAIL, 6 OR MORE 01/18/2024 Next Appt Details Follow Up: prn, Reason: Provider Name:Ivory Davis , 10/06/2024 08:15:00 AM, [address] [place], [address], Procedure Notes * Category Sub-Category Detail Notes Debride Nail 6-10 Nail debridement Performance o f this nail treatment by a nonprofessional would put this patients foot and overall health at risk. Therefore, nail debridement was performed extensively to reduce/remove overall nail length, girth, thickness, subungual debris, and necrotic tissue, by manual and/or electrical means through the use of a nail nipper and/or dremel-type inner diameter grinder tool, to a more viable healthy nail plate or bed tissue 6-10. Silver nitrate used for any petechial bleeding as necessary. Definitive antifungal treatment options have been reviewed and discussed with the patient. The patient chooses, no pharmaceutical tx - 02746 Progress Notes * Francois CA DDOB: 8 (78 yo M)Acc No.[id number]:01/18/2024 Progress Note Patient:?Francois Ca Provider:?Ivory Davis DPM :1945???Age:78 Y???Sex:Male Hugh e:01/18/2024 Address:[address] [place] [address] [place] [facility] Pcp:MENDEZ Guerra Subjective: * Chief Complaints: * [...] ?Marital status: , . 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 * Medications:?TakingTylenol 3 25 MG Capsule [...] (3),Rx Management (4)? Plan: * Treatment: 2.?Onychomycosis?Procedure: 31274-ORUROGW NAIL, 6 OR MORE 3.?Xerosis of skin? [...] use of a nail nipper and/or dremel-type inner diameter grinder tool, to a more viable healthy nail plate or bed tissue 6-10. Silver nitrate used for any petechial bleeding as necessary. Definitive antifungal treatment options have been reviewed and discussed with the patient. The patient chooses, no pharmaceutical tx - 19999.? * Procedure Codes:?45647 DEBRI DE NAIL, 6 OR MORE, Modifiers: XS 13909 X-RAY EXAM OF LEFT FOOT 3V, Modifiers: [...] Davis DPM Date:?2023 Generated for Eliana carrera/Zohaib/Yuitting on:?07/20/2024 10:26 AM EDT History and Physical Notes * [...]
--- OUTSIDE RECORDS SUMMARY | 2024-07-20 10:26 | XMS_ITS | Clinical Summary ---
Author Organization [facility] Address [address] [facility] [address] [place] [address] Phone Care Team Providers Care Shoe Cobbler Name Role Phone Jag Khan NP Primary Care Provider [phone] Allergies No known active allergies Medications Acetaminophen [...] Visit [facility] [address] [place] [address] [place] [address] Allen Quintanilla MD [address] [facility] [address] [place] [address] Health Maintenance Due Date Last Done Comments Pneumococcal Vaccine: 50+ Ye ars (1 of 2 - PCV) 1966 Influenza Vaccine (Season Ended) 2024 Hepatitis B Vaccine Aged Out No longe r eligible based on patient's age to complete this topic Insurance Medicare [facility] Medicare [facility] Care Teams Shoe Cobbler Relationship Specialty Start Date End Date Jag Khan NP [address] [facility] [place] [id number] PCP - General Nurse Practitioner 08/28/21
--- OUTSIDE RECORDS SUMMARY | 2024-07-20 10:27 | XMS_ITS ---
Author Organization [facility] Address [address] [facility] [place] [address] Care Team Providers Care Senior International Tax Manager Name Role Phone Jag Heath Primary Care Provider Unav ailable Black, Ivory Unavailable [phone] Allergies No Known Allergies REASON FOR VISIT At Risk Footcare, Painful Nail(s) aggravated by shoes and causing difficulty standing/walking. Medications Medication SIG (Take, Route, Frequency, Duration) Notes Start Date End Date Status eliquis 5 mg Active Entresto 24-26 MG 1 tablet Orally Twic e a day Active Amiodarone HCl 200 MG 1 tablet Orally On ce a day Active Magnesium 400 MG as directed Orally Active Finasteride 5 MG 1 tablet Orally Once a day Active Tylenol 325 MG 1 capsule as needed Orally every 6 hrs Active Ammonium Lactate 12 % 1 application Externally Twice a day for 30 days Not-Taking Terazosin HCl 5 MG 1 capsule at bedtime Orally Once a day Active Atorvastatin Calcium 10 MG 1 tablet Orally Once a day Active Iron 325 (65 Fe) MG 1 tablet Orally Thre e times a Week Active Ammonium Lactate 12 % 1 application Externally to affected areas of skin to feet except for between the toes Twice a day for 30 days Active Metoprolol Succinate 25 MG 1 capsule Orally Once a day Active Social History [...] Problem Status W/U Status Risk Notes Problem Atherosclerosis of [place] arteries of the extremities (253925102987581) Atherosclerosis of [place] artery of both lower extremities, with unspecified presence of clinical manifestation (I70.203) Active confirmed Q7(A), Q8(2B), Q9(1B,2 C) Vital Signs Height 5 ft 11 in in 06/30/2024 Weight 200 lbs 06/30/2024 BMI 27.89 kg/m2 06/30/2024 Blood pressure systolic 130 mm Hg 07/01/19 25 Blood pressure diastolic 70 mm Hg 025 Procedures Procedure Date Ordered Date Performed Result Body Sit e 97716-LDACCQF NAIL, 6 OR MORE 06/30/2024 N/A Encounters Encounter Location Date Provider Diagnosis [facility] [address] [address] 06/30/2024 Ivory Davis Pain in left toe(s) M79.675 ; Onychomycosis B35.1 ; Pain in right toe(s) M79.674 and Atherosclerosis of [place] artery of both lower extremities, with unspecified presence of clinical manifestation I70.203 Assessments Encounter Date Diagnosis (ICD Code) Assessment Notes Treatment Notes Treatment Clinical Notes Section Notes 06/30/2024 Pain in left toe(s) (ICD-10 - M79.675) 06/30/2024 Onychomycosis (ICD-10 - B35.1) 06/30/2024 Pain in right toe(s) (ICD-10 - M79.674) 06/30/2024 Atherosclerosis of [place] artery of both lower extremities, with unspecified presence of clinical manifestation (ICD-10 - I70.203) Q7(A), Q8(2B), Q9(1B,2C) Plan Of Treatment Pending Test Test Name Order Date 91597-CQTLNBH NAIL, 6 OR MORE 06/30/2024 Next Appt Details Follow Up: prn, Reason: Provider Name:Ivory Davis , 10/06/2024 08:15:00 AM, [address] [place] [address], [phone], Procedure Notes * Category Sub-Category Detail Notes [...] use of a nail nipper and/or dremel-type internal grinder set up operator, to a more viable healthy nail plate [...] to maintain effectiveness in symptomatic relief - 09716 , Progress Notes * Francois CA DDOB: 8 (79 yo M)Acc No.[id number]:06/30/2024 Progress Note Patient:?Francois CA Provider:?Ivory Davis DPM :1945???Age:79 Y???Sex:Male Hugh e:06/30/2024 Address:[address] [place] [address] [id number] Pcp:MENDEZ Guerra Subjective: * Chief Complaints: * ???At Risk FootcarePainful N ail(s) aggravated by shoes and causing difficulty standing/walking. * HPI: ???At Risk footcare:?Pt States Last PCP Visit:?Date?06/09/2024 ???Painful Nails:?Pt States Last PCP Visit:?Date:?06/09/2024 * ROS:?General/Constitutional:?Nausea?denies.?Vomiting?denies.?Hunger Thirst?denies.?Loss appetite?denies.?Chills?denies.?Fatigue?denies.?Fever?denies.?Night Sweats?denies.?Unexplained weight loss?denies.?Unexplained [...] as own historian for office visit today ,?.?ORIENTED:?person, place, and time?.?Neurological: ?SENSORY:?Neurological exam reveals intact sensorium, pain sensation normal, vibration sensation intact, pinprick sensation is normal in the lower extremities, Pt denies, anesthesia, burning, paresthesia, tingling, B/L.?Orthopedic: ?MUSCLE STRENGTH:?5/5 all groups in a symmetrical fashion, B/L.?Vascular: ?DP PULSES (B):?0/4, B/L.?PT PULSES (B):?, 1/4, B/L.?CAPILLARY FILL TIME:?, delayed, all digits, B/L.?TROPHIC CONDITION-TEXTURE/ELASTICITY/TURGOR/HAIR GROWTH (B):?, decreased, fragile, thin, shiny skin, with sparse to absent hair growth, B/L.?TEMPERTURE GRADIENT (C):??decreased, cool to cool, proximal to distal, B/L.?PIGMENTATION:?normal, B/L ,?.?EDEMA (C):?absent, B/L?.?CLAUDICATION (C):?denies, B/L.?REST PAIN:?denies, B/L.?PARESTHESIA (C):?absent, B/L.?BURNING (C):?absent, B/L.?Dermatologic: ?SKIN FINDINGS:?Skin exam reveals normal color, texture, elasticity, and turgor. There are no masses, nor excrescences. The interspaces are clear, B/L.?Nails: ?NAILS are:?Elongated, overgrown, dystrophic, lytic, greater than 3mm thick, discolored and friable with crumbly malodorous subungual debris, with pain on palpation TA, T1, T4, T5,T7, T8, T9 ,?.? Assessment: * Assessment: 1.?Pain in left toe(s) - M79 .675???2.?Pain in right toe(s) - M79.674???3.?Onychomycosis - B35.1 (Primary)???4.?Atherosclerosis of [place] artery of both lower extremities, with unspecified presence of clinical manifestation - I70.203???Notes :Q7(A), Q8(2B), Q9(1B,2C)??? Plan: * Treatment: * Procedures:?Debride Nail 6-10:?Nail debridement?Due to the [...] use of a nail nipper and/or dremel-type internal grinder set up operator, to a more viable healthy nail plate [...] to maintain effectiveness in symptomatic relief - 21303 ,?.? * Procedure Codes:?44072 DEBRI DE NAIL, 6 OR MORE * Preventive Medicine:? ??Screening/Special Tests:?Fall Risk?Screening:?No falls in the past year ?FALLS: Screening for Future Fall Risk?Have you had any falls with injury in the past year??No * Follow Up:?prn * Images: * Sign off status: Completed true * Provider:?Ivory Davis DPM Date:?2024 Generated for Eliana carrera/Zohaib/eTransmitting on:?07/20/2024 10:27 AM EDT History and Physical Notes * HPI (History of Present Illness) Category Sub-Category Detail Notes Category Not es Painful Nails Pt States Last PCP Visit: Date:: 06/09/2024 At Risk footcare Pt States Last PCP Visit: Date: Examination Category Sub-Category Detail Notes Category Not es Neurological SENSORY: Neurological exa m reveals intact sensorium, pain sensation normal, vibration sensation intact, pinprick sensation is normal in the lower extremities, Pt denies, anesthesia, burning, paresthesia, tingling, B/L Dermatologic SKIN FINDINGS: Skin exam reveal s normal color, texture, elasticity, and turgor. There are no masses, nor excrescences. The interspaces are clear, B/L Orthopedic MUSCLE STRENGTH: 5/5 all groups in a symmetrical fashion, B/L General Examination GENERAL APPEARANCE: Reveals a pleasant, alert, well nourished, well-developed, well hydrated individual, who demonstrates proper attention to hygiene/body habitus, and is in no acute distress, Pt serves as own historian for office visit today , ORIENTED: person, place, and t augustine Vascular DP PULSES (B): 0/4, B/L PT PULSES (B): , 1/4, B/L CAPILLARY FILL TIME: , delayed, all digi ts, B/L TEMPERTURE GRADIENT (C): decreased, cool to cool, proximal to distal, B/L TROPHIC CONDITION-TEXTURE/ELASTICITY/TURGOR/HAIR GROWTH (B): , decreased, fragile, thin, shiny skin, with sparse to absent hair growth, B/L EDEMA (C): absent, B/L CLAUDICATION (C): denies, B/L REST PAIN: denies, B/L PIGMENTATION: normal, B/L , PARESTHESIA (C): absent, B/L BURNING (C): absent, B/L Nails NAILS are: Elongated, overg rown, dystrophic, lytic, greater than 3mm thick, discolored and friable with crumbly malodorous subungual debris, with pain on palpation TA, T1, T4, T5,T7, T8, T9 ,
--- OUTSIDE RECORDS SUMMARY | 2024-07-20 10:27 | XMS_ITS | Patient Health Record ---
Author Organization [facility] kaitlin Stayton Address [address] [facility] [place] [address] Care Team Providers Care Analyst Sales Name Role Phone Jag Heath Primary Care Provider Unav ailable Black, Ivory Unavailable [phone] Allergies No Known Allergies Results Component Value [...] Twice a day for 30 days Active Tylenol 325 MG 1 capsule as needed Orally every 6 hrs Active Ammonium Lactate 12 % 1 application Externally Twice a day for 30 days Not-Taking Metoprolol Succinate 25 MG 1 capsule Orally Once a day Active eliquis 5 mg Active Entresto 24-26 MG 1 tablet Orally Twic e a day Active Amiodarone HCl 200 MG 1 tablet Orally On ce a day Active Magnesium 400 MG as directed Orally Active Terazosin HCl 5 MG 1 capsule at bedtime Orally Once a day Active Finasteride 5 MG 1 tablet Orally Once a day Active Atorvastatin Calcium 10 MG 1 tablet Orally Once a day Active Iron 325 (65 Fe) MG 1 tablet Orally Thre e times a Week Active Social History Tobacco Use: Social History [...] Problem Acquired hammer toe of right foot (6583802449605748) Other hammer toe(s) (acquired), right foot (M20.41) Active confirmed Problem Acquired hammer toe of left foot (3083006477932852) Other hammer toe(s) (acquired), left foot (M20.42) Active confirmed Problem Atherosclerosis of [place] arteries of the extremities (807327301654719) Atherosclerosis of [place] artery of both lower extremities, with unspecified presence of clinical manifestation (I70.203) Active confirmed Q7(A), Q8(2B), Q9(1B,2 C) Problem Localized, primary osteoarthritis of the ankle and/or foot (455722711) Arthritis of joint of lesser toe, left (M19.072) Active confirmed Problem Localized, primary osteoarthritis of the ankle and/or foot (678933471) Arthritis of joint of lesser toe, right (M19.071) Active confirmed Vital Signs Blood pressure diastolic 70 mm Hg 06/30/2024 Height 5 ft 11 in in 06/30/2024 Blood pressure systolic 130 mm Hg 06/30/2024 Weight 200 lbs 06/30/2024 BMI 27.89 kg/m2 06/30/2024 Procedures Procedure Date Ordered Date Performed Result Body Sit e 02139-YBGJUHS NAIL, 6 OR MORE 10/05/2023 N/A 74924-Vjgm. Subungual Hematoma 10/05/2023 N/A 48497-PSGHSSU NAIL, 6 OR MORE 01/18/2024 N/A 96341-JETQYHF NAIL, 6 OR MORE 04/18/2024 N/A 35554-EXGTXCW NAIL, 6 OR MORE 06/30/2024 N/A Encounters Encounter Location Date Provider Diagnosis [facility] [place] [address] [place] [address] 10/05/2023 Ivory Black Tinea unguium B35.1 ; Closed displaced fracture of distal phalanx of left great toe, initial encounter S92.422A ; Pain in right toe(s) M79.674 ; Pain in left toe(s) M79.675 ; Contusion of left great toe with damage to nail, initial encounter S90.212A and Localized edema R60.[address] [address] 10/26/2023 Ivory Black Pain in left toe(s) M79.675 ; Closed displaced fracture of distal phalanx of left great toe with routine healing, subsequent encounter S92.422D ; Localized edema R60.0 and Contusion of left great toe with damage to nail, subsequent encounter S90.212D [address] [address] 01/18/2024 Ivory Black Pain in left toe(s) M79.675 ; Closed displaced fracture of distal phalanx of left great toe with routine healing, subsequent encounter S92.422D ; Localized edema R60.0 ; Contusion of left great toe with damage to nail, subsequent encounter S90.212D ; Onychomycosis B35.1 ; Pain in right toe(s) M79.674 and Xerosis of skin L85.[address] [address] 04/18/2024 Ivory Black Pain in left toe(s) M79.675 ; Onychomycosis B35.1 ; Pain in right toe(s) M79.674 and Xerosis of skin L85.[address] [address] 06/30/2024 Ivory Black Pain in left toe(s) M79.675 ; Onychomycosis B35.1 ; Pain in right toe(s) M79.674 and Atherosclerosis of [place] artery of both lower extremities, with unspecified [...] - M79.675) 04/18/2024 Onychomycosis (ICD-10 - B35.1) 06/30/2024 Pain in left toe(s) (ICD-10 - M79.675) 06/30/2024 Pain in right toe(s) (ICD-10 - M79.674) 06/30/2024 Onychomycosis (ICD-10 - B35.1) 04/18/2024 Pain in [...] 04/18/2024 Xerosis of skin (ICD-10 - L85.3) 06/30/2024 Atherosclerosis of [place] artery of both lower extremities, with unspecified presence of clinical manifestation (ICD-10 - I70.203) Q7(A), Q8(2B), Q9(1B,2C) 01/18/2024 Contusion of left great toe with [...] Treatment Pending Test Test Name Order Date 30987-RREOWHL NAIL, 6 OR MORE 10/05/2023 18328-ZKTDCPK NAIL, 6 OR MORE 01/18/2024 75424-WZXUIBF NAIL, 6 OR MORE 04/18/2024 43861-FCCZVNN NAIL, 6 OR MORE 06/30/2024 31175-RGPKWKI NAIL, 6 OR MORE 06/22/2023 64606-Rkge. Subungual Hematoma Nail Panel 04/13/2023 Next Appt Details Provider Name:Ivory Davis , 10/06/2024 08:15:00 AM, [address] [facility], [place], [address], Insurance Providers Payer Name Payer Address Payer Phone Subscriber Number Group Number Insured Name Patient Relationship to Insured Coverage Start Date Coverage End Date Medicare National Govt Sv[employer] [address] [facility] [address] [id number] Francois Ca Self - patient is the insured AARP Secondary to Medicare [address] [place] [address] [id number] Francois Ca Self - patient is the insured Medical (General) History Medical History History ICD Code Arthritis Cataracts Heart disease Joint implants/screws Surgical History Surgery Date(Month/Year) Hip Replacement 20 years ago Hospitalization History Reason Date(Month/Year) Urgent care - Toe injury 09/26/23
--- OUTSIDE RECORDS SUMMARY | 2024-07-20 10:27 | XMS_ITS ---
Author Organization [facility] Marcus Address [address] [facility] [place] [address] Care Team Providers Care President And Chief Commercial Officer Name Role Phone Jag Heath Primary Care Provider Unav ailable Black, Ivory Unavailable [phone] Allergies No Known Allergies REASON FOR VISIT [...] Ordered Date Performed Result Body Sit e 00384-WFEGNHD NAIL, 6 OR MORE 04/18/2024 N/A Encounters Encounter Location Date Provider Diagnosis [facility] [address] [address] 04/18/2024 Ivory Davis Pain in left toe(s) [...] days Pending Test Test Name Order Date 14878-[id number] NAIL, 6 OR MORE 04/18/2024 Next Appt Details Follow Up: prn, Reason: Provider Name:Ivory Davis , 10/06/2024 08:15:00 AM, [address] [place] [address], [phone], Procedure Notes * Category Sub-Category Detail Notes [...] use of a nail nipper and/or dremel-type coffee grinder, to a more viable healthy nail [...] to maintain effectiveness in symptomatic relief - 98926 Progress Notes * Francois CA DDOB: [birth year] (78 yo M)Acc No.[id number]:04/18/2024 Progress Note Patient:?Francois CA D Provider:?Ivory Davis DPM :1945???Age:78 Y???Sex:Male Hugh e:04/18/2024 Address:[address] [place], [place] [id number] Pcp:MENDEZ Guerra Subjective: * Chief Complaints: * [...] status: , . 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 * Medications:?TakingTylenol 3 25 MG Capsule [...] use of a nail nipper and/or dremel-type coffee grinder, to a more viable healthy nail [...] to maintain effectiveness in symptomatic relief - 51948.? * Procedure Codes:?03951 DEBRI DE NAIL, 6 OR MORE, Modifiers: [...] Davis DPM Date:?2024 Generated for Albertoi deandre/Zohaib/eTransmitting on:?07/20/2024 10:27 AM EDT History and Physical [...]
[2024-07-20 14:25] LABS: Prostate Specific Antigen 2.25 ng/mL (<0.05-4.0)
== END 2024-07-20 09:35 | disposition home or self-care (01) ==
LOC: HO.HMGCLDS 09:34
PROVIDERS: PCP Nurse Practitioner Family; Visit Provider Urology
DX: N40.1 Benign prostatic hyperplasia with lower urinary tract symptoms (principal); N13.8 Other obstructive and reflux uropathy; Z12.5 Encounter for screening for malignant neoplasm of prostate
CPT/HCPCS: 36415; 84153

== ENCOUNTER 2024-07-29 08:36 | Outpatient (AMB) | payer MEDICARE, SELFPAY ==
--- NOTE | 2024-07-29 08:37 | A.OFFVIS_ITS ---
Intake Visit Reasons: 1y/PSA Intake Note: Patient is Present for 1Y follow up/PSA Urology Med: Finasteride Antibiotic Allergy:None Blood Thinner:[employer] Sales Representative Womens Health Required: No Accompanied by: Self / Same As Patient Allergies No Known Allergies Allergy (Verified 07/29/24 08:40) HPI Comments Details: Francois is a pleasant male. He is a patient of Dr. Montalvo. He seen for the following urologic conditions - urinary retention - lower urinary tract symptoms Yearly follow-up PVR 40 cc Happy with current emptying No longer has a trickle Would benefit from procedure but at this stage will deferred Twelve month follow-up PSA Discussed formula 1 Urinary retention with lower urinary tract symptoms Episode of retention August 2021 Catheter placed - Past voiding trial in office Current medications include finasteride and terazosin 5 mg KATELYNN 2+ prostate soft PSA 08/05 3.5, 08/07 1.9 Significant improvement PFSH Medical History Renal osteodystrophy Restrictive pattern present on pulmonary function testing COPD (chronic obstructive pulmonary disease) GERD (gastroesophageal reflux disease) Afib Aortic root dilatation Aortic aneurysm Cardiomyopathy PAF (paroxysmal atrial fibrillation) Surgical History S/P hip replacement Social History Household Members: Spouse Housing: House Alcohol intake: never Patient Tobacco Use Status: Former Tobacco user Years Smoked: 30 years ago e-Cigarette/Vaping Use: Never Used Second Hand Smoke Exposure: No service: No Current occupational status: retired Cognitive needs: No Hearing needs: No Vision needs: No Review of Systems Const Denies chills and Denies fever(s) Card Reports no additional complaints and Denies syncope Resp Denies cough GI Denies abdominal pain and Denies heartburn Reports as per HPI and Denies change in libido Neuro Denies syncope Psych Denies change in libido Endo Denies change in libido Physical Exam Const General: cooperative, healthy appearing, comfortable and no acute distress Orientation/consciousness: patient oriented x3 HEENT Face and sinus: Yes normal facial exam Mouth: moist mucous membranes Neck Neck: Yes normal visual inspection, Yes full ROM and Yes trachea midline Chest Chest palpation & inspection: normal inspection of the chest Resp Effort & Inspection: normal respiratory effort, able to speak in complete sentences and no respiratory distress GI Inspection: Yes normal to inspection Back/Spine/Pelvis Cervical Spine: normal cervical lordosis Thoracic/Lumbar Spine: thoracic and lumbar spine normal to inspection Skin General skin exam: no rashes or lesions noted Neuro General: patient oriented x3, gait normal, tone normal and moves all extremities Extrem General: Yes normal to inspection and Yes capillary refill normal Assessment & Plan Assessment & Plan (1) Erectile dysfunction: Code(s): N52.9 - Male erectile dysfunction, unspecified Category: Medical (2) BPH w urinary obs/LUTS: Code(s): N40.1 - Benign prostatic hyperplasia with lower urinary tract symptoms; N13.8 - Other obstructive and reflux uropathy Category: Medical Plan Twelve month follow-up PVR Patient Instructions: This note is constructed using voice recognition software. While every effort has been made to ensure accuracy manager school errors may have been included. Imaging studies, laboratory and physical exam results were discussed and reviewed in detail. No major barriers to patient understanding were identified. An opportunity to ask questions regarding the treatment plan was provided. All questions were answered. The patient expressed understanding and agreement with the above treatment plan. The patient is aware they should contact our office by phone for worsening of their current condition or the appearance of new urologic symptoms. Compliance is encouraged with any medications and followup testing that is ordered. It is a privilege to participate in the urologic care of your patient. If you have any questions or concerns regarding treatment for the above conditions, or other urologic issues, please do not hesitate to contact me. The office telephone contact is [phone]. Sincerely, Dr Chriss Medrano MD, [facility] - Urology Compassionate Specialist Care for the Genitourinary System Coding Level of Care Code Est Pt Level 4 (04880) Complex EM visit Add On G2211 Diagnoses Erectile dysfunction N52.9 BPH w urinary obs/LUTS N40.1; N13.8
--- OUTSIDE RECORDS SUMMARY | 2024-07-29 08:48 | XMS_ITS ---
Author Organization [facility] Address [address] [facility] [place] [address] Care Team Providers Care Floor Sander Name Role Phone Jag Heath Primary Care Provider Unav ailable Black, Ivory Unavailable [phone] Allergies No Known Allergies REASON FOR VISIT [...] W/U Status Risk Notes Problem Atherosclerosis of [place] arteries of the extremities (330724523489876) Atherosclerosis of [place] artery of both lower extremities, with unspecified presence of clinical manifestation (I70.203) Active confirmed Q7(A), Q8(2B), Q9(1B,2 C) Vital Signs Height 5 ft 11 in in 06/30/2024 Weight 200 lbs 06/30/2024 BMI 27.89 kg/m2 06/30/2024 Blood pressure systolic 130 mm Hg 07/01/19 25 Blood pressure diastolic 70 mm Hg 025 Procedures Procedure Date Ordered Date Performed Result Body Sit e 59885-RPCQMBY NAIL, 6 OR MORE 06/30/2024 N/A Encounters Encounter Location Date Provider Diagnosis [facility] [address] [address] 06/30/2024 Ivory Davis Pain in left toe(s) M79.675 ; Onychomycosis B35.1 ; Pain in right toe(s) M79.674 and Atherosclerosis of [place] artery of both lower extremities, with unspecified presence of clinical manifestation I70.203 Assessments Encounter Date Diagnosis (ICD Code) Assessment Notes Treatment Notes Treatment Clinical Notes Section Notes 06/30/2024 Pain in left toe(s) (ICD-10 - M79.675) 06/30/2024 Onychomycosis (ICD-10 - B35.1) 06/30/2024 Pain in right toe(s) (ICD-10 - M79.674) 06/30/2024 Atherosclerosis of [place] artery of both lower extremities, with unspecified presence of clinical manifestation (ICD-10 - I70.203) Q7(A), Q8(2B), Q9(1B,2C) Plan Of Treatment Pending Test Test Name Order Date 31091-PANTTRM NAIL, 6 OR MORE 06/30/2024 Next Appt Details Follow Up: prn, Reason: Provider Name:Ivory Davis , 10/06/2024 08:15:00 AM, [address] [place] [address], [phone], Procedure Notes * Category Sub-Category Detail Notes [...] to maintain effectiveness in symptomatic relief - 86951 , Progress Notes * Francois CA DDOB: 8 (79 yo M)Acc No.[id number]:06/30/2024 Progress Note Patient:?Francois CA Provider:?Ivory Davis DPM :1945???Age:79 Y???Sex:Male Hugh e:06/30/2024 Address:[address] [place] [address] [facility] Pcp:MENDEZ Guerra Subjective: * Chief Complaints: * [...] ?Marital status: , . 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 * Medications:?TakingTylenol 3 25 MG Capsule [...] toe(s) - M79.674???3.?Onychomycosis - B35.1 (Primary)???4.?Atherosclerosis of [place] artery of both lower extremities, with unspecified [...] to maintain effectiveness in symptomatic relief - 73139 ,?.? * Procedure Codes:?76483 DEBRI DE NAIL, 6 OR MORE * Preventive Medicine:? ??Screening/Special Tests:?Fall Risk?Screening:?No falls in the past year ?FALLS: Screening for Future Fall Risk?Have you had any falls with injury in the past year??No * Follow Up:?prn * Images: * Sign off status: Completed true * Provider:?Ivory Davis DPM Date:?2024 Generated for Eliaan carrera/Zohaib/eTransmitting on:?07/29/2024 08:48 AM EDT History and Physical Notes * [...]
--- OUTSIDE RECORDS SUMMARY | 2024-07-29 08:48 | XMS_ITS | Clinical Summary ---
Author Organization [facility] Address [address] [facility] [address] [place] [address] Phone Care Team Providers Care Carpet Cleaner Name Role Phone Jag Khan NP Primary Care Provider [phone] Allergies No known active allergies Medications Acetaminophen [...] Visit [facility] [address] [place] [address] [place] [address] Allen Quintanilla MD [address] [facility] [address] [place] [address] Health Maintenance Due Date Last Done Comments Pneumococcal Vaccine: 50+ Ye ars (1 of 2 - PCV) 1966 Influenza Vaccine (Season Ended) 2024 Hepatitis B Vaccine Aged Out No longe r eligible based on patient's age to complete this topic Insurance Medicare [facility] Medicare [facility] Care Teams Carpet Cleaner Relationship Specialty Start Date End Date Jag Khan NP [address] [facility] [place] [id number] PCP - General Nurse Practitioner 08/28/21
--- OUTSIDE RECORDS SUMMARY | 2024-07-29 08:48 | XMS_ITS ---
Author Organization [facility] Address [address] [facility] [place] [address] Care Team Providers Care Otorhinolaryngologist Name Role Phone Jag Heath Primary Care Provider Unav ailable Black, Ivory Unavailable [phone] Allergies No Known Allergies Results Component Value [...] Ordered Date Performed Result Body Sit e 45278-EETYPST NAIL, 6 OR MORE 01/18/2024 N/A Encounters Encounter Location Date Provider Diagnosis [facility] [place] [address] [place] [address] 01/18/2024 Ivory Black Pain in left toe(s) [...] days Pending Test Test Name Order Date 94617-IRRKNKO NAIL, 6 OR MORE 01/18/2024 Next Appt Details Follow Up: prn, Reason: Provider Name:Ivory Davis , 10/06/2024 08:15:00 AM, [address] [place], [address], Procedure Notes * Category Sub-Category Detail Notes [...] of a nail nipper and/or dremel-type grinder set up operator, to a more viable healthy nail plate or bed tissue 6-10. Silver nitrate used for any petechial bleeding as necessary. Definitive antifungal treatment options have been reviewed and discussed with the patient. The patient chooses, no pharmaceutical tx - 30349 Progress Notes * Francois CA DDOB: 8 (78 yo M)Acc No.[id number]:01/18/2024 Progress Note Patient:?Francois Ca Provider:?Ivory Davis DPM :1945???Age:78 Y???Sex:Male Hugh e:01/18/2024 Address:[address] [place] [address] [place]le [id number] Pcp:MENDEZ Guerra Subjective: * Chief Complaints: * [...] ?Marital status: , . 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 * Medications:?TakingTylenol 3 25 MG Capsule [...] (3),Rx Management (4)? Plan: * Treatment: 2.?Onychomycosis?Procedure: 30318-JIZBMXR NAIL, 6 OR MORE 3.?Xerosis of skin? [...] of a nail nipper and/or dremel-type grinder set up operator, to a more viable healthy nail plate or bed tissue 6-10. Silver nitrate used for any petechial bleeding as necessary. Definitive antifungal treatment options have been reviewed and discussed with the patient. The patient chooses, no pharmaceutical tx - 37222.? * Procedure Codes:?69974 DEBRI DE NAIL, 6 OR MORE, Modifiers: XS 76030 X-RAY EXAM OF LEFT FOOT 3V, Modifiers: [...] Davis DPM Date:?2023 Generated for Eliana carrera/Zohaib/Yuitting on:?07/29/2024 08:47 AM EDT History and Physical Notes * [...]
--- OUTSIDE RECORDS SUMMARY | 2024-07-29 08:48 | XMS_ITS ---
Author Organization [facility] Address [address] [facility] [place] [address] Care Team Providers Care Magnetic Healer Name Role Phone Jag Heath Primary Care Provider Unav ailable Black, Ivory Unavailable [phone] Allergies No Known Allergies REASON FOR VISIT [...] Ordered Date Performed Result Body Sit e 78319-RYQMGXI NAIL, 6 OR MORE 04/18/2024 N/A Encounters Encounter Location Date Provider Diagnosis [facility] [address] [address] 04/18/2024 Ivory Davis Pain in left toe(s) [...] days Pending Test Test Name Order Date 62008-BAFYOGY NAIL, 6 OR MORE 04/18/2024 Next Appt Details Follow Up: prn, Reason: Provider Name:Ivory Davis , 10/06/2024 08:15:00 AM, [address] [place] [address], [address], Procedure Notes * Category Sub-Category Detail Notes [...] use of a nail nipper and/or dremel-type fiberglass grinder, to a more viable healthy nail [...] to maintain effectiveness in symptomatic relief - 64976 Progress Notes * Francois CA DDOB: 8 (78 yo M)Acc No.[id number]:04/18/2024 Progress Note Patient:?Francois CA D Provider:?Ivory Davis DPM :1945???Age:78 Y???Sex:Male Hugh e:04/18/2024 Address:[address] [place], [place] [id number] Pcp:MENDEZ Guerra Subjective: * Chief Complaints: * [...] ?Marital status: , . 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 * Medications:?TakingTylenol 3 25 MG Capsule [...] use of a nail nipper and/or dremel-type fiberglass grinder, to a more viable healthy nail [...] to maintain effectiveness in symptomatic relief - 27673.? * Procedure Codes:?76714 DEBRI DE NAIL, 6 OR MORE, Modifiers: [...] * Provider:Nick Davis DPM Date:?2024 Generated for Alberoti deandre/Zohaib/eTransmitting on:?07/29/2024 08:48 AM EDT History and Physical [...]
--- OUTSIDE RECORDS SUMMARY | 2024-07-29 08:48 | XMS_ITS | Patient Health Record ---
Author Organization [facility] [place] Address [address] [facility] [place] [address] Care Team Providers Care Side Panel Padder Name Role Phone Jag Heath Primary Care Provider Unav ailable Black, Ivory Unavailable [phone] Allergies No Known Allergies Results Component Value [...] Problem Acquired hammer toe of right foot (3887283965710842) Other hammer toe(s) (acquired), right foot (M20.41) Active confirmed Problem Acquired hammer toe of left foot (0798524544499061) Other hammer toe(s) (acquired), left foot (M20.42) Active confirmed Problem Atherosclerosis of [place] arteries of the extremities (692541093317598) Atherosclerosis of [place] artery of both lower extremities, with unspecified presence of clinical manifestation (I70.203) Active confirmed Q7(A), Q8(2B), Q9(1B,2 C) Problem Localized, primary osteoarthritis of the ankle and/or foot (673312904) Arthritis of joint of lesser toe, left (M19.072) Active confirmed Problem Localized, primary osteoarthritis of the ankle and/or foot (843131337) Arthritis of joint of lesser toe, right (M19.071) Active confirmed Vital Signs Blood pressure diastolic 70 mm Hg 06/30/2024 Height 5 ft 11 in in 06/30/2024 Blood pressure systolic 130 mm Hg 06/30/2024 Weight 200 lbs 06/30/2024 BMI 27.89 kg/m2 06/30/2024 Procedures Procedure Date Ordered Date Performed Result Body Sit e 26820-PUQUPOB NAIL, 6 OR MORE 10/05/2023 N/A 81200-Meni. Subungual Hematoma 10/05/2023 N/A 66637-IJAPHKA NAIL, 6 OR MORE 01/18/2024 N/A 49051-IJZBZOK NAIL, 6 OR MORE 04/18/2024 N/A 37071-DRUBNKG NAIL, 6 OR MORE 06/30/2024 N/A Encounters Encounter Location Date Provider Diagnosis [facility] [place] [address] [place] [address] 10/05/2023 Ivory Black Tinea unguium B35.1 ; Closed displaced fracture of distal phalanx of left great toe, initial encounter S92.422A ; Pain in right toe(s) M79.674 ; Pain in left toe(s) M79.675 ; Contusion of left great toe with damage to nail, initial encounter S90.212A and Localized edema R60.[address] [address] 10/26/2023 Ivory Black Pain in left toe(s) M79.675 ; Closed displaced fracture of distal phalanx of left great toe with routine healing, subsequent encounter S92.422D ; Localized edema R60.0 and Contusion of left great toe with damage to nail, subsequent encounter S90.212D [address] [address] 01/18/2024 Ivory Black Pain in left toe(s) M79.675 ; Closed displaced fracture of distal phalanx of left great toe with routine healing, subsequent encounter S92.422D ; Localized edema R60.0 ; Contusion of left great toe with damage to nail, subsequent encounter S90.212D ; Onychomycosis B35.1 ; Pain in right toe(s) M79.674 and Xerosis of skin L85.[address] [address] 04/18/2024 Ivory Black Pain in left toe(s) M79.675 ; Onychomycosis B35.1 ; Pain in right toe(s) M79.674 and Xerosis of skin L85.[address] [address] 06/30/2024 Ivory Black Pain in left toe(s) M79.675 ; Onychomycosis B35.1 ; Pain in right toe(s) M79.674 and Atherosclerosis of [place] artery of both lower extremities, with unspecified [...] skin (ICD-10 - L85.3) 06/30/2024 Atherosclerosis of [place] artery of both lower extremities, with unspecified [...] Treatment Pending Test Test Name Order Date 74021-OURJHWL NAIL, 6 OR MORE 10/05/2023 98364-FWFIGHD NAIL, 6 OR MORE 01/18/2024 43914-ZOIZMSI NAIL, 6 OR MORE 04/18/2024 11199-CBQFKRQ NAIL, 6 OR MORE 06/30/2024 47375-FUBHNFE NAIL, 6 OR MORE 06/22/2023 67011-Wvhf. Subungual Hematoma Nail Panel 04/13/2023 Next Appt Details Provider Name:Ivory Davis , 10/06/2024 08:15:00 AM, [address] [facility], [place], [address], Insurance Providers Payer Name Payer Address Payer Phone Subscriber Number Group Number Insured Name Patient Relationship to Insured Coverage Start Date Coverage End Date Medicare [employer] [address] [place] [address] [id number] Francois Ca Self - patient is the insured AARP Secondary to Medicare [address] [place] [address] [id number] Francois Ca Self - patient is the insured Medical (General) History Medical History History ICD Code Arthritis Cataracts Heart disease Joint implants/screws Surgical History Surgery Date(Month/Year) Hip Replacement 20 years ago Hospitalization History Reason Date(Month/Year) Urgent care - Toe injury 09/26/23
== END 2024-07-29 09:16 | disposition home or self-care (01) ==
PROVIDERS: PCP Nurse Practitioner Family; Visit Provider Urology
DX: N52.9 Male erectile dysfunction, unspecified (principal); N40.1 Benign prostatic hyperplasia with lower urinary tract symptoms; N13.8 Other obstructive and reflux uropathy
CPT/HCPCS: 99214; G2211

== ENCOUNTER → 2024-07-29 08:36 | Outpatient (BNVA) | payer MEDICARE, SELFPAY | PROVIDERS: PCP Nurse Practitioner Family; Visit Provider Urology | DX: N40.1 Benign prostatic hyperplasia with lower urinary tract symptoms (principal); N13.8 Other obstructive and reflux uropathy; N52.9 Male erectile dysfunction, unspecified | CPT/HCPCS: 99212 ==

== ENCOUNTER 2024-11-15 08:57 | Outpatient (AMB) | payer MEDICARE, SELFPAY ==
[2024-11-15 09:00] VITALS: BP 140/70; PULSE 74; RESP 16; TEMP 37.1; O2SAT 96; BMI 28.6
--- NOTE | 2024-11-15 09:00 | MHC.PC.OV ---
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 Required: No Accompanied by: Self / Same As Patient Allergies No Known Allergies Allergy (Verified 11/15/24 09:01) Tobacco use date assessed: 11/15/24 Fall risk assessment: 1 Fall in past year Last assessed Fall Risk: 11/15/24 Dental Screening Dental Screen Date: 11/15/24 Did you have a dental visit in the last 12 months?: Yes Did you have a dental problem in the last 6 months where you did not have access to dental care?: No Was dental information given to patient?: Patient has dentist [facility] Medical History Renal osteodystrophy Restrictive pattern present on pulmonary function testing COPD (chronic obstructive pulmonary disease) GERD (gastroesophageal reflux disease) Afib Aortic root dilatation Aortic aneurysm Cardiomyopathy PAF (paroxysmal atrial fibrillation) Surgical History S/P hip replacement Social History Household Members: Spouse Housing: House Alcohol intake: never Patient Tobacco Use Status: Former Tobacco user Years Smoked: 30 years ago e-Cigarette/Vaping Use: Never Used Second Hand Smoke Exposure: No service: No Current occupational status: retired Cognitive needs: No Hearing needs: No Vision needs: No Questionnaire PHQ-9 Over the last 2 weeks, how often have you been bothered by any of the following problems? 1. Little interest or pleasure in doing things: not at all 2. Feeling down, depressed, or hopeless: not at all 3. Trouble falling or staying asleep, or sleeping too much: not at all 4. Feeling tired or having little energy: not at all 5. Poor appetite or overeating: not at all 6. Feeling bad about yourself - or that you are a failure or have let yourself or your family down: not at all 7. Trouble concentrating on things, such as reading the newspaper or watching television: not at all 8. Moving or speaking so slowly that other people could have noticed. Or the opposite - being so fidgety or restless that you have been moving around a lot more than usual: not at all 9. Thoughts that you would be better off or of hurting yourself in some way: not at all Total score: 0 Depression Screening Interpretation: Negative Depression Screening Done: Yes 73456 - PHQ-9 Billing: Yes Source: Developed by Drs. Omid Herrera, Gina Urbina, Mike Gupta and colleagues, with an educational piter from [employer]. Thrive Questionnaire Date Thrive assessed: 05/16/24 I am a: Patient What is your living situation today?: I have a steady place to live Within the past 12 months, did the food you bought not last and you didn't have the money to get more?: Never true Within the past 12 months, did you worry whether your food would run out before you got money to buy more?: Never true Do you have trouble paying for medicines?: No Do you have trouble getting transportation to medical appointments?: No Do you have trouble paying your heating and electricity bill?: No Do you have trouble taking care of your child, family member or friend?: No Do you have trouble with day-to-day activities such as bathing, preparing meals, shopping, managing finances, etc.?: No Are you currently unemployed and looking for a job?: No Are you interested in more education?: No Please select the resources that you would like help with: None Currently or been in a relationship where the following occur: No concerns reported THRIVE Score: 0 DAVID-7 AMB Questionnaire DAVID-7 Date DAVID - 7 assessed: 11/15/24 Feeling nervous, anxious, or on edge: 0 = Not at all Not being able to stop or control worryin = Not at all Worrying too much about different things: 0 = Not at all Trouble relaxin = Not at all Being so restless that it is hard to sit still: 0 = Not at all Becoming easily annoyed or irritable: 0 = Not at all Feeling afraid as if something awful might happen: 0 = Not at all Total DAVID-7 score (0-4 normal; 5-9 mild; 10-14 moderate; 15-21 severe): 0 Source: Developed by Drs. Omid Herrera, Gina Urbina, Mike Gupta and colleagues, with an educational piter from [employer]. DAVID-7 Assessment Billing DAVID-7 Assessment Tool: DAVID-7 Assessment 51856 Physical exam (Primary Care) Tobacco/Smoking Status: Tobacco use Status Tobacco use date assessed 05/16/24 05/16/24 08:15 Patient Tobacco Use Status Former Tobacco user 05/16/24 08:15 e-Cigarette/Vaping Use Never Used 05/16/24 08:15 Depression Screening Interpretation: Negative Thrive Assessment: Date of Thrive Assessment Date Thrive assessed 05/16/24 07/29/24 08:38 Currently or been in a relationship where the following occur: No concerns reported Coding Additional Codes PHQ-9 - 86792 - PHQ-9 Billing: Yes ([id number]) DAVID-7 Assessment Billing - DAVID-7 Assessment Tool: DAVID-7 Assessment 28270 ([id number])
[2024-11-15 09:08] VITALS: BP 134/70
--- NOTE | 2024-11-15 09:08 | A.OFFVIS_ITS ---
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 denies any cp, increased sob. Elevated TSH: will cont to monitor, denies any excessive fatigue, constipation. Will check [facility] Medical History Renal osteodystrophy Restrictive pattern present on pulmonary function testing COPD (chronic obstructive pulmonary disease) GERD (gastroesophageal reflux disease) Afib Aortic root dilatation Aortic aneurysm Cardiomyopathy PAF (paroxysmal atrial fibrillation) Surgical History S/P hip replacement Social History Household Members: Spouse Housing: House Alcohol intake: never Patient Tobacco Use Status: Former Tobacco user Years Smoked: 30 years ago e-Cigarette/Vaping Use: Never Used Second Hand Smoke Exposure: No service: No Current occupational status: retired Cognitive needs: No Hearing needs: No Vision needs: No Questionnaire Medicare Wellness Checkup [age] What gender do you identify with?: male Have you been given information to help with the following?: yes: Hazards in your house that might hurt you? and yes: Keeping track of your medications? What is your race?: White Mini Mental State Exam (MMSE) Orientation What is the (year) (season) (date) (day) (month)?: year, season, date, day and month Where are we (state) (county) (town or city) (hospital) (floor)?: state, county, town or city, hospital/clinic and floor Registration Name of 3 unrelated objects clearly and slowly, then ask patient to repeat all 3 of them. (1st repeat determines score. Make sure they can repeat all three): object 1, object 2 and object 3 Attention & Calculation (CHOOSE ONE) Spell WORLD backwards (DLROW): 5 letters Recall Ask patient to repeat the 3 items from question #3.: object 1, object 2 and object 3 Language Show patient a wristwatch & ask what it is. Repeat for pencil.: watch and pencil Ask the patient to repeat the phrase 'No ifs, ands, or buts' after you.: correct Ask the patient to 'take a piece of paper with their right hand' 'fold paper in half' 'place paper on floor': take paper in right hand, fold paper in half and place paper on floor Print the sentence 'CLOSE YOUR EYES' on a piece. If patient actually closes eyes then score.: followed written direction Give patient a blank piece of paper & ask to write a sentence. Score if it contains a noun & verb.: sentence contains subject and verb Ask patient to copy figure of intersecting pentagons exactly. Score if all 10 angles & 2 intersects are included.: all 10 angles present & 2 are intersected Score Score: 30 Activity of Daily Living Bathing - sponge bath, tub bath or shower: receives no assistance (gets in/out by self, if usual bathing means Dressing - getting clothes from closets & drawers, including inner/outer garments & fasteners.: gets clothes & gets completely dressed without help Toileting - going to the 'toilet room' for urine/bowel elimination & cleaning self/arranging clothes: goes to toilet room, cleans self, arranges clothes without help Transfer: moves in & out of bed and chair without help (may use support object) Continence: controls urination/bowel movements completely by self Feeding: feeds self without help Total Score: 0 Information obtained from: patient Using telephone: independent Traveling: independent Shopping: independent Preparing meals: independent Housework: independent Taking medicine: independent Managing money: independent PHQ-9 Over the last 2 weeks, how often have you been bothered by any of the following problems? 1. Little interest or pleasure in doing things: not at all 2. Feeling down, depressed, or hopeless: not at all 3. Trouble falling or staying asleep, or sleeping too much: not at all 4. Feeling tired or having little energy: not at all 5. Poor appetite or overeating: not at all 6. Feeling bad about yourself - or that you are a failure or have let yourself or your family down: not at all 7. Trouble concentrating on things, such as reading the newspaper or watching television: not at all 8. Moving or speaking so slowly that other people could have noticed. Or the opposite - being so fidgety or restless that you have been moving around a lot more than usual: not at all 9. Thoughts that you would be better off or of hurting yourself in some way: not at all Total score: 0 Depression Screening Interpretation: Negative Depression Screening Done: Yes 43348 - PHQ-9 Billing: Yes Source: Developed by Drs. Omid Herrera, Gina Urbina, Mike Gupta and colleagues, with an educational piter from [employer]. Physical Exam Vital Signs: Last Vital Signs Temp 98.8 F 11/15/24 09:00 Pulse 74 11/15/24 09:00 Resp 16 11/15/24 09:00 BP 140/70 H 11/15/24 09:00 Pulse Ox 96 11/15/24 09:00 Oxygen Delivery Method Room Air 11/15/24 09:00 BMI result Body Mass Index 28.6 Resp Other: scattered wheezes. Cardio Heart sounds: S1 normal heart sound present, S2 normal heart sound present and Murmur heart sound present diastolic Neuro Other: tandem walk difficult, uses a cane, able to stand from sitting position, + whisper test, neg rhomberg Assessment & Plan Assessment & Plan (1) Elevated TSH: Code(s): R79.89 - Other specified abnormal findings of blood chemistry (2) Dyslipidemia: Code(s): E78.5 - Hyperlipidemia, unspecified (3) Need for hepatitis B screening test: Code(s): Z11.59 - Encounter for screening for other viral diseases (4) Encounter for subsequent annual wellness visit (AWV) in Medicare patient: Code(s): Z00.00 - Encounter for general adult medical examination without abnormal findings Plan . Orders: Orders Comprehensive [place]. Panel Fast Today E78.5 - Hyperlipidemia, unspecified, R79.89 - Other specified abnormal findings of blood chemistry UA CC w/rflx Micro + Cult Today E78.5 - Hyperlipidemia, unspecified, R79.89 - Other specified abnormal findings of blood chemistry Complete Blood Count Auto Diff Today E78.5 - Hyperlipidemia, unspecified, R79.89 - Other specified abnormal findings of blood chemistry TSH reflex Free T4 Today E78.5 - Hyperlipidemia, unspecified, R79.89 - Other specified abnormal findings of blood chemistry Lipid Panel Today E78.5 - Hyperlipidemia, unspecified, R79.89 - Other specified abnormal findings of blood chemistry Hepatitis A,B,C Profile Today Z11.59 - Encounter for screening for other viral diseases Quality Reporting (2020) Depression/Bipolar (159/160/161/177) PHQ-9: Total score: 0 Coding Level of Care Code Medicare Subsequent (G0439) Est Pt Level 3 (74926) Diagnoses Elevated TSH R79.89 Dyslipidemia E78.5 Need for hepatitis B screening test Z11.59 Encounter for subsequent annual wellness visit (AWV) in Medicare patient Z00.00 CPT Codes Advance Care Planning - Time spent: 1-15 minutes, on File ([id number]) Additional Codes PHQ-9 - 01038 - PHQ-9 Billing: Yes ([id number]) Advance Care Planning Forms completed: Health Care Proxy (on file), MOLST (scanned) and Living will (declined) Time spent: 1-15 minutes, on File Actual minutes spent: 5
--- OUTSIDE RECORDS SUMMARY | 2024-11-15 09:46 | XMS_ITS | Clinical Summary ---
Author Organization [facility] Address [address] [place] [address] Phone Care Team Providers Care Wig Maker Name Role Phone Jag Khan NP Primary Care Provider [phone] Allergies No known active allergies Medications Acetaminophen [...] Visit [facility] [address] [place] [address] [place] [address] Allen Quintanilla MD [address] [facility] [address] [place] [address] Health Maintenance Due Date Last Done Comments Pneumococcal Vaccine: 50+ Ye ars (1 of 2 - PCV) 1964 Influenza Vaccine (#1) 2024 Hepatitis B Vaccine Aged Out No longe r eligible based on patient's age to complete this topic Insurance Medicare [facility] Medicare [facility] Care Teams Wig Maker Relationship Specialty Start Date End Date Jag Khan NP [address] [place], [place] [id number] PCP - General Nurse Practitioner 08/28/21
--- OUTSIDE RECORDS SUMMARY | 2024-11-15 09:46 | XMS_ITS | Patient Health Record ---
Author Organization [facility] kaitlin NoelMarcus Address [address] [facility] [place] [address] Care Team Providers Care Financial Analysis Advisor Name Role Phone Jag Heath Primary Care Provider Unav ailable Black, Ivory Unavailable [phone] Allergies No Known Allergies Results Component Value Reference Range Notes X ray : Foot, left 3V Reviewed date:01/18/2024 11:35:00 AM Interpretation:See Examination above Performing Lab: Notes/Report: See Examination above Reason For Referral No Information Medications Medication SIG (Take, Route, Frequency, Duration) Notes Start Date End Date Status eliquis 5 mg Active Magnesium 400 MG as directed Orally Active Metoprolol Succinate 25 MG 1 capsule Orally Once a day Active Entresto 24-26 MG 1 tablet Orally Twic e a day Active Tylenol 325 MG 1 capsule as needed Orally every 6 hrs Active Ammonium Lactate 12 % 1 application Externally Twice a day; Duration: 30 days Not-Taking Ammonium Lactate 12 % 1 application Externally to affected areas of skin to feet except for between the toes Twice a day; Duration: 30 days Active Iron 325 (65 Fe) MG 1 tablet Orally Thre e times a Week Active Atorvastatin Calcium 10 MG 1 tablet Orally Once a day Active Finasteride 5 MG 1 tablet Orally Once a day Active Terazosin HCl 5 MG 1 capsule at bedtime Orally Once a day Active Amiodarone HCl 200 MG 1 tablet Orally On ce a day Active Immunizations Vaccine Route Administration Date Status Comme nts Influenza Unknown 11/15/2023 Administered Social History Tobacco Use: Social History Observation [...] (Standard) Question Answer Notes Tobacco use: Nonsmoker AUDIT-C (Standard) Question Answer Notes Did you have a drink containing alcohol in the p ast year? No Points 0 Interpretation Negative Problems Problem Type SNOMED Code ICD Code Onset Dates Problem Status W/U Status Risk Notes Problem Bilateral atherosclerosis of arteries of lower limbs (disorder) (07102486041586611 ) Atherosclerosis of [place] artery of both lower extremities, with unspecified presence of clinical manifestation (I70.203) Active confirmed Q7(A), Q8(2B), Q9(1B,2 C) Vital Signs Blood pressure diastolic 70 mm Hg 10/06/2024 Height 5 ft 11 in in 10/06/2024 Blood pressure systolic 130 mm Hg 10/06/2024 Weight 200 lbs 10/06/2024 BMI 27.89 kg/m2 10/06/2024 Procedures Procedure Date Ordered Date Performed Result Body Sit e 87671-KCDVBHW NAIL, 6 OR MORE 01/18/2024 N/A 05456-PIETTKR NAIL, 6 OR MORE 04/18/2024 N/A 29633-IMNUWEK NAIL, 6 OR MORE 06/30/2024 N/A 61823-UHABYHV NAIL, 6 OR MORE 10/06/2024 N/A 10140-GWUN SKIN LESIONS, 2 TO 4 10/06/2024 N/A Encounters Encounter Location Date Provider Diagnosis [address] [address] 01/18/2024 Ivory Black Pain in left toe(s) M79.675 ; Closed displaced fracture of distal phalanx of left great toe with routine healing, subsequent encounter S92.422D ; Localized edema R60.0 ; Contusion of left great toe with damage to nail, subsequent encounter S90.212D ; Onychomycosis B35.1 ; Pain in right toe(s) M79.674 and Xerosis of skin L85.[address] [facility] [address] 04/18/2024 Ivory Black Pain in left toe(s) M79.675 ; Onychomycosis B35.1 ; Pain in right toe(s) M79.674 and Xerosis of skin L85.[address] [address] 06/30/2024 Ivory Black Pain in left toe(s) M79.675 ; Onychomycosis B35.1 ; Pain in right toe(s) M79.674 and Atherosclerosis of [place] artery of both lower extremities, with unspecified presence of clinical manifestation I70.[address] [address] 10/06/2024 Ivory Black Onychomycosis B35.1 ; Atherosclerosis of [place] artery of both lower extremities, with unspecified presence of clinical manifestation I70.203 ; Pain in left toe(s) M79.675 ; Pain in right toe(s) M79.674 and Skin excoriation T14.8XXA Assessments Encounter Date Diagnosis (ICD Code) Assessment Notes Treatment Notes Treatment Clinical Notes Section Notes 01/18/2024 Pain in left toe(s) (ICD-10 - M79.675) 04/18/2024 Pain in left toe(s) (ICD-10 - M79.675) 04/18/2024 Onychomycosis (ICD-10 - B35.1) 06/30/2024 Pain in left toe(s) (ICD-10 - M79.675) 10/06/2024 Onychomycosis (ICD-10 - B35.1) 10/06/2024 Atherosclerosis of [place] artery of both lower extremities, with unspecified presence of clinical manifestation (ICD-10 - I70.203) Q7(A), Q8(2B), Q9(1B,2C) 10/06/2024 Pain in left toe(s) (ICD-10 - M79.675) 06/30/2024 Pain in right toe(s) (ICD-10 - M79.674) 06/30/2024 Onychomycosis (ICD-10 - B35.1) 04/18/2024 Pain in right toe(s) (ICD-10 - M79.674) 01/18/2024 Closed displaced fracture of distal phalanx of left great toe with routine healing, subsequent encounter (ICD-10 - S92.422D) 01/18/2024 Localized edema (ICD-10 - R60.0) 04/18/2024 Xerosis of skin (ICD-10 - L85.3) 06/30/2024 Atherosclerosis of [place] artery of both lower extremities, with unspecified presence of clinical manifestation (ICD-10 - I70.203) Q7(A), Q8(2B), Q9(1B,2C) 10/06/2024 Pain in right toe(s) (ICD-10 - M79.674) 10/06/2024 Skin excoriation (ICD-10 - T14.8XXA) 01/18/2024 Contusion of left great toe with damage to nail, subsequent encounter (ICD-10 - S90.212D) 01/18/2024 Onychomycosis (ICD-10 - B35.1) 01/18/2024 Pain in right toe(s) (ICD-10 - M79.674) 01/18/2024 Xerosis of skin (ICD-10 - L85.3) 10/06/2024 Other Plan Of Treatment Pending Test Test Name Order Date 25720-RDPRWPR NAIL, 6 OR MORE 10/05/2023 47711-FUYLWOK NAIL, 6 OR MORE 01/18/2024 09244-IJXMLNJ NAIL, 6 OR MORE 04/18/2024 40924-RMIBXFK NAIL, 6 OR MORE 06/30/2024 27453-IIJGRNF NAIL, 6 OR MORE 06/22/2023 34656-PQDYGSC NAIL, 6 OR MORE 10/06/2024 86423-AAPU SKIN LESIONS, 2 TO 4 10/07/19 25 49808-Kxvd. Subungual Hematoma 4 Nail Panel 04/13/2023 Next Appt Details Provider Name:Ivory Davis , 01/05/2025 08:00:00 AM, [address] [facility], [place], [address], Insurance Providers Payer Name Payer Address Payer Phone Subscriber Number Group Number Insured Name Patient Relationship to Insured Coverage Start Date Coverage End Date Medicare National Govt Svcs Inc [address] [place] [address] [id number] Francois Ca Self - patient is the insured AARP Secondary to Medicare [address] [place] [id number] Francois Ca Self - patient is the insured Medical (General) History Medical History History ICD Code Arthritis Cataracts Heart disease Joint implants/screws Skin ulcer of toe of left foot, limited to breakdown of skin L97.521 Arthritis of joint of lesser toe, right M19.071 Other hammer toe(s) (acquired), left irina t M20.42 Arthritis of joint of lesser toe, left M 19.072 Other hammer toe(s) (acquired), right fo ot M20.41 Surgical History Surgery Date(Month/Year) Hip Replacement 20 years ago Hospitalization History Reason Date(Month/Year) Urgent care - Toe injury 09/26/23
--- OUTSIDE RECORDS SUMMARY | 2024-11-15 09:46 | XMS_ITS | Patient Health Record ---
Author Organization [facility] Address [address] [place] [address] Care Team Providers Care Track Leader Name Role Phone Mani Chen Primary Care Provider Omid Ortiz Unavailable [phone] Reason For Referral No Information Medications Medication SIG (Take, Route, Frequency, Duration) Notes Start Date End Date Status Pantoprazole Sodium 40 MG TAKE ONE TABLE T BY MOUTH EVERY DAY for 90 Active Social History Tobacco Use: Social History Observation Description Date Details (start date - stop date) Former Smoker NA - NA Tobacco Use/Smoking Question Answer Notes Patient is a former smoker Alcohol Screen Question Answer Notes Did you have a drink containing alcohol in the p ast year? No Points 0 Interpretation Negative Section Notes: Former smoker over 30 years ago; no alcohol Problems Problem Type SNOMED Code ICD Code Onset Dates Problem Status W/U Status Risk Notes Problem 205341837 Encounter for screening for malignant neoplasm of colon (Z12.11) Active confirmed Problem 413891107 Gastroesophageal reflux disease, esophagitis presence not specified (K21.9) Active confirmed Plan Of Treatment Future Test Test Name Order Date COLONOSCOPY 06/30/2017 Insurance Providers Payer Name Payer Address Payer Phone Subscriber Number Group Number Insured Name Patient Relationship to Insured Coverage Start Date Coverage End Date MEDICARE OF [place] [address] [place] [address] [id number] CHAVAPETR Self - patient is the insured [facility] SUPPLEMENTAL PL[facility] [address] [place] [address] [id number] YAZANBOBPETR Self - patient is the insured Medical (General) History Medical History History ICD Code Denies SD,DM,CVA,Lung disease,renal dise ase Neg screenong colonoscopy in 2006 except for a hyperplastic polyp, diverticulosis, and internal hemorrhoids GERD--2 EGD's in 2006 with e rosive esophagitis and an esophageal stricture--s/p balloon dilation--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
== END 2024-11-15 11:17 | disposition home or self-care (01) ==
LOC: HO.HMCC 08:58
PROVIDERS: PCP Nurse Practitioner Family; Visit Provider Nurse Practitioner Family
DX: Z00.00 Encounter for general adult medical examination without abnormal findings (principal); E78.5 Hyperlipidemia, unspecified; R79.89 Other specified abnormal findings of blood chemistry; Z11.59 Encounter for screening for other viral diseases

== ENCOUNTER → 2024-11-15 08:57 | Outpatient (BNVA) | payer MEDICARE, SELFPAY | PROVIDERS: PCP Nurse Practitioner Family; Visit Provider Nurse Practitioner Family | DX: Z00.00 Encounter for general adult medical examination without abnormal findings (principal); E78.5 Hyperlipidemia, unspecified; R79.89 Other specified abnormal findings of blood chemistry; Z79.899 Other long term (current) drug therapy | CPT/HCPCS: 96127; 99212 ==

== ENCOUNTER 2024-11-17 09:30 | Outpatient (REF) | payer MEDICARE, SELFPAY ==
--- OUTSIDE RECORDS SUMMARY | 2024-11-17 10:16 | XMS_ITS | Patient Health Record ---
Author [facility] kaitlin NoelMarcus Address [address] [facility] [place] [address] Care Team Providers Care Wheel Worker Name Role Phone Jag Heath Primary Care Provider Unav ailable Black, Ivory Unavailable [phone] Allergies No Known Allergies Results Component Value [...] atherosclerosis of arteries of lower limbs (disorder) (12333699006974597 ) Atherosclerosis of [place] artery of both lower extremities, with unspecified presence of clinical manifestation (I70.203) Active confirmed Q7(A), Q8(2B), Q9(1B,2 C) Vital Signs Blood pressure diastolic 70 mm Hg 10/06/2024 Height 5 ft 11 in in 10/06/2024 Blood pressure systolic 130 mm Hg 10/06/2024 Weight 200 lbs 10/06/2024 BMI 27.89 kg/m2 10/06/2024 Procedures Procedure Date Ordered Date Performed Result Body Sit e 02115-KZWYOHS NAIL, 6 OR MORE 01/18/2024 N/A 82771-ABPUTLH NAIL, 6 OR MORE 04/18/2024 N/A 77499-HQZVGZW NAIL, 6 OR MORE 06/30/2024 N/A 97261-LFHUYSQ NAIL, 6 OR MORE 10/06/2024 N/A 23113-XTWQ SKIN LESIONS, 2 TO 4 10/06/2024 N/A Encounters Encounter Location Date Provider Diagnosis [address] [address] 01/18/2024 Ivory Black Pain in left toe(s) M79.675 ; Closed displaced fracture of distal phalanx of left great toe with routine healing, subsequent encounter S92.422D ; Localized edema R60.0 ; Contusion of left great toe with damage to nail, subsequent encounter S90.212D ; Onychomycosis B35.1 ; Pain in right toe(s) M79.674 and Xerosis of skin L85.[address] [facility] [address] 04/18/2024 Ivory Black Pain in left toe(s) M79.675 ; Onychomycosis B35.1 ; Pain in right toe(s) M79.674 and Xerosis of skin L85.[address] [address] 06/30/2024 Ivory Black Pain in left toe(s) M79.675 ; Onychomycosis B35.1 ; Pain in right toe(s) M79.674 and Atherosclerosis of [place] artery of both lower extremities, with unspecified presence of clinical manifestation I70.[address] [address] 10/06/2024 Ivory Black Onychomycosis B35.1 ; Atherosclerosis of [place] artery of both lower extremities, with unspecified [...] Onychomycosis (ICD-10 - B35.1) 10/06/2024 Atherosclerosis of [place] artery of both lower extremities, with unspecified [...] skin (ICD-10 - L85.3) 06/30/2024 Atherosclerosis of [place] artery of both lower extremities, with unspecified [...] Treatment Pending Test Test Name Order Date 26780-ZBEQWYJ NAIL, 6 OR MORE 10/05/2023 68445-CLTWSXX NAIL, 6 OR MORE 01/18/2024 65472-OPYTPTL NAIL, 6 OR MORE 04/18/2024 22125-KSTJEHL NAIL, 6 OR MORE 06/30/2024 66811-DRCKQCT NAIL, 6 OR MORE 06/22/2023 57220-FFWOMYU NAIL, 6 OR MORE 10/06/2024 54966-KHEU SKIN LESIONS, 2 TO 4 10/07/19 25 04896-Bgdg. Subungual Hematoma 4 Nail Panel 04/13/2023 Next Appt Details Provider Name:Ivory Davis , 01/05/2025 08:00:00 AM, [address] [facility], [place], [address], Insurance Providers Payer Name Payer Address Payer Phone Subscriber Number Group Number Insured Name Patient Relationship to Insured Coverage Start Date Coverage End Date Medicare National Govt Svcs Inc [address] [place] [address] [id number] Francois Ca Self - patient is the insured AARP Secondary to Medicare [address] [place] [address] [id number] Francois Ca Self - patient is the [...]
--- OUTSIDE RECORDS SUMMARY | 2024-11-17 10:16 | XMS_ITS | Clinical Summary ---
Author Organization [facility] Address [address] [place] [address] Phone Care Team Providers Care Research Librarian Name Role Phone Jag Khan NP Primary Care Provider [phone] Allergies No known active allergies Medications Acetaminophen [...] Visit [facility] [address] [place] [address] [place] [address] Allen Quintanilla MD [address] [facility] [facility] [address] [facility] [address] [place] [address] Health Maintenance Due Date Last Done Comments Pneumococcal Vaccine: 50+ Ye ars (1 of 2 - PCV) 1966 Influenza Vaccine (#1) 2024 Hepatitis B Vaccine Aged Out No longe r eligible based on patient's age to complete this topic Insurance Medicare [facility] Medicare [facility] Care Teams Research Librarian Relationship Specialty Start Date End Date Jag Khan NP [address] [place], [place] [id number] PCP - General Nurse Practitioner 08/28/21
--- OUTSIDE RECORDS SUMMARY | 2024-11-17 10:16 | XMS_ITS | Patient Health Record ---
Author Organization [facility] Address [address] [place] [address] Care Team Providers Care Retail Delivery Driver Name Role Phone Mani Chen Primary Care Provider Omid Ortiz Unavailable [phone] Reason For Referral No Information Medications Medication [...] Problem Status W/U Status Risk Notes Problem 057900445 Encounter for screening for malignant neoplasm of colon (Z12.11) Active confirmed Problem 425551532 Gastroesophageal reflux disease, esophagitis presence not specified (K21.9) Active confirmed Plan Of Treatment Future Test Test Name Order Date COLONOSCOPY 06/30/2017 Insurance Providers Payer Name Payer Address Payer Phone Subscriber Number Group Number Insured Name Patient Relationship to Insured Coverage Start Date Coverage End Date MEDICARE OF [place] [address] [place] [address] [phone] [id number] CHAVAPETR Self - patient is the insured [facility] SUPPLEMENTAL PLAN [address] [place] [address] [phone] [id number] YAZANBOBPETR Self - patient is the insured Medical (General) History Medical History History ICD Code Denies AK,DM,CVA,Lung disease,renal dise ase Neg screenong colonoscopy in 2006 except for a hyperplastic polyp, diverticulosis, and internal hemorrhoids GERD--2 EGD's in 2006 with e rosive esophagitis and an esophageal stricture--s/p balloon dilation--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
[2024-11-17 14:01] LABS: Alanine Aminotransferase 21 U/L (0-40); Albumin Level 3.9 g/dL (3.5-5.0); Alkaline Phosphatase 99 U/L (39-117); Aspartate Amino Transferase 30 U/L (5-37); Total Protein 7.1 g/dL (6.5-8.0)
== END 2024-11-17 09:31 | disposition home or self-care (01) ==
LOC: HO.HMGCLDS 09:30
PROVIDERS: PCP Nurse Practitioner Family; Visit Provider Internal Medicine Cardiovascular Disease
DX: Z51.81 Encounter for therapeutic drug level monitoring (principal); Z13.29 Encounter for screening for other suspected endocrine disorder
CPT/HCPCS: 36415; 80076; 84443

== ENCOUNTER 2024-11-30 07:35 | Outpatient (REF) | payer MEDICARE, SELFPAY ==
--- NOTE | ~2024-11-30 | CT_ITS ---
CLINICAL HISTORY: R93.89 - Abnormal findings on diagnostic imaging of other specified body... CT chest without contrast Comparison: 12/07/2023 Findings: Lung gonzalez are clear without acute infiltrates. Stable bilateral apical pleural scarring. Stable posterior left upper lobe scarring. No significant mediastinal adenopathy. Stable mild aortic root prominence. Ascending aorta is normal caliber. Degenerative change in thoracic spine. No significant focal bony abnormalities. Cholelithiasis without gallbladder distention. Small hepatic cysts incidentally noted. Impression: No significant abnormality This document has been electronically signed by: Diaz Valiente MD on 11/30/2024 19:32:20
--- OUTSIDE RECORDS SUMMARY | 2024-11-30 07:37 | XMS_ITS | Patient Health Record ---
Author Organization [facility] Address [address] [place] [address] Care Team Providers Care Sld Inclusion Teacher Name Role Phone Mani Chen Primary Care Provider [phone] Omid Ortiz Unavailable [phone] Reason For Referral No Information Medications Medication [...] Problem Status W/U Status Risk Notes Problem 946749303 Encounter for screening for malignant neoplasm of colon (Z12.11) Active confirmed Problem 502172210 Gastroesophageal reflux disease, esophagitis presence not specified (K21.9) Active confirmed Plan Of Treatment Future Test Test Name Order Date COLONOSCOPY 06/30/2017 Insurance Providers Payer Name Payer Address Payer Phone Subscriber Number Group Number Insured Name Patient Relationship to Insured Coverage Start Date Coverage End Date MEDICARE OF [place] [address] [place] [address] [id number] CHAVAPETR Self - patient is the insured [facility] SUPPLEMENTAL PLAN [address] [place] [address] [id number] YAZANBOBPETR Self - patient is the insured Medical (General) History Medical History History ICD Code Denies AR,DM,CVA,Lung disease,renal dise ase Neg screenong colonoscopy in 2006 except for a hyperplastic polyp, diverticulosis, and internal hemorrhoids GERD--2 EGD's in 2006 with e rosive esophagitis and an esophageal stricture--s/p balloon dilation--has done well on watermaster PPI Surgical History Surgery Date(Month/Year) Bilateral hip replacements in 2002 and 2 005 Cataract surgery--bilateral Laparotomy in the for a volvulus- -no resection
--- OUTSIDE RECORDS SUMMARY | 2024-11-30 07:37 | XMS_ITS | Clinical Summary ---
Author Organization [facility] Address [address] [place] [address] Phone Care Team Providers Care Farm Supervisor Name Role Phone Jag Khan NP Primary Care Provider [phone] Allergies No known active allergies Medications Acetaminophen [...] Visit [facility] [address] [place] [address] [place] [address] Allen Quintanilla MD [address] [facility] [address] [place] [address] Health Maintenance Due Date Last Done Comments Pneumococcal Vaccine: 50+ Ye ars (1 of 2 - PCV) 1966 Influenza Vaccine (#1) 2024 Hepatitis B Vaccine Aged Out No longe r eligible based on patient's age to complete this topic Insurance Medicare [facility] Medicare [facility] Care Teams Farm Supervisor Relationship Specialty Start Date End Date Jag Khan NP [address] [place], [place] [id number] PCP - General Nurse Practitioner 08/28/21
--- OUTSIDE RECORDS SUMMARY | 2024-11-30 07:37 | XMS_ITS | Patient Health Record ---
Author Organization [facility] kaitlin NoelMarcus Address [address] [facility] [place] [address] Care Team Providers Care Experimental Preflight Mechanic Name Role Phone Jag Heath Primary Care Provider Unav ailable Black, Ivory Unavailable [phone] Allergies No Known Allergies Results Component Value [...] atherosclerosis of arteries of lower limbs (disorder) (51958997382531097 ) Atherosclerosis of [place] artery of both lower extremities, with unspecified presence of clinical manifestation (I70.203) Active confirmed Q7(A), Q8(2B), Q9(1B,2 C) Vital Signs Blood pressure diastolic 70 mm Hg 10/06/2024 Height 5 ft 11 in in 10/06/2024 Blood pressure systolic 130 mm Hg 10/06/2024 Weight 200 lbs 10/06/2024 BMI 27.89 kg/m2 10/06/2024 Procedures Procedure Date Ordered Date Performed Result Body Sit e 12739-GIUQJVZ NAIL, 6 OR MORE 01/18/2024 N/A 55829-IZYGXRQ NAIL, 6 OR MORE 04/18/2024 N/A 86593-KJOYWTE NAIL, 6 OR MORE 06/30/2024 N/A 94748-PNWONOU NAIL, 6 OR MORE 10/06/2024 N/A 18856-BUZA SKIN LESIONS, 2 TO 4 10/06/2024 N/A Encounters Encounter Location Date Provider Diagnosis [address] [address] 01/18/2024 Ivory Black Pain in left toe(s) M79.675 ; Closed displaced fracture of distal phalanx of left great toe with routine healing, subsequent encounter S92.422D ; Localized edema R60.0 ; Contusion of left great toe with damage to nail, subsequent encounter S90.212D ; Onychomycosis B35.1 ; Pain in right toe(s) M79.674 and Xerosis of skin L85.3 [facility] [address] 04/18/2024 Ivory Black Pain in left toe(s) M79.675 ; Onychomycosis B35.1 ; Pain in right toe(s) M79.674 and Xerosis of skin L85.[address] [address] 06/30/2024 Ivory Black Pain in left toe(s) M79.675 ; Onychomycosis B35.1 ; Pain in right toe(s) M79.674 and Atherosclerosis of [place] artery of both lower extremities, with unspecified presence of clinical manifestation I70.[address] [address] 10/06/2024 Ivory Black Onychomycosis B35.1 ; Atherosclerosis of [place] artery of both lower extremities, with unspecified [...] - M79.675) 04/18/2024 Onychomycosis (ICD-10 - B35.1) 10/06/2024 Onychomycosis (ICD-10 - B35.1) 10/06/2024 Atherosclerosis of [place] artery of both lower extremities, with unspecified presence of clinical manifestation (ICD-10 - I70.203) Q7(A), Q8(2B), Q9(1B,2C) 06/30/2024 Pain in left toe(s) (ICD-10 - M79.675) 06/30/2024 Pain in right toe(s) (ICD-10 - M79.674) 06/30/2024 Onychomycosis (ICD-10 - B35.1) 10/06/2024 Pain in left toe(s) (ICD-10 - M79.675) 04/18/2024 Pain in right toe(s) (ICD-10 - M79.674) 01/18/2024 Closed displaced fracture of distal phalanx of left great toe with routine healing, subsequent encounter (ICD-10 - S92.422D) 01/18/2024 Localized edema (ICD-10 - R60.0) 04/18/2024 Xerosis of skin (ICD-10 - L85.3) 10/06/2024 Pain in right toe(s) (ICD-10 - M79.674) 06/30/2024 Atherosclerosis of [place] artery of both lower extremities, with unspecified presence of clinical manifestation (ICD-10 - I70.203) Q7(A), Q8(2B), Q9(1B,2C) 10/06/2024 Skin excoriation (ICD-10 - T14.8XXA) 01/18/2024 Contusion of left great toe with damage to nail, subsequent encounter (ICD-10 - S90.212D) 01/18/2024 Onychomycosis (ICD-10 - B35.1) 01/18/2024 Pain in right toe(s) (ICD-10 - M79.674) 01/18/2024 Xerosis of skin (ICD-10 - L85.3) 10/06/2024 Other Plan Of Treatment Pending Test Test Name Order Date 47498-IPNWAKU NAIL, 6 OR MORE 10/05/2023 76340-UZTOGXK NAIL, 6 OR MORE 01/18/2024 04195-ITNAJBL NAIL, 6 OR MORE 04/18/2024 57934-FAMDUCV NAIL, 6 OR MORE 06/30/2024 66445-HPZWKLG NAIL, 6 OR MORE 06/22/2023 78418-HMBXWTC NAIL, 6 OR MORE 10/06/2024 15559-EDKP SKIN LESIONS, 2 TO 4 10/07/19 25 44225-Lgqd. Subungual Hematoma 4 Nail Panel 04/13/2023 Next Appt Details Provider Name:Ivory Davis , 01/05/2025 08:00:00 AM, [address] [facility], [place], [address], Insurance Providers Payer Name Payer Address Payer Phone Subscriber Number Group Number Insured Name Patient Relationship to Insured Coverage Start Date Coverage End Date Medicare National Govt Svcs Inc [address] [place] [address] [phone] [id number] Francois Ca Self - patient is the insured AARP Secondary to Medicare [address] [place] [address] [id number] Francois Ca Self - patient is the [...]
== END 2024-11-30 07:36 | disposition home or self-care (01) ==
LOC: HO.CT 07:35
PROVIDERS: PCP Nurse Practitioner Family; Visit Provider Internal Medicine Pulmonary Disease
DX: R93.89 Abnormal findings on diagnostic imaging of other specified body structures (principal)
CPT/HCPCS: 71250

== ENCOUNTER → 2024-11-30 07:36 | Outpatient (BNV) | payer MEDICARE, SELFPAY | PROVIDERS: PCP Nurse Practitioner Family; Visit Provider Radiology Diagnostic Radiology | DX: J94.8 Other specified pleural conditions (principal) | CPT/HCPCS: 71250 ==

== ENCOUNTER 2024-12-22 09:18 | Outpatient (REF) | payer MEDICARE, SELFPAY ==
[2024-12-22 13:38] LABS: Appearance Urine Clear; Glucose Urine UA Negative (Negative); PH 6.0 (5.0-9.0); Specific Gravity - Urine 1.025 (1.005-1.025); UMIC TRIGGER UACC YES
[2024-12-22 13:41] LABS: UACC Culture Trigger YES
[2024-12-22 14:31] LABS: MANUAL DIFF FLAG NO
[2024-12-22 14:32] LABS: Microalbum/Creatinine Ratio Ur 6.0 ug/mg cr (<30)
[2024-12-22 14:34] LABS: Hematocrit 44.3 % (42.0-52.0); Hemoglobin 13.8 g/dl (14.0-18.0); Imm Gran Abs Auto 0.01 X10*3/uL (0.00-0.03); Imm Gran Pct Auto 0.2 % (0.0-0.4); Lymphocytes Absolute Auto 1.4 X10*3/uL (1.2-4.9); Mean Corpuscular HGB Conc 31.2 g/dl (31.0-36.0); Mean Corpuscular Hemoglobin 29.2 pg (27.0-33.0); Mean Corpuscular Volume 93.7 fL (80.0-98.0); NRBC Abs Auto 0.000 X10*3/uL (0.0-0.012); NRBC Pct Auto 0.0 /100WBC (0.0-0.2); Platelet Count 239 X10*3/uL (160-400); Red Blood Count 4.73 X10*6/uL (4.60-5.80); White Blood Count 5.9 X10*3/uL (4.8-10.8)
[2024-12-22 15:03] LABS: Alanine Aminotransferase 16 U/L (0-40); Albumin Level 4.0 g/dL (3.5-5.0); Alkaline Phosphatase 86 U/L (39-117); Anion Gap 12 (12-20); Aspartate Amino Transferase 32 U/L (5-37); Blood Urea Nitrogen 22 mg/dL (9-16); Calcium 8.7 mg/dL (8.4-10.2); Carbon Dioxide 27 mmol/L (22-29); Chloride 108 mmol/L (96-108); Cholesterol 130 mg/dL (<200); Estimated Glomerular Filt Rate 56; HDL Cholesterol 38 mg/dL (>40); Potassium 4.5 mmol/L (3.3-5.1); Sodium 142 mmol/L (135-145); Total Protein 7.0 g/dL (6.5-8.0); Triglycerides 99 mg/dL (<150)
[2024-12-22 16:40] LABS: Anion Gap 14 (12-20); Blood Urea Nitrogen 22 mg/dL (9-16); Calcium 8.6 mg/dL (8.4-10.2); Carbon Dioxide 25 mmol/L (22-29); Chloride 108 mmol/L (96-108); Estimated Glomerular Filt Rate 56; Magnesium 2.2 mg/dL (1.6-2.6); Potassium 4.6 mmol/L (3.3-5.1); Sodium 142 mmol/L (135-145)
[2024-12-22 17:02] LABS: Parathyroid Hormone Intact 106.3 pg/mL (8.7-77.1)
== END 2024-12-22 09:19 | disposition home or self-care (01) ==
LOC: HO.HMGCLDS 09:18
PROVIDERS: Absent Provider Internal Medicine Nephrology; PCP Nurse Practitioner Family; Visit Provider Nurse Practitioner Family
DX: N18.31 Chronic kidney disease, stage 3a (principal); N25.0 Renal osteodystrophy; E78.5 Hyperlipidemia, unspecified; R79.89 Other specified abnormal findings of blood chemistry
CPT/HCPCS: 36415; 80051; 80053; 80061; 81001; 82043; 82306; 82310; 82565; 82570; 83735; 83970; 84443; 84520; 85025; 86704; 86706; 86709; 87086; 87088; 87186; 87340

== ENCOUNTER 2025-01-05 08:31 | Outpatient (REF) | payer MEDICARE, SELFPAY ==
[2025-01-05 10:29] LABS: Appearance Urine Cloudy; PH 7.0 (5.0-9.0)
[2025-01-05 10:30] LABS: Glucose Urine UA Negative (Negative); Specific Gravity - Urine 1.020 (1.005-1.025); UMIC TRIGGER UACC YES
[2025-01-05 10:31] LABS: MANUAL DIFF FLAG NO
[2025-01-05 10:35] LABS: UACC Culture Trigger YES
[2025-01-05 10:41] LABS: Hematocrit 45.1 % (42.0-52.0); Hemoglobin 14.0 g/dl (14.0-18.0); Imm Gran Abs Auto 0.02 X10*3/uL (0.00-0.03); Imm Gran Pct Auto 0.4 % (0.0-0.4); Lymphocytes Absolute Auto 1.3 X10*3/uL (1.2-4.9); Mean Corpuscular HGB Conc 31.0 g/dl (31.0-36.0); Mean Corpuscular Hemoglobin 28.9 pg (27.0-33.0); Mean Corpuscular Volume 93.2 fL (80.0-98.0); NRBC Abs Auto 0.000 X10*3/uL (0.0-0.012); NRBC Pct Auto 0.0 /100WBC (0.0-0.2); Platelet Count 231 X10*3/uL (160-400); Red Blood Count 4.84 X10*6/uL (4.60-5.80); White Blood Count 5.5 X10*3/uL (4.8-10.8)
[2025-01-05 10:53] LABS: Alanine Aminotransferase 18 U/L (0-40); Albumin Level 4.1 g/dL (3.5-5.0); Alkaline Phosphatase 89 U/L (39-117); Anion Gap 9 (12-20); Aspartate Amino Transferase 27 U/L (5-37); Blood Urea Nitrogen 20 mg/dL (9-16); Calcium 8.8 mg/dL (8.4-10.2); Carbon Dioxide 28 mmol/L (22-29); Chloride 109 mmol/L (96-108); Estimated Glomerular Filt Rate 56; Potassium 4.7 mmol/L (3.3-5.1); Sodium 141 mmol/L (135-145); Total Protein 7.2 g/dL (6.5-8.0)
[2025-01-05 11:08] LABS: HBS Num1 0.00 mIU/mL (0-7.99); HBc Num1 0.14 S/CO (0.00-0.79); HBsAGNum1 0.46 S/CO (0.00-0.99); Hepatitis A Antibody IgM 0.16 Index (0-0.79); Hepatitis B Surface Antigen Negative (Negative); ~HepC Num1 0.12 S/CO (0.00-0.79); ~Hepatitis A Antibody IgM Nonreactive (Nonreactive); ~Hepatitis B Surface Antibody NONREACTIVE (Nonreactive); ~Hepatitis C Antibody Nonreactive (Nonreactive)
[2025-01-05 11:21] LABS: Parathyroid Hormone Intact 109.6 pg/mL (8.7-77.1)
[2025-01-09 18:53] LABS: Calcium, Ionized 5.0 mg/dL (4.7-5.5)
== END 2025-01-05 08:32 | disposition home or self-care (01) ==
LOC: HO.HMGCLDS 08:31
PROVIDERS: PCP Nurse Practitioner Family; Visit Provider Nurse Practitioner Family
DX: Z11.59 Encounter for screening for other viral diseases (principal); R79.89 Other specified abnormal findings of blood chemistry; E78.5 Hyperlipidemia, unspecified; Z72.89 Other problems related to lifestyle
CPT/HCPCS: 36415; 80053; 81001; 82330; 83970; 85025; 86704; 86706; 86709; 86803; 87086; 87088; 87186; 87340

== ENCOUNTER 2025-01-18 10:05 | Outpatient (REF) | payer MEDICARE, SELFPAY ==
--- OUTSIDE RECORDS SUMMARY | 2025-01-18 11:37 | XMS_ITS | Clinical Summary ---
Author Organization [facility] Address [address] [place] [address] [place] [address] Phone Care Team Providers Care Dixonac Operator Name Role Phone Jag Khan NP Primary Care Provider [phone] Allergies No known active allergies Medications Acetaminophen [...] chronic kidney disease 06/18/2023 Renal osteodystrophy 06/18/2023 Encounters Date Type Department Care Team Description 01/09/2025 1:30 PM EDT Office Visit [facility] [address] [place] [address] Allen Quintanilla MD Stage 3a chronic kidney disease (HCC) (Primary Dx); Renal osteodystrophy 12/22/2024 Orders Only [facility] [address] [facility] [address] [place] [address] Allen Quintanilla MD from Last 3 Months Family History Relation Status Comments Father Mother [...] Sign Reading Time Taken Comments Blood Pressure 129/62 01/09/2025 1:54 PM EDT Pulse 95 01/09/2025 1:54 PM EDT Temperature - - Respiratory Rate - - Oxygen Saturation 98% 01/09/2025 1:54 PM EDT Inhaled Oxygen Concentration - - Weight 94 kg (207 lb 3.2 oz) 01/09/2025 1:54 PM EDT Height - - Body Mass Index - - Plan of Treatment Upcoming Encounters Date Type Department Care Team (Late st Contact Info) Description 01/08/2026 1:45 PM EDT Office Visit [facility] [address] [place] [address] Allen Quintanilla MD [address] [facility] [address] [place] [address] Health Maintenance Due Date Last Done Comments Pneumococcal Vaccine: 50+ Ye ars (1 of 2 - PCV) 1966 Influenza Vaccine (#1) 2024 Hepatitis B Vaccine Aged Out No longe r eligible based on patient's age to complete this topic Procedures Procedure Name Priority Date/Time Associated Diagnosis Comments VITAMIN D 25 HYDROXY Routine 12/22/2024 2:41 PM EDT MAGNESIUM Routine 12/22/2024 2:41 PM EDT CALCIUM Routine 12/22/2024 2:41 PM EDT CREATININE, BLOOD Routine 12/22/2024 2:4 1 PM EDT BUN Routine 12/22/2024 2:41 PM EDT ELECTROLYTE PANEL Routine 12/22/2024 2:4 1 PM EDT PTH, INTACT (HC) Routine 12/22/2024 2:32 PM EDT CBC AND DIFFERENTIAL Routine 12/22/2024 2:29 PM EDT ALBUMIN, URINE, RANDOM Routine 12/22/2024 1:07 PM EDT from Last 3 Months Results * Creatinine (12/22/2024 2:41 PM EDT) Creatinine Serum 1.25 0.5 - 1.4 mg/dL See order comments eGFR (Calc) 56 See broderick r comments Comment: Chronic Kidney Disease: Estimated GFR < 60 mL/min/1.73m2 Severe Kidney Disease: Estimated GFR < 15 mL/min/1.73m2 12/22/2024 2:41 PM EDT 12/22/2024 2:41 PM EDT us Allen Quintanilla MD LAB BLOOD ORDERABLES Final Re sult [place] See order comments [place] [address] * (ABNORMAL) Vitamin D 25 Hydroxy (12/22/2024 2:41 PM EDT) Vitamin D, 25-Hydroxy 27.4(L) >30 ng/mL See order comments Comment: Health Based Reference Values* < 20 ng/mL Deficient 20-30 ng/mL Insufficient > 30 ng/mL Sufficient *Holick MF. N Engl J Med. 2007;357:266-280 There is no well-established upper level of normal vitamin D levels. Some laboratories use 50 ng/mL as an upper limit of normal. However, toxicity is patient-dependent and may occur at any level. Careful correlation with the patient's presentation is necessary and, if there is concern for vitamin D toxicity, treatment should be considered irrespective of the serum level. Care must be taken in interpreting Vitamin D results from different laboratories and methodologies. Published data demonstrated that results from patients undergoing hemodialysis may show a negative bias when tested with various automated 25-OH vitamin D assays when compared to LC-MS/MS. When testing samples from patients whose predominant form of Vitamin D is Vitamin D2, such as patients receiving Vitamin D2 supplementation, results that are subtherapeutic should be confirmed with another method such as LC-MS/MS. 12/22/2024 2:41 PM EDT 12/22/2024 2:41 PM EDT us Allen Quintanilla MD LAB BLOOD ORDERABLES Final Re sult Performing Organization Address [facility] de Phone Number [place] See order comments [place] [address] * (ABNORMAL) BUN (12/22/2024 2:41 PM EDT) BUN 22(H) 9 - 16 mg/dL See order comments 12/22/2024 2:41 PM EDT 12/22/2024 2:41 PM EDT us Allen Quintanilla MD LAB BLOOD ORDERABLES Final Re sult Performing Organization Address [facility] de Phone Number [place] See order comments [place] [address] * Magnesium (12/22/2024 2:41 PM EDT) Magnesium 2.2 1.6 - 2.6 mg/dL See order comments 12/22/2024 2:41 PM EDT 12/22/2024 2:41 PM EDT us Allen Quintanilla MD LAB BLOOD ORDERABLES Final Re sult Performing Organization Address [facility] Co de Phone Number [place] See order comments [place] [address] * Calcium (12/22/2024 2:41 PM EDT) Calcium 8.6 8.4 - 10.2 mg/dL See order comments 12/22/2024 2:41 PM EDT 12/22/2024 2:41 PM EDT us Allen Quintanilla MD LAB BLOOD ORDERABLES Final Re sult Performing Organization Address [facility] Co de Phone Number [place] See order comments [place] [address] * Electrolyte panel (12/22/2024 2:41 PM EDT) Sodium 142 135 - 145 mmol/L See order comments Potassium 4.6 3.3 - 5.1 mmol/L See order comments Chloride 108 96 - 108 mmol/L See order comments Bicarbonate (CO2) 25 22 - 29 mmol/L See order comments Anion Gap 14 12 - 20 See order comments 12/22/2024 2:41 PM EDT 12/22/2024 2:41 PM EDT us Allen Quintanilla MD LAB BLOOD ORDERABLES Final Re sult Performing Organization Address [facility] de Phone Number [place] See order comments [place] [address] * (ABNORMAL) PTH, Intact (12/22/2024 2:32 PM EDT) Parathyroid Hormone, Intact 106.3(H) 8.7 - 77.1 pg/mL See order comments 12/22/2024 2:32 PM EDT 12/22/2024 2:32 PM EDT us Allen Quintanilla MD LAB [id number] SOLICITED RESULTS Final Result Performing Organization Address [facility] Co de Phone Number [place] See order comments [place] [address] * (ABNORMAL) CBC and Differential (12/22/2024 2:29 PM EDT) WBC 5.9 4.8 - 10.8 X10*3/uL See order comments RBC 4.73 4.60 - 5.80 X10*6/uL See order comments Hgb 13.8(L) 14.0 - 18.0 g/dl See order comments Hematocrit 44.3 42.0 - 52.0 % See order comments MCV 93.7 80.0 - 98.0 fL See order comments MCH 29.2 27.0 - 33.0 pg See order comments MCHC 31.2 31.0 - 36.0 g/dl See order comments RDW 13.7 11.0 - 16.0 % See order comments Platelets 239 160 - 400 X10*3/uL See order comments MPV 9.4 9.4 - 12.4 fL See order comments Neutrophils % Auto 58.4 45 - 73 % See order comments Immature Granulocytes 0.2 0.0 - 0.4 % See order comments Lymphocytes Relative 22.8 20 - 40 % See order comments Monocytes 13.2(H) 2 - 11 % See order comments Eosinophils Relative 4.2(H) 0 - 4 % See order comments Basophils Relative 1.2 0 - 2 % See order comments nRBC Count 0.0 0.0 - 0.2 /100WBC See order comments Neutrophils Absolute 3.5 2.0 - 8.3 x10*3/uL See order comments Immature Grans (Absolute) 0.01 0.00 - 0.03 X10*3/uL See order comments Lymphocytes Absolute 1.4 1.2 - 4.9 X10*3/uL See order comments Monocytes Absolute 0.8 0.1 - 1.2 X10*3/uL See order comments Eosinophils Absolute 0.3 0.0 - 0.4 X10*3/uL See order comments Basophils Absolute 0.1 0.0 - 0.2 X10*3/uL See order comments NRBC Absolute 0.000 0.0 - 0.012 X10*3/uL See order comments 12/22/2024 2:29 PM EDT 12/22/2024 2:29 PM EDT us Allen Quintanilla MD LAB BLOOD ORDERABLES Final Re sult [place] See order comments [place] [address] * Albumin, urine, random (12/22/2024 1:07 PM EDT) Creatinine, Urine 230.21 mg/dL Se e order comments Urine Microalbumin 14.0 mg/L See order comments Microalbumin/Crea tinine Ratio 6.0 <30 ug/mg cr See order comments Comment: Albumin/Creatinine Ratio Reference Ranges: Normal: < 30 ug/mg creatinine Microalbuminuria: 30 - 300 ug/mg creatinine Clinical Albuminuria: > 300 ug/mg creatinine 12/22/2024 1:07 PM EDT 12/22/2024 1:07 PM EDT us Allen Quintanilla MD LAB URINE ORDERABLES Final Re sult Performing Organization Address City/[facility]/ZIP Co de Phone Number [place] See order comments [place] [address] from Last 3 Months Insurance Medicare [facility] Medicare [facility] Care Teams Dixonac Operator Relationship Specialty Start Date End Date Jag Khan NP [address] [facility] [place] [address] PCP - General Nurse Practitioner 08/28/21
--- OUTSIDE RECORDS SUMMARY | 2025-01-18 11:37 | XMS_ITS | Patient Health Record ---
Author Organization [facility] Address [address] [place] [address] Care Team Providers Care Forming Machine Operator Name Role Phone Mani Chen Primary Care Provider Omid Ortiz Unavailable [phone] Reason For Referral No Information Medications Medication SIG (Take, Route, Frequency, Duration) Notes Start Date End Date Status Pantoprazole Sodium 40 MG TAKE ONE TABLE T BY MOUTH EVERY DAY; Duration: 90 Active Social History Tobacco Use: Social [...] Problem Status W/U Status Risk Notes Problem Screening for malignant neoplasm of colon (241638219) Encounter for screening for malignant neoplasm of colon (Z12.11) Active confirmed Problem Gastroesophageal reflux disease (996163790) Gastroesophageal reflux disease, esophagitis presence not specified (K21.9) Active confirmed Plan Of Treatment Future Test Test Name Order Date COLONOSCOPY 06/30/2017 Insurance Providers Payer Name Payer Address Payer Phone Subscriber Number Group Number Insured Name Patient Relationship to Insured Coverage Start Date Coverage End Date MEDICARE OF [place] [address] [place] [address] [phone] [id number] PETR LARSEN Self - patient is the insured [employer] [address] [place] [address] [id number] PETR LARSEN Self - patient is the insured Medical (General) History Medical History History ICD Code Denies [place],DM,CVA,Lung disease,renal dise ase Neg screenong colonoscopy in 2006 except for a hyperplastic polyp, diverticulosis, and internal hemorrhoids GERD--2 EGD's in 2006 with e rosive esophagitis and an esophageal stricture--s/p balloon dilation--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
--- OUTSIDE RECORDS SUMMARY | 2025-01-18 11:37 | XMS_ITS | Patient Health Record ---
Author Organization [facility] kaitlin NoelMarcus Address [address] [place] [address] Care Team Providers Care Wet Pan Mixer Name Role Phone Jag Heath Primary Care Provider Unav ailable BlackIvory Unavailable [phone] Allergies No Known Allergies Reason For Referral No Information Medications Medication SIG (Take, Route, Frequency, Duration) Notes Start Date End Date Status Magnesium 400 MG as directed Orally Active eliquis 5 mg Active Entresto 24-26 MG 1 tablet Orally Twic e a day Active Metoprolol Succinate 25 MG 1 capsule Orally Once a day Active Ammonium Lactate 12 % 1 application Externally to affected areas of skin to feet except for between the toes Twice a day; Duration: 30 days Active Tylenol 325 MG 1 capsule as needed Orally every 6 hrs Active Ammonium Lactate 12 % 1 application Externally Twice a day; Duration: 30 days Not-Taking Atorvastatin Calcium 10 MG 1 tablet Orally Once a day Active Iron 325 (65 Fe) MG 1 tablet Orally Thre e times a Week Active Terazosin HCl 5 MG 1 capsule at bedtime Orally Once a day Active Finasteride 5 MG 1 tablet Orally Once a day Active Amiodarone HCl [...] atherosclerosis of arteries of lower limbs (disorder) (31863691626098615 ) Atherosclerosis of [place] artery of both lower extremities, with unspecified presence of clinical manifestation (I70.203) Active confirmed Q7(A), Q8(2B), Q9(1B,2 C) Vital Signs Blood pressure diastolic 70 mm Hg 01/05/2025 Height 5 ft 11 in in 01/05/2025 Blood pressure systolic 140 mm Hg 01/05/2025 Weight 195 lbs 01/05/2025 BMI 27.19 kg/m2 01/05/2025 Procedures Procedure Date Ordered Date Performed Result Body Sit e 56035-FGZLSZU NAIL, 6 OR MORE 04/18/2024 N/A 37125-HLJMWWH NAIL, 6 OR MORE 06/30/2024 N/A 88996-LMEEQZP NAIL, 6 OR MORE 10/06/2024 N/A 87917-GDIF SKIN LESIONS, 2 TO 4 10/06/2024 N/A 56081-OPGHLYI NAIL, 6 OR MORE 01/05/2025 N/A 93960-Muqjbgpa Plate 01/05/2025 N/A 19676-UVZT SKIN LESIONS, 2 TO 4 01/05/2025 N/A Encounters Encounter Location Date Provider Diagnosis [address] [address] 04/18/2024 Ivory Black Pain in left toe(s) M79.675 ; Onychomycosis B35.1 ; Pain in right toe(s) M79.674 and Xerosis of skin L85.[address] [address] 06/30/2024 Ivory Black Pain in left toe(s) M79.675 ; Onychomycosis B35.1 ; Pain in right toe(s) M79.674 and Atherosclerosis of [place] artery of both lower extremities, with unspecified presence of clinical manifestation I70.[address] [address] 10/06/2024 Ivory Black Onychomycosis B35.1 ; Atherosclerosis of [place] artery of both lower extremities, with unspecified presence of clinical manifestation I70.203 ; Pain in left toe(s) M79.675 ; Pain in right toe(s) M79.674 and Skin excoriation T14.8XXA [facility] [place] [address] [place] [address] 01/05/2025 Ivory Black Onychomycosis B35.1 ; Atherosclerosis of [place] artery of both lower extremities, with unspecified presence of clinical manifestation I70.203 ; Pain in left toe(s) M79.675 ; Pain in right toe(s) M79.674 ; Skin excoriation T14.8XXA and Ingrown nail L60.0 Assessments Encounter Date Diagnosis (ICD Code) Assessment Notes Treatment Notes Treatment Clinical Notes Section Notes 04/18/2024 Pain in left toe(s) (ICD-10 - M79.675) 04/18/2024 Onychomycosis (ICD-10 - B35.1) 06/30/2024 Pain in left toe(s) (ICD-10 - M79.675) 10/06/2024 Onychomycosis (ICD-10 - B35.1) 10/06/2024 Atherosclerosis of [place] artery of both lower extremities, with unspecified presence of clinical manifestation (ICD-10 - I70.203) Q7(A), Q8(2B), Q9(1B,2C) 01/05/2025 Onychomycosis (ICD-10 - B35.1) 01/05/2025 Atherosclerosis of [place] artery of both lower extremities, with unspecified presence of clinical manifestation (ICD-10 - I70.203) Q7(A), Q8(2B), Q9(1B,2C) 01/05/2025 Pain in left toe(s) (ICD-10 - M79.675) 10/06/2024 Pain in left toe(s) (ICD-10 - M79.675) 06/30/2024 Pain in right toe(s) (ICD-10 - M79.674) 06/30/2024 Onychomycosis (ICD-10 - B35.1) 04/18/2024 Pain in right toe(s) (ICD-10 - M79.674) 04/18/2024 Xerosis of skin (ICD-10 - L85.3) 06/30/2024 Atherosclerosis of [place] artery of both lower extremities, with unspecified presence of clinical manifestation (ICD-10 - I70.203) Q7(A), Q8(2B), Q9(1B,2C) 10/06/2024 Pain in right toe(s) (ICD-10 - M79.674) 01/05/2025 Pain in right toe(s) (ICD-10 - M79.674) 01/05/2025 Skin excoriation (ICD-10 - T14.8XXA) 10/06/2024 Skin excoriation (ICD-10 - T14.8XXA) 01/05/2025 Ingrown nail (ICD-10 - L60.0) 10/06/2024 Other Plan Of Treatment Pending Test Test Name Order Date [id number]-[id number] NAIL, 6 OR MORE 10/05/2023 51381-ECPCWSS NAIL, 6 OR MORE 01/18/2024 37179-FMWQEKQ NAIL, 6 OR MORE 04/18/2024 42048-DHACPIN NAIL, 6 OR MORE 06/30/2024 38840-HRHEOXF NAIL, 6 OR MORE 06/22/2023 68772-IYIBXWN NAIL, 6 OR MORE 10/06/2024 65860-DILJKME NAIL, 6 OR MORE 01/05/2025 36684-Vmqnpzct Plate 01/05/2025 44430-KOQS SKIN LESIONS, 2 TO 4 01/06/20 25 42551-TMYC SKIN LESIONS, 2 TO 4 10/07/19 24825-Vfol. Subungual Hematoma 4 Nail Panel 04/13/2023 Next Appt Details Provider Name:Ivory Soliz Ryan , 04/24/2025 08:30:00 AM, [address] [facility] [facility], [place], [address], Insurance Providers Payer Name Payer Address Payer Phone Subscriber Number Group Number Insured Name Patient Relationship to Insured Coverage Start Date Coverage End Date Medicare National [employer] [address] [place] [phone] [id number] Francois Ca Self - patient is the insured AARP Secondary to Medicare [address] [place] [address] [id number] Francois Ca Self - patient is the [...]
[2025-01-18 13:22] LABS: Appearance Urine Clear; Glucose Urine UA Negative (Negative); PH 5.5 (5.0-9.0); Specific Gravity - Urine 1.015 (1.005-1.025); UMIC TRIGGER UACC YES
[2025-01-18 13:52] LABS: UACC Culture Trigger YES
== END 2025-01-18 10:06 | disposition home or self-care (01) ==
LOC: HO.HMGCLDS 10:05
PROVIDERS: PCP Nurse Practitioner Family; Visit Provider Nurse Practitioner Family
DX: N40.1 Benign prostatic hyperplasia with lower urinary tract symptoms (principal); R33.8 Other retention of urine; N13.8 Other obstructive and reflux uropathy
CPT/HCPCS: 81001; 87086; 87088; 87186